=== PATIENT | female | born 1940 | race Caucasian/White ===

== ENCOUNTER → 2019-10-10 | Outpatient (CLI) | payer MEDICARE, OTHER, MEDICAID ==
--- NOTE | 2019-10-10 16:17 | Diagnostic Imaging Report ---
INDICATION: Fever and dizziness. EXAMINATION: PA and lateral chest. FINDINGS: There are postop changes from CABG surgery. The heart size and pulmonary vascularity are normal. The lungs are clear. There are no effusions or pneumothoraces. IMPRESSION: Post surgical changes. No acute abnormality is seen. Dictated by: Dictated on workstation # [id number]
== END ==
LOC: RAD FS 14:15
PROVIDERS: ATTEND Nurse Practitioner Family
DX: R50.9 Fever, unspecified (principal); R42 Dizziness and giddiness; Z95.1 Presence of aortocoronary bypass graft
CPT/HCPCS: 71046

== ENCOUNTER 2019-12-28 10:12 | Emergency (ER) | payer MEDICARE, OTHER, MEDICAID ==
[~2019-12-28] VITALS: Ht 154.9 cm; Wt 58.5 kg
[2019-12-28] MEDS ORDERED: methylPREDNISolone 125 MG (Solu-MEDROL) VIAL IVP ONE (10:45)
[2019-12-28] MEDS ORDERED: RT-ALBUTEROL/IPRATROPIUM 3 ML (DUONEB) VIAL INH ONE (10:45)
[2019-12-28] MEDS ORDERED: methylPREDNISolone 125 MG (Solu-MEDROL) VIAL ONE (10:49)
[2019-12-28] MEDS ORDERED: RT-ALBUTEROL/IPRATROPIUM 3 ML (DUONEB) VIAL ONE (10:49)
[2019-12-28 11:04] LABS: HEMATOCRIT 38 % (35-52); HEMOGLOBIN 12.5 G/DL (11.5-16.0); MEAN CORPUSCULAR HEMOGLOBIN 28 PG (25-34); MEAN CORPUSCULAR HGB CONC 33 G/DL (32-36); MEAN CORPUSCULAR VOLUME 83 FL (80-99); MEAN PLATELET VOLUME 10.9 FL (7.4-10.4); PLATELET COUNT 185 10^3/uL (130-400); RED CELL DISTRIBUTION WIDTH 14.5 % (10.0-14.5); WHITE BLOOD COUNT 27.6 10^3/uL (4.3-11.0)
[2019-12-28 11:05] LABS: BASOPHILS % (AUTO) 1 % (0-10); EOSINOPHILS % (AUTO) 0 % (0-10); LYMPHOCYTES # (AUTO) 0.9 X 10^3 (1.0-4.0); LYMPHOCYTES % (AUTO) 3 % (12-44); MONOCYTES % (AUTO) 4 % (0-12); NEUTROPHILS # (AUTO) 24.8 X 10^3 (1.8-7.8); NEUTROPHILS % (AUTO) 90 % (42-75)
[2019-12-28 11:12] LABS: INR 1.1 (0.8-1.4); PROTHROMBIN TIME PATIENT 15.1 SEC (12.2-14.7)
--- NOTE | 2019-12-28 11:13 | ED General ---
General Chief Complaint: Respiratory Problems Stated Complaint: FEVER; WHEEZING; O2 80 History of Present Illness Date Seen by Provider: Dec 28, 2019 Time Seen by Provider: 11:10 Initial Comments Patient presenting to the emergency department for evaluation of fever cough and shortness of breath. Patient lives at home with her son and had no recent hospitalizations antibiotics or steroids at their aware of. Patient has felt ill for approximately week and went to primary care provider today and had a fe cata of 102.6 there and was sent here for further evaluation. Patient is on baseline 2 L oxygen and superiorly she has obstructive sleep apnea. She was satting 78% on her baseline 2 L and was then increased to 4 L and her oxygen saturation improved to 90%. She has history of coronary artery disease and may have COPD as well as she is prescribed a nebulizer. She appears to be in moderate respiratory distress but is nontoxic. Allergies and Home Medications Allergies Coded Allergies: Penicillins (Unverified Adverse Reaction, Mild, nausea and vomiting, 12/28/19) from [facility] cefixime (Unverified Adverse Reaction, Mild, nausea and vomiting, 12/28/19) from [facility] Suprax (Cefixime) cephalexin (Unverified Adverse Reaction, Mild, nausea and vomiting, 12/28/19) from [facility] esomeprazole (Unverified Adverse Reaction, Mild, Rash, 12/28/19) from [facility] guaifenesin (Unverified Adverse Reaction, Mild, nausea and vomiting, 0) from [facility] (Guaifed) hydrocodone (Unverified Adverse Reaction, Mild, rash, 12/28/19) from [facility] (Hydrocodone-acetaminophen) omeprazole (Unverified Adverse Reaction, Mild, rash, 12/28/19) from [facility] oxycodone (Unverified Adverse Reaction, Mild, rash, 12/28/19) from [facility] pantoprazole (Unverified Adverse Reaction, Mild, rash, 12/28/19) from [facility] phenylephrine (Unverified Adverse Reaction, Mild, Nausea andd vomiting, 12/28/19) from [facility] (Guaifed) sucralfate (Unverified Adverse Reaction, Mild, Itching, 12/28/19) from [facility] hydrochlorothiazide (Unverified Adverse Reaction, Unknown, 12/28/19) from [facility] (Spironolacton-hydrochlorothiaz) ibuprofen (Unverified Adverse Reaction, Unknown, 12/28/19) from [facility] metoclopramide (Unverified Adverse Reaction, Unknown, 12/28/19) from [facility] prochlorperazine (Unverified Adverse Reaction, Unknown, 12/28/19) from [facility] spironolactone (Unverified Adverse Reaction, Unknown, 12/28/19) from [facility] (Spironolacton-hydrochlorothiaz) Patient Home Medication List Home Medication List Reviewed: Yes Review of Systems Review of Systems Constitutional: fever EENTM: no symptoms reported Respiratory: cough, short of breath Cardiovascular: no symptoms reported Gastrointestinal: no symptoms reported Genitourinary: no symptoms reported Musculoskeletal: no symptoms reported Skin: no symptoms reported Psychiatric/Neurological: No Symptoms Reported All Other Systems Reviewed Negative Unless Noted: Yes Past Bvzqsei-Zxsynf-Ultemb Hx Patient Social History Recent Foreign Travel: No Physical Exam Vital Signs Vital Signs - First Documented 12/28/19 10:17 Temp 37.6 Pulse 76 Resp 22 B/P (MAP) 135/40 (71) Pulse Ox 91 O2 Delivery Nasal Cannula O2 Flow Rate 4.00 Capillary Refill : Height, Weight, BMI Height: '" Weight: lbs. oz. kg; BMI Method: General Appearance: Chronically ill, Moderate Distress HEENT: PERRL/EOMI Neck: Supple Respiratory: Decreased Breath Sounds, Rhonci, Wheezing Cardiovascular: Regular Rate, Rhythm Extremity: Normal Capillary Refill Neurologic/Psychiatric: Alert, Oriented x3 Skin: Warm/Dry Focused Exam Lactate Level 12/28/19 10:35: Lactic Acid Level 1.15 Lactic Acid Level Laboratory Tests Test 12/28/19 10:35 Lactic Acid Level 1.15 MMOL/L (0.50-2.00) Progress/Results/Core Measures Suspected Sepsis SIRS Temperature: Pulse: Respiratory Rate: Laboratory Tests 12/28/19 10:35: White Blood Count 27.6H Blood Pressure / Mean: 12/28/19 10:35: Lactic Acid Level 1.15 Laboratory Tests 12/28/19 10:35: Creatinine 1.37H, INR Comment 1.1, Platelet Count 185, Total Bilirubin 1.2H Results/Orders Lab Results Laboratory Tests Test 12/28/19 10:35 Range/Units White Blood Count 27.6 H 4.3-11.0 10^3/uL Red Blood Count 4.53 4.35-5.85 10^6/uL Hemoglobin 12.5 11.5-16.0 G/DL Hematocrit 38 35-52 % Mean Corpuscular Volume 83 80-99 FL Mean Corpuscular Hemoglobin 28 25-34 PG Mean Corpuscular Hemoglobin Concent 33 32-36 G/DL Red Cell Distribution Width 14.5 10.0-14.5 % Platelet Count 185 130-400 10^3/uL Mean Platelet Volume 10.9 H 7.4-10.4 FL Neutrophils (%) (Auto) 90 H 42-75 % Lymphocytes (%) (Auto) 3 L 12-44 % Monocytes (%) (Auto) 4 0-12 % Eosinophils (%) (Auto) 0 0-10 % Basophils (%) (Auto) 1 0-10 % Neutrophils # (Auto) 24.8 H 1.8-7.8 X 10^3 Lymphocytes # (Auto) 0.9 L 1.0-4.0 X 10^3 Monocytes # (Auto) 1.0 0.0-1.0 X 10^3 Eosinophils # (Auto) 0.0 0.0-0.3 10^3/uL Basophils # (Auto) 0.0 0.0-0.1 10^3/uL Neutrophils % (Manual) 94 % Lymphocytes % (Manual) 2 % Monocytes % (Manual) 1 % Eosinophils % (Manual) 0 % Basophils % (Manual) 0 % Metamyelocytes % 0 % Myelocytes % 1 % Band Neutrophils 2 % Prothrombin Time 15.1 H 12.2-14.7 SEC INR Comment 1.1 0.8-1.4 Activated Partial Thromboplast Time 32 24-35 SEC Sodium Level 130 L 135-145 MMOL/L Potassium Level 3.5 L 3.6-5.0 MMOL/L Chloride Level 92 L 98-107 MMOL/L Carbon Dioxide Level 26 21-32 MMOL/L Anion Gap 12 5-14 MMOL/L Blood Urea Nitrogen 38 H 7-18 MG/DL Creatinine 1.37 H 0.60-1.30 MG/DL Estimat Glomerular Filtration Rate 37 BUN/Creatinine Ratio 28 Glucose Level 217 H 70-105 MG/DL Lactic Acid Level 1.15 0.50-2.00 MMOL/L Calcium Level 9.1 8.5-10.1 MG/DL Corrected Calcium 9.7 8.5-10.1 MG/DL Magnesium Level 2.4 1.6-2.4 MG/DL Total Bilirubin 1.2 H 0.1-1.0 MG/DL Aspartate Amino Transf (AST/SGOT) 34 5-34 U/L Alanine Aminotransferase (ALT/SGPT) 24 0-55 U/L Alkaline Phosphatase 107 40-136 U/L Troponin I < 0.30 <0.30 NG/ML Pro-B-Type Natriuretic Peptide 1579.0 H <75.0 PG/ML Total Protein 6.8 6.4-8.2 GM/DL Albumin 3.2 3.2-4.5 GM/DL My Orders Orders - MARYJANE MILLER DO Chest 1 View Ap/Pa Only (12/28/19 10:42) Ua Culture If Indicated (12/28/19 10:42) Troponin I Fs (12/28/19 10:42) Cbc With Automated Diff (12/28/19 10:42) Comprehensive Metabolic Panel (12/28/19 10:42) Lactic Acid Analyzer (12/28/19 10:42) Blood Culture (12/28/19 10:42) Magnesium (12/28/19 10:42) Partial Thromboplastin Time (12/28/19 10:42) Probnp Fs (12/28/19 10:42) Protime With Inr (12/28/19 10:42) Albuterol/Ipra Inhalation Soln (Duoneb I (12/28/19 10:45) Methylprednisolone Sod Succ (Solu-Medrol (12/28/19 10:45) Svn Small Volume Nebulizer (12/28/19 10:42) Blood Culture (12/28/19 10:52) Manual Differential (12/28/19 10:35) Levofloxacin 750 Mg/150 Ml Iv (Levaquin (12/28/19 11:15) Potassium Chloride (Tablet) (K Dur Table (12/28/19 12:00) Ns Iv 1000 Ml (Sodium Chloride 0.9%) (12/28/19 12:00) Medications Given in ED Current Medications Medications Dose Ordered Sig/Wilfrid Route Start Time Stop Time Status Last Admin Dose Admin Albuterol/ Ipratropium 3 ml ONCE ONCE INH 12/28/19 10:45 12/28/19 10:46 DC 12/28/19 10:56 3 ML Levofloxacin/ Dextrose 150 ml @ 100 mls/hr ONCE ONCE IV 12/28/19 11:15 12/28/19 12:44 12/28/19 11:55 100 MLS/HR Methylprednisolone Sodium Succinate 125 mg ONCE ONCE IVP 12/28/19 10:45 12/28/19 10:46 DC 12/28/19 10:56 125 MG Potassium Chloride 40 meq ONCE ONCE PO 12/28/19 12:00 12/28/19 12:01 DC 12/28/19 12:00 40 MEQ Vital Signs/I&O 12/28/19 10:17 Temp 37.6 Pulse 76 Resp 22 B/P (MAP) 135/40 (71) Pulse Ox 91 O2 Delivery Nasal Cannula O2 Flow Rate 4.00 Capillary Refill : Progress Note : Progress Note Patient likely does have infection given her leukocytosis. She will be started on Levaquin for likely community-acquired pneumonia. She was also given Solu- Medrol and a breathing treatment and said she was feeling somewhat better but her oxygen remained in the 90-92% range on 4 L. I reviewed her chest x-ray appears that she has a right-sided pneumonia and possibly an effusion as well. Given she is requiring more oxygen and appears to have infection with multiple comorbidities inpatient treatment is most appropriate for her in my opinion. [facility] stated that they are on MedSurg diversion. I spoke to Dr. Acosta who is the hospitalist at [facility] and she agreed to take the patient for admission. Patient is hemodynamically stable at this time with a normal lactic acid and does not meet sepsis criteria. She'll be transferred in guarded condition. Departure Impression Primary Impression: CAP (community acquired pneumonia) Qualified Codes: J18.1 - Lobar pneumonia, unspecified organism Additional Impressions: Hypoxia Hyponatremia Hypokalemia Elevated brain natriuretic peptide (BNP) level Disposition: [facility]-TRM HOSP Condition: Improved Transfer Transfer Reason: Exceeds level of care Time Spoke to Accepting Phy: 11:45 Transfer Facility: [place] Method of Transfer: EMS Departure-Patient Inst. Referrals: [facility] (PCP) Primary Care Physician ANA THOMAS APRN (Family) Primary Care Physician MARYJANE MILLER DO Dec 28, 2019 11:13
[2019-12-28] MEDS ORDERED: LEVOFLOXACIN 750 MG/150 ML IV 150 ML IV ONE ×2 (11:15→11:49)
[2019-12-28] MEDS ORDERED: MECL-106 (11:24)
[2019-12-28] MEDS ORDERED: POTA20TA15 (11:24)
[2019-12-28] MEDS ORDERED: FAMO40TA6 (11:24)
[2019-12-28] MEDS ORDERED: ALPR0.5T7 (11:24)
[2019-12-28 11:26] LABS: BAND NEUTROPHILS 2 %; BASOPHILS % (MANUAL) 0 %; EOSINOPHILS % (MANUAL) 0 %; LYMPHOCYTES % (MANUAL) 2 %; METAMYELOCYTES % 0 %; MONOCYTES % (MANUAL) 1 %; MYELOCYTES % 1 %; NEUTROPHILS % (MANUAL) 94 %
[2019-12-28 11:43] LABS: BUN/CREATININE RATIO 28; CALCIUM 9.1 MG/DL (8.5-10.1); CARBON DIOXIDE 26 MMOL/L (21-32); CHLORIDE 92 MMOL/L (98-107); CREATININE SERUM 1.37 MG/DL (0.60-1.30); GFR ESTIMATED 37; GLUCOSE 217 MG/DL (70-105); POTASSIUM 3.5 MMOL/L (3.6-5.0); SODIUM 130 MMOL/L (135-145)
[2019-12-28 11:44] LABS: ALANINE AMINOTRANSFERASE 24 U/L (0-55); ALBUMIN 3.2 GM/DL (3.2-4.5); ALKALINE PHOSPHATASE 107 U/L (40-136); BILIRUBIN,TOTAL 1.2 MG/DL (0.1-1.0); MAGNESIUM 2.4 MG/DL (1.6-2.4); TOTAL PROTEIN 6.8 GM/DL (6.4-8.2)
[2019-12-28] MEDS ORDERED: KCL 20 MEQ TAB (K-DUR) PO ONE ×2 (11:53→12:00)
[2019-12-28] MEDS ORDERED: NS IV 1000 ML 1,000 ML ONE (11:53)
[2019-12-28] MEDS ORDERED: NS IV 1000 ML 1,000 ML IV SCH (12:00)
[2019-12-28 13:10] VITALS: BP 132/49
[2019-12-28 13:21] LABS: CLARITY,URINE SLT CLOUDY; COLOR,URINE YELLOW; PH,URINE 5.5 (5-9)
[2019-12-28 13:22] LABS: AMORPHOUS SEDIMENT,UR FEW AMOR URATES /LPF; BACTERIA,URINE FEW /HPF; BILIRUBIN,URINE NEGATIVE (NEGATIVE); GLUCOSE, URINE (UA) NEGATIVE (NEGATIVE); KETONES,URINE NEGATIVE (NEGATIVE); LEUKOCYTE ESTERASE ,URINE 2+ (NEGATIVE); NITRITE,URINE NEGATIVE (NEGATIVE); PROTEIN,URINE 1+ (NEGATIVE); SQUAMOUS EPITHELIAL CELL,UR 0-2 /HPF
[2019-12-28 13:23] LABS: GRANULAR CASTS,URINE 0-2 /LPF
--- NOTE | 2019-12-28 14:24 | Diagnostic Imaging Report ---
INDICATION: Infiltrate. TECHNIQUE: Single view chest 11:11 AM. CORRELATION STUDY: 10/10/2019 FINDINGS: Post sternotomy changes with coronary artery bypass. Heart size and mediastinum are generally stable. Vasculature is slightly increased from prior study. There has been development of patchy infiltrate at both lung bases right greater than left along with small effusions. Additional somewhat nodular density left mid lung field is also present, partially obscured by overlying monitor leads. Sclerotic curvature with the thoracolumbar spine. Marked chronic degenerative changes and deformity left shoulder. IMPRESSION: 1. Development of bilateral pulmonary infiltrates right greater than left along with small effusions. Findings favor probable multilobe pneumonia. Follow-up imaging is recommended as there is additional areas of nodularity suggested as well. 2. Heart size stable, vascular slightly increased from prior study. Dictated by: Dictated on workstation # [id number]
== END 2019-12-28 13:10 | disposition short-term general hospital (02) ==
LOC: EDUNIT# 10:12 → ER FS 10:14
DX: J18.9 Pneumonia, unspecified organism (principal); R09.02 Hypoxemia; E87.1 Hypo-osmolality and hyponatremia; E87.6 Hypokalemia; R79.89 Other specified abnormal findings of blood chemistry; Z88.0 Allergy status to penicillin; Z88.1 Allergy status to other antibiotic agents; Z88.5 Allergy status to narcotic agent; Z88.8 Allergy status to other drugs, medicaments and biological substances; Z88.6 Allergy status to analgesic agent
CPT/HCPCS: 36415; 71045; 80053; 81000; 83605; 83735; 83880; 84484; 85007; 85027; 85610; 85730; 87040; 87088; 94640; 96365; 96375

== ENCOUNTER → 2020-04-08 | Outpatient (CLI) | payer MEDICARE, OTHER, MEDICAID ==
[~2020-04-08] MED LIST: ALPR0.5T7; FAMO40TA6; L. A1TAB10; MAGN296S71 PO; MECL-149; POTA20TA15; TRAM50TA3
--- NOTE | 2020-04-08 18:41 | Diagnostic Imaging Report ---
EXAM: 2 views of the abdomen INDICATION: History of colon cancer. Intermittent diarrhea. FINDINGS: There are no findings of significant bowel dilation to suggest a bowel obstruction. There are a few gas-filled loops of small and large bowel. There are surgical clips in the upper quadrant as well as apparent prior surgical enteric chain sutures. Nondilated small bowel demonstrates a few air-fluid levels in the upright view. There is no free air below the diaphragms. There is mild blunting of both costophrenic angles which may be chronic. The patient is status post prior bypass grafting. There is thoracolumbar scoliosis. IMPRESSION: 1. A few air-fluid levels on the upright view within nondilated loops of bowel. There are no features to suggest current obstruction. There are no findings of free air. Dictated by: Dictated on workstation # [id number]
== END ==
LOC: RAD FS 17:34
PROVIDERS: ATTEND Nurse Practitioner Family
DX: R19.7 Diarrhea, unspecified (principal)
CPT/HCPCS: 74019

== ENCOUNTER 2020-04-10 12:28 | Emergency (ER) | payer MEDICARE, OTHER, MEDICAID ==
[~2020-04-10] VITALS: Ht 160 cm; Wt 59.7 kg
[~2020-04-10 12:28] MED LIST changes: -L. A1TAB10; -MAGN296S71 PO; -TRAM50TA3
[2020-04-10 13:30] LABS: BASOPHILS % (AUTO) 0 % (0-10); EOSINOPHILS % (AUTO) 3 % (0-10); HEMATOCRIT 39 % (35-52); HEMOGLOBIN 12.6 G/DL (11.5-16.0); LYMPHOCYTES # (AUTO) 1.5 X 10^3 (1.0-4.0); LYMPHOCYTES % (AUTO) 22 % (12-44); MEAN CORPUSCULAR HEMOGLOBIN 28 PG (25-34); MEAN CORPUSCULAR HGB CONC 32 G/DL (32-36); MEAN CORPUSCULAR VOLUME 86 FL (80-99); MEAN PLATELET VOLUME 10.7 FL (7.4-10.4); MONOCYTES % (AUTO) 8 % (0-12); NEUTROPHILS # (AUTO) 4.7 X 10^3 (1.8-7.8); NEUTROPHILS % (AUTO) 67 % (42-75); PLATELET COUNT 267 10^3/uL (130-400); RED CELL DISTRIBUTION WIDTH 13.6 % (10.0-14.5); WHITE BLOOD COUNT 7.1 10^3/uL (4.3-11.0)
[2020-04-10 13:31] LABS: EOSINOPHILS # (AUTO) 0.2 10^3/uL (0.0-0.3); MONOCYTES # (AUTO) 0.6 X 10^3 (0.0-1.0)
--- NOTE | 2020-04-10 13:39 | ED Abdominal Pain ---
General Chief Complaint: Abdominal/GI Problems Stated Complaint: BOWEL CONSTIPATION History of Present Illness Date Seen by Provider: April 10, 2020 Time Seen by Provider: 13:34 Initial Comments Patient presenting to emergency department for evaluation of abdominal pain that she says has been an issue for the past 5-7 days. She had diarrhea on Wednesday and her doctor told her to take an Imodium which helped the diarrhea however the diarrhea returned again on Wednesday and she took another Imodium and now she has not had a bowel movement for the past 2 days and she feels constipated. The abdominal pain has been an off and on issue and she says it is worse primarily in the right lower quadrant. She denies any other symptoms including no fevers chills nausea vomiting dysuria. She says her only abdominal surgery is having 14 inches of her colon removed for prior cancer. She is in no obvious distress with normal vital signs and says she is pain-free at this time but when she gets the pain it can be up to an 8 out of 10. Allergies and Home Medications Allergies Coded Allergies: clindamycin (Unverified Allergy, Severe, Anaphylaxis, 04/10/20) ondansetron (Unverified Allergy, Severe, Anaphylaxis, 04/10/20) prednisone (Unverified Adverse Reaction, Intermediate, Confusion, 04/10/20) Penicillins (Unverified Adverse Reaction, Mild, nausea and vomiting, 12/28/19) from [facility] cefixime (Unverified Adverse Reaction, Mild, nausea and vomiting, 12/28/19) from [facility] Suprax (Cefixime) cephalexin (Unverified Adverse Reaction, Mild, nausea and vomiting, 12/28/19) from [facility] esomeprazole (Unverified Adverse Reaction, Mild, Rash, 12/28/19) from [facility] guaifenesin (Unverified Adverse Reaction, Mild, nausea and vomiting, 12/28/19) from [facility] (Guaifed) hydrocodone (Unverified Adverse Reaction, Mild, rash, 12/28/19) from [facility] (Hydrocodone-acetaminophen) omeprazole (Unverified Adverse Reaction, Mild, rash, 12/28/19) from [facility] oxycodone (Unverified Adverse Reaction, Mild, rash, 12/28/19) from [facility] pantoprazole (Unverified Adverse Reaction, Mild, rash, 12/28/19) from [facility] phenylephrine (Unverified Adverse Reaction, Mild, Nausea andd vomiting, 12/28/19) from [facility] (Guaifed) sucralfate (Unverified Adverse Reaction, Mild, Itching, 12/28/19) from [facility] Sulfa (Sulfonamide Antibiotics) (Unverified Adverse Reaction, Unknown, 04/10/20) celecoxib (Unverified Adverse Reaction, Unknown, 04/10/20) hydrochlorothiazide (Unverified Adverse Reaction, Unknown, 12/28/19) from [facility] (Spironolacton-hydrochlorothiaz) ibuprofen (Unverified Adverse Reaction, Unknown, 12/28/19) from [facility] metoclopramide (Unverified Adverse Reaction, Unknown, 12/28/19) from [facility] prochlorperazine (Unverified Adverse Reaction, Unknown, 12/28/19) from [facility] spironolactone (Unverified Adverse Reaction, Unknown, 12/28/19) from [facility] (Spironolacton-hydrochlorothiaz) Patient Home Medication List Home Medication List Reviewed: Yes Review of Systems Review of Systems Constitutional: no symptoms reported EENTM: No Symptoms Reported Respiratory: No Symptoms Reported Cardiovascular: No Symptoms Reported Gastrointestinal: Abdominal Pain, Constipated, Diarrhea Genitourinary: No Symptoms Reported Musculoskeletal: no symptoms reported Psychiatric/Neurological: No Symptoms Reported All Other Systems Reviewed Negative Unless Noted: Yes Past Xmbzcoz-Fpptqw-Mhaaqf Hx Patient Social History 2nd Hand Smoke Exposure: No Recent Foreign Travel: No Contact w/Someone Who Travel: No Recent Hopitalizations: No Seasonal Allergies Seasonal Allergies: No Past Medical History Surgeries: Yes (Colonoscopy w/polypectomy, Quad CABG, heart cath) Bowel Surgery, CABG, Gallbladder Respiratory: Yes (Hx pneumonia, chronic obstructive airway, Nocturnal O2 2L) Pneumonia, COPD Cardiac: Yes (Quadruple bypass) Coronary Artery Disease, High Cholesterol, Hypertension Neurological: No Genitourinary: No Gastrointestinal: Yes (Hx reflux esophagitis/duodenitis, Hx tubulovillous adenoma) Gastroesophageal Reflux, Esophagitis Musculoskeletal: Yes (Hx fx shoulder) Fractures Endocrine: Yes (Hx DM on [facility]) Diabetes, Non-Insulin dep HEENT: No Cancer: No Psychosocial: Yes (Rx for Xanax on pharmacy file) Anxiety Blood Disorders: No Physical Exam Vital Signs Vital Signs - First Documented 04/10/20 12:35 Temp 36.8 Pulse 67 Resp 16 B/P (MAP) 146/56 (86) Pulse Ox 95 O2 Delivery Room Air Capillary Refill : Height/Weight/BMI Height: '" Weight: lbs. oz. kg; 24.00 BMI Method: General Appearance: WD/WN, no apparent distress Neck: supple Respiratory: no respiratory distress Cardiovascular: regular rate, rhythm Gastrointestinal: normal bowel sounds, non tender, soft Extremities: normal capillary refill Neurologic/Psychiatric: alert, oriented x 3 Skin: warm/dry Progress/Results/Core Measures Results/Orders Lab Results Laboratory Tests Test 04/10/20 13:05 04/10/20 13:38 Range/Units White Blood Count 7.1 4.3-11.0 10^3/uL Red Blood Count 4.56 4.35-5.85 10^6/uL Hemoglobin 12.6 11.5-16.0 G/DL Hematocrit 39 35-52 % Mean Corpuscular Volume 86 80-99 FL Mean Corpuscular Hemoglobin 28 25-34 PG Mean Corpuscular Hemoglobin Concent 32 32-36 G/DL Red Cell Distribution Width 13.6 10.0-14.5 % Platelet Count 267 130-400 10^3/uL Mean Platelet Volume 10.7 H 7.4-10.4 FL Neutrophils (%) (Auto) 67 42-75 % Lymphocytes (%) (Auto) 22 12-44 % Monocytes (%) (Auto) 8 0-12 % Eosinophils (%) (Auto) 3 0-10 % Basophils (%) (Auto) 0 0-10 % Neutrophils # (Auto) 4.7 1.8-7.8 X 10^3 Lymphocytes # (Auto) 1.5 1.0-4.0 X 10^3 Monocytes # (Auto) 0.6 0.0-1.0 X 10^3 Eosinophils # (Auto) 0.2 0.0-0.3 10^3/uL Basophils # (Auto) 0.0 0.0-0.1 10^3/uL Sodium Level 140 135-145 MMOL/L Potassium Level 4.3 3.6-5.0 MMOL/L Chloride Level 98 98-107 MMOL/L Carbon Dioxide Level 30 21-32 MMOL/L Anion Gap 12 5-14 MMOL/L Blood Urea Nitrogen 28 H 7-18 MG/DL Creatinine 1.19 0.60-1.30 MG/DL Estimat Glomerular Filtration Rate 44 BUN/Creatinine Ratio 24 Glucose Level 146 H 70-105 MG/DL Calcium Level 9.9 8.5-10.1 MG/DL Corrected Calcium 9.9 8.5-10.1 MG/DL Total Bilirubin 0.4 0.1-1.0 MG/DL Aspartate Amino Transf (AST/SGOT) 18 5-34 U/L Alanine Aminotransferase (ALT/SGPT) 14 0-55 U/L Alkaline Phosphatase 110 40-136 U/L Total Protein 7.2 6.4-8.2 GM/DL Albumin 4.0 3.2-4.5 GM/DL Lipase 20 8-78 U/L Urine Color PALE YELLOW Urine Clarity CLEAR Urine pH 6.0 5-9 Urine Specific Buchanan <=1.005 1.016-1.022 Urine Protein NEGATIVE NEGATIVE Urine Glucose (UA) NEGATIVE NEGATIVE Urine Ketones NEGATIVE NEGATIVE Urine Nitrite NEGATIVE NEGATIVE Urine Bilirubin NEGATIVE NEGATIVE Urine Urobilinogen 0.2 < = 1.0 MG/DL Urine Leukocyte Esterase TRACE H NEGATIVE Urine RBC (Auto) NEGATIVE NEGATIVE Urine RBC RARE /HPF Urine WBC 5-10 H /HPF Urine Squamous Epithelial Cells 0-2 /HPF Urine Crystals NONE /LPF Urine Bacteria TRACE /HPF Urine Casts NONE /LPF Urine Mucus NEGATIVE /LPF Urine Culture Indicated YES My Orders Orders - MARYJANE MILLER DO Cbc With Automated Diff (04/10/20 12:45) Comprehensive Metabolic Panel (04/10/20 12:45) Lipase (04/10/20 12:45) Ua Culture If Indicated (04/10/20 12:45) Iv/Invasive Line Insertion .IV start (04/10/20 12:45) Ct Abdomen/Pelvis W (04/10/20 12:45) Iohexol Injection (Omnipaque 350 Mg/Ml 1 (04/10/20 14:00) Received Contrast (Hold Metformin- Contr (04/10/20 14:00) Sodium Chloride Flush (Catheter Flush Sy (04/10/20 14:00) Ns (Ivpb) (Sodium Chloride 0.9% Ivpb Bag (04/10/20 14:00) Urine Culture (04/10/20 13:38) Medications Given in ED Current Medications Medications Dose Ordered Sig/Wilfrid Route Start Time Stop Time Status Last Admin Dose Admin Iohexol 75 ml ONCE ONCE IV 04/10/20 14:00 04/10/20 14:01 DC 04/10/20 14:14 75 ML Sodium Chloride 10 ml NEEDED PRN IV 04/10/20 14:00 04/10/20 14:14 10 ML Sodium Chloride 100 ml ONCE ONCE IV 04/10/20 14:00 04/10/20 14:01 DC 04/10/20 14:14 80 ML Vital Signs/I&O 04/10/20 12:35 Temp 36.8 Pulse 67 Resp 16 B/P (MAP) 146/56 (86) Pulse Ox 95 O2 Delivery Room Air Progress Progress Note : Progress Note Patient with nonspecific abdominal pain that certainly could be due to constipation or enteritis I will check labs imaging and reassess. Patient's workup was unremarkable for acute surgical pathology but there is some concerning findings with possible mild urinary tract infection but more significantly she may have a kidney stone that she has hydroureter and hydronephrosis it appears that this is her only functioning kidney. Her renal function is normal fortunately and she is having no pain here. I discussed this with Dr. Hook and he said that he would be willing to see the patient in his office. He thinks that there may be a kidney stone hydrating due to the CT having contrast. I told patient to drink plenty of fluids and she could take tramadol for her pain and she could take magnesium citrate for her constipation. I discussed starting her on antibiotics however she said she is allergic to most antibiotics I will defer antibiotic at this time. I told her to follow with primary care provider or urologist within 2-3 days to ensure improvement and come back to the ED sooner with worsening pain fevers vomiting or other general concerns. Patient aware and agreeable with plan for discharge and verbalized understanding of the above instructions. Departure Impression Primary Impression: Hydronephrosis Additional Impressions: Hydroureter Constipation Abdominal pain Disposition: HOME, SELF-CARE Condition: Stable Departure-Patient Inst. Referrals: [facility]/ (PCP) Primary Care Physician ANA THOMAS APRN (Family) Primary Care Physician Patient Instructions: Acute Abdomen (Belly Pain), Adult (DC) Scripts Magnesium Citrate (Magnesium Citrate) 296 Ml Solution 296 ML PO ONCE, #1 EA Prov: MARYJANE MILLER DO 04/10/20 MARYJANE MILLER DO April 10, 2020 13:39
[2020-04-10 13:44] LABS: CREATININE SERUM 1.19 MG/DL (0.60-1.30); POTASSIUM 4.3 MMOL/L (3.6-5.0)
[2020-04-10 13:45] LABS: BILIRUBIN,TOTAL 0.4 MG/DL (0.1-1.0); CALCIUM 9.9 MG/DL (8.5-10.1); TOTAL PROTEIN 7.2 GM/DL (6.4-8.2)
[2020-04-10] MEDS ORDERED: L. A1TAB10 (13:58)
[2020-04-10] MEDS ORDERED: TRAM50TA3 (13:58)
[2020-04-10 14:00] LABS: BILIRUBIN,URINE NEGATIVE (NEGATIVE); CLARITY,URINE CLEAR; COLOR,URINE PALE YELLOW; GLUCOSE, URINE (UA) NEGATIVE (NEGATIVE); KETONES,URINE NEGATIVE (NEGATIVE); LEUKOCYTE ESTERASE ,URINE TRACE (NEGATIVE); NITRITE,URINE NEGATIVE (NEGATIVE); PROTEIN,URINE NEGATIVE (NEGATIVE); RBC,URINE RARE /HPF
[2020-04-10] MEDS ORDERED: CATHETER FLUSH 10 ML SYR IV PRN (14:00)
[2020-04-10] MEDS ORDERED: HOLD METFORMIN - RECEIVED CONTRAST 20 ML VIAL IV SCH (14:00)
[2020-04-10] MEDS ORDERED: NS 100 ML (IVPB) BAG IV ONE (14:00)
[2020-04-10] MEDS ORDERED: IOHEXOL 350 MG/ML 100 ML (OMNIPAQUE 350) VIAL IV ONE (14:00)
[2020-04-10 14:01] LABS: BACTERIA,URINE TRACE /HPF; SQUAMOUS EPITHELIAL CELL,UR 0-2 /HPF
--- NOTE | 2020-04-10 14:34 | Diagnostic Imaging Report ---
PROCEDURE: CT abdomen and pelvis with contrast. TECHNIQUE: Multiple contiguous axial images were obtained through the abdomen and pelvis after administration of intravenous contrast. Auto Exposure Controls were utilized during the CT exam to meet ALARA standards for radiation dose reduction. INDICATION: Abdominal distention. Patient has history of colon carcinoma. COMPARISON: No prior studies are available for comparison. FINDINGS: Lung bases demonstrate areas of linear scarring or atelectasis. No discrete liver mass is detected. Gallbladder is surgically absent. Extrahepatic bile duct is prominent, likely owing to postcholecystectomy. Pancreas and spleen are unremarkable. No adrenal mass is detected. The left kidney is severely atrophic. There does appear to be some dilatation of the right renal collecting system. Right ureter is mildly prominent as well but no definite obstructing calculi are seen. No bladder calculi are detected. Aorta is heavily calcified but non-aneurysmal. The bowel loops are normal caliber. No obstruction is seen. There is diverticulosis of the sigmoid colon but no evidence of acute diverticulitis. No free fluid or fluid collection is identified. There is no central retroperitoneal or mesenteric lymphadenopathy. No definite pelvic lymphadenopathy is detected. IMPRESSION: 1. Solitary functioning right kidney with severe atrophy to the left kidney. There are low densities in the right renal hilum likely owing to combination of hydronephrosis as well as renal sinus cyst. Right ureter is also mildly prominent traced into the pelvis but no definite obstructing calculi are seen. 2. No evidence of abdominal or pelvic lymphadenopathy or metastatic disease. 3. Uncomplicated diverticulosis. Dictated by: Dictated on workstation # [id number]
[2020-04-10] MEDS ORDERED: MAGN296S71 PO (14:59)
--- OUTSIDE RECORDS SUMMARY | 2020-04-10 14:59 | XMS REPORT | Continuity of Care Document ---
Author Organization Unknown Address Unknown Phone Unavailable Allergies Active Description Code Type Severity Reaction Onset Reported/Identified Relationship to Patient Clinical Status Yes AMOXICILLIN MODERATE MODERATE Yes AMOXICILLIN MODERATE OTHER Yes BACTRIM UNKNOWN UNKNOWN Yes CARAFATE MODERATE MODERATE Yes CARAFATE MODERATE OTHER Yes CLINDAMYCIN HCL U NKNOWN UNKNOWN Yes COMPAZINE MODERATE MODERATE Yes KEFLEX MODERATE MODERATE Yes KEFLEX MODERATE OTHER Yes MOTRIN IB UNKNOWN UNKNOWN Yes MUCINEX MODERATE MODERATE Yes NEXIUM UNKNOWN UNKNOWN Yes PENICILLINS UNKNOWN UNKNOWN Yes PERCOCET MODERATE MODERATE Yes PERCOCET MODERATE OTHER Yes PRILOSEC MODERATE MODERATE Yes PRILOSEC MODERATE OTHER Yes PROTONIX MODERATE GI PROBLEMS - NAUSEA Yes PROTONIX MODERATE MODERATE Yes REGLAN SEVERE OTHER Yes REGLAN SEVERE SEVERE Yes SPIRONOLACTON-HYDROCHLOROTHIAZ UNKNOWN UNKNOWN Yes SUPRAX MODERATE MODERATE Yes ZOFRAN ODT UNKNOWN UNKNOWN Yes cefixime [id number] Drug Allergy Mild nausea and vomi 12/28/2019 Yes cephalexin [id number] Drug Allerg y Mild nausea and vomi 12/28/2019 Yes esomeprazole [id number] Drug Allergy Mild Rash 12/28/2019 Yes guaifenesin [id number] Drug Aller gy Mild nausea and vomi 12/28/2019 Yes hydrocodone [id number] Drug Aller gy Mild rash 12/28/2019 Yes omeprazole [id number] Drug Allerg y Mild rash 12/28/2019 Yes oxycodone [id number] Drug Allergy Mild rash 12/28/2019 Yes pantoprazole [id number] Drug Allergy Mild rash 12/28/2019 Yes Penicillins [id number] Drug Aller gy Mild nausea and vomi 12/28/2019 Yes phenylephrine [id number] Matthew g Allergy Mild Nausea andd vom 12/28/2019 Yes sucralfate [id number] Drug Allerg y Mild Itching 12/28/2019 Yes hydrochlorothiazide [id number] Drug Allergy Unknown N/A 12/28/2019 Yes ibuprofen [id number] Drug Allergy Unknown N/A 12/28/[id number] rodrigez Allergy Unknown N/A 12/28/2019 Yes prochlorperazine [id number] Drug Allergy Unknown N/A 12/28/2019 Yes spironolactone [id number] ug Allergy Unknown N/A 12/28/2019 Medications Medication Packaging Start Date St op Date Route Dosage Sig LEVALBUTEROL LIQ 0.63 MG/3CC (XOPENEX) MG 07/15/2018 07/15/2018 PRN ONCE CEFTRIAXONE INJ 1 GM (ROCEPHIN) GM 04/06/2019 04/06/2019 ONCE&1420 ALPRAZOLAM TAB 0.25 MG (XANAX) MG 04/06/2019 04/06/2019 PRN ONCE CEFTRIAXONE INJ 1 GM (ROCEPHIN) GM 04/07/2019 2019 Daily&0900 NORMAL SALINE 1000CC IV BAG INJ 0.9 % (NS 1000CC IV BAG) ml 12/28/2019 01/12/2020 CONTINUOUSEVERY 0 Hour METHYLPREDNISOLONE VIAL INJ 125 MG/2CC (SOLU-MEDROL VIAL) MG 12/28/2019 01/02/2020 BID&0100,1300 ENOXAPARIN SYRINGE INJ 40 MG (LOVENOX SYRI NGE) MG 12/28/2019 01/06/2020 Daily&1400 MECLIZINE TAB 25 MG (ANTIVERT) MG 12/28/2019 01/04/2020 PRN Q8H ALBUTEROL SVN 2.5MG/3CC LIQ 2.5 MG (PROVENTIL MIKE 2.5MG/3CC) MG 12/28/2019 01/07/2020 Q4H&0200,0600,1000,1400,1800 ,2200 INSULIN ASPART PEN INJ 100 U NITS/CC (NOVOLOG FLEXPEN) 12/28/2019 01/27/2020 ACHS&0630,1130,1630,2100 CALMOSEPTINE OINT TUBE (RISAMINE OINT) arthur 12/28/2019 01/04/2020 PRN QID NORMAL SALINE 1000CC IV BAG INJ 0.9 % (NS 1000CC IV BAG) ml 12/28/2019 01/12/2020 CONTINUOUSEVERY 0 Hour CARVEDILOL TAB 6.25 MG (COREG) MG 12/28/2019 01/04/2020 BID&0800,1999 CALMOSEPTINE OINT TUBE (RISAMINE OINT) arthur 12/28/2019 01/04/2020 BID&0800,2000 LACTOBACILLUS BULGARIS TAB (LACTINEX BULGA RIS) 12/28/2019 01/07/2020 BID&0800,1999 FAMOTIDINE TAB 20 MG (PEPCID) MG 12/28/2019 01/04/2020 BID&0800,2000 Lubricating Plus (carboxymet hylcellulose) Eye drop TEARS DROP 12/28/2019 01/07/2020 BID&0800,1999 BUDESONIDE INHALATION SUSP A MP 0.5 MG/2CC (PULMICORT) MG 12/28/2019 01/04/2020 BID&0800,2000 INSULIN DETEMIR PEN INJ 100 UNITS/CC (LEVEMIR FLEXPEN) UNITS 12/28/2019 01/26/2020 QPM&2000 ALPRAZOLAM TAB 0.5 MG (XANAX) MG 12/28/2019 01/06/2020 QHS&2100 MONTELUKAST TAB 10 MG (SINGULAIR) MG 12/28/2019 01/26/2020 QHS&2100 CEFEPIME PREMIX BAG IV 1 GM/ 50CC (MAXIPIME PREMIX BAG) GM 12/28/2019 01/04/2020 BID&0800,2000 IPRATROPIUM/ALBUTEROL INH SO LN (DUO-NEB INH SOLN) MLS 12/28/2019 01/04/2020 Q6H&0600,1200,1800,2359 METHYLPREDNISOLONE VIAL INJ 125 MG/2CC (SOLU-MEDROL VIAL) MG 12/28/2019 01/02/2020 Q6H&0600,1200,1800,2359 ALUM/MAG/SIMETH 30CC LIQ (MYLANTA PLUS) cc 12/29/2019 01/08/2020 PRN Q4H POTASSIUM CHLORIDE TAB 20 MEQ (K-DUR) MEQ 12/29/2019 01/27/2020 Daily&0900 ASPIRIN ENTERIC COATED TAB 8 1 MG (BABY ASPIRIN EC) MG 12/29/2019 01/04/2020 Daily&0900 TRAMADOL TAB 50 MG (ULTRAM) MG 12/29/2019 01/08/2020 PRN Daily Levofloxacin IV PHARMACY TO DOSE MG 12/29/2019 01/07/2020 Daily&0900 LEVOFLOXACIN PREMIX IV BAG I NJ 250 MG/50CC (LEVAQUIN PREMIX IV 50CC BAG) MG 12/29/2019 01/04/2020 Daily&1200 INSULIN ASPART PEN INJ 100 U NITS/CC (NOVOLOG FLEXPEN) 12/29/2019 12/29/2019 ONCE&1225 INSULIN ASPART PEN INJ 100 U NITS/CC (NOVOLOG FLEXPEN) 12/29/2019 01/28/2020 ACHS&0630,1130,1630,2100 ALPRAZOLAM TAB 0.5 MG (XANAX) MG 12/29/2019 01/08/2020 PRN QHS METHYLPREDNISOLONE VIAL INJ 125 MG/2CC (SOLU-MEDROL VIAL) MG 12/30/2019 01/03/2020 BID&0800,2000 POTASSIUM CHLORIDE TAB 20 MEQ (K-DUR) MEQ 12/30/2019 01/29/2020 BID&0800,2000 METHYLPREDNISOLONE VIAL INJ 125 MG/2CC (SOLU-MEDROL VIAL) MG 12/30/2019 01/04/2020 BID&0800,2000 INSULIN ASPART PEN INJ 100 U NITS/CC (NOVOLOG FLEXPEN) UNITS 12/31/2019 12/31/2019 ONCE&1655 GUAIFENESIN TAB 600 MG (MUCINEX) MG 12/31/2019 01/07/2020 BID&0800,2000 ACETYLCYSTEINE 20% RT LIQ 20 % (MUCOMYST 20% RT) cc 12/31/2019 01/10/2020 BID&0800,2000 Problems Date Dx Coded Attending Type Code Diagnosis Diagnosed By 08/03/2017 Laura Acosta M54.2 CERVICALGIA 08/03/2017 Dorene Ballard 719.41 PAIN IN JOINT INVOLVING SHOULDER REGION 08/03/2017 Brokob, Dorene A 723.1 CERVICALGIA 08/03/2017 Dorene Ballard W M25.511 PAIN IN RIGHT SHOULDER 08/03/2017 Dorene Ballard A M54.2 CERVICALGIA 08/10/2017 W 250.00 ALIYA BETES MELLITUS WITHOUT MENTION OF COMPLICATION, TYPE II OR UNSPECIFIED TYPE, NOT STATED UNCONTROLLED 08/10/2017 W 401.9 UNSP ECIFIED ESSENTIAL HYPERTENSION 08/10/2017 W 429.2 CARD IOVASCULAR DISEASE, UNSPECIFIED 08/10/2017 W E11.9 TYPE 2 DIABETES MELLITUS WITHOUT COMPLICATIONS 08/10/2017 W I10 ESSENT IAL (PRIMARY) HYPERTENSION 08/10/2017 W 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 10/23/2017 W 558.9 OTHE R AND UNSPECIFIED NONINFECTIOUS GASTROENTERITIS AND COLITIS 10/23/2017 W 599.0 URIN RUSLAN TRACT INFECTION, SITE NOT SPECIFIED 10/23/2017 W K52.9 OSWALDO NFECTIVE GASTROENTERITIS AND COLITIS, UNSPECIFIED 10/23/2017 W N39.0 URIN RUSLAN TRACT INFECTION, SITE NOT SPECIFIED 10/28/2017 A 787.02 ALKA SEA ALONE 10/28/2017 A R11.0 NAUSEA 11/19/2017 W 466.0 ACUT E BRONCHITIS 11/19/2017 W J20.9 ACUT E BRONCHITIS, UNSPECIFIED 01/28/2018 Irving Boyce 788.29 OTHER SPECIFIED RETENTION OF URINE 01/28/2018 Irving Boyce R33.0 DRUG INDUCED RETENTION OF URINE 01/29/2018 Johnathan Zavala V53.6 FITTING AND ADJUSTMENT OF URINARY DEVICES 01/29/2018 Johnathan Zavala Z46.6 ENCOUNTER FOR FITTING AND ADJUSTMENT OF URINARY DEVICE 01/29/2018 Dorene Ballard W 462 ACUTE PHARYNGITIS 01/29/2018 Dorene Ballard 787.20 DYSPHAGIA, UNSPECIFIED 01/29/2018 Dorene Ballard 788.20 RETENTION OF URINE, UNSPECIFIED 01/29/2018 Dorene Ballard J02.9 ACUTE PHARYNGITIS, UNSPECIFIED 01/29/2018 Dorene Ballard R13.10 DYSPHAGIA, UNSPECIFIED 01/29/2018 Dorene Ballard R33.9 RETENTION OF URINE, UNSPECIFIED 01/29/2018 JamesyonyDorene W V53.6 FITTING AND ADJUSTMENT OF URINARY DEVICES 01/29/2018 JamesDaljit bhaktaya W Z46.6 ENCOUNTER FOR FITTING AND ADJUSTMENT OF URINARY DEVICE 02/03/2018 W 153.9 DEANNA GNANT NEOPLASM OF COLON, UNSPECIFIED 02/03/2018 A 250.00 ALIYA BETES MELLITUS WITHOUT MENTION OF COMPLICATION, TYPE II OR UNSPECIFIED TYPE, NOT STATED UNCONTROLLED 02/03/2018 W 272.4 OTHE R AND UNSPECIFIED HYPERLIPIDEMIA 02/03/2018 W 401.1 SHEILA GN ESSENTIAL HYPERTENSION 02/03/2018 W 429.2 CARD IOVASCULAR DISEASE, UNSPECIFIED 02/03/2018 W C18.9 DEANNA GNANT NEOPLASM OF COLON, UNSPECIFIED 02/03/2018 A E11.9 TYPE 2 DIABETES MELLITUS WITHOUT COMPLICATIONS 02/03/2018 W E78.5 HYPE RLIPIDEMIA, UNSPECIFIED 02/03/2018 W I10 ESSENT IAL (PRIMARY) HYPERTENSION 02/03/2018 W 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 04/29/2018 Brandon Fatou W 250.00 DIABETES MELLITUS WITHOUT MENTION OF COMPLICATION, TYPE II OR UNSPECIFIED TYPE, NOT STATED UNCONTROLLED 04/29/2018 Fatou Taylor W 401.9 UNSPECIFIED ESSENTIAL HYPERTENSION 04/29/2018 Brandon Fatou W 429.2 CARDIOVASCULAR DISEASE, UNSPECIFIED 04/29/2018 Brandon, Fatou W E11.9 TYPE 2 DIABETES MELLITUS WITHOUT COMPLICATIONS 04/29/2018 Brandon, Fatou W I10 ESSENTIAL (PRIMARY) HYPERTENSION 04/29/2018 Brandon, Fatou W I25.10 ATHEROSCLEROTIC HEART DISEASE OF [place] CORONARY ARTERY WITHOUT ANGINA PECTORIS 04/29/2018 Brandon, Fatou W 250.00 DIABETES MELLITUS WITHOUT MENTION OF COMPLICATION, TYPE II OR UNSPECIFIED TYPE, NOT STATED UNCONTROLLED 04/29/2018 Brandon Fatou W 401.9 UNSPECIFIED ESSENTIAL HYPERTENSION 04/29/2018 Brandon Fatou W 429.2 CARDIOVASCULAR DISEASE, UNSPECIFIED 04/29/2018 Brandon, Fatou W E11.9 TYPE 2 DIABETES MELLITUS WITHOUT COMPLICATIONS 04/29/2018 Brandon, Fatou W I10 ESSENTIAL (PRIMARY) HYPERTENSION 04/29/2018 Brandon, Fatou W I25.10 ATHEROSCLEROTIC HEART DISEASE OF [place] CORONARY ARTERY WITHOUT ANGINA PECTORIS 06/03/2018 Fatou Taylor W 782.1 RASH AND OTHER NONSPECIFIC SKIN ERUPTION 06/03/2018 Fatou Taylor W R21 RASH AND OTHER NONSPECIFIC SKIN ERUPTION 06/03/2018 W 250.00 ALIYA BETES MELLITUS WITHOUT MENTION OF COMPLICATION, TYPE II OR UNSPECIFIED TYPE, NOT STATED UNCONTROLLED 06/03/2018 W 401.0 DEANNA GNANT ESSENTIAL HYPERTENSION 06/03/2018 W 429.2 CARD IOVASCULAR DISEASE, UNSPECIFIED 06/03/2018 W 782.1 RASH AND OTHER NONSPECIFIC SKIN ERUPTION 06/03/2018 W E11.9 TYPE 2 DIABETES MELLITUS WITHOUT COMPLICATIONS 06/03/2018 W I10 ESSENT IAL (PRIMARY) HYPERTENSION 06/03/2018 W 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 06/03/2018 W R21 RASH A ND OTHER NONSPECIFIC SKIN ERUPTION 06/03/2018 Fatou Taylor W 782.1 RASH AND OTHER NONSPECIFIC SKIN ERUPTION 06/03/2018 Fatou Taylor W R21 RASH AND OTHER NONSPECIFIC SKIN ERUPTION 07/15/2018 Fatou Taylor A 786.07 WHEEZING 07/15/2018 Fatou Taylor A R06.2 WHEEZING 09/20/2018 W 558.9 OTHE R AND UNSPECIFIED NONINFECTIOUS GASTROENTERITIS AND COLITIS 09/20/2018 W A09 INFECT IOUS GASTROENTERITIS AND COLITIS, UNSPECIFIED 01/28/2019 W 380.4 IMPA CTED CERUMEN 01/28/2019 W H61.20 IMP ACTED CERUMEN, UNSPECIFIED EAR 04/04/2019 W 461 ACUTE SINUSITIS 04/04/2019 W 466.0 ACUT E BRONCHITIS 04/04/2019 W J01.90 ACU TE SINUSITIS, UNSPECIFIED 04/04/2019 W J20.9 ACUT E BRONCHITIS, UNSPECIFIED 04/06/2019 LEISURE, LYNIETA W 466.0 ACUTE BRONCHITIS 04/06/2019 LEISURE, LYNIETA W J20.9 ACUTE BRONCHITIS, UNSPECIFIED 11/10/2019 MARTHA, VALERIE FAMILY SPECIALIST Ot R42 DIZZINESS AND GIDDINESS 11/10/2019 MARTHA, VALERIE FAMILY SPECIALIST Ot R50.9 FEVER, UNSPECIFIED 11/10/2019 MARTHA, VALERIE FAMILY SPECIALIST Ot Z95.1 PRESENCE OF AORTOCORONARY BYPASS GRAFT 11/20/2019 MARTHA, VALERIE FAMILY SPECIALIST Ot R42 DIZZINESS AND GIDDINESS 11/20/2019 MARTHA, VALERIE FAMILY SPECIALIST Ot R50.9 FEVER, UNSPECIFIED 11/20/2019 MARTHA, VALERIE FAMILY SPECIALIST Ot Z95.1 PRESENCE OF AORTOCORONARY BYPASS GRAFT 12/28/2019 MARYJANE MILLER DO Ot E87 .1 HYPO-OSMOLALITY AND HYPONATREMIA 12/28/2019 MARYJANE MILLER DO Ot E87 .6 HYPOKALEMIA 12/28/2019 MARYJANE MILLER DO Ot J18 .9 PNEUMONIA, UNSPECIFIED ORGANISM 12/28/2019 MARYJANE MILLER DO Ot R09.02 HYPOXEMIA 12/28/2019 MARYJANE MILLER DO Ot R50 .9 FEVER, UNSPECIFIED 12/28/2019 MARYJANE MILLER DO Ot R79.89 OTHER SPECIFIED ABNORMAL FINDINGS OF BLO 12/28/2019 MARYJANE MILLER DO Ot Z88 .0 ALLERGY STATUS TO PENICILLIN 12/28/2019 MARYJANE MILLER DO Ot Z88 .1 ALLERGY STATUS TO OTHER ANTIBIOTIC AGENT 12/28/2019 MARYJANE MILLER DO Ot Z88 .5 ALLERGY STATUS TO NARCOTIC AGENT STATUS 12/28/2019 MARYJANE MILLER DO Ot Z88 .6 ALLERGY STATUS TO ANALGESIC AGENT STATUS 12/28/2019 MARYJANE MILLER DO Ot Z88 .8 ALLERGY STATUS TO OTH DRUG/MEDS/BIOL SUB 01/01/2020 VALERIE THOMAS FAMILY SPECIALIST Ot R42 DIZZINESS AND GIDDINESS 01/01/2020 VALERIE THOMAS FAMILY SPECIALIST Ot R50.9 FEVER, UNSPECIFIED 01/01/2020 MARTHA VALERIE FAMILY SPECIALIST Ot Z95.1 PRESENCE OF AORTOCORONARY BYPASS GRAFT 01/01/2020 Laura Acosta C18.9 MALIGNANT NEOPLASM OF COLON, UNSPECIFIED 01/01/2020 Laura Acosta E11.9 TYPE 2 DIABETES MELLITUS WITHOUT COMPLICATIONS 01/01/2020 Laura Acosta E78.5 HYPERLIPIDEMIA, UNSPECIFIED 01/01/2020 Laura Acosta H61.20 IMPACTED CERUMEN, UNSPECIFIED EAR 01/01/2020 Laura Acosta I10 ESSENTIAL (PRIMARY) HYPERTENSION 01/01/2020 Laura Acosta I25.10 ATHSCL HEART DISEASE OF [place] CORONARY ARTERY W/O ANG PCTRS 01/01/2020 Laura Acosta J01.90 ACUTE SINUSITIS, UNSPECIFIED 01/01/2020 Laura Acosta W J02.9 ACUTE PHARYNGITIS, UNSPECIFIED 01/01/2020 Laura Acosta W J20.9 ACUTE BRONCHITIS, UNSPECIFIED 01/01/2020 Laura Acosta W K52.9 NONINFECTIVE GASTROENTERITIS AND COLITIS, UNSPECIFIED 01/01/2020 Laura Acosta W N39.0 URINARY TRACT INFECTION, SITE NOT SPECIFIED 01/01/2020 Laura Acosta W R11.0 NAUSEA 01/01/2020 Laura Acosta W R13.10 DYSPHAGIA, UNSPECIFIED 01/01/2020 Laura Acosta W R21 RASH AND OTHER NONSPECIFIC SKIN ERUPTION 01/01/2020 Laura Acosta W R33.0 DRUG INDUCED RETENTION OF URINE 01/01/2020 AcostaBrigidai W R33.9 RETENTION OF URINE, UNSPECIFIED 01/01/2020 Laura Acosta W Z46.6 ENCOUNTER FOR FITTING AND ADJUSTMENT OF URINARY DEVICE 01/02/2020 MARYJANE MILLER DO Ot E87 .1 HYPO-OSMOLALITY AND HYPONATREMIA 01/02/2020 MARYJANE MILLER DO Ot E87 .6 HYPOKALEMIA 01/02/2020 MARYJANE MILLER DO Ot J18 .9 PNEUMONIA, UNSPECIFIED ORGANISM 01/02/2020 MARYJANE MILLER DO Ot R09.02 HYPOXEMIA 01/02/2020 MARYJANE MILLER DO Ot R50 .9 FEVER, UNSPECIFIED 01/02/2020 MARYJANE MILLER DO Ot R79.89 OTHER SPECIFIED ABNORMAL FINDINGS OF BLO 01/02/2020 MARYJANE MILLER DO Ot Z88 .0 ALLERGY STATUS TO PENICILLIN 01/02/2020 MARYJANE MILLER DO Ot Z88 .1 ALLERGY STATUS TO OTHER ANTIBIOTIC AGENT 01/02/2020 MARYJANE MILLER DO Ot Z88 .5 ALLERGY STATUS TO NARCOTIC AGENT STATUS 01/02/2020 MARYJANE MILLER DO, Ot Z88 .6 ALLERGY STATUS TO ANALGESIC AGENT STATUS 01/02/2020 MARYJANE MILLER DO Ot Z88 .8 ALLERGY STATUS TO OTH DRUG/MEDS/BIOL SUB 04/09/2020 VALERIE THOMAS Ot R19.7 DIARRHEA, UNSPECIFIED Procedures There is no data. Results Test Result Range Urine Culture - 12/26/16 10:12 PRELIM CULTURE RESULTS No Growth 24 hours FINAL CULTURE RESULTS No Growth 48 hours CULTURE SOURCE URINE CULTURE Microalbumin - 04/23/17 09:08 Microalb 7.0 mg/L 0.0-20.0 Other Culture - 05/21/17 15:11 PRELIM CULTURE RESULTS No Growth 24 hours FINAL CULTURE RESULTS No Growth 48 hours Comprehensive Metabolic Panel - 10/23/17 09:55 Albumin 4.0 g/dL 3.6-5.1 ALP 111 U/L 35-130 ALT 30 U/L 6-45 Anion Gap 12 6-14 AST 31 U/L 2-40 BUN 20 mg/dL 5-25 Calcium 9.5 mg/dL 8.3-10.4 Chloride 101 mmol/L 95-114 CO2 30 mEq/L 22-33 Creat 1.02 mg/dL 0.50-1.50 eGFR 52 mL/min/1.73m2 >59 Globulin 3.1 g/dL 2.3-3.5 Glucose 161 mg/dL 70-110 Osmo 293 280-295 Potassium 4.4 mmol/L 3.5-5.3 Sodium 139 mmol/L 134-148 TBil 0.6 mg/dL 0.2-1.2 TP 7.1 g/dL 6.0-8.3 Urine Culture - 10/23/17 09:55 PRELIM CULTURE RESULTS No Growth 24 hours FINAL CULTURE RESULTS 10,000-20,000 Gram Pos itive Mixed Daisy [id number] Skin Contaminant [id number] Further Workup done CULTURE SOURCE urine culture Lipid Panel - 11/05/17 08:27 C/HDL 2.3 3.7-6.7 Cholesterol 130 mg/dL 100-240 HDL 57 mg/dL 30-85 LDL-Calculated 55 mg/dL 0-100 Trig 91 mg/dL 35-160 VLDL 18 mg/dL 0-42 Urinalysis - 01/28/18 20:11 Icotest N/A Negative Urine Volume Urine Volume Sufficient (10mL) Urine Yeast No Yeast present Urine-Appearance Clear Clear Urine-Bacteria Negative Urine-Bilirubin Negative Negative Urine-Blood Negative Negative Urine-Color Yellow Colorless-Lt. [place] ow Urine-Epithelial Cells 0-5/HPF Urine-Glucose Negative Negative Urine-Ketones Negative Negative Urine-Leukocytes Negative Negative Urine-Nitrite Negative Negative Urine-Other Culture to follow (cath sample) Urine-pH 5.5 5-8.5 Urine-Protein Negative Negative Urine-RBC Rare/HPF Urine-Specific [place] <1.005 1.000-1 .030 Urine-WBC Nothing Seen on Microscopic Urobilinogen 0.2 0.2-1.0 Thyroid Stimulating Hormone - 04/29/18 0 9:09 TSH 2.51 mIU/mL 0.32-5.00 MANDA Other Source - 06/03/18 10:39 MANDA Other Source Fungal elements seen 0 .00-0.00 Mycoplasma - 04/04/19 10:21 Mycoplasma Negative Negative Comprehensive Metabolic Panel - 04/06/19 13:18 Albumin 3.9 g/dL 3.6-5.1 ALP 104 U/L 35-130 ALT 25 U/L 6-45 Anion Gap 12 6-14 AST 29 U/L 2-40 BUN 28 mg/dL 5-25 Calcium 9.9 mg/dL 8.3-10.4 Chloride 98 mmol/L 95-114 CO2 29 mEq/L 22-33 Creat 1.08 mg/dL 0.50-1.50 eGFR 49 mL/min/1.73m2 >59 Globulin 3.3 g/dL 2.3-3.5 Glucose 108 mg/dL 70-110 Osmo 285 280-295 Potassium 3.7 mmol/L 3.5-5.3 Sodium 135 mmol/L 134-148 TBil 0.4 mg/dL 0.2-1.2 TP 7.2 g/dL 6.0-8.3 Mycoplasma - 04/06/19 13:18 Mycoplasma Negative Negative CBC - 06/20/19 10:48 WHITE BLOOD CELL COUNT 5.7 Thousand/uL 3 .8-10.8 RED BLOOD CELL COUNT 4.91 Million/uL 3.8 0-5.10 HEMOGLOBIN 13.7 g/dL 11.7-15.5 HEMATOCRIT 42.9 % 35.0-45.0 MCV 87.4 fL 80.0-100.0 MCH 27.9 pg 27.0-33.0 MCHC 31.9 g/dL 32.0-36.0 RDW 13.2 % 11.0-15.0 PLATELET COUNT 225 Thousand/uL 140-400 MPV 11.5 fL 7.5-12.5 ABSOLUTE NEUTROPHILS 3454 cells/uL 1500- 7800 ABSOLUTE LYMPHOCYTES 1522 cells/uL 850-3 900 ABSOLUTE MONOCYTES 496 cells/uL 200-950 ABSOLUTE EOSINOPHILS 188 cells/uL 15-500 ABSOLUTE BASOPHILS 40 cells/uL 0-200 NEUTROPHILS 60.6 % NRG LYMPHOCYTES 26.7 % NRG MONOCYTES 8.7 % NRG EOSINOPHILS 3.3 % NRG BASOPHILS 0.7 % NRG STOOL (WBC) - 06/21/19 09:18 FECAL LEUKOCYTE STAIN SEE NOTE NRG CULTURE, STOOL - 06/21/19 09:18 SALMONELLA AND SHIGELLA, CULTURE SEE NOTE NRG GIARDIA, STOOL - 06/21/19 09:18 GIARDIA AG, EIA, STOOL SEE NOTE NRG STOOL (C-DIFF) - 06/21/19 09:18 CLOSTRIDIUM DIFFICILE TOXIN/GDH W/REFL TO PCR SEE NOTE NRG CULTURE, URINE - 07/19/19 15:49 CULTURE, URINE, ROUTINE SEE NOTE NRG CULTURE, URINE - 08/22/19 15:26 CULTURE, URINE, ROUTINE SEE NOTE NRG CULTURE, URINE - 10/10/19 00:00 CULTURE, URINE, ROUTINE SEE NOTE NRG CMP - 10/11/19 08:57 GLUCOSE 95 mg/dL 65-99 UREA NITROGEN (BUN) 21 mg/dL 7-25 CREATININE 1.11 mg/dL 0.60-0.88 eGFR NON-AFR. [place] 47 mL/min/1.73m2 > OR = 60 eGFR 54 mL/min/1.73m2 > OR = 60 BUN/CREATININE RATIO 19 (calc) 6-22 SODIUM 142 mmol/L 135-146 POTASSIUM 3.7 mmol/L 3.5-5.3 CHLORIDE 99 mmol/L 98-110 CARBON DIOXIDE 33 mmol/L 20-32 CALCIUM 9.6 mg/dL 8.6-10.4 PROTEIN, TOTAL 7.0 g/dL 6.1-8.1 ALBUMIN 4.0 g/dL 3.6-5.1 GLOBULIN 3.0 g/dL (calc) 1.9-3.7 ALBUMIN/GLOBULIN RATIO 1.3 (calc) 1.0-2. 5 BILIRUBIN, TOTAL 0.7 mg/dL 0.2-1.2 ALKALINE PHOSPHATASE 109 U/L 33-130 AST 17 U/L 10-35 ALT 14 U/L 6-29 CBC - 10/11/19 08:57 WHITE BLOOD CELL COUNT 6.7 Thousand/uL 3 .8-10.8 RED BLOOD CELL COUNT 4.97 Million/uL 3.8 0-5.10 HEMOGLOBIN 13.8 g/dL 11.7-15.5 HEMATOCRIT 42.6 % 35.0-45.0 MCV 85.7 fL 80.0-100.0 MCH 27.8 pg 27.0-33.0 MCHC 32.4 g/dL 32.0-36.0 RDW 13.0 % 11.0-15.0 PLATELET COUNT 236 Thousand/uL 140-400 MPV 11.3 fL 7.5-12.5 ABSOLUTE NEUTROPHILS 4241 cells/uL 1500- 7800 ABSOLUTE LYMPHOCYTES 1635 cells/uL 850-3 900 ABSOLUTE MONOCYTES 563 cells/uL 200-950 ABSOLUTE EOSINOPHILS 201 cells/uL 15-500 ABSOLUTE BASOPHILS 60 cells/uL 0-200 NEUTROPHILS 63.3 % NRG LYMPHOCYTES 24.4 % NRG MONOCYTES 8.4 % NRG EOSINOPHILS 3.0 % NRG BASOPHILS 0.9 % NRG Complete blood count (CBC) with automate d white blood cell (WBC) differential - 12/28/19 10:35 Blood leukocytes automated count (number/volume) 27.6 10*3/uL 4.3-11.0 Blood erythrocytes automated count (number/volume) 4.53 10*6/uL 4.35-5.85 Venous blood hemoglobin measurement (mass/volume) 12.5 g/dL 11.5-16.0 Blood hematocrit (volume fraction) 38 % 35-52 Automated erythrocyte mean corpuscular volume 83 [ foz_us] 80-99 Automated erythrocyte mean corpuscular h emoglobin (mass per erythrocyte) 28 pg 25-34 Automated erythrocyte mean corpuscular h emoglobin concentration measurement (mass/volume) 33 g/dL 32-36 Automated erythrocyte distribution width ratio 14. 5 % 10.0- 14.5 Automated blood platelet count (count/volume) 185 10*3/uL 130-400 Automated blood platelet mean volume measurement 10.9 [foz_us] 7.4-10.4 Automated blood neutrophils/100 leukocytes 90 % 42-75 Automated blood lymphocytes/100 leukocytes 3 % 12-44 Blood monocytes/100 leukocytes 4 % 0-12 Automated blood eosinophils/100 leukocytes 0 % 0-10 Automated blood basophils/100 leukocytes 1 % 0-10 Blood neutrophils automated count (number/volume) 24.8 10*3 1.8-7.8 Blood lymphocytes automated count (number/volume) 0.9 10*3 1.0-4.0 Blood monocytes automated count (number/volume) 1. 0 10*3 0.0-1.0 Automated eosinophil count 0.0 10*3/uL 0 .0-0.3 Automated blood basophil count (count/volume) 0.0 10*3/uL 0.0-0.1 PT panel in platelet poor plasma by coag ulation assay - 12/28/19 10:35 Prothrombin time (PT) in platelet poor plasma by coagu lation assay 15.1 s 12.2-14.7 INR in platelet poor plasma or blood by coagulation as say 1.1 0.8-1.4 Activated partial thromboplastin time (a PTT) in platelet poor plasma bycoagulation assay - 12/28/19 10:35 Activated partial thromboplastin time (a PTT) in platelet poor plasma bycoagulation assay 32 s 24-35 Blood lactic acid measurement (moles/vol ume) - 12/28/19 10:35 Blood lactic acid measurement (moles/volume) 1.15 mmol/L 0.50-2.00 Manual absolute plasma cell count - 05/11 10:35 Blood monocytes/100 leukocytes 1 % NRG Manual blood segmented neutrophils/100 leukocytes 94 % NRG Blood band neutrophils/100 leukocytes 2 % NRG Manual blood lymphocytes/100 leukocytes 2 % NRG Manual eosinophils/100 leukocytes in nose 0 % NRG Manual blood basophils/100 leukocytes 0 % NRG Manual blood metamyelocytes/100 leukocytes 0 % NRG Manual blood myelocytes/100 leukocytes 1 % NRG Comprehensive metabolic panel - 12/28/19 10:35 Serum or plasma sodium measurement (moles/volume) 130 mmol/L 135-145 Serum or plasma potassium measurement (moles/volume) 3.5 mmol/L 3.6-5.0 Serum or plasma chloride measurement (moles/volume) 92 mmol/L 98-107 Carbon dioxide 26 mmol/L 21-32 Serum or plasma anion gap determination (moles/volume) 12 mmol/L 5-14 Serum or plasma urea nitrogen measurement (mass/volume ) 38 mg/dL 7-18 Serum or plasma creatinine measurement (mass/volume) 1.37 mg/dL 0.60-1.30 Serum or plasma urea nitrogen/creatinine mass ratio 28 NRG Serum or plasma creatinine measurement w ith calculation of estimated glomerular filtration rate 37 NRG Serum or plasma glucose measurement (mass/volume) 217 mg/dL 70-105 Serum or plasma calcium measurement (mass/volume) 9.1 mg/dL 8.5-10.1 Serum or plasma total bilirubin measurement (mass/volu me) 1.2 mg/dL 0.1-1.0 Serum or plasma alkaline phosphatase heraclio surement (enzymatic activity/volume) 107 U/L 40-136 Serum or plasma aspartate aminotransfera se measurement (enzymatic activity/volume) 34 U/L 5-34 Serum or plasma alanine aminotransferase measurement (enzymatic activity/volume) 24 U/L 0-55 Serum or plasma protein measurement (mass/volume) 6.8 g/dL 6.4-8.2 Serum or plasma albumin measurement (mass/volume) 3.2 g/dL 3.2-4.5 CALCIUM CORRECTED 9.7 mg/dL 8.5-10.1 Magnesium - 12/28/19 10:35 Magnesium 2.4 mg/dL 1.6-2.4 TROPONIN I FS - 12/28/19 10:35 TROPONIN I FS < 0.30 <0.30 PROBNP FS - 12/28/19 10:35 PROBNP FS 1579.0 pg/mL <75.0 Bacterial blood culture - 12/28/19 10:35 Bacterial blood culture NG NRG Bacterial blood culture - 12/28/19 11:35 Bacterial blood culture NG NRG Complete urinalysis with reflex to cultu re - 12/28/19 13:05 Urine color determination YELLOW NRG Urine clarity determination SLT CLOUDY NRG Urine pH measurement by test strip 5.5 5-9 Specific gravity of urine by test strip 1.010 1.016-1.022 Urine protein assay by test strip, semi-quantitative 1+ NEGATIVE Urine glucose detection by automated test strip NE GATIVE NEGATIVE Erythrocytes detection in urine sediment by light micr oscopy 1+ NEGATIVE Urine ketones detection by automated test strip NE GATIVE NEGATIVE Urine nitrite detection by test strip NEGATIVE NEGATIVE Urine total bilirubin detection by test strip NEGA TIVE NEGATIVE Urine urobilinogen measurement by automated test strip (mass/volume) 0.2 mg/dL < = 1.0 Urine leukocyte esterase detection by dipstick 2+ NEGATIVE Automated urine sediment erythrocyte cou nt by microscopy (number/high power field) NONE NRG Automated urine sediment leukocyte count by microscopy (number/high power field) [HPF] NRG Bacteria detection in urine sediment by light microsco py FEW NRG Squamous epithelial cells detection in u rine sediment by light microscopy 0-2 NRG Crystals detection in urine sediment by light microsco py PRESENT NRG Casts detection in urine sediment by light microscopy PRESENT NRG Mucus detection in urine sediment by light microscopy NONE NRG Complete urinalysis with reflex to culture YES NRG Amorphous sediment detection in urine sediment by ligh t microscopy FEW KEVON URATES NRG Granular casts detection in urine sediment by light mi croscopy 0-2 NRG Bacterial urine culture - 12/28/19 13:05 Bacterial urine culture NG NRG Influenza - 12/28/19 14:18 Influenza NEGATIVE FOR A and B 0.00-0.0 0 MRSA Screen - 12/28/19 14:18 FINAL CULTURE RESULTS MRSA Negative Nasal Culture Lactic Acid - 12/28/19 16:00 Lactic Acid 8.1 mg/dL 4.5-19.8 BNP - 12/28/19 20:20 BNP 97.00 pg/ml 0.00-100.00 Comprehensive Metabolic Panel - 12/29/19 05:35 Albumin 3.1 g/dL 3.6-5.1 ALP 94 U/L 35-130 ALT 116 U/L 6-45 Anion Gap 12 6-14 AST 152 U/L 2-40 BUN 31 mg/dL 5-25 Calcium 8.4 mg/dL 8.3-10.4 Chloride 104 mmol/L 95-114 CO2 26 mEq/L 22-33 Creat 1.25 mg/dL 0.50-1.50 eGFR 41 mL/min/1.73m2 >59 Globulin 2.6 g/dL 2.3-3.5 Glucose 275 mg/dL 70-110 Osmo 300 280-295 Potassium 3.7 mmol/L 3.5-5.3 Sodium 138 mmol/L 134-148 TBil 0.7 mg/dL 0.2-1.2 TP 5.7 g/dL 6.0-8.3 Comprehensive Metabolic Panel - 12/30/19 05:15 Albumin 2.9 g/dL 3.6-5.1 ALP 105 U/L 35-130 ALT 222 U/L 6-45 Anion Gap 12 6-14 AST 180 U/L 2-40 BUN 36 mg/dL 5-25 Calcium 8.7 mg/dL 8.3-10.4 Chloride 102 mmol/L 95-114 CO2 23 mEq/L 22-33 Creat 1.15 mg/dL 0.50-1.50 eGFR 45 mL/min/1.73m2 >59 Globulin 2.5 g/dL 2.3-3.5 Glucose 287 mg/dL 70-110 Osmo 294 280-295 Potassium 3.3 mmol/L 3.5-5.3 Sodium 134 mmol/L 134-148 TBil 0.5 mg/dL 0.2-1.2 TP 5.4 g/dL 6.0-8.3 Cardiac Panel - 12/31/19 02:56 CK 23 U/L 26-174 CK-MB 1.5 ng/ml 0.0-9.2 Myoglobin 117.2 ng/ml 1.6-106.0 Troponin <0.020 ng/mL 0.0-0.4 Comprehensive Metabolic Panel - 12/31/19 05:11 Albumin 2.9 g/dL 3.6-5.1 ALP 87 U/L 35-130 ALT 155 U/L 6-45 Anion Gap 14 6-14 AST 49 U/L 2-40 BUN 37 mg/dL 5-25 Calcium 8.8 mg/dL 8.3-10.4 Chloride 104 mmol/L 95-114 CO2 23 mEq/L 22-33 Creat 1.00 mg/dL 0.50-1.50 eGFR 53 mL/min/1.73m2 >59 Globulin 2.4 g/dL 2.3-3.5 Glucose 203 mg/dL 70-110 Osmo 296 280-295 Potassium 4.0 mmol/L 3.5-5.3 Sodium 137 mmol/L 134-148 TBil 0.5 mg/dL 0.2-1.2 TP 5.3 g/dL 6.0-8.3 Comprehensive Metabolic Panel - 01/01/20 05:06 Albumin 2.8 g/dL 3.6-5.1 ALP 84 U/L 35-130 ALT 105 U/L 6-45 Anion Gap 14 6-14 AST 23 U/L 2-40 BUN 36 mg/dL 5-25 Calcium 8.8 mg/dL 8.3-10.4 Chloride 107 mmol/L 95-114 CO2 22 mEq/L 22-33 Creat 1.12 mg/dL 0.50-1.50 eGFR 47 mL/min/1.73m2 >59 Globulin 2.3 g/dL 2.3-3.5 Glucose 184 mg/dL 70-110 Osmo 299 280-295 Potassium 4.3 mmol/L 3.5-5.3 Sodium 139 mmol/L 134-148 TBil 0.6 mg/dL 0.2-1.2 TP 5.1 g/dL 6.0-8.3 Encounters ACCT No. Visit Date/Time Discharge Status Pt. Type Provider Facility Loc./Unit Complaint [id number] 04/07/2020 08:20:00 ACT Outpatient Fatou Taylor [facility] [id number] 10/11/2019 09:00:00 Document Registration [id number] 10/10/2019 14:00:00 Document Registration [id number] 08/22/2019 14:20:00 Document Registration [id number] 07/19/2019 14:40:00 Document Registration [id number] 06/21/2019 09:00:00 Document Registration [id number] 06/20/2019 10:20:00 Document Registration [id number] 12/28/2019 11:57:00 01/01/2020 16:15 :00 DIS Inpatient Laura [facility] [id number] 04/06/2019 11:47:00 04/06/2019 14:50: 00 DIS Outpatient GIO WRIGHT [facility] ER [id number] 04/04/2019 10:13:00 04/04/2019 23:59: 00 DIS Outpatient Kiana Lea [id number] 11/18/2018 15:44:00 11/18/2018 23:59: 00 DIS Outpatient Fatou Taylor [id number] 07/15/2018 15:24:00 07/15/2018 15:55: 00 DIS Outpatient Fatou Taylor [id number] 06/03/2018 10:32:00 06/03/2018 23:59: 00 DIS Outpatient Fatou Taylor [id number] 04/29/2018 09:02:00 04/29/2018 23:59: 00 DIS Outpatient Fatou Taylor [id number] 01/29/2018 19:02:00 01/29/2018 21:05: 00 DIS Outpatient Brokob, [facility] ER [id number] 01/29/2018 13:19:00 01/29/2018 13:38: 00 DIS Outpatient Johnathan Zavala [id number] 01/28/2018 19:21:00 01/28/2018 22:10: 00 DIS Outpatient [facility] ER [id number] 11/05/2017 08:25:00 11/05/2017 23:59: 00 DIS Outpatient Fatou Taylor [id number] 10/23/2017 09:54:00 10/23/2017 23:59: 00 DIS Outpatient Kvng Rain [id number] 08/13/2017 13:06:00 09/24/2017 14:55: 00 DIS Outpatient Dorene Ballard [id number] 08/10/2017 11:55:00 08/10/2017 23:59: 00 DIS Outpatient Fatou Taylor [id number] 05/21/2017 15:03:00 05/21/2017 23:59: 00 DIS Outpatient Fatou Taylor [id number] 04/23/2017 09:03:00 04/23/2017 23:59: 00 DIS Outpatient Fatou Taylor [id number] 03/03/2017 16:37:00 03/03/2017 23:59: 00 DIS Outpatient Fatou Taylor [id number] 12/26/2016 15:55:00 12/26/2016 23:59: 00 DIS Outpatient Kvng Rain [id number] 04/04/2019 08:36:00 Document Registration [id number] 01/28/2019 10:12:00 Document Registration [id number] 09/20/2018 09:52:00 Document Registration [id number] 07/15/2018 15:32:20 Document Registration [id number] 06/03/2018 09:45:00 Document Registration [id number] 02/03/2018 12:58:00 Document Registration [id number] 11/19/2017 09:47:00 Document Registration [id number] 10/28/2017 13:34:00 Document Registration [id number] 10/23/2017 09:12:00 Document Registration [id number] 08/10/2017 10:28:00 Document Registration [id number] 12/28/2019 10:14:00 020 13:10:00 DIS Emergency MARYJANE MILLER DO [facility] ER FS FEVER; WHEEZING; O2 [id number] 10/10/2019 14:15:00 019 23:59:59 CLS Outpatient VALERIE THOMAS [facility] RAD FS R50.9 [id number] 04/08/2020 17:34:[address] Outpatient VALERIE THOMAS [facility] RAD FS R19.7
[2020-04-10 15:00] VITALS: BP 150/60
== END 2020-04-10 15:00 | disposition home or self-care (01) ==
LOC: EDUNIT# 12:28 → ER FS 12:30
DX: N13.30 Unspecified hydronephrosis (principal); N13.4 Hydroureter; K59.00 Constipation, unspecified; E11.9 Type 2 diabetes mellitus without complications; Z88.1 Allergy status to other antibiotic agents; Z88.0 Allergy status to penicillin; Z88.8 Allergy status to other drugs, medicaments and biological substances; Z88.5 Allergy status to narcotic agent; Z88.6 Allergy status to analgesic agent; Z95.1 Presence of aortocoronary bypass graft; Z85.038 Personal history of other malignant neoplasm of large intestine
CPT/HCPCS: 36415; 74177; 80053; 81000; 83690; 85025; 87077; 87088

== ENCOUNTER 2020-04-18 12:54 | Outpatient (RCR) | payer MEDICARE, OTHER, MEDICAID ==
[~2020-04-18] VITALS: Ht 157 cm; Wt 58.4 kg
[~2020-04-18 12:54] MED LIST changes: -ALPR0.5T7; +ALPR0.5T7 PO; -FAMO40TA6; +FAMO40TA6 PO; +L. A1TAB10 PO; +MAGN296S71 PO; -MECL-149; +MECL-149 PO; -POTA20TA15; +POTA20TA15 PO; +TRAM50TA3 PO
[2020-04-18] MEDS ORDERED: MAG30ORA2 PO (13:29)
[2020-04-18] MEDS ORDERED: INSU100V5 SQ (13:29)
[2020-04-18] MEDS ORDERED: HYDR25TA4 PO (13:29)
[2020-04-18] MEDS ORDERED: CARV6.252 PO (13:29)
[2020-04-18] MEDS ORDERED: SIMV40TA25 PO (13:29)
[2020-04-18] MEDS ORDERED: SIME125C78 PO (13:29)
== END 2020-04-18 15:40 | disposition home or self-care (01) ==
LOC: PREOP 12:54
PROVIDERS: ATTEND Urology
DX: Z01.818 Encounter for other preprocedural examination (principal); Z11.59 Encounter for screening for other viral diseases; Z11.2 Encounter for screening for other bacterial diseases
CPT/HCPCS: 87081; 87635

== ENCOUNTER 2020-04-22 08:25 | Day surgery (SDC) | payer MEDICARE, MEDICAID ==
[2020-04-22] VITALS (9 sets, daily range): BP systolic 99–156; BP diastolic 42–67
[~2020-04-22] VITALS: Ht 157 cm; Wt 58.4 kg
--- NOTE | 2020-04-22 08:17 | Progress Note-Pre Operative ---
Pre-Operative Progress Note H&P Reviewed The H&P was reviewed, patient examined and no changes noted. Date Seen by Provider: Apr 22, 2020 Time Seen by Provider: 08:17 Date H&P Reviewed: Apr 22, 2020 Time H&P Reviewed: 08:17 Pre-Operative Diagnosis: RT URETERAL OBSTRUCTION REECE GALLARDO MD Apr 22, 2020 08:17
[~2020-04-22 08:25] MED LIST changes: +CARV6.252 PO; +HYDR25TA4 PO; +INSU100V5 SQ; +MAG30ORA2 PO; +SIME125C78 PO; +SIMV40TA25 PO
[2020-04-22] MEDS ORDERED: LACTATED RINGERS 1,000 ML IV PRN (08:31)
[2020-04-22] MEDS ORDERED: LEVOFLOXACIN 250 MG/50 ML IVPB 50 ML IV ONE (08:45)
--- OUTSIDE RECORDS SUMMARY | 2020-04-22 08:45 | XMS REPORT | Continuity of Care Document ---
[...] MODERATE Yes ZOFRAN ODT UNKNOWN UNKNOWN Yes clindamycin [id number] Drug Aller gy Severe Anaphylaxis 04/18/2020 Yes ondansetron [id number] Drug Aller gy Severe Anaphylaxis 04/18/2020 Yes prednisone [id number] Drug Allerg y Moderate Confusion 04/18/2020 Yes cefixime [id number] Drug Allergy Mild nausea and vomi 04/18/2020 Yes cephalexin [id number] Drug Allerg y Mild nausea and vomi 04/18/2020 Yes esomeprazole [id number] Drug Allergy Mild Rash 04/18/2020 Yes guaifenesin [id number] Drug Aller gy Mild nausea and vomi 04/18/2020 Yes hydrocodone [id number] Drug Aller gy Mild rash 04/18/2020 Yes omeprazole [id number] Drug Allerg y Mild rash 04/18/2020 Yes oxycodone [id number] Drug Allergy Mild rash 04/18/2020 Yes pantoprazole [id number] Drug Allergy Mild rash 04/18/2020 Yes Penicillins [id number] Drug Aller gy Mild nausea and vomi 04/18/2020 Yes phenylephrine [id number] Matthew g Allergy Mild Nausea andd vom 04/18/2020 Yes sucralfate [id number] Drug Allerg y Mild Itching 04/18/2020 Yes celecoxib [id number] Drug Allergy Unknown N/A 04/18/2020 Yes hydrochlorothiazide [id number] Drug Allergy Unknown N/A 04/18/2020 Yes ibuprofen [id number] Drug Allergy Unknown N/A 04/18/[id number] ug Allergy Unknown N/A 04/18/2020 Yes prochlorperazine [id number] Drug Allergy Unknown N/A 04/18/[id number] ug Allergy Unknown N/A 04/18/2020 Yes Sulfa (Sulfonamide Antibiotics) [id number] Drug Allergy Unknown N/A 020 Medications Medication Packaging Start Date St op [...] hylcellulose) Eye drop TEARS DROP 12/28/2019 01/07/2020 BID&0800,2000 BUDESONIDE INHALATION SUSP A MP 0.5 MG/2CC (PULMICORT) MG 12/28/2019 01/04/2020 BID&0800,2000 INSULIN DETEMIR PEN INJ 100 UNITS/CC (LEVEMIR FLEXPEN) UNITS 12/28/2019 01/26/2020 QPM&1999 ALPRAZOLAM TAB 0.5 MG (XANAX) MG 12/28/2019 01/06/2020 QHS&2099 MONTELUKAST TAB 10 MG (SINGULAIR) MG 12/28/2019 [...] % (MUCOMYST 20% RT) cc 12/31/2019 01/10/2020 BID&0800,1999 Problems Date Dx Coded Attending Type Code Diagnosis Diagnosed By 10/21/1539 REECE GALLARDO MD Ot Z01.8 18 ENCOUNTER FOR OTHER PREPROCEDURAL EXAMIN 10/21/1539 REECE GALLARDO MD Ot Z11.2 ENCOUNTER FOR SCREENING FOR OTHER BACTER 10/21/1539 REECE GALLARDO MD Ot Z11.5 9 ENCOUNTER FOR SCREENING FOR OTHER VIRAL 08/03/2017 Laura Acosta W M54.2 CERVICALGIA 08/03/2017 Dorene Ballard W 719.41 PAIN IN JOINT INVOLVING SHOULDER REGION 08/03/2017 Dorene Ballard A 723.1 CERVICALGIA 08/03/2017 Dorene Ballard W M25.511 PAIN IN RIGHT SHOULDER 08/03/2017 Dorene Ballard M54.2 CERVICALGIA 08/10/2017 W 250.00 ALIYA BETES MELLITUS WITHOUT MENTION OF COMPLICATION, TYPE II OR UNSPECIFIED TYPE, NOT STATED UNCONTROLLED 08/10/2017 W 401.9 UNSP ECIFIED ESSENTIAL HYPERTENSION 08/10/2017 W 429.2 CARD IOVASCULAR DISEASE, UNSPECIFIED 08/10/2017 W E11.9 TYPE 2 DIABETES MELLITUS WITHOUT COMPLICATIONS 08/10/2017 W I10 ESSENT IAL (PRIMARY) HYPERTENSION 08/10/2017 W 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 10/23/2017 W [...] FITTING AND ADJUSTMENT OF URINARY DEVICE 01/29/2018 AlexbDorene W 462 ACUTE PHARYNGITIS 01/29/2018 Brokob, Dorene W 787.20 DYSPHAGIA, UNSPECIFIED 01/29/2018 Brokob, Dorene A 788.20 RETENTION OF URINE, UNSPECIFIED 01/29/2018 Brokob, Dorene W J02.9 ACUTE PHARYNGITIS, UNSPECIFIED 01/29/2018 Brokob, Doerne W R13.10 DYSPHAGIA, UNSPECIFIED 01/29/2018 Brokob, Dorene A R33.9 RETENTION OF URINE, UNSPECIFIED 01/29/2018 Jameskob, Dorene W V53.6 FITTING AND ADJUSTMENT OF URINARY DEVICES 01/29/2018 Dorene Ballard W Z46.6 ENCOUNTER FOR FITTING AND ADJUSTMENT [...] W 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 04/29/2018 Fatou Taylor W 250.00 DIABETES MELLITUS WITHOUT MENTION OF COMPLICATION, TYPE II OR UNSPECIFIED TYPE, NOT STATED UNCONTROLLED 04/29/2018 Fatou Taylor W 401.9 UNSPECIFIED ESSENTIAL HYPERTENSION 04/29/2018 Fatou Taylor W 429.2 CARDIOVASCULAR DISEASE, UNSPECIFIED 04/29/2018 Fatou Taylor W E11.9 TYPE 2 DIABETES MELLITUS WITHOUT COMPLICATIONS 04/29/2018 Brandon, Fatou W I10 ESSENTIAL (PRIMARY) HYPERTENSION 04/29/2018 Brandon, Fatou W I25.10 ATHEROSCLEROTIC HEART DISEASE OF [place] CORONARY ARTERY WITHOUT ANGINA PECTORIS 04/29/2018 Brandon, Fatou W 250.00 DIABETES MELLITUS WITHOUT MENTION OF COMPLICATION, TYPE II OR UNSPECIFIED TYPE, NOT STATED UNCONTROLLED 04/29/2018 Brandon, Fatou W 401.9 UNSPECIFIED ESSENTIAL HYPERTENSION 04/29/2018 Brandon, Fatou W 429.2 CARDIOVASCULAR DISEASE, UNSPECIFIED 04/29/2018 Brandon, Fatou W E11.9 TYPE 2 DIABETES MELLITUS WITHOUT COMPLICATIONS 04/29/2018 Brandon, Fatou W I10 ESSENTIAL (PRIMARY) HYPERTENSION 04/29/2018 Brandon, Fatou W I25.10 ATHEROSCLEROTIC HEART DISEASE OF [place] CORONARY ARTERY WITHOUT ANGINA PECTORIS 06/03/2018 Brandon, Fatou W 782.1 RASH AND OTHER NONSPECIFIC SKIN ERUPTION 06/03/2018 Brandon Fatou W R21 RASH AND OTHER NONSPECIFIC SKIN [...] W 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 06/03/2018 W R21 RASH A ND OTHER NONSPECIFIC SKIN ERUPTION 06/03/2018 Brandon Fatou W 782.1 RASH AND OTHER NONSPECIFIC SKIN ERUPTION 06/03/2018 Brandon Fatou W R21 RASH AND OTHER NONSPECIFIC SKIN [...] J20.9 ACUT E BRONCHITIS, UNSPECIFIED 04/06/2019 LEISURE, GIO W 466.0 ACUTE BRONCHITIS 04/06/2019 LEISURE, GIO W J20.9 ACUTE BRONCHITIS, UNSPECIFIED 11/10/2019 MARTHA, VALERIE [employer] Ot R42 DIZZINESS AND GIDDINESS 11/10/2019 MARTHA, VALERIE [employer] Ot R50.9 FEVER, UNSPECIFIED 11/10/2019 MARTHA, VALERIE [employer] Ot Z95.1 PRESENCE OF AORTOCORONARY BYPASS GRAFT 11/20/2019 MARTHA, VALERIE [employer] Ot R42 DIZZINESS AND GIDDINESS 11/20/2019 MARTHA, VALERIE [employer] Ot R50.9 FEVER, UNSPECIFIED 11/20/2019 MARTHA, VALERIE [employer] Ot Z95.1 PRESENCE OF AORTOCORONARY BYPASS GRAFT [...] ALLERGY STATUS TO OTH DRUG/MEDS/BIOL SUB 01/01/2020 MARTHA, VALERIE [employer] Ot R42 DIZZINESS AND GIDDINESS 01/01/2020 VALERIE THOMAS Ot R50.9 FEVER, UNSPECIFIED 01/01/2020 VALERIE THOMAS Ot Z95.1 PRESENCE OF AORTOCORONARY BYPASS GRAFT 01/01/2020 Dave Laura W C18.9 MALIGNANT NEOPLASM OF COLON, UNSPECIFIED 01/01/2020 DaveBrigidai W E11.9 TYPE 2 DIABETES MELLITUS WITHOUT COMPLICATIONS 01/01/2020 Dave Laura W E78.5 HYPERLIPIDEMIA, UNSPECIFIED 01/01/2020 Laura Acosta W H61.20 IMPACTED CERUMEN, UNSPECIFIED EAR 01/01/2020 Dave Laura W I10 ESSENTIAL (PRIMARY) HYPERTENSION 01/01/2020 Dave Laura W I25.10 ATHSCL HEART DISEASE OF [place] CORONARY ARTERY W/O ANG PCTRS 01/01/2020 Dave Laura W J01.90 ACUTE SINUSITIS, UNSPECIFIED 01/01/2020 Dave Laura W J02.9 ACUTE PHARYNGITIS, UNSPECIFIED 01/01/2020 Dave Laura W J20.9 ACUTE BRONCHITIS, UNSPECIFIED 01/01/2020 Dave Laura W K52.9 NONINFECTIVE GASTROENTERITIS AND COLITIS, UNSPECIFIED 01/01/2020 Dave Laura W N39.0 URINARY TRACT INFECTION, SITE NOT SPECIFIED 01/01/2020 Dave Laura W R11.0 NAUSEA 01/01/2020 Dave Laura W R13.10 DYSPHAGIA, UNSPECIFIED 01/01/2020 Dave Laura W R21 RASH AND OTHER NONSPECIFIC SKIN ERUPTION 01/01/2020 Dave Laura W R33.0 DRUG INDUCED RETENTION OF URINE 01/01/2020 Dave Laura W R33.9 RETENTION OF URINE, UNSPECIFIED 01/01/2020 Dave Laura W Z46.6 ENCOUNTER FOR FITTING AND ADJUSTMENT OF URINARY DEVICE 01/02/2020 MARYJANE MILLER DO Ot E87 .1 HYPO-OSMOLALITY AND HYPONATREMIA 01/02/2020 MARYJANE MILLER DO Ot E87 .6 HYPOKALEMIA 01/02/2020 MARYJANE MILLER DO Ot J18 .9 PNEUMONIA, UNSPECIFIED ORGANISM 01/02/2020 MARYJANE MILLER DO Ot R09.02 HYPOXEMIA 01/02/2020 MARYJANE MILLER DO Ot R50 .9 FEVER, UNSPECIFIED 01/02/2020 PAULMARYJANE CARPENTER DO Ot R79.89 OTHER SPECIFIED ABNORMAL FINDINGS OF BLO 01/02/2020 MARYJANE MILLER DO Ot Z88 .0 ALLERGY STATUS TO PENICILLIN 01/02/2020 MARYJANE MILLER DO Ot Z88 .1 ALLERGY STATUS TO OTHER ANTIBIOTIC AGENT 01/02/2020 MARYJANE MILLER DO Ot Z88 .5 ALLERGY STATUS TO NARCOTIC AGENT STATUS 01/02/2020 MARYJANE MILLER DO Ot Z88 .6 ALLERGY STATUS TO ANALGESIC AGENT STATUS 01/02/2020 MARYJANE MILLER DO Ot Z88 .8 ALLERGY STATUS TO OTH DRUG/MEDS/BIOL SUB 04/09/2020 VALERIE THOMASP Ot R19.7 DIARRHEA, UNSPECIFIED 04/10/2020 MARYJANE MILLER DO Ot E11 .9 TYPE 2 DIABETES MELLITUS WITHOUT COMPLIC 04/10/2020 PAULMARYJANE CARPENTER DO Ot K59.00 CONSTIPATION, UNSPECIFIED 04/10/2020 PAULMARYJANE CARPENTER DO Ot N13.30 UNSPECIFIED HYDRONEPHROSIS 04/10/2020 PAULMARYJANE CARPENTER DO Ot N13 .4 HYDROURETER 04/10/2020 OTIS MARYJANE BOSCH Ot R10 .9 UNSPECIFIED ABDOMINAL PAIN 04/10/2020 PAULMARYJANE CARPENTER DO Ot Z85.038 PERSONAL HISTORY OF MALIGNANT NEOPLASM O 04/10/2020 MARYJANE MILLER DO Ot Z88 .0 ALLERGY STATUS TO PENICILLIN 04/10/2020 PAULMARYJANE CARPENTER DO Ot Z88 .1 ALLERGY STATUS TO OTHER ANTIBIOTIC AGENT 04/10/2020 MARYJANE MILLER DO Ot Z88 .5 ALLERGY STATUS TO NARCOTIC AGENT STATUS 04/10/2020 MARYJANE MILLER DO Ot Z88 .6 ALLERGY STATUS TO ANALGESIC AGENT STATUS 04/10/2020 MARYJANE MILLER DO Ot Z88 .8 ALLERGY STATUS TO OTH DRUG/MEDS/BIOL SUB 04/10/2020 MARYJANE MILLER DO Ot Z95 .1 PRESENCE OF AORTOCORONARY BYPASS GRAFT 04/12/2020 MARYJANE MILLER DO Ot E11 .9 TYPE 2 DIABETES MELLITUS WITHOUT COMPLIC 04/12/2020 MARYJANE MILLER DO Ot K59.00 CONSTIPATION, UNSPECIFIED 04/12/2020 MARYJANE MILLER DO Ot N13.30 UNSPECIFIED HYDRONEPHROSIS 04/12/2020 MARYJANE MILLER DO Ot N13 .4 HYDROURETER 04/12/2020 OTIS MARYJANE BOSCH Ot R10 .9 UNSPECIFIED ABDOMINAL PAIN 04/12/2020 PAULMARYJANE CARPENTER DO Ot Z85.038 PERSONAL HISTORY OF MALIGNANT NEOPLASM O 04/12/2020 OTIS MARYJANE BOSCH Ot Z88 .0 ALLERGY STATUS TO PENICILLIN 04/12/2020 OTIS MARYJANE BOSCH Ot Z88 .1 ALLERGY STATUS TO OTHER ANTIBIOTIC AGENT 04/12/2020 PAULMARYJANE CARPENTER DO Ot Z88 .5 ALLERGY STATUS TO NARCOTIC AGENT STATUS 04/12/2020 [facility] Z88 .6 ALLERGY STATUS TO ANALGESIC AGENT STATUS 04/12/2020 [facility] Ot Z88 .8 ALLERGY STATUS TO OTH DRUG/MEDS/BIOL SUB 04/12/2020 PAULMARYJANE CARPENTER DO Ot Z95 .1 PRESENCE OF AORTOCORONARY BYPASS GRAFT 04/16/2020 MARYJANE MILLER DO Ot E11 .9 TYPE 2 DIABETES MELLITUS WITHOUT COMPLIC 04/16/2020 MARYJANE MILLER DO Ot K59.00 CONSTIPATION, UNSPECIFIED 04/16/2020 PAULMARYJANE CARPENTER DO Ot N13.30 UNSPECIFIED HYDRONEPHROSIS 04/16/2020 PAULMARYJANE CARPENTER DO Ot N13 .4 HYDROURETER 04/16/2020 PAULMARYJANE CARPENTER DO Ot R10 .9 UNSPECIFIED ABDOMINAL PAIN 04/16/2020 PAULMARYJANE CARPENTER DO Ot Z85.038 PERSONAL HISTORY OF MALIGNANT NEOPLASM O 04/16/2020 OTIS MARYJANE BOSCH Ot Z88 .0 ALLERGY STATUS TO PENICILLIN 04/16/2020 PAULMARYJANE CARPENTER DO Ot Z88 .1 ALLERGY STATUS TO OTHER ANTIBIOTIC AGENT 04/16/2020 PAULMARYJANE CARPENTER DO Ot Z88 .5 ALLERGY STATUS TO NARCOTIC AGENT STATUS 04/16/2020 OTIS MARYJANE BOSCH Ot Z88 .6 ALLERGY STATUS TO ANALGESIC AGENT STATUS 04/16/2020 PAULMARYJANE CARPENTER DO Ot Z88 .8 ALLERGY STATUS TO OTH DRUG/MEDS/BIOL SUB 04/16/2020 OTIS MARYJANE BOSCH Ot Z95 .1 PRESENCE OF AORTOCORONARY BYPASS GRAFT 04/18/2020 MARTHA, VALERIE [employer] Ot R42 DIZZINESS AND GIDDINESS 04/18/2020 MARTHA, VALERIE [employer] Ot R50.9 FEVER, UNSPECIFIED 04/18/2020 MARTHA, VALERIE [employer] Ot Z95.1 PRESENCE OF AORTOCORONARY BYPASS GRAFT 04/18/2020 VALERIE THOMAS Ot R19.7 DIARRHEA, UNSPECIFIED Procedures [...] RESULTS 10,000-20,000 Gram Pos itive Mixed Daisy [id number] Skin Contaminant [id number] Further Workup done CULTURE SOURCE urine culture Lipid Panel - 11/05/17 08:27 C/HDL 2.3 3.7-6.7 Cholesterol 130 mg/dL 100-240 HDL 57 mg/dL 30-85 LDL-Calculated 55 mg/dL 0-100 Trig 91 mg/dL 35-160 VLDL 18 mg/dL 0-42 Urine Culture - 01/28/18 20:11 PRELIM CULTURE RESULTS No Growth 24 hours FINAL CULTURE RESULTS No Growth 48 hours MEDIA PLATED Setup at 20:29 on 01/28/2018 CULTURE SOURCE catheter Urinalysis - 01/28/18 20:11 Icotest N/A Negative Urine Volume Urine Volume Sufficient (10mL) Urine Yeast No Yeast present Urine-Appearance Clear Clear Urine-Bacteria Negative Urine-Bilirubin Negative Negative Urine-Blood Negative Negative Urine-Color Yellow Colorless-[place] ow Urine-Epithelial Cells 0-5/HPF Urine-Glucose Negative Negative Urine-Ketones Negative Negative Urine-Leukocytes Negative Negative Urine-Nitrite Negative Negative Urine-Other Culture to follow (cath sample) Urine-pH 5.5 5-8.5 Urine-Protein Negative Negative Urine-RBC Rare/HPF Urine-Specific [place] <1.005 1.000-1 .030 Urine-WBC Nothing Seen on [...] 7-25 CREATININE 1.11 mg/dL 0.60-0.88 eGFR NON-AFR. CYMRO 47 mL/min/1.73m2 > OR = 60 eGFR [...] 0.6 mg/dL 0.2-1.2 TP 5.1 g/dL 6.0-8.3 CMP - 04/09/20 13:31 GLUCOSE 138 mg/dL 65-139 UREA NITROGEN (BUN) 29 mg/dL 7-25 CREATININE 1.20 mg/dL 0.60-0.88 eGFR NON-AFR. CYMRO 42 mL/min/1.73m2 > OR = 60 eGFR 49 mL/min/1.73m2 > OR = 60 BUN/CREATININE RATIO 24 (calc) 6-22 SODIUM 139 mmol/L 135-146 POTASSIUM 4.3 mmol/L 3.5-5.3 CHLORIDE 104 mmol/L 98-110 CARBON DIOXIDE 27 mmol/L 20-32 CALCIUM 9.2 mg/dL 8.6-10.4 PROTEIN, TOTAL 6.4 g/dL 6.1-8.1 ALBUMIN 3.8 g/dL 3.6-5.1 GLOBULIN 2.6 g/dL (calc) 1.9-3.7 ALBUMIN/GLOBULIN RATIO 1.5 (calc) 1.0-2. 5 BILIRUBIN, TOTAL 0.5 mg/dL 0.2-1.2 ALKALINE PHOSPHATASE 107 U/L 37-153 AST 16 U/L 10-35 ALT 15 U/L 6-29 CBC - 04/09/20 13:31 WHITE BLOOD CELL COUNT 6.2 Thousand/uL 3 .8-10.8 RED BLOOD CELL COUNT 4.36 Million/uL 3.8 0-5.10 HEMOGLOBIN 12.3 g/dL 11.7-15.5 HEMATOCRIT 37.4 % 35.0-45.0 MCV 85.8 fL 80.0-100.0 MCH 28.2 pg 27.0-33.0 MCHC 32.9 g/dL 32.0-36.0 RDW 13.0 % 11.0-15.0 PLATELET COUNT 228 Thousand/uL 140-400 MPV 11.5 fL 7.5-12.5 ABSOLUTE NEUTROPHILS 4284 cells/uL 1500- 7800 ABSOLUTE LYMPHOCYTES 1259 cells/uL 850-3 900 ABSOLUTE MONOCYTES 490 cells/uL 200-950 ABSOLUTE EOSINOPHILS 118 cells/uL 15-500 ABSOLUTE BASOPHILS 50 cells/uL 0-200 NEUTROPHILS 69.1 % NRG LYMPHOCYTES 20.3 % NRG MONOCYTES 7.9 % NRG EOSINOPHILS 1.9 % NRG BASOPHILS 0.8 % NRG Complete blood count (CBC) with automate d white blood cell (WBC) differential - 04/10/20 13:05 Blood leukocytes automated count (number/volume) 7.1 10*3/uL 4.3-11.0 Blood erythrocytes automated count (number/volume) 4.56 10*6/uL 4.35-5.85 Venous blood hemoglobin measurement (mass/volume) 12.6 g/dL 11.5-16.0 Blood hematocrit (volume fraction) 39 % 35-52 Automated erythrocyte mean corpuscular volume 86 [ foz_us] 80-99 Automated erythrocyte mean corpuscular h emoglobin (mass per erythrocyte) 28 pg 25-34 Automated erythrocyte mean corpuscular h emoglobin concentration measurement (mass/volume) 32 g/dL 32-36 Automated erythrocyte distribution width ratio 13. 6 % 10.0- 14.5 Automated blood platelet count (count/volume) 267 10*3/uL 130-400 Automated blood platelet mean volume measurement 10.7 [foz_us] 7.4-10.4 Automated blood neutrophils/100 leukocytes 67 % 42-75 Automated blood lymphocytes/100 leukocytes 22 % 12-44 Blood monocytes/100 leukocytes 8 % 0-12 Automated blood eosinophils/100 leukocytes 3 % 0-10 Automated blood basophils/100 leukocytes 0 % 0-10 Blood neutrophils automated count (number/volume) 4.7 10*3 1.8-7.8 Blood lymphocytes automated count (number/volume) 1.5 10*3 1.0-4.0 Blood monocytes automated count (number/volume) 0. 6 10*3 0.0-1.0 Automated eosinophil count 0.2 10*3/uL 0 .0-0.3 Automated blood basophil count (count/volume) 0.0 10*3/uL 0.0-0.1 Comprehensive metabolic panel - 04/10/20 13:05 Serum or plasma sodium measurement (moles/volume) 140 mmol/L 135-145 Serum or plasma potassium measurement (moles/volume) 4.3 mmol/L 3.6-5.0 Serum or plasma chloride measurement (moles/volume) 98 mmol/L 98-107 Carbon dioxide 30 mmol/L 21-32 Serum or plasma anion gap determination (moles/volume) 12 mmol/L 5-14 Serum or plasma urea nitrogen measurement (mass/volume ) 28 mg/dL 7-18 Serum or plasma creatinine measurement (mass/volume) 1.19 mg/dL 0.60-1.30 Serum or plasma urea nitrogen/creatinine mass ratio 24 NRG Serum or plasma creatinine measurement w ith calculation of estimated glomerular filtration rate 44 NRG Serum or plasma glucose measurement (mass/volume) 146 mg/dL 70-105 Serum or plasma calcium measurement (mass/volume) 9.9 mg/dL 8.5-10.1 Serum or plasma total bilirubin measurement (mass/volu me) 0.4 mg/dL 0.1-1.0 Serum or plasma alkaline phosphatase heraclio surement (enzymatic activity/volume) 110 U/L 40-136 Serum or plasma aspartate aminotransfera se measurement (enzymatic activity/volume) 18 U/L 5-34 Serum or plasma alanine aminotransferase measurement (enzymatic activity/volume) 14 U/L 0-55 Serum or plasma protein measurement (mass/volume) 7.2 g/dL 6.4-8.2 Serum or plasma albumin measurement (mass/volume) 4.0 g/dL 3.2-4.5 CALCIUM CORRECTED 9.9 mg/dL 8.5-10.1 Lipase - 04/10/20 13:05 Lipase 20 U/L 8-78 Complete urinalysis with reflex to cultu re - 04/10/20 13:38 Urine color determination PALE YELLOW N RG Urine clarity determination CLEAR NR G Urine pH measurement by test strip 6.0 5-9 Specific gravity of urine by test strip <= 1.016-1.022 Urine protein assay by test strip, semi-quantitative NEGATIVE NEGATIVE Urine glucose detection by automated test strip NE GATIVE NEGATIVE Erythrocytes detection in urine sediment by light micr oscopy NEGATIVE NEGATIVE Urine ketones detection by automated test strip NE GATIVE NEGATIVE Urine nitrite detection by test strip NEGATIVE NEGATIVE Urine total bilirubin detection by test strip NEGA TIVE NEGATIVE Urine urobilinogen measurement by automated test strip (mass/volume) 0.2 mg/dL < = 1.0 Urine leukocyte esterase detection by dipstick TRA CE NEGATIVE Automated urine sediment erythrocyte cou nt by microscopy (number/high power field) RARE NRG Automated urine sediment leukocyte count by microscopy (number/high power field) [HPF] NRG Bacteria detection in urine sediment by light microsco py TRACE NRG Squamous epithelial cells detection in u rine sediment by light microscopy 0-2 NRG Crystals detection in urine sediment by light microsco py NONE NRG Casts detection in urine sediment by light microscopy NONE NRG Mucus detection in urine sediment by light microscopy NEGATIVE NRG Complete urinalysis with reflex to culture YES NRG Bacterial urine culture - 04/10/20 13:38 Bacterial urine culture [id number] NRG COLONY COUNT 60,000 cfu/ml NRG SUSCEPTIBILITY NO SUSCEPTIBILITY PERFORMED NRG Coronavirus SARS-CoV-2 SO 2018 - 0 13:31 Coronavirus Ab [Units/volume] in Serum Negative Negative Methicillin resistant Staphylococcus aur eus (MRSA) screening culture - 04/18/20 13:35 Methicillin resistant Staphylococcus aureus (MRSA) scr eening culture NEG NRG Encounters ACCT No. Visit Date/Time Discharge Status Pt. Type Provider Facility Loc./Unit Complaint [id number] 04/09/2020 12:30:00 04/09/2020 23:59: 59 [facility] Outpatient Fatou Taylor [facility] [id number] 04/09/2020 12:30:00 Document Registration [id number] 10/11/2019 09:00:00 Document Registration [id number] 10/10/2019 14:00:00 Document Registration [id number] 08/22/2019 14:20:00 Document Registration [id number] 07/19/2019 14:40:00 Document Registration [id number] 06/21/2019 09:00:00 Document Registration [id number] 06/20/2019 10:20:00 Document Registration [id number] 01/28/2018 19:21:00 Document Registration [id number] 12/28/2019 11:57:00 01/01/2020 16:15 :00 [id number] 04/06/2019 11:47:00 04/06/2019 14:50: 00 DIS Outpatient GIO WRIGHT [facility] ER [id number] 04/04/2019 10:13:00 04/04/2019 23:59: 00 DIS Outpatient Kiana Lea [id number] 11/18/2018 15:44:00 11/18/2018 23:59: 00 DIS Outpatient Brandon Fatou [id number] 07/15/2018 15:24:00 07/15/2018 15:55: 00 DIS Outpatient Fatou Taylor [id number] 06/03/2018 10:32:00 06/03/2018 23:59: 00 DIS Outpatient BrandonFatou [id number] 04/29/2018 09:02:00 04/29/2018 23:59: 00 DIS Outpatient Fatou Taylor [id number] 01/29/2018 19:02:00 01/29/2018 21:05: 00 DIS Outpatient Elio [facility] ER [id number] 01/29/2018 13:19:00 01/29/2018 13:38: 00 DIS Outpatient Johnathan Zavala [id number] 01/28/2018 19:21:00 01/28/2018 22:10: 00 DIS Outpatient Austen [facility] ER [id number] 11/05/2017 08:25:00 11/05/2017 23:59: 00 DIS Outpatient Fatou Taylor [id number] 10/23/2017 09:54:00 10/23/2017 23:59: 00 DIS Outpatient Kvng Rain [id number] 08/13/2017 13:06:00 09/24/2017 14:55: 00 DIS Outpatient Dorene Ballard [id number] 08/10/2017 11:55:00 08/10/2017 23:59: 00 DIS Outpatient Fatou Taylor [id number] 05/21/2017 15:03:00 05/21/2017 23:59: 00 DIS Outpatient Fatou Taylor [id number] 04/23/2017 09:03:00 04/23/2017 23:59: 00 DIS Outpatient Fatou Taylor [id number] 03/03/2017 16:37:00 03/03/2017 23:59: 00 DIS Outpatient Fatou Taylor [id number] 12/26/2016 15:55:00 12/26/2016 23:59: 00 DIS Outpatient Kvng Rain [id number] 04/04/2019 08:36:00 Document Registration [id number] 01/28/2019 10:12:00 Document Registration [id number] 09/20/2018 09:52:00 Document Registration [id number] 07/15/2018 15:32:20 Document Registration [id number] 06/03/2018 09:45:00 Document Registration [id number] 02/03/2018 12:58:00 Document Registration [id number] 11/19/2017 09:47:00 Document Registration [id number] 10/28/2017 13:34:00 Document Registration [id number] 10/23/2017 09:12:00 Document Registration [id number] 08/10/2017 10:28:00 Document Registration [id number] 04/18/2020 12:54:00 15:40:00 DIS Outpatient REECE GALLARDO MD [facility] PREOP RIGHT URETERAL OBSTRUCT ION [id number] 04/10/2020 12:30:00 15:00:00 DIS Emergency MARYJANE MILLER DO [facility] ER FS BOWEL CONSTIPATION [id number] 04/08/2020 17:34:00 23:59:59 CLS Outpatient VALERIE THOMAS [employer] [facility] RAD FS R19.7 [id number] 12/28/2019 10:14:00 13:10:00 DIS Emergency MARYJANE MILLER DO [facility] ER FS FEVER; WHEEZING; O2 80 [id number] 10/10/2019 14:15:00 23:59:59 CLS Outpatient MARTHA VALERIE [employer] [facility] RAD FS R50.9 [id number] 04/22/2020 10:15:00 P EN Preadmit REECE GALLARDO MD [facility] SDC RIGHT URETERAL OBSTRUCTION
[2020-04-22] MEDS ORDERED: SEVOFLURANE (ULTANE) 15 ML INHAL SOLN ONE (08:58)
[2020-04-22] MEDS ORDERED: LIDOCAINE PF 2% 5 ML (XYLOCAINE) VIAL ONE (08:58)
[2020-04-22] MEDS ORDERED: proPOfol 200 MG/20 ML (DIPRIVAN) VIAL IV ONE (08:58)
[2020-04-22] MEDS ORDERED: fentaNYL INJECTION 100 MCG/2 ML AMP ONE (08:58)
[2020-04-22] MEDS ORDERED: ONDANSETRON 4 MG/2 ML (SDV) Z0FRAN ONE (08:58)
--- NOTE | 2020-04-22 10:04 | Progress Note-Post Operative ---
Post-Operative Progess Note Surgeon (s)/Manager Target (s) Surgeon REECE GALLARDO MD Manager Target: NONE Pre-Operative Diagnosis RT URETERAL OBSTRUCTION, 3+ CYSTOCELE Post-Operative Diagnosis SAME Procedure & Operative Findings Date of Procedure 04/22/20 Procedure Performed/Findings CYSTOSCOPY, RT RETROGRADE UROGRAM, INSERTION OF RT URETERAL CATHETER, AND RT URETEROSCOPY Anesthesia Type GENERAL Estimated Blood Loss Estimated blood loss (mL): NONE Specimens/Packing Specimens Removed NONE Packing: NONE REECE GALLARDO MD Apr 22, 2020 10:04
--- NOTE | 2020-04-22 10:05 | Discharge Inst-Urology ---
Discharge Inst-Urology Reconcile Patient Problems Problems Reviewed?: Yes Final Diagnosis RT URETERAL OBSTRUCTION AND CYSTOCELE Patient Instructions/Follow Up Plan/Assessment/Instructions Please make appointment to been seen in office in 6 weeks. Increase oral fluids for 48 hours and then as needed. Diet and Activity as tolerated. If questions or concerns contact your physician Or seek help at emergency department. REECE GALLARDO MD Apr 22, 2020 10:05
--- NOTE | 2020-04-22 10:09 | Anesthesia-General Post-Op ---
General Patient Condition Mental Status/LOC: Same as Preop Cardiovascular: Satisfactory Nausea/Vomiting: Absent Respiratory: Satisfactory Pain: Controlled Complications: Absent Post Op Complications Complications None Follow Up Care/Instructions Patient Instructions None needed. Anesthesia/Patient Condition Patient Condition Patient is doing well, no complaints, stable vital signs, no apparent adverse anesthesia problems. No complications reported per nursing. MODESTA DAY CRNA Apr 22, 2020 10:09
[2020-04-22] MEDS ORDERED: morphine INJ 10 MG/ML 1ML (SYR OR VIAL) IVP ONE (10:15)
--- NOTE | 2020-04-22 20:29 | OPERATIVE REPORT ---
DATE OF SERVICE: 04/22/2020 PREOPERATIVE DIAGNOSIS: Right ureteral obstruction and solitary kidney. POSTOPERATIVE DIAGNOSES: Right ureteral obstruction and solitary kidney. No obstruction and a 3+ cystocele. OPERATION PERFORMED: Cystoscopy, right retrograde urogram, insertion of right ureteral catheter and a right ureteroscopy. SURGEON: Tucker Gallardo MD ANESTHESIA: General. COMPLICATIONS: None. DESCRIPTION OF PROCEDURE: Under satisfactory general anesthesia, the patient in lithotomy position, genitalia were prepped and draped in the usual sterile fashion. Noted a 3+ cystocele. Cystoscope was introduced under vision. The bladder was essentially normal except that because of the 3+ cystocele, the ureteral orifice was pulled down more. So I inserted to a 4 x 4 in the vagina to straighten up the floor of the bladder and be able to see the ureteral orifice well. It was spurting clear efflux. I went ahead and passed a right ureteral catheter and the opening and injected contrast. There was no dilatation of the ureter and quite a bit emptying of the system. I went ahead and passed the catheter all the way up to the right renal pelvis guided fluoroscopically with no obstruction and no problem at all. I removed the cystoscope. I reinserted the ureteroscope all the way up to the kidney, no problems, no obstruction, no stones, no tumors. I removed the ureteroscope, and emptied the bladder was found. The patient tolerated the procedure and anesthesia well and was sent to recovery room in stable condition. PLAN: We will see her back in week, recheck her kidney functions. We may recheck her noncontrast CT scan of the abdomen and pelvis in 3 months after that along with a basic metabolic panel. Job ID: [id number] DocumentID: [id number] Dictated Date: 04/22/2020 10:08:25 Fitness/Wellness Director Date: 04/22/2020 20:28:48 Dictated By: TUCKER GALLARDO MD
== END 2020-04-22 12:15 | disposition home or self-care (01) ==
LOC: SDC 08:25
PROVIDERS: ATTEND Urology
DX: N13.5 Crossing vessel and stricture of ureter without hydronephrosis (principal); Q60.0 Renal agenesis, unilateral; N81.10 Cystocele, unspecified; I10 Essential (primary) hypertension; I25.10 Atherosclerotic heart disease of native coronary artery without angina pectoris; E78.5 Hyperlipidemia, unspecified; J44.9 Chronic obstructive pulmonary disease, unspecified; E11.9 Type 2 diabetes mellitus without complications; K21.0 Gastro-esophageal reflux disease with esophagitis; Z88.0 Allergy status to penicillin; Z88.2 Allergy status to sulfonamides; Z88.1 Allergy status to other antibiotic agents; Z88.5 Allergy status to narcotic agent; Z95.1 Presence of aortocoronary bypass graft; Z79.4 Long term (current) use of insulin; Z88.6 Allergy status to analgesic agent; Z88.8 Allergy status to other drugs, medicaments and biological substances; Z79.899 Other long term (current) drug therapy; Z80.0 Family history of malignant neoplasm of digestive organs
CPT/HCPCS: 82962

== ENCOUNTER → 2020-08-26 | Outpatient (CLI) | payer MEDICARE, OTHER, MEDICAID ==
--- NOTE | 2020-08-26 11:34 | Diagnostic Imaging Report ---
PROCEDURE: CT abdomen and pelvis without contrast. TECHNIQUE: Multiple contiguous axial images were obtained through the abdomen and pelvis without the use of intravenous contrast. Auto Exposure Controls were utilized during the CT exam to meet ALARA standards for radiation dose reduction. INDICATION: Left ureteral obstruction. Correlation is made with prior CT from 04/10/2020. There is linear scarring in both lung bases. The liver is unremarkable. Gallbladder surgically absent. No biliary ductal dilatation is seen. The pancreas and spleen are unremarkable. Adrenal glands appear stable. Marked left renal atrophy is similar to prior study. Compensatory enlargement right kidney is seen. The appearance of the right renal collecting system and right ureter similar to prior study. No ureteral calculi are detected. No intrarenal calculi are seen. Aorta remains heavily calcified but non-aneurysmal. Bowel loops are normal caliber. Diverticulosis of the sigmoid but no evidence of acute diverticulitis. Bladder is unremarkable. Uterus is unremarkable. No free fluid or fluid collection is seen. IMPRESSION: Overall stable CT abdomen and pelvis without contrast when compared to exam from 04/10/2020. No definite urinary tract calculi or obstruction is seen. There is uncomplicated sigmoid diverticulosis. Dictated by: Dictated on workstation # [id number]
== END ==
LOC: RAD FS 10:36
PROVIDERS: ATTEND Urology
DX: N13.5 Crossing vessel and stricture of ureter without hydronephrosis (principal); N26.1 Atrophy of kidney (terminal); K57.30 Diverticulosis of large intestine without perforation or abscess without bleeding; Z90.49 Acquired absence of other specified parts of digestive tract
CPT/HCPCS: 74176

== ENCOUNTER 2021-03-26 04:24 | Observation (INO) | payer MEDICARE, OTHER, MEDICAID ==
[~2021-03-26] VITALS: Ht 157.4 cm; Wt 57.9 kg
[2021-03-26 04:58] LABS: BASOPHILS % (AUTO) 1 % (0-10); EOSINOPHILS % (AUTO) 3 % (0-10); HEMATOCRIT 42 % (35-52); HEMOGLOBIN 12.9 G/DL (11.5-16.0); LYMPHOCYTES % (AUTO) 27 % (12-44); MEAN CORPUSCULAR HEMOGLOBIN 27 PG (25-34); MEAN CORPUSCULAR HGB CONC 31 G/DL (32-36); MEAN CORPUSCULAR VOLUME 89 FL (80-99); MEAN PLATELET VOLUME 10.6 FL (7.4-10.4); MONOCYTES % (AUTO) 10 % (0-12); NEUTROPHILS % (AUTO) 59 % (42-75); PLATELET COUNT 206 10^3/uL (130-400); WHITE BLOOD COUNT 6.8 10^3/uL (4.3-11.0)
[2021-03-26 04:59] LABS: BASOPHILS # (AUTO) 0.1 10^3/uL (0.0-0.1); EOSINOPHILS # (AUTO) 0.2 10^3/uL (0.0-0.3); LYMPHOCYTES # (AUTO) 1.9 X 10^3 (1.0-4.0); MONOCYTES # (AUTO) 0.7 X 10^3 (0.0-1.0)
--- NOTE | 2021-03-26 05:10 | ED General ---
General Chief Complaint: Cardiac/General Problems Stated Complaint: CARDIAC ISSUES Nursing Triage Note: Pt in per family with c/o arm feeling weird palpitations, vague on complaint or concerns. Seen by nurse practioner yesterday for heart arrhythmia. States if she had these complaints again to go to ED. Nursing Sepsis Screen: No Definite Risk Source of Information: Patient Exam Limitations: No Limitations History of Present Illness Date Seen by Provider: March 26, 2021 Time Seen by Provider: 04:30 Initial Comments Patient is an 80-year-old female with history of CAD, four-vessel CABG who presents with intermittent chest achiness radiating to both shoulders over the past 24 hours. Episodes occur at night and when she is getting up to use her bathroom. Pain lasts approximately 1 hour and resolves with rest. No nitroglycerin taken. Patient most repeat episode of chest discomfort was at 10 PM lasted an hour then resolved. However, patient currently reports feeling weak, tremulous and diaphoretic. She denies nausea or shortness of breath or pa lpitations.. No fever, cough, sore throat. Denies increased leg pain or swelling. No abdominal pain. No vomiting, no urinary frequency urgency or dysuria. No diarrhea. No dizziness lightheadedness or focal extremity weakness. No other acute symptoms or complaints. Timing/Duration: 1-2 Days, Other Severity: Moderate Modifying Factors: improves with Other Associated Systoms: Other Allergies and Home Medications Allergies Coded Allergies: clindamycin (Unverified Allergy, Severe, Anaphylaxis, 04/18/20) ondansetron (Unverified Allergy, Severe, Anaphylaxis, 04/18/20) prednisone (Unverified Adverse Reaction, Intermediate, Confusion, 04/18/20) Penicillins (Unverified Adverse Reaction, Mild, nausea and vomiting, 04/18/20) from [facility] cefixime (Unverified Adverse Reaction, Mild, nausea and vomiting, 04/18/20) from [facility] Suprax (Cefixime) cephalexin (Unverified Adverse Reaction, Mild, nausea and vomiting, 04/18/20) from [facility] esomeprazole (Unverified Adverse Reaction, Mild, Rash, 04/18/20) from [facility] guaifenesin (Unverified Adverse Reaction, Mild, nausea and vomiting, 04/18/20) from [facility] (Guaifed) hydrocodone (Unverified Adverse Reaction, Mild, rash, 04/18/20) from [facility] (Hydrocodone-acetaminophen) omeprazole (Unverified Adverse Reaction, Mild, rash, 04/18/20) from [facility] oxycodone (Unverified Adverse Reaction, Mild, rash, 04/18/20) from [facility] pantoprazole (Unverified Adverse Reaction, Mild, rash, 04/18/20) from [facility] phenylephrine (Unverified Adverse Reaction, Mild, Nausea andd vomiting, 04/18/20) from [facility] (Guaifed) sucralfate (Unverified Adverse Reaction, Mild, Itching, 04/18/20) from [facility] Sulfa (Sulfonamide Antibiotics) (Unverified Adverse Reaction, Unknown, 04/18/20) celecoxib (Unverified Adverse Reaction, Unknown, 04/18/20) hydrochlorothiazide (Unverified Adverse Reaction, Unknown, 04/18/20) from [facility] (Spironolacton-hydrochlorothiaz) ibuprofen (Unverified Adverse Reaction, Unknown, 04/18/20) from [facility] metoclopramide (Unverified Adverse Reaction, Unknown, 04/18/20) from [facility] prochlorperazine (Unverified Adverse Reaction, Unknown, 04/18/20) from [facility] spironolactone (Unverified Adverse Reaction, Unknown, 04/18/20) from [facility] (Spironolacton-hydrochlorothiaz) Home Medications Alprazolam 0.5 Mg Tablet, 0.5 MG PO HS, (Reported) Carvedilol 6.25 Mg Tablet, 6.25 MG PO BID, (Reported) Famotidine 40 Mg Tablet, 40 MG PO BID, (Reported) Hydrochlorothiazide 25 Mg Tablet, 25 MG PO DAILY, (Reported) Insulin Determir 1,000 Units/10 Ml Soln, 10 UNITS SQ HS, (Reported) L. Acidophilus/L.bulgaricus 1 Each Tablet, 2 TAB PO DAILY, (Reported) Mag Hydrox/Al Hydrox/Simeth 30 Ml Oral.susp, 30 ML PO DAILY PRN for INDIGESTION, (Reported) Meclizine HCl 25 Mg Tablet, 12.5 MG PO BID, (Reported) Potassium Chloride 20 Meq Tab.er.prt, 20 MEQ PO DAILY, (Reported) Simethicone 125 Mg Capsule, 125 MG PO TID, (Reported) Simvastatin 40 Mg Tablet, 40 MG PO HS, (Reported) Tramadol HCl 50 Mg Tablet, 50 MG PO Q6H PRN for PAIN-MODERATE (5-7), (Reported) Patient Home Medication List Home Medication List Reviewed: Yes Review of Systems Review of Systems Constitutional: see HPI EENTM: see HPI Respiratory: see HPI Cardiovascular: see HPI Gastrointestinal: see HPI Genitourinary: see HPI Musculoskeletal: see HPI Skin: see HPI Psychiatric/Neurological: See HPI Hematologic/Lymphatic: See HPI Immunological/Allergic: see HPI All Other Systems Reviewed Negative Unless Noted: Yes Past Udpnbhk-Rsulaa-Cmxhjl Hx Past Med/Social Hx: Reviewed Nursing Past Med/Soc Hx Patient Social History Alcohol Use: Denies Use 2nd Hand Smoke Exposure: No Recent Infectious Disease Expo: No Recent Hopitalizations: Yes (DEC 2019-PNEUMONIA) Immunizations Up To Date Date of Pneumonia Vaccine: April 18, 2013 Seasonal Allergies Seasonal Allergies: No Past Medical History Surgeries: Yes (Colonoscopy w/polypectomy, Quad CABG, heart cath, COLON RESECTION) Bowel Surgery, CABG, Gallbladder Respiratory: Yes (Hx pneumonia, chronic obstructive airway, Nocturnal O2 2L) Pneumonia, COPD Currently Using CPAP: No Currently Using BIPAP: No Cardiac: Yes (Quadruple bypass) Coronary Artery Disease, High Cholesterol, Hypertension Neurological: No Sexually Transmitted Disease: No HIV/AIDS: No Genitourinary: Yes Kidney Stones Gastrointestinal: Yes (Hx reflux esophagitis/duodenitis, Hx tubulovillous adenoma) Gastroesophageal Reflux, Esophagitis Musculoskeletal: Yes (Hx fx shoulder) Fractures Endocrine: Yes (Hx DM on [employer]) Diabetes, Non-Insulin dep HEENT: No Loss of Vision: Denies Hearing Impairment: Denies Cancer: Yes Colon What Type of Treatment Did You: Surgical Intervention Psychosocial: Yes Anxiety Integumentary: No Blood Disorders: No Adverse Reaction/Blood Tranf: No (N/A) Physical Exam Vital Signs Vital Signs - First Documented 03/26/21 04:47 Temp 36.9 Pulse 62 Resp 16 B/P (MAP) 200/56 (104) O2 Delivery Room Air Capillary Refill : Less Than 3 Seconds Height, Weight, BMI Height: '" Weight: lbs. oz. kg; 24.00 BMI Method: General Appearance: No Apparent Distress, WD/WN, Other (Clammy) Eyes: Bilateral Eye Normal Inspection, Bilateral Eye PERRL, Bilateral Eye EOMI HEENT: PERRL/EOMI, Normal ENT Inspection, Pharynx Normal Neck: Full Range of Motion, Non Tender, Supple Respiratory: Chest Non Tender, Lungs Clear, Normal Breath Sounds Cardiovascular: Regular Rate, Rhythm, No Edema Gastrointestinal: Non Tender, Soft Back: Normal Inspection Extremity: Normal Capillary Refill, Non Tender, No Calf Tenderness Neurologic/Psychiatric: Alert, Oriented x3, No Motor/Sensory Deficits, picker and sorter load and unload II- XII Norm as Tested Skin: Cool Focused Exam Sepsis Stage: Ruled Out Possible Source: Genitouriary Respiratory: Normal Breath Sounds Cardiovascular: Bradycardia Capillary Refill: Less Than 3 Seconds Skin: damp Within 3hrs of presentation: Admin ABX, Blood cultures prior to ABX's, Focus exam, Lactate level, Other Progress/Results/Core Measures Suspected Sepsis Recent Fever Within 48 Hours: No Infection Criteria Present: None New/Unexplained Altered Menta: No Sepsis Screen: No Definite Risk SIRS Temperature: Pulse: 62 Respiratory Rate: 16 Laboratory Tests 03/26/21 04:55: White Blood Count 6.8 Blood Pressure 200 /56 Mean: 104 Laboratory Tests 03/26/21 04:55: Creatinine 1.27, Platelet Count 206, Total Bilirubin 0.6 Results/Orders Lab Results Laboratory Tests Test 03/26/21 04:55 03/26/21 05:11 Range/Units White Blood Count 6.8 4.3-11.0 10^3/uL Red Blood Count 4.75 4.35-5.85 10^6/uL Hemoglobin 12.9 11.5-16.0 G/DL Hematocrit 42 35-52 % Mean Corpuscular Volume 89 80-99 FL Mean Corpuscular Hemoglobin 27 25-34 PG Mean Corpuscular Hemoglobin Concent 31 L 32-36 G/DL Red Cell Distribution Width 14.6 H 10.0-14.5 % Platelet Count 206 130-400 10^3/uL Mean Platelet Volume 10.6 H 7.4-10.4 FL Immature Granulocyte % (Auto) 0 % Neutrophils (%) (Auto) 59 42-75 % Lymphocytes (%) (Auto) 27 12-44 % Monocytes (%) (Auto) 10 0-12 % Eosinophils (%) (Auto) 3 0-10 % Basophils (%) (Auto) 1 0-10 % Neutrophils # (Auto) 4.0 1.8-7.8 X 10^3 Lymphocytes # (Auto) 1.9 1.0-4.0 X 10^3 Monocytes # (Auto) 0.7 0.0-1.0 X 10^3 Eosinophils # (Auto) 0.2 0.0-0.3 10^3/uL Basophils # (Auto) 0.1 0.0-0.1 10^3/uL Immature Granulocyte # (Auto) 0.0 0.0-0.1 10^3/uL Sodium Level 138 135-145 MMOL/L Potassium Level 3.9 3.6-5.0 MMOL/L Chloride Level 101 98-107 MMOL/L Carbon Dioxide Level 27 21-32 MMOL/L Anion Gap 10 5-14 MMOL/L Blood Urea Nitrogen 20 H 7-18 MG/DL Creatinine 1.27 0.60-1.30 MG/DL Estimat Glomerular Filtration Rate 40 BUN/Creatinine Ratio 16 Glucose Level 156 H 70-105 MG/DL Calcium Level 9.4 8.5-10.1 MG/DL Corrected Calcium 9.4 8.5-10.1 MG/DL Total Bilirubin 0.6 0.1-1.0 MG/DL Aspartate Amino Transf (AST/SGOT) 17 5-34 U/L Alanine Aminotransferase (ALT/SGPT) 13 0-55 U/L Alkaline Phosphatase 125 40-136 U/L Troponin I < 0.30 <0.30 NG/ML Pro-B-Type Natriuretic Peptide 337.3 H <75.0 PG/ML Total Protein 7.0 6.4-8.2 GM/DL Albumin 4.0 3.2-4.5 GM/DL Lipase 23 8-78 U/L Urine Color YELLOW Urine Clarity CLOUDY Urine pH 6.0 5-9 Urine Specific [place] 1.010 L 1.016-1.022 Urine Protein NEGATIVE NEGATIVE Urine Glucose (UA) NEGATIVE NEGATIVE Urine Ketones NEGATIVE NEGATIVE Urine Nitrite POSITIVE H NEGATIVE Urine Bilirubin NEGATIVE NEGATIVE Urine Urobilinogen 0.2 < = 1.0 MG/DL Urine Leukocyte Esterase 3+ H NEGATIVE Urine RBC (Auto) TRACE-I NEGATIVE Urine RBC NONE /HPF Urine WBC TNTC H /HPF Urine Crystals NONE /LPF Urine Bacteria /HPF Urine Casts NONE /LPF Urine Mucus NEGATIVE /LPF Urine Culture Indicated YES My Orders Orders - KATHERINEKENDALL DO Chest 1 View Ap/Pa Only (03/26/21 04:37) Cbc With Automated Diff (03/26/21 04:41) Comprehensive Metabolic Panel (03/26/21 04:41) Troponin I Fs (03/26/21 04:41) Probnp Fs (03/26/21 04:41) Lipase (03/26/21 04:41) Ekg-Prn For Chest Pain Or Rhyt (03/26/21 04:41) Urinalysis (03/26/21 05:10) Urine Culture (03/26/21 05:11) Ct Chest Wo (03/26/21 05:10) Furosemide Injection (Lasix Injection) (03/26/21 06:45) Ceftriaxone For Iv Use (Rocephin For I (03/26/21 06:45) Lactic Acid Analyzer (03/26/21 06:38) Blood Culture (03/26/21 06:39) Vital Signs/I&O 03/26/21 04:47 Temp 36.9 Pulse 62 Resp 16 B/P (MAP) 200/56 (104) O2 Delivery Room Air Capillary Refill : Less Than 3 Seconds Blood Pressure Mean: 104 Departure Communication (Admissions) Chest x-ray: Scattered pulmonary infiltrates with bilateral pleural effusions. EKG 03/26/2021, 431, sinus bradycardia, ME, 174, QT QRS 90, QTc 413. Sinus bradycardia with Q waves in anterior septal leads. No acute ST segment changes. Patient with significant urinary tract infection likely contributing to the symptoms. IV Rocephin given. EKG, troponin nonacute. IV fluids cautiously is given due to patient's high risk of heart failure. Will admit to [facility] for further treatment and monitoring. Dr. Acosta accepts care of patient at 1845. Official CT report and lactic level pending at time of dictation. Impression Primary Impression: Urinary tract infection Additional Impression: Chest pain Disposition: ADMITTED INPATIENT Condition: Stable Admissions Decision to Admit Reason: Admit from ER (General) Decision to Admit/Date: March 26, 2021 Time/Decision to Admit Time: 06:45 Transfer Transfer Reason: Exceeds level of care Departure-Patient Inst. Decision time for Depature: 06:47 Referrals: [facility] (PCP) Primary Care Physician ANA THOMAS APRN (Family) Primary Care Physician KENDALL MURPHY DO March 26, 2021 05:09
--- NOTE | 2021-03-26 05:10 | Diagnostic Imaging Report ---
INDICATION: Arrhythmia, chest pain Portable chest 4:31 AM There are postoperative changes from CABG surgery. There is a faint nodular opacities in both lungs which appear to have been present previously on exam from 12/28/2019. IMPRESSION: Chronic nodular opacities in the lungs. No acute abnormality seen. Dictated by: Dictated on workstation # [id number]
[2021-03-26 05:18] LABS: ALANINE AMINOTRANSFERASE 13 U/L (0-55); ALKALINE PHOSPHATASE 125 U/L (40-136); BILIRUBIN,TOTAL 0.6 MG/DL (0.1-1.0); BUN/CREATININE RATIO 16; CALCIUM 9.4 MG/DL (8.5-10.1); CARBON DIOXIDE 27 MMOL/L (21-32); CHLORIDE 101 MMOL/L (98-107); CREATININE SERUM 1.27 MG/DL (0.60-1.30); GFR ESTIMATED 40; GLUCOSE 156 MG/DL (70-105); POTASSIUM 3.9 MMOL/L (3.6-5.0); SODIUM 138 MMOL/L (135-145)
[2021-03-26 05:19] LABS: LIPASE 23 U/L (8-78)
[2021-03-26 05:21] LABS: BILIRUBIN,URINE NEGATIVE (NEGATIVE); CLARITY,URINE CLOUDY; COLOR,URINE YELLOW; GLUCOSE, URINE (UA) NEGATIVE (NEGATIVE); KETONES,URINE NEGATIVE (NEGATIVE); LEUKOCYTE ESTERASE ,URINE 3+ (NEGATIVE); NITRITE,URINE POSITIVE (NEGATIVE); PROTEIN,URINE NEGATIVE (NEGATIVE); WBC,URINE TNTC /HPF
[2021-03-26] MEDS ORDERED: cefTRIAXone FOR IV USE 1,000 MG in WATER (STERILE) FOR INJECTION 10 ML IV ONE (06:45)
[2021-03-26] MEDS ORDERED: FUROSEMIDE 40 MG/4 ML INJ (LASIX) IVP ONE (06:45)
--- NOTE | 2021-03-26 07:12 | Diagnostic Imaging Report ---
PROCEDURE: CT chest without contrast. TECHNIQUE: Multiple contiguous axial images were obtained through the chest without the use of intravenous contrast. Auto Exposure Controls were utilized during the CT exam to meet ALARA standards for radiation dose reduction. INDICATION: Chest pain, arrhythmias CT chest without contrast There is some scarring and atelectasis in both lungs. There is a small peripheral ill-defined nodular opacities in both lungs. These are primarily posterolateral basilar distribution. These were not present, however, on a prior exam from 08/26/2020. There is no effusion or pneumothorax. There is calcific atherosclerosis of the aorta. Postoperative changes from CABG surgery. There is no hilar or mediastinal lymphadenopathy. IMPRESSION: Small patchy peripheral areas of alveolar consolidation. This is most likely inflammatory/infectious in etiology but short interval follow-up and clinical correlation recommended. Dictated by: Dictated on workstation # [id number]
[2021-03-26 08:41] VITALS: BP 133/92
[2021-03-26] MEDS ORDERED: LOPERAMIDE 2 MG (IMODIUM) TABLET PO PRN (09:15)
[2021-03-26] MEDS ORDERED: DOCUSATE SODIUM 100 MG (COLACE) CAP PO PRN (09:15)
[2021-03-26] MEDS ORDERED: ENOXAPARIN 40 MG/0.4 ML (LOVENOX) SYR SC SCH (09:15)
[2021-03-26] MEDS ORDERED: CALCIUM CARBONATE 500 MG (TUMS) TAB.CHEW PO PRN (09:15)
[2021-03-26] MEDS ORDERED: diphenhydrAMINE 25 MG TAB (BENADRYL) PO PRN (09:15)
[2021-03-26] MEDS ORDERED: ASPIRIN E.C. 81 MG (ECOTRIN) TAB PO ONE (09:15)
[2021-03-26] MEDS ORDERED: ALPRAZolam 0.25 MG (XANAX) TAB PO PRN (09:15)
[2021-03-26] MEDS ORDERED: MELATONIN 3 MG TABLET PO PRN (09:15)
[2021-03-26] MEDS ORDERED: ACETAMINOPHEN 500 MG TAB (TYLENOL) PO PRN (09:15)
--- NOTE | 2021-03-26 09:17 | History & Physical-Hospitalist ---
History of Present Illness HPI/Chief Complaint CC: Chest pain with UTI HPI: This is an 80yoWF clinic Pt of [facility] along with Dr. Higginbotham, Dr. Roberson, Dr. Garsia and Dr. Dr. Khan all at [facility] for history of stomach cancer, who presents from the [place] ER with complaints of chest pain and weakness. Pt was found to have a UTI, was given Rocephin IV antibiotics and I have consulted cardiology to evaluate risk-stratify for the chest pain complaint. She is asking for allergy medicine and I have requested pharmacy to review her home medication in order to restart. Her son is at the bedside. Source: patient Exam Limitations: no limitations Date Seen 03/26/21 Time Seen by a Provider: 09:00 Attending Physician Laura Lopes DO [facility] Referring Physician Date of Admission March 26, 2021 at 08:27 Home Medications & Allergies Home Medications Reviewed patient Home Medication Reconciliation performed by pharmacy medication reconciliations senior wind turbine technician and/or nursing. Patients Allergies have been reviewed. Allergies Allergies Coded Allergies clindamycin (Unverified Allergy, Severe, Anaphylaxis, 04/18/20) ondansetron (Unverified Allergy, Severe, Anaphylaxis, 04/18/20) prednisone (Unverified Adverse Reaction, Intermediate, Confusion, 04/18/20) Penicillins (Unverified Adverse Reaction, Mild, nausea and vomiting, 04/18/20) from [facility] cefixime (Unverified Adverse Reaction, Mild, nausea and vomiting, 04/18/20) [facility] Sup[facility] (Cefixime) cephalexin (Unverified Adverse Reaction, Mild, nausea and vomiting, 04/18/20) from [facility] esomeprazole (Unverified Adverse Reaction, Mild, Rash, 04/18/20) from [facility] guaifenesin (Unverified Adverse Reaction, Mild, nausea and vomiting, 04/18/20) from [facility] (Guaifed) hydrocodone (Unverified Adverse Reaction, Mild, rash, 04/18/20) from [facility] (Hydrocodone-acetaminophen) omeprazole (Unverified Adverse Reaction, Mild, rash, 04/18/20) [facility] oxycodone (Unverified Adverse Reaction, Mild, rash, 04/18/20) from [facility] pantoprazole (Unverified Adverse Reaction, Mild, rash, 04/18/20) from [facility] phenylephrine (Unverified Adverse Reaction, Mild, Nausea andd vomiting, 04/18/20) from [facility] (Guaifed) sucralfate (Unverified Adverse Reaction, Mild, Itching, 04/18/20) from [facility] Sulf[facility] (Sulfonamide Antibiotics) (Unverified Adverse Reaction, Unknown, 04/18/20) celecoxib (Unverified Adverse Reaction, Unknown, 04/18/20) hydrochlorothiazide (Unverified Adverse Reaction, Unknown, 04/18/20) from [facility] (Spironolacton-hydrochlorothiaz) ibuprofen (Unverified Adverse Reaction, Unknown, 04/18/20) from [facility] metoclopramide (Unverified Adverse Reaction, Unknown, 04/18/20) from [facility] prochlorperazine (Unverified Adverse Reaction, Unknown, 04/18/20) from [facility] spironolactone (Unverified Adverse Reaction, Unknown, 04/18/20) from [facility] (Spironolacton-hydrochlorothiaz) Patient Social History Marrital Status: single Employed/Student: retired Smoking Status: Never a Smoker Alcohol Use?: No Immunizations Up To Date Date of Pneumonia Vaccine: April 18, 2013 Past Medical History Stomach cancer DM HTN HLP CAD Review of Systems Constitutional: see HPI, malaise, weakness Cardiovascular: chest pain Physical Exam Physical Exam Vital Signs Vital Signs - First Documented 03/26/21 03/26/21 04:47 07:51 Temp 36.9 Pulse 62 Resp 16 B/P (MAP) 200/56 (104) Pulse Ox 95 O2 Delivery Room Air Capillary Refill : Less Than 3 Seconds Height, Weight, BMI Height: '" Weight: lbs. oz. kg; 24.00 BMI Method: General Appearance: No Apparent Distress Eyes: Right Eye Normal Inspection, Right Eye PERRL HEENT: PERRL/EOMI, Normal ENT Inspection, Pharynx Normal, Moist Mucous Membranes Neck: Full Range of Motion, Normal Inspection, Non Tender Respiratory: Chest Non Tender, Lungs Clear, Normal Breath Sounds, No Accessory Muscle Use, No Respiratory Distress Cardiovascular: Regular Rate, Rhythm, No Edema, No Gallop, No JVD, No Murmur, Normal Peripheral Pulses Gastrointestinal: Normal Bowel Sounds, No Organomegaly, No Pulsatile Mass, Non Tender, Soft Back: Normal Inspection, No CVA Tenderness, No Vertebral Tenderness Extremity: Normal Capillary Refill, Normal Inspection, Normal Range of Motion, Non Tender, No Calf Tenderness, No Pedal Edema Neurologic/Psychiatric: Alert, Oriented x3, No Motor/Sensory Deficits, Normal Mood/Affect Skin: Normal Color, Warm/Dry Lymphatic: No Adenopathy Results Results/Procedures Labs Laboratory Tests 03/26/21 04:55 Patient resulted labs reviewed. Assessment/Plan Admission Diagnosis Assessment: UTI Chest pain Stomach cancer CAD HTN HLP DM Plan: IV abx Home meds Admission Status: Observation Diagnosis/Problems Diagnosis/Problems (1) Urinary tract infection Status: Acute LAURA LOPES DO March 26, 2021 09:17
--- NOTE | 2021-03-26 09:59 | Consultation-Cardiology ---
HPI-Cardiology Cardiology Consultation: Date of Consultation 03/26/21 Time Seen by a Provider: 09:50 Date of Admission 03-25-21 Attending Physician Laura Lopes DO Admitting Physician [place] Consulting Physician Maurisio Montana MD HPI: Chief Complaint: Chest pain Ms Guzman is an 80 yr old female admitted to [facility] from [facility] ED. She reports she has been feeling unwell for a couple days at home. She reports yesterday she felt as though her heart was racing and irregular. She went to see Jinny Medrano at [facility] in [facility]. Son, at the bedside, reports she told her pt had atrial fibrillation, but did not start OAC or change any of her medications. He states they were told if she had any more spells of fast heartbeat to go the the ED. Pt states she got up to use the BR and felt nauseated. She states she was having upper chest pain that radiated across her chest and into her shoulders bilat. She reports she took Mylanta and a breathing treatment which resolved the pain. She denies any c/o CP or SOB at this time. Her primary rib cutter is Dr. Moreno at [facility] and she does not want any cardiac testing or procedures, should they be indicated to be done here, she wants to be transferred to [facility] for Dr. Moreno to take care of her. She states she was dx with a lung infection 2 weeks ago and has been following with Dr. Lofton of pulmonary services with abx and breathing tx. No c/o LE swelling. No c/of syncope or near syncope. Review of Systems-Cardiology Review of Systems Constitutional: No chills, No fever; lightheadedness, malaise Eyes: No vision change Ears/Nose/Throat: No epistaxis, No recent hearing loss Respiratory: As described under HPI Cardiovascular: As described under HPI Gastrointestinal: As described under HPI Genitourinary: No dysuria, No hematuria Skin: No rash on exposed areas, No ulcerations on exposed areas Psychiatric/Neurological: No anxiety, No depression, No seizure, No focal weakness, No syncope Hematologic: No bleeding abnormalities All Other Systems Reviewed Negative Unless Noted: Yes EVO-Ujcpda-Mtscoo Hx Patient Social History 2nd Hand Smoke Exposure: No Immunizations Up To Date Date of Pneumonia Vaccine: April 18, 2013 Past Medical History PMH As described under Assessment. Family Medical History Family Medical History: She reports her mother had CAD. Allergies and Home Medications Allergies Coded Allergies: clindamycin (Unverified Allergy, Severe, Anaphylaxis, 04/18/20) ondansetron (Unverified Allergy, Severe, Anaphylaxis, 04/18/20) prednisone (Unverified Adverse Reaction, Intermediate, Confusion, 04/18/20) Penicillins (Unverified Adverse Reaction, Mild, nausea and vomiting, 04/18/20) [facility] cefixime (Unverified Adverse Reaction, Mild, nausea and vomiting, 04/18/20) [facility] Suprax (Cefixime) cephalexin (Unverified Adverse Reaction, Mild, nausea and vomiting, 04/18/20) [facility] esomeprazole (Unverified Adverse Reaction, Mild, Rash, 04/18/20) [facility] guaifenesin (Unverified Adverse Reaction, Mild, nausea and vomiting, 04/18/20) from [facility] (Guaifed) hydrocodone (Unverified Adverse Reaction, Mild, rash, 04/18/20) from [facility] (Hydrocodone-acetaminophen) omeprazole (Unverified Adverse Reaction, Mild, rash, 04/18/20) from [facility] oxycodone (Unverified Adverse Reaction, Mild, rash, 04/18/20) [facility] pantoprazole (Unverified Adverse Reaction, Mild, rash, 04/18/20) from [facility] phenylephrine (Unverified Adverse Reaction, Mild, Nausea andd vomiting, 04/18/20) from [facility] (Guaifed) sucralfate (Unverified Adverse Reaction, Mild, Itching, 04/18/20) from [facility] Sulfa (Sulfonamide Antibiotics) (Unverified Adverse Reaction, Unknown, 04/18/20) celecoxib (Unverified Adverse Reaction, Unknown, 04/18/20) hydrochlorothiazide (Unverified Adverse Reaction, Unknown, 04/18/20) [facility] (Spironolacton-hydrochlorothiaz) ibuprofen (Unverified Adverse Reaction, Unknown, 04/18/20) from [facility] metoclopramide (Unverified Adverse Reaction, Unknown, 04/18/20) from [facility] prochlorperazine (Unverified Adverse Reaction, Unknown, 04/18/20) from [facility] spironolactone (Unverified Adverse Reaction, Unknown, 04/18/20) from [facility] (Spironolacton-hydrochlorothiaz) Home Medications Alprazolam 0.5 Mg Tablet, 0.5 MG PO HS, (Reported) Last Action: Continued Aspirin 81 Mg Tablet.dr, 81 MG PO DAILY Prescribed by: LAURA LOPES on 03/27/21 112 Carvedilol 6.25 Mg Tablet, 6.25 MG PO BID, (Reported) Last Action: Continued Cefdinir 300 Mg Capsule, 300 MG PO BID Prescribed by: LAURA LOPES on 03/27/211127 Cyclosporine 1 Each Droperette, 1 DROP OU BID, (Reported) Last Action: Converted Famotidine 20 Mg Tablet, 40 MG PO BID, (Reported) TAKES 2 (20MG) TABS Last Action: Continued Hydrochlorothiazide 25 Mg Tablet, 25 MG PO DAILY, (Reported) Last Action: Held Insulin Detemir 100 Unit/1 Ml Insuln.pen, 10 UNITS SC HS, (Reported) Last Action: Converted L. Acidophilus/L.bulgaricus 1 Each Tablet, 1 TAB PO BID, (Reported) Last Action: Converted Mag Hydrox/Al Hydrox/Simeth 30 Ml Oral.susp, 30 ML PO DAILY PRN for INDIGESTION, (Reported) Last Action: Continued Meclizine HCl 25 Mg Tablet, 25 MG PO BID, (Reported) Last Action: Continued Potassium Chloride 20 Meq Tab.er.prt, 20 MEQ PO DAILY, (Reported) Last Action: Continued Simethicone 125 Mg Capsule, 125 MG PO TID, (Reported) Last Action: Converted Simvastatin 40 Mg Tablet, 40 MG PO HS, (Reported) Last Action: Continued Tramadol HCl 50 Mg Tablet, 50 MG PO Q6H PRN for PAIN-MODERATE (5-7), (Reported) Last Action: Continued Physical Exam-Cardiology Physical Exam Vital Signs/I&O 03/27/21 03/27/21 03/27/21 03/27/21 06:44 07:20 08:00 11:35 Temp 36.5 36.6 Pulse 56 55 58 Resp 18 18 B/P (MAP) 155/67 (96) 123/67 (85) Pulse Ox 92 94 O2 Delivery Nasal Cannula Room Air Room Air O2 Flow Rate 2.00 03/27/21 03/27/21 12:38 16:00 Temp 36.1 Pulse 62 58 Resp 16 B/P (MAP) 143/69 (93) Pulse Ox 98 O2 Delivery Room Air 03/27/21 00:00 Intake Total 1350 ml Balance 1350 ml Capillary Refill : Less Than 3 Seconds Skin: damp Data Review Labs Laboratory Tests 03/26/21 17:50: Troponin I < 0.028 03/26/21 20:12: Glucometer 186H 03/27/21 04:54: White Blood Count 6.6, Red Blood Count 4.77, Hemoglobin 12.7, Hematocrit 41, Mean Corpuscular Volume 85, Mean Corpuscular Hemoglobin 27, Mean Corpuscular Hemoglobin Concent 31L, Red Cell Distribution Width 14.2, Platelet Count 217, Mean Platelet Volume 11.1, Immature Granulocyte % (Auto) 0, Neutrophils (%) (Auto) 52, Lymphocytes (%) (Auto) 34, Monocytes (%) (Auto) 10, Eosinophils (%) (Auto) 2, Basophils (%) (Auto) 1, Neutrophils # (Auto) 3.4, Lymphocytes # (Auto) 2.3, Monocytes # (Auto) 0.7, Eosinophils # (Auto) 0.2, Basophils # (Auto) 0.1, Immature Granulocyte # (Auto) 0.0, Sodium Level 139, Potassium Level 3.6, Chloride Level 100, Carbon Dioxide Level 29, Anion Gap 10, Blood Urea Nitrogen 20H, Creatinine 1.37H, Estimat Glomerular Filtration Rate 37, BUN/Creatinine Ratio 15, Glucose Level 120H, Calcium Level 8.9, Corrected Calcium 9.0, Total Bilirubin 0.6, Aspartate Amino Transf (AST/SGOT) 18, Alanine Aminotransferase (ALT/SGPT) 15, Alkaline Phosphatase 96, Total Protein 6.8, Albumin 3.9 03/27/21 11:37: Glucometer 129H 03/27/21 16:31: Glucometer 129H Microbiology 03/26/21 Blood Culture - Preliminary, Resulted No growth 03/26/21 Urine Culture - Preliminary, Resulted Gram Negative [facility] NAME: LEIF GUZMAN Daisy [facility] REC#: [id number] PT STATUS: REG ER : 1940 PHYSICIAN: KENDALL MURPHY DO ADMIT DATE: 03/26/21/ER FS Draft Date of Exam:03/26/21 CHEST 1 VIEW AP/PA ONLY INDICATION: Arrhythmia, chest pain Portable chest 4:31 AM There are postoperative changes from CABG surgery. There is a faint nodular opacities in both lungs which appear to have been present previously on exam from 12/28/2019. IMPRESSION: Chronic nodular opacities in the lungs. No acute abnormality seen. Dictated on workstation # [id number] Dict: 03/26/21 0459 Trans: 03/26/21 0509 CONSTANTIN [id number] Interpreted by: EASTON DELEON MD Electronically signed by: NAME: LEIF GUZMAN [facility] REC#: [id number] PT STATUS: REG ER : 1940 PHYSICIAN: KENDALL MURPHY DO ADMIT DATE: 03/26/21/ER FS Draft Date of Exam:03/26/21 CT CHEST WO PROCEDURE: CT chest without contrast. TECHNIQUE: Multiple contiguous axial images were obtained through the chest without the use of intravenous contrast. Auto Exposure Controls were utilized during the CT exam to meet ALARA standards for radiation dose reduction. INDICATION: Chest pain, arrhythmias CT chest without contrast There is some scarring and atelectasis in both lungs. There is a small peripheral ill-defined nodular opacities in both lungs. These are primarily posterolateral basilar distribution. These were not present, however, on a prior exam from 08/26/2020. There is no effusion or pneumothorax. There is calcific atherosclerosis of the aorta. Postoperative changes from CABG surgery. There is no hilar or mediastinal lymphadenopathy. IMPRESSION: Small patchy peripheral areas of alveolar consolidation. This is most likely inflammatory/infectious in etiology but short interval follow-up and clinical correlation recommended. Dictated on workstation # [id number] Dict: 03/26/21 0651 Trans: 03/26/21 0712 CONSTANTIN [id number] Interpreted by: EASTON DELEON MD Electronically signed by: ECG Impression ECG Initial ECG Rhythm: Normal Sinus A/P-Cardiology Assessment/Admission Diagnosis Chest pain of undetermined etiology CAD: - H/O CABG x 4 vessel at [facility] in [place], [place] in [address] Nuñez Reports "irregular heart rhythm" dx yesterday by PCP - details unknown and unavailable to us HTN HLD UTI - management per medical services H/O colon cancer with colon resection GERD H/O cholecystectomy H/O skin cancer removal Recent respiratory infection for which she follows with Dr. Lofton at [facility] in [place], [place] Discussion and Recomendations Chest pain of undetermined etiology with no evidence of ACS thus far Request records from [facility] Request EKG from [facility] Continue tele Continue home medications She wishes all her cardiac care, testing or procedures if indicated to be done at [facility] by Dr. Moreno Monitor lab Replace electrolytes as indicated Further recs will be based on her hospital course We would like to thank Dr. Lopes for this consult JERED JUAREZ March 26, 2021 09:59
[2021-03-26] MEDS ORDERED: LORATADINE (CLARITIN) 10 MG TAB PO NR (11:23)
[2021-03-26 12:07] VITALS: BP 134/62
[2021-03-26] MEDS ORDERED: CYCL1DRO OU (12:49)
[2021-03-26] MEDS ORDERED: FAMO20TA5 PO (14:18)
[2021-03-26] MEDS ORDERED: INSU100I29 SC (14:18)
[2021-03-26 15:30] VITALS: BP 148/67
[2021-03-26] MEDS: inSUlin ASPART (NovoLOG) 1 UNIT/0.01 ML (CHARGE PER UNIT) SC SCH ×2 (15:33→21:09)
--- NOTE | 2021-03-26 17:42 | Consultation-Cardiology ---
HPI-Cardiology Cardiology Consultation: Date of Consultation 03/26/21 Time Seen by a Provider: 12:40 Date of Admission Attending Physician Laura Acosta DO Admitting Physician [place] Consulting Physician EVANGELISTA COY MD, MA, FACP, FAC, [facility] HPI: Chief Complaint: Chest pain Ms Guzman is an 80 yr old female admitted to [facility] from [facility] ED. She reports she has been feeling unwell for a couple days at home. She reports yesterday she felt as though her heart was racing and irregular. She went to see Jinny Medrano at [facility] in [facility]. Son, at the bedside, reports she told her pt had atrial fibrillation, but did not start OAC or change any of her medications. He states they were told if she had any more spells of fast heartbeat to go the the ED. Pt states she got up to use the BR and felt nauseated. She states she was having upper chest pain that radiated across her chest and into her shoulders bilat. She reports she took Mylanta and a breathing treatment which resolved the pain. She denies any c/o CP or SOB at this time. Her primary nutritional services cook is Dr. Moreno at [facility] and she does not want any cardiac testing or procedures, should they be indicated to be done here, she wants to be transferred to [facility] for Dr. Moreno to take care of her. She states she was dx with a lung infection 2 weeks ago and has been following with Dr. Lofton of pulmonary services with abx and breathing tx. No c/o LE swelling. No c/of syncope or near syncope. Review of Systems-Cardiology Review of Systems Constitutional: No chills, No fever; lightheadedness, malaise Eyes: No vision change Ears/Nose/Throat: No epistaxis, No recent hearing loss Respiratory: As described under HPI Cardiovascular: As described under HPI Gastrointestinal: As described under HPI Genitourinary: No dysuria, No hematuria Skin: No rash on exposed areas, No ulcerations on exposed areas Psychiatric/Neurological: No anxiety, No depression, No seizure, No focal weakness, No syncope Hematologic: No bleeding abnormalities All Other Systems Reviewed Negative Unless Noted: Yes CID-Ajoobo-Ixppkr Hx Patient Social History 2nd Hand Smoke Exposure: No Have you traveled recently?: No Alcohol Use?: No Pt feels they are or have been: No Immunizations Up To Date Date of Pneumonia Vaccine: April 18, 2013 Past Medical History PMH As described under Assessment. Family Medical History Family Medical History: She reports her mother had CAD. Allergies and Home Medications Allergies Coded Allergies: clindamycin (Unverified Allergy, Severe, Anaphylaxis, 04/18/20) ondansetron (Unverified Allergy, Severe, Anaphylaxis, 04/18/20) prednisone (Unverified Adverse Reaction, Intermediate, Confusion, 04/18/20) Penicillins (Unverified Adverse Reaction, Mild, nausea and vomiting, 04/18/20) from [facility] cefixime (Unverified Adverse Reaction, Mild, nausea and vomiting, 04/18/20) from [facility] Suprax (Cefixime) cephalexin (Unverified Adverse Reaction, Mild, nausea and vomiting, 04/18/20) from [facility] esomeprazole (Unverified Adverse Reaction, Mild, Rash, 04/18/20) from [facility] guaifenesin (Unverified Adverse Reaction, Mild, nausea and vomiting, 04/18/20) from [facility] (Guaifed) hydrocodone (Unverified Adverse Reaction, Mild, rash, 04/18/20) from [facility] (Hydrocodone-acetaminophen) omeprazole (Unverified Adverse Reaction, Mild, rash, 04/18/20) from [facility] oxycodone (Unverified Adverse Reaction, Mild, rash, 04/18/20) from [facility] pantoprazole (Unverified Adverse Reaction, Mild, rash, 04/18/20) from [facility] phenylephrine (Unverified Adverse Reaction, Mild, Nausea andd vomiting, ) from [facility] (Guaifed) sucralfate (Unverified Adverse Reaction, Mild, Itching, 04/18/20) from [facility] Sulfa (Sulfonamide Antibiotics) (Unverified Adverse Reaction, Unknown, 04/18/20) celecoxib (Unverified Adverse Reaction, Unknown, 04/18/20) hydrochlorothiazide (Unverified Adverse Reaction, Unknown, 04/18/20) from [facility] (Spironolacton-hydrochlorothiaz) ibuprofen (Unverified Adverse Reaction, Unknown, 04/18/20) [facility] metoclopramide (Unverified Adverse Reaction, Unknown, 04/18/20) from [facility] prochlorperazine (Unverified Adverse Reaction, Unknown, 04/18/20) from [facility] spironolactone (Unverified Adverse Reaction, Unknown, 04/18/20) from [facility] (Spironolacton-hydrochlorothiaz) Home Medications Alprazolam 0.5 Mg Tablet, 0.5 MG PO HS, (Reported) Last Action: Reviewed Carvedilol 6.25 Mg Tablet, 6.25 MG PO BID, (Reported) Last Action: Reviewed Cyclosporine 1 Each Droperette, 1 DROP OU BID, (Reported) Last Action: Reviewed Famotidine 20 Mg Tablet, 40 MG PO BID, (Reported) TAKES 2 (20MG) TABS Last Action: Reviewed Hydrochlorothiazide 25 Mg Tablet, 25 MG PO DAILY, (Reported) Last Action: Reviewed Insulin Detemir 100 Unit/1 Ml Insuln.pen, 10 UNITS SC HS, (Reported) Last Action: Reviewed L. Acidophilus/L.bulgaricus 1 Each Tablet, 1 TAB PO BID, (Reported) Last Action: Reviewed Mag Hydrox/Al Hydrox/Simeth 30 Ml Oral.susp, 30 ML PO DAILY PRN for INDIGESTION, (Reported) Last Action: Reviewed Meclizine HCl 25 Mg Tablet, 25 MG PO BID, (Reported) Last Action: Reviewed Potassium Chloride 20 Meq Tab.er.prt, 20 MEQ PO DAILY, (Reported) Last Action: Reviewed Simethicone 125 Mg Capsule, 125 MG PO TID, (Reported) Last Action: Reviewed Simvastatin 40 Mg Tablet, 40 MG PO HS, (Reported) Last Action: Reviewed Tramadol HCl 50 Mg Tablet, 50 MG PO Q6H PRN for PAIN-MODERATE (5-7), (Reported) Last Action: Reviewed Patient Home Medication List Home Medication List Reviewed: Yes Physical Exam-Cardiology Physical Exam Vital Signs/I&O 03/26/21 03/26/21 03/26/21 03/26/21 07:51 08:30 08:41 09:40 Temp 36.3 Pulse 56 62 58 Resp 21 18 B/P (MAP) 142/47 133/92 (106) Pulse Ox 95 95 96 O2 Delivery Room Air Room Air Room Air 03/26/21 03/26/21 03/26/21 12:07 12:45 15:30 Temp 36.4 36.3 Pulse 59 53 59 Resp 18 20 B/P (MAP) 134/62 (86) 148/67 (94) Pulse Ox 95 95 O2 Delivery Room Air Room Air Capillary Refill : Less Than 3 Seconds Constitutional: AAO x 3, well-developed, other HEENT: hard of hearing Neck: carotid pulses are 2 + bilaterally, with good upstrokes Respiratory: No accessory muscle use; other (fair to good bilateral air entry, diminished at the bases) Cardiovascular: regular rate-rhythm, S1 and S2, systolic murmur (soft DERECK at the cardiac base) Gastrointestinal: No tender; soft; No guarding, No rebound; audible bowel sounds Extremities: No swelling, No cyanosis, No significant edema Neurologic/Psychiatric: oriented x 3, other (moves all limbs equally) Skin: damp; No rash on exposed areas, No ulcerations on exposed areas Data Review Labs Laboratory Tests 03/26/21 04:55: White Blood Count 6.8, Red Blood Count 4.75, Hemoglobin 12.9, Hematocrit 42, Mean Corpuscular Volume 89, Mean Corpuscular Hemoglobin 27, Mean Corpuscular Hemoglobin Concent 31L, Red Cell Distribution Width 14.6H, Platelet Count 206, Mean Platelet Volume 10.6H, Immature Granulocyte % (Auto) 0, Neutrophils (%) (Auto) 59, Lymphocytes (%) (Auto) 27, Monocytes (%) (Auto) 10, Eosinophils (%) (Auto) 3, Basophils (%) (Auto) 1, Neutrophils # (Auto) 4.0, Lymphocytes # (Auto) 1.9, Monocytes # (Auto) 0.7, Eosinophils # (Auto) 0.2, Basophils # (Auto) 0.1, Immature Granulocyte # (Auto) 0.0, Sodium Level 138, Potassium Level 3.9, Chloride Level 101, Carbon Dioxide Level 27, Anion Gap 10, Blood Urea Nitrogen 2 0H, Creatinine 1.27, Estimat Glomerular Filtration Rate 40, BUN/Creatinine Ratio 16, Glucose Level 156H, Calcium Level 9.4, Corrected Calcium 9.4, Total Bilirubin 0.6, Aspartate Amino Transf (AST/SGOT) 17, Alanine Aminotransferase (ALT/SGPT) 13, Alkaline Phosphatase 125, Troponin I < 0.30, Pro-B-Type Natriuretic Peptide 337.3H, Total Protein 7.0, Albumin 4.0, Lipase 23 03/26/21 05:11: Urine Color YELLOW, Urine Clarity CLOUDY, Urine pH 6.0, Urine Specific [place] 1.010L, Urine Protein NEGATIVE, Urine Glucose (UA) NEGATIVE, Urine Ketones NEGATIVE, Urine Nitrite POSITIVEH, Urine Bilirubin NEGATIVE, Urine Urobilinogen 0.2, Urine Leukocyte Esterase 3+H, Urine RBC (Auto) TRACE-I, Urine RBC NONE, Urine WBC TNTCH, Urine Crystals NONE, Urine Bacteria , Urine Casts NONE, Urine Mucus NEGATIVE, Urine Culture Indicated YES 03/26/21 07:10: Lactic Acid Level 1.39 03/26/21 12:30: Troponin I < 0.028 03/26/21 13:14: Glucometer 103 03/26/21 15:18: Glucometer 151H Microbiology 03/26/21 Urine Culture - Preliminary, Resulted Laboratory Tests 03/26/21 04:55 A/P-Cardiology Assessment/Admission Diagnosis Chest pain of undetermined etiology CAD: - H/O CABG x 4 vessel at [facility] in [place], [place] in [address] Nuñez Reports "irregular heart rhythm" dx yesterday by PCP - details unknown and unavailable to us HTN HLD UTI - management per medical services H/O colon cancer with colon resection GERD H/O cholecystectomy H/O skin cancer removal Recent respiratory infection for which she follows with Dr. Lofton at [facility] in [place], [place] Discussion and Recomendations Request records from [facility] Request EKG from [facility] Continue tele Continue home medications She wishes all her cardiac care, testing or procedures if indicated to be done at [facility] by Dr. Moreno Monitor lab Replace electrolytes as indicated Further recs will be based on her hospital course We would like to thank Dr. Acosta for this consult EVANGELISTA COY MD [facility] CCDS March 26, 2021 17:42
[2021-03-26 19:35] VITALS: BP 147/62
[2021-03-26] MEDS ORDERED: ANTACID SUSP 30 ML UDC (MYLANTA) PO PRN (20:45)
[2021-03-26] MEDS: polyethylene glycoL POWDER 17 GM (MIRALAX) PACK PO SCH (20:51)
[2021-03-26] MEDS: SENNA W/DOCUSATE (SENOKOT S) TABLET PO SCH (20:52)
[2021-03-26] MEDS ORDERED: SIMvastatin 40 MG (ZOCOR) TAB PO SCH (21:00)
[2021-03-26] MEDS ORDERED: ALPRAZolam 0.5 MG (XANAX) TAB PO SCH (21:00)
[2021-03-26] MEDS ORDERED: ARTIFICAL TEARS 0.4 ML UNIT DOSE (REFRESH PLUS) ONE (22:01)
[2021-03-26] MEDS: MECLIZINE 25 MG (ANTIVERT) TAB PO SCH (22:03)
[2021-03-26] MEDS: ARTIFICAL TEARS 0.4 ML UNIT DOSE (REFRESH PLUS) OU SCH (22:09)
[2021-03-26 23:12] VITALS: BP 135/61
[2021-03-27 04:00] VITALS: BP 150/58
[2021-03-27 05:22] LABS: BASOPHILS # (AUTO) 0.1 10^3/uL (0.0-0.1); BASOPHILS % (AUTO) 1 % (0-10); EOSINOPHILS # (AUTO) 0.2 10^3/uL (0.0-0.3); EOSINOPHILS % (AUTO) 2 % (0-10); HEMATOCRIT 41 % (35-52); HEMOGLOBIN 12.7 g/dL (11.5-16.0); LYMPHOCYTES # (AUTO) 2.3 10^3/uL (1.0-4.0); LYMPHOCYTES % (AUTO) 34 % (12-44); MEAN CORPUSCULAR HEMOGLOBIN 27 pg (25-34); MEAN CORPUSCULAR HGB CONC 31 g/dL (32-36); MEAN CORPUSCULAR VOLUME 85 fL (80-99); MEAN PLATELET VOLUME 11.1 fL (9.0-12.2); MONOCYTES # (AUTO) 0.7 10^3/uL (0.0-1.0); MONOCYTES % (AUTO) 10 % (0-12); NEUTROPHILS # (AUTO) 3.4 10^3/uL (1.8-7.8); NEUTROPHILS % (AUTO) 52 % (42-75); PLATELET COUNT 217 10^3/uL (130-400); WHITE BLOOD COUNT 6.6 10^3/uL (4.3-11.0)
[2021-03-27 06:02] LABS: ALBUMIN 3.9 GM/DL (3.2-4.5); POTASSIUM 3.6 MMOL/L (3.6-5.0)
[2021-03-27 06:03] LABS: CALCIUM 8.9 MG/DL (8.5-10.1)
[2021-03-27 06:04] LABS: TOTAL PROTEIN 6.8 GM/DL (6.4-8.2)
[2021-03-27 06:06] LABS: BILIRUBIN,TOTAL 0.6 MG/DL (0.1-1.0)
[2021-03-27] MEDS: inSUlin ASPART (NovoLOG) 1 UNIT/0.01 ML (CHARGE PER UNIT) SC SCH ×3 (06:07→16:24)
[2021-03-27 06:08] LABS: CREATININE SERUM 1.37 MG/DL (0.60-1.30)
[2021-03-27 07:20] VITALS: BP 155/67
[2021-03-27] MEDS ORDERED: LACTOBACILLUS ACIDOPHILUS (PROBIOTIC) CAPSULE PO SCH (09:00)
[2021-03-27] MEDS ORDERED: FAMOTIDINE 20 MG (PEPCID) TABLET PO SCH (09:00)
[2021-03-27] MEDS ORDERED: KCL 20 MEQ TAB (K-DUR) PO SCH (09:00)
[2021-03-27] MEDS ORDERED: ENOXAPARIN 30 MG/0.3 ML (LOVENOX) SYR SC SCH (09:00)
[2021-03-27] MEDS ORDERED: LORATADINE (CLARITIN) 10 MG TAB PO SCH (09:00)
[2021-03-27] MEDS ORDERED: ASPIRIN E.C. 81 MG (ECOTRIN) TAB PO SCH (09:00)
[2021-03-27] MEDS ORDERED: cefTRIAXone 1,000 MG/SWFI 10 ML IV PUSH IV SCH ×2 (09:15)
[2021-03-27] MEDS: MECLIZINE 25 MG (ANTIVERT) TAB PO SCH (09:17)
[2021-03-27] MEDS: SIMETHICONE 80 MG (MYLICON) CHEW PO SCH ×2 (09:17→14:50)
[2021-03-27] MEDS: SENNA W/DOCUSATE (SENOKOT S) TABLET PO SCH (09:17)
[2021-03-27] MEDS: ARTIFICAL TEARS 0.4 ML UNIT DOSE (REFRESH PLUS) OU SCH (09:18)
[2021-03-27] MEDS: polyethylene glycoL POWDER 17 GM (MIRALAX) PACK PO SCH (09:22)
--- NOTE | 2021-03-27 09:37 | Progress Note - Cardiology ---
Cardiology SOAP Progress Note Subjective: No cp or palp or syncope No n/v/d No shortness of breath Gen malaise and weakness persistent Objective: I&O/Vital Signs 03/26/21 03/27/21 03/27/21 03/27/21 23:12 01:00 04:00 06:44 Temp 36.6 36.3 Pulse 56 57 55 56 Resp 16 16 B/P (MAP) 135/61 (85) 150/58 (88) Pulse Ox 95 97 O2 Delivery Room Air Nasal Cannula O2 Flow Rate 2.00 03/27/21 07:20 Temp 36.5 Pulse 55 Resp 18 B/P (MAP) 155/67 (96) Pulse Ox 92 O2 Delivery Nasal Cannula O2 Flow Rate 2.00 03/27/21 00:00 Intake Total 1350 ml Balance 1350 ml Constitutional: AAO x 3, well-developed, other Respiratory: No accessory muscle use; other (fair to good bilateral air entry, diminished at the bases) Cardiovascular: regular rate-rhythm, S1 and S2, systolic murmur (soft DERECK at the cardiac base) Gastrointestional: No tender; soft; No guarding, No rebound; audible bowel sounds Extremities: No swelling, No cyanosis, No significant edema Neurologic/Psychiatric: oriented x 3, other (moves all limbs equally) Skin: damp; No rash on exposed areas, No ulcerations on exposed areas Results/Procedures: Labs Laboratory Tests 03/26/21 12:30: Troponin I < 0.028 03/26/21 13:14: Glucometer 103 03/26/21 15:18: Glucometer 151H 03/26/21 17:50: Troponin I < 0.028 03/26/21 20:12: Glucometer 186H 03/27/21 04:54: White Blood Count 6.6, Red Blood Count 4.77, Hemoglobin 12.7, Hematocrit 41, Mean Corpuscular Volume 85, Mean Corpuscular Hemoglobin 27, Mean Corpuscular Hemoglobin Concent 31L, Red Cell Distribution Width 14.2, Platelet Count 217, Mean Platelet Volume 11.1, Immature Granulocyte % (Auto) 0, Neutrophils (%) (Auto) 52, Lymphocytes (%) (Auto) 34, Monocytes (%) (Auto) 10, Eosinophils (%) (Auto) 2, Basophils (%) (Auto) 1, Neutrophils # (Auto) 3.4, Lymphocytes # (Auto) 2.3, Monocytes # (Auto) 0.7, Eosinophils # (Auto) 0.2, Basophils # (Auto) 0.1, Immature Granulocyte # (Auto) 0.0, Sodium Level 139, Potassium Level 3.6, Chloride Level 100, Carbon Dioxide Level 29, Anion Gap 10, Blood Urea Nitrogen 20H, Creatinine 1.37H, Estimat Glomerular Filtration Rate 37, BUN/Creatinine Ratio 15, Glucose Level 120H, Calcium Level 8.9, Corrected Calcium 9.0, Total Bilirubin 0.6, Aspartate Amino Transf (AST/SGOT) 18, Alanine Aminotransferase ( ALT/SGPT) 15, Alkaline Phosphatase 96, Total Protein 6.8, Albumin 3.9 Microbiology 03/26/21 Urine Culture - Preliminary, Resulted Gram Negative Darryl Laboratory Tests 03/26/21 04:55 03/27/21 04:54 A/P: Assessment: Chest pain of undetermined etiology, resolved, no evidence of ACS CAD: - H/O CABG x 4 vessel at [facility] in [place], [place] in [address] Nuñez Reports "irregular heart rhythm" dx on 03/25/21 by PCP - details unknown and unavailable to us. No significant arrhythmia seen during hosp, so far HTN HLD UTI - management per medical services H/O colon cancer with colon resection GERD H/O cholecystectomy H/O skin cancer removal Recent respiratory infection for which she follows with Dr. Lofton at [facility] in [place], [place] Plan: Continue tele She wishes all her cardiac care, testing or procedures if indicated to be done at [facility] by Dr. Moreno Monitor lab Replace electrolytes as indicated EVANGELISTA COY MD FACP FAC CCDS March 27, 2021 09:37
--- NOTE | 2021-03-27 10:23 | Physical Therapy Evaluation ---
PT Evaluation-General Medical Diagnosis Admission Date March 26, 2021 at 08:27 Medical Diagnosis: UTI/CP Onset Date: March 26, 2021 Therapy Diagnosis Therapy Diagnosis: generalized weakness Precautions Precautions/Isolations: Standard Precautions Referral Physician: Dave Reason for Referral: Evaluation/Treatment Medical History Pertinent Medical History: CABG, CAD, COPD, DM, HTN Current History ER secondary to CP Reviewed History: Yes Social History Home: Single Level Current Living Status: Other Family Entry Into Home: Ramp Prior Prior Level of Function SCALE: Activities may be completed with or without assistive devices. 6-Rcohkxqoul-gyykekr completes the activity by him/herself with no assistance from a helper. 5-Set-up or Clean-up Assistance-helper sets up or cleans up; patient completes activity. [place] assists only prior to or following the activity. 4-Supervision or Touching Assistance-helper provides verbal cues and/or touching/steadying and/or contact guard assistance as patient completes activity. Assistance may be provided throughout the activity or intermittently. 3-Partial/Moderate Assistance-helper does LESS THAN HALF the effort. [place] lifts, holds or supports trunk or limbs, but provides less than half the effort. 2-Substantial/Maximal Assistance-helper does MORE THAN HALF the effort. [place] lifts or holds trunk or limbs and provides more than half the effort. 5-Ttlcqyckr-lrilpm does ALL the effort. Patient does none of the effort to complete the activity. Or, the assistance of 2 or more helpers is required for the patient to complete the activity. If activity was not attempted, code reason: 7-Patient Refused. 9-Not Applicable-not attempted and the patient did not perform the activity before the current illness, exacerbation or injury. 10-Not Attempted due to Environmental Limitations-(lack of equipment, weather restraints, etc.). 88-Not Attempted due to Medical Conditions or Safety Concerns. Bed Mobility: 6 Transfers (B,C,W/C): 6 Gait: 6 Stairs: 9 Indoor Mobility (Ambulation): Independent Stairs: Not Applicalbe Prior Devices Use: None PT Evaluation-Current Subjective Patient agrees to PT but declined FWW use. Objective Patient Orientation: Normal For Age ROM/Strength ROM Lower Extremities bilateral LE WFL Strength Lower Extremities 4-/5 grossly bilateral LE Integumentary/Posture Integumentary refer to nursing notes Bowel Incontinence: No Bladder Incontinence: No Posture kyphotic Neuromuscular (Tone, Coordination, Reflexes) grossly intact Sensory Vision: Functional Hearing: Hearing Aid/Aides Transfers Roll Left to Right (QC): 6 Sit to Lying (QC): 6 Lying to Sitting/Side of Bed(Q: 6 Sit to Stand (QC): 6 Chair/Cin-cn-Xlghh Xfer(QC): 6 Gait Does the Patient Walk?: Yes Mode of Locomotion: Walk Anticipated Mode of Locomotion: Walk Walk 10 feet (QC): 4 Walk 50 ft with 2 Turns(QC): 4 Walk 150 ft (QC): 4 Distance: 275' Gait Assistive Device: None Comments/Gait Description SBA/WBOS/did utilize hand rail on wall but continued to decline FWW use for stability Balance Sitting Static: Normal Sitting Dynamic: Normal Standing Static: Fair Standing Dynamic: Fair Picking up an Object (QC): 6 (seated position) Assessment/Needs 80 y.o. female, will be seen short term by skilled PT to address functional mobility to ensure safe return to home with family at maximum LOF. Rehab Potential: Fair PT Jail Goals Jail Goals PT Mushroom Cutter Goals Time Frame: April 04, 2021 Roll Left & Right (QC): 6 Sit to Lying (QC): 6 Lying-Sitting on Side/Bed(QC): 6 Sit to Stand (QC): 6 Chair/Hnb-si-Nkxpj Xfer(QC): 6 Toilet Transfer (QC): 6 Does the Patient Walk: Yes Walk 10 feet (QC): 6 Walk 50ft with 2 Turns (QC): 6 Walk 150 ft (QC): 6 PT Plan Problem List Problem List: Activity Tolerance, Safety, Balance, Gait Treatment/Plan Treatment Plan: Continue Plan of Care Treatment Plan: Education, Functional Activity Zana, Functional Strength, Gait, Safety, Therapeutic Exercise, Transfers Treatment Duration: April 04, 2021 Frequency: 6 times per week Estimated Hrs Per Day: .25 hour per day Patient and/or Family Agrees t: Yes Safety Risks/Education Patient Education: Safety Issues Teaching Recipient: Patient Teaching Methods: Discussion Response to Teaching: Verbalize Understanding, Reinforcement Needed Time/GCodes Time In: 921 Time Out: 930 Total Billed Treatment Time: 9 Total Billed Treatment 1 visit EVModC 9 min NIKKIE FRIED PT March 27, 2021 10:23
[2021-03-27] MEDS ORDERED: ASPI-1238 PO (11:28)
[2021-03-27] MEDS ORDERED: CEFD300C3 PO (11:28)
--- NOTE | 2021-03-27 11:29 | Discharge Summary ---
Discharge Summary Hospital Course Was the Problem List Reviewed?: Yes Problems/Dx: (1) Urinary tract infection Status: Acute Hospital Course Date of Admission: March 26, 2021 at 08:27 Admission Diagnosis : Family Physician/Provider: Heena Medrano Aprn Date of Discharge: 03/27/21 Discharge Diagnosis: UTI, CP w/o ACS Hospital Course: Hospital Course: Pt had a brief hospital course. She was admitted for chest pain found to have UTI, placed on Rocephin and received two doses of that. Gram negative was on preliminary urine culture, and she was found to be ready for DC. Cardiology had no evidence of any acute coronary syndrome so she was discharged on Omnicef twice daily for an additional five days a close follow up with her PCP. Labs and Pending Lab Test: Laboratory Tests 03/26/21 12:30: Troponin I < 0.028 03/26/21 13:14: Glucometer 103 03/26/21 15:18: Glucometer 151H 03/26/21 17:50: Troponin I < 0.028 03/26/21 20:12: Glucometer 186H 03/27/21 04:54: White Blood Count 6.6, Red Blood Count 4.77, Hemoglobin 12.7, Hematocrit 41, Mean Corpuscular Volume 85, Mean Corpuscular Hemoglobin 27, Mean Corpuscular Hemoglobin Concent 31L, Red Cell Distribution Width 14.2, Platelet Count 217, Mean Platelet Volume 11.1, Immature Granulocyte % (Auto) 0, Neutrophils (%) (Auto) 52, Lymphocytes (%) (Auto) 34, Monocytes (%) (Auto) 10, Eosinophils (%) (Auto) 2, Basophils (%) (Auto) 1, Neutrophils # (Auto) 3.4, Lymphocytes # (Auto) 2.3, Monocytes # (Auto) 0.7, Eosinophils # (Auto) 0.2, Basophils # (Auto) 0.1, Immature Granulocyte # (Auto) 0.0, Sodium Level 139, Potassium Level 3.6, Chloride Level 100, Carbon Dioxide Level 29, Anion Gap 10, Blood Urea Nitrogen 20H, Creatinine 1.37H, Estimat Glomerular Filtration Rate 37, BUN/Creatinine Ratio 15, Glucose Level 120H, Calcium Level 8.9, Corrected Calcium 9.0, Total Bilirubin 0.6, Aspartate Amino Transf (AST/SGOT) 18, Alanine Aminotransferase (ALT/SGPT) 15, Alkaline Phosphatase 96, Total Protein 6.8, Albumin 3.9 Microbiology 03/26/21 Urine Culture - Preliminary, Resulted Gram Negative Darryl Home Meds Active Reported Levemir Flextouch (Insulin Detemir) 100 Unit/1 Ml Insuln.pen 10 Units SC HS Famotidine 20 Mg Tablet 40 Mg PO BID TAKES 2 (20MG) TABS Restasis (Cyclosporine) 1 Each Droperette 1 Drop OU BID Simvastatin 40 Mg Tablet 40 Mg PO HS Simethicone 125 Mg Capsule 125 Mg PO TID Mylanta Suspension (Al Hydrox/Mg Hydrox/Simethicone) 30 Ml Oral.susp 30 Ml PO DAILY PRN Hydrochlorothiazide 25 Mg Tablet 25 Mg PO DAILY Carvedilol 6.25 Mg Tablet 6.25 Mg PO BID Tramadol HCl 50 Mg Tablet 50 Mg PO Q6H PRN Lactobacillus Tablet (L. Acidophilus/L.bulgaricus) 1 Each Tablet 1 Tab PO BID Potassium Chloride 20 Meq Tab.er.prt 20 Meq PO DAILY Meclizine HCl 25 Mg Tablet 25 Mg PO BID Alprazolam 0.5 Mg Tablet 0.5 Mg PO HS Assessment/Pt Instructions [facility] next week Discharge Planning: <30 minutes discharge planning Discharge Instructions Discharge Diet: No Restrictions Activity as Tolerated: Yes Discharge Physical Examination Vital Signs Vital Signs Date Time Temp Pulse Resp B/P (MAP) Pulse Ox O2 Delivery O2 Flow Rate FiO2 03/27/21 08:00 Room Air 03/27/21 07:20 36.5 55 18 155/67 (96) 92 2.00 General Appearance: No Apparent Distress, WD/WN, Chronically ill Respiratory: Lungs Clear Cardiovascular: Regular Rate, Rhythm Neurologic/Psychiatric: Alert, Oriented x3 Allergies: Coded Allergies: clindamycin (Unverified Allergy, Severe, Anaphylaxis, 04/18/20) ondansetron (Unverified Allergy, Severe, Anaphylaxis, 04/18/20) prednisone (Unverified Adverse Reaction, Intermediate, Confusion, 04/18/20) Penicillins (Unverified Adverse Reaction, Mild, nausea and vomiting, 04/18/20) from [facility] cefixime (Unverified Adverse Reaction, Mild, nausea and vomiting, 04/18/20) from [facility] Suprax (Cefixime) cephalexin (Unverified Adverse Reaction, Mild, nausea and vomiting, 04/18/20) from [facility] esomeprazole (Unverified Adverse Reaction, Mild, Rash, 04/18/20) [facility] guaifenesin (Unverified Adverse Reaction, Mild, nausea and vomiting, 04/18/20) from [facility] (Guaifed) hydrocodone (Unverified Adverse Reaction, Mild, rash, 04/18/20) from [facility] (Hydrocodone-acetaminophen) omeprazole (Unverified Adverse Reaction, Mild, rash, 04/18/20) from [facility] oxycodone (Unverified Adverse Reaction, Mild, rash, 04/18/20) from [facility] pantoprazole (Unverified Adverse Reaction, Mild, rash, 04/18/20) from [facility] phenylephrine (Unverified Adverse Reaction, Mild, Nausea andd vomiting, 04/18/20) from [facility] (Guaifed) sucralfate (Unverified Adverse Reaction, Mild, Itching, 04/18/20) from [facility] Sulfa (Sulfonamide Antibiotics) (Unverified Adverse Reaction, Unknown, 04/18/20) celecoxib (Unverified Adverse Reaction, Unknown, 04/18/20) hydrochlorothiazide (Unverified Adverse Reaction, Unknown, 04/18/20) from [facility] (Spironolacton-hydrochlorothiaz) ibuprofen (Unverified Adverse Reaction, Unknown, 04/18/20) from [facility] metoclopramide (Unverified Adverse Reaction, Unknown, 04/18/20) from [facility] prochlorperazine (Unverified Adverse Reaction, Unknown, 04/18/20) from [facility] spironolactone (Unverified Adverse Reaction, Unknown, 04/18/20) from [facility] (Spironolacton-hydrochlorothiaz) Discharge Summary Date of Admission March 26, 2021 at 08:27 Date of Discharge Discharge Date: March 27, 2021 Admission Diagnosis Assessment: UTI Chest pain Stomach cancer CAD HTN HLP DM Plan: IV abx Home meds Discharge Diagnosis (1) Urinary tract infection Status: Acute LETHA LOPES DO March 27, 2021 11:29
[2021-03-27 11:35] VITALS: BP 123/67
--- NOTE | 2021-03-27 11:42 | Occupational Therapy Eval ---
OT Evaluation-General/PLF Medical Diagnosis Admission Date March 26, 2021 at 08:27 Medical Diagnosis: UTI/CP Onset Date: March 26, 2021 Therapy Diagnosis Therapy Diagnosis: weakness Precautions Precautions/Isolations: Standard Precautions Referral Physician: Dave Bell Reason: Evaluation/Treatment Medical History Pertinent Medical History: CABG, CAD, COPD, DM, HTN Current History Presents from [facility] ED wtih c/o chest pain and weakness, found to have UTI Social History Home: Single Level Current Living Status: Other Family Entry Into Home: Ramp ADL-Prior Level of Function SCALE: Activities may be completed with or without assistive devices. 0-Afkzcusimf-vftzesn completes the activity by him/herself with no assistance from a helper. 5-Set-up or Clean-up Assistance-helper sets up or cleans up; patient completes activity. [place] assists only prior to or following the activity. 4-Supervision or Touching Assistance-helper provides verbal cues and/or touching/steadying and/or contact guard assistance as patient completes activity. Assistance may be provided throughout the activity or intermittently. 3-Partial/Moderate Assistance-helper does LESS THAN HALF the effort. [place] lifts, holds or supports trunk or limbs, but provides less than half the effort. 2-Substantial/Maximal Assistance-helper does MORE THAN HALF the effort. [place] lifts or holds trunk or limbs and provides more than half the effort. 1-Qfpjrnkeq-hqykzf does ALL the effort. Patient does none of the effort to complete the activity. Or, the assistance of 2 or more helpers is required for the patient to complete the activity. If activity was not attempted, code reason: 7-Patient Refused. 9-Not Applicable-not attempted and the patient did not perform the activity before the current illness, exacerbation or injury. 10-Not Attempted due to Environmental Limitations-(lack of equipment, weather restraints, etc.). 88-Not Attempted due to Medical Conditions or Safety Concerns. ADL PLOF Comments Pt reports being IND with all ADLS and functional mobility, no AD/AE. She lives with her son, but he is gone during the day. She does not get in/out of bathtub to shower, as she is scared of falling. Completes sponge baths only. Self Care: Independent Functional Cognition: Independent OT Current Status Subjective Pt seated in recliner, agreeable to OT evaluation and tx. Pt indicates she is at her PLOF and does not feel like she needs further OT services. Mental Status/Objective Patient Orientation: Person, Place, Time, Situation Attachments: Telemetry Current Glasses/Contacts: Yes Hearing Aids: Yes Dentures/Partials: No Hand Dominance: Right Upper Extremity ROM WFL bilaterally, LUE shoulder flexion to approx 80 degrees due to prior fx in L arm. Upper Extremity Coordination WFL Upper Extremity Sensation WFL Upper Extremity Strength WFL ADL-Treatment Eating (QC): 6 (Per pt report, IND with opening containers and using utensils) Oral Hygiene (QC): 6 (based on clincial judgement) On/Off Footwear (QC): 6 (IND, pt able to don/doff gripper socks.) Toileting Hygiene (QC): 6 (Per pt report, able to manage clothing and perform hygiene) Other Treatments Pt seated in recliner, OT Educated pt on purpose and benefit of OT. Pt provided information about PLOF and home set up, and participates in UE screen. Pt indicates she feels like she is at her PLOF and does not have any concerns on completing ADLs upon returning home. Pt able to doff/don bilateral gripper socks independently and states IND with toileting. OT educated pt on performing UE exercises in order to increase BUE strength and activity tolerance, she verbalizes understanding and completes x10 reps BUE of the following: shoulder flexion, elbow flexion/extension, and finger flexion/extension. Pt states she does not feel like she needs further OT services at this time. Post tx, pt seated in recliner, call light in reach and all needs met. Education OT Patient Education: Correct positioning, Exercise program, Home exercise program, Modified ADL techniques, Progress toward Goal/Update tx plan, Purpose of tx/functional activities Teaching Recipient: Patient Teaching Methods: Discussion Response to Teaching: Verbalize Understanding OT Long-Term Goals Long-Term Goals 1=Demonstrate adherence to instructed precautions during ADL tasks. 2=Patient will verbalize/demonstrate understanding of assistive devices/modifications for ADL. 3=Patient will improve strength/tolerance for activity to enable patient to perform ADL's. OT Education/Plan Problem List/Assessment Assessment: No Skilled OT Needs ID'd No skilled OT services indicated at this time due to pt being IND with ADLs and at PLOF. Discharge Recommendations Plan/Recommendations: Discharge/Goals Met Treatment Plan/Plan of Care Patient would benefit from OT for education, treatment and training to promote independence in ADL's, mobility, safety and/or upper extremity function for ADL's. Plan of Care: ADL Retraining, Functional Mobility, UE Funct Exercise/Act Treatment Duration: March 27, 2021 Frequency: 1 time per week (eval only) Rehab Potential: Fair Time/GCodes Start Time: 11:08 Stop Time: 11:17 Total Time Billed (hr/min): 9 Billed Treatment Time 1, GREGORIO EVANS OT March 27, 2021 11:42
[2021-03-27 16:00] VITALS: BP 143/69
[2021-03-27 17:05] VITALS: BP 143/69
== END 2021-03-27 17:05 | disposition home or self-care (01) ==
LOC: EDUNIT# 04:24 → ER FS 04:27 → 4TH 08:27
PROVIDERS: ADMIT Internal Medicine; ATTEND Internal Medicine
DX: N39.0 Urinary tract infection, site not specified (principal); R07.9 Chest pain, unspecified; I25.10 Atherosclerotic heart disease of native coronary artery without angina pectoris; J44.9 Chronic obstructive pulmonary disease, unspecified; E78.00 Pure hypercholesterolemia, unspecified; I10 Essential (primary) hypertension; K21.00 Gastro-esophageal reflux disease with esophagitis, without bleeding; C16.9 Malignant neoplasm of stomach, unspecified; E11.9 Type 2 diabetes mellitus without complications; F41.9 Anxiety disorder, unspecified; Z79.4 Long term (current) use of insulin; Z79.899 Other long term (current) drug therapy; Z85.038 Personal history of other malignant neoplasm of large intestine; Z95.1 Presence of aortocoronary bypass graft; Z88.8 Allergy status to other drugs, medicaments and biological substances; Z88.5 Allergy status to narcotic agent; Z88.2 Allergy status to sulfonamides; Z88.6 Allergy status to analgesic agent; Z88.0 Allergy status to penicillin; Z88.1 Allergy status to other antibiotic agents; Z90.49 Acquired absence of other specified parts of digestive tract; Z85.828 Personal history of other malignant neoplasm of skin
CPT/HCPCS: 36415; 71045; 71250; 80053 ×2; 81000; 82947 ×2; 83605; 83690; 83880; 84484 ×2; 85025 ×2; 87040; 87077; 87088; 87186; 93005; 96374; 96375; 97162; 97165; 99284; G0378

== ENCOUNTER 2021-04-06 10:42 | Emergency (ER) | payer MEDICARE, OTHER, MEDICAID ==
[~2021-04-06] VITALS: Ht 157.5 cm; Wt 60.3 kg
[~2021-04-06 10:42] MED LIST changes: +ASPI-1238 PO; +CEFD300C3 PO; +CYCL1DRO OU; +FAMO20TA5 PO; +INSU100I29 SC
--- NOTE | 2021-04-06 10:48 | ED General ---
General Stated Complaint: NAUSEA | SHAKING | CONSTIPATED | GENERAL WEAKNESS History of Present Illness Date Seen by Provider: April 06, 2021 Time Seen by Provider: 10:48 Initial Comments Patient presenting to the emergency department for evaluation of chest pressure that has been going on for approximately 2 to 3 weeks that she says comes and goes and is not associated with any activity that she can think of. She says the pressure is in the middle of her chest and can radiate towards the left associated with nausea and shortness of breath but no vomiting or diaphoresis. She says that she was started nifedipine and it helped her chest pressure for 2 days but since then she has had pressure again. She says she has had lower extremity swelling and constipation since being started on the nifedipine. She has a history of quadruple bypass surgery in 2009 and she follows with a rock duster at [facility] Dr. Morrell. Patient was admitted at [facility] on March 26 for chest pain and per the cardiology consultation notes she refused all further testing and procedures at [facility] saying that she wanted her rock duster from [facility] to do any further testing or treatment. Patient was found to have a UTI and was discharged the next day. Allergies and Home Medications Allergies Coded Allergies: clindamycin (Unverified Allergy, Severe, Anaphylaxis, 04/18/20) ondansetron (Unverified Allergy, Severe, Anaphylaxis, 04/18/20) prednisone (Unverified Adverse Reaction, Intermediate, Confusion, 04/18/20) Penicillins (Unverified Adverse Reaction, Mild, nausea and vomiting, 04/18/20) from [facility] cefixime (Unverified Adverse Reaction, Mild, nausea and vomiting, 04/18/20) from [facility] Suprax (Cefixime) cephalexin (Unverified Adverse Reaction, Mild, nausea and vomiting, 04/18/20) from [facility] esomeprazole (Unverified Adverse Reaction, Mild, Rash, 04/18/20) from [facility] guaifenesin (Unverified Adverse Reaction, Mild, nausea and vomiting, 04/18/20) from [facility] (Guaifed) hydrocodone (Unverified Adverse Reaction, Mild, rash, 04/18/20) from [facility] (Hydrocodone-acetaminophen) omeprazole (Unverified Adverse Reaction, Mild, rash, 04/18/20) from [facility] oxycodone (Unverified Adverse Reaction, Mild, rash, 04/18/20) from [facility] pantoprazole (Unverified Adverse Reaction, Mild, rash, 04/18/20) from [facility] phenylephrine (Unverified Adverse Reaction, Mild, Nausea andd vomiting, 04/18/20) from [facility] (Guaifed) sucralfate (Unverified Adverse Reaction, Mild, Itching, 04/18/20) from [facility] Sulfa (Sulfonamide Antibiotics) (Unverified Adverse Reaction, Unknown, 04/18/20) celecoxib (Unverified Adverse Reaction, Unknown, 04/18/20) hydrochlorothiazide (Unverified Adverse Reaction, Unknown, 04/18/20) from [facility] (Spironolacton-hydrochlorothiaz) ibuprofen (Unverified Adverse Reaction, Unknown, 04/18/20) from [facility] metoclopramide (Unverified Adverse Reaction, Unknown, 04/18/20) from [facility] prochlorperazine (Unverified Adverse Reaction, Unknown, 04/18/20) from [facility] spironolactone (Unverified Adverse Reaction, Unknown, 04/18/20) from [facility] (Spironolacton-hydrochlorothiaz) Home Medications Alprazolam 0.5 Mg Tablet, 0.5 MG PO HS, (Reported) Aspirin 81 Mg Tablet.dr, 81 MG PO DAILY Prescribed by: LETHA LOPES on 03/27/211127 Carvedilol 6.25 Mg Tablet, 6.25 MG PO BID, (Reported) Cefdinir 300 Mg Capsule, 300 MG PO BID Prescribed by: LETHA LOPES on 03/27/211127 Cyclosporine 1 Each Droperette, 1 DROP OU BID, (Reported) Famotidine 20 Mg Tablet, 40 MG PO BID, (Reported) TAKES 2 (20MG) TABS Hydrochlorothiazide 25 Mg Tablet, 25 MG PO DAILY, (Reported) Insulin Detemir 100 Unit/1 Ml Insuln.pen, 10 UNITS SC HS, (Reported) L. Acidophilus/L.bulgaricus 1 Each Tablet, 1 TAB PO BID, (Reported) Mag Hydrox/Al Hydrox/Simeth 30 Ml Oral.susp, 30 ML PO DAILY PRN for INDIGESTION, (Reported) Meclizine HCl 25 Mg Tablet, 25 MG PO BID, (Reported) Potassium Chloride 20 Meq Tab.er.prt, 20 MEQ PO DAILY, (Reported) Simethicone 125 Mg Capsule, 125 MG PO TID, (Reported) Simvastatin 40 Mg Tablet, 40 MG PO HS, (Reported) Tramadol HCl 50 Mg Tablet, 50 MG PO Q6H PRN for PAIN-MODERATE (5-7), (Reported) Patient Home Medication List Home Medication List Reviewed: Yes Review of Systems Review of Systems Constitutional: no symptoms reported EENTM: no symptoms reported Respiratory: short of breath Cardiovascular: chest pain Gastrointestinal: nausea Genitourinary: no symptoms reported Musculoskeletal: no symptoms reported Skin: no symptoms reported Psychiatric/Neurological: No Symptoms Reported All Other Systems Reviewed Negative Unless Noted: Yes Past Rfyiddk-Irkyac-Fjyjcm Hx Patient Social History 2nd Hand Smoke Exposure: No Recent Hopitalizations: Yes (DEC 2019-PNEUMONIA) Immunizations Up To Date Date of Pneumonia Vaccine: April 18, 2013 Seasonal Allergies Seasonal Allergies: No Past Medical History Surgeries: Yes (Colonoscopy w/polypectomy, Quad CABG, heart cath, COLON RESECTION) Bowel Surgery, CABG, Gallbladder Respiratory: Yes (Hx pneumonia, chronic obstructive airway, Nocturnal O2 2L) Pneumonia, COPD Currently Using CPAP: No Currently Using BIPAP: No Cardiac: Yes (Quadruple bypass) Coronary Artery Disease, High Cholesterol, Hypertension Neurological: No Sexually Transmitted Disease: No HIV/AIDS: No Genitourinary: Yes Kidney Stones Gastrointestinal: Yes (Hx reflux esophagitis/duodenitis, Hx tubulovillous adenoma) Gastroesophageal Reflux, Esophagitis Musculoskeletal: Yes (Hx fx shoulder) Fractures Endocrine: Yes (Hx DM on [email or web address]) Diabetes, Non-Insulin dep HEENT: No Loss of Vision: Denies Hearing Impairment: Denies Cancer: Yes Colon What Type of Treatment Did You: Surgical Intervention Psychosocial: Yes Anxiety Integumentary: No Blood Disorders: No Adverse Reaction/Blood Tranf: No (N/A) Physical Exam Vital Signs Vital Signs - First Documented 04/06/21 10:53 Temp 36.0 Pulse 68 Resp 19 B/P (MAP) 125/36 (65) Pulse Ox 94 O2 Delivery Room Air Capillary Refill : Height, Weight, BMI Height: '" Weight: lbs. oz. kg; 23.37 BMI Method: General Appearance: No Apparent Distress, WD/WN HEENT: PERRL/EOMI Neck: Supple Respiratory: Lungs Clear, No Respiratory Distress Cardiovascular: Regular Rate, Rhythm Gastrointestinal: Non Tender, Soft Back: Normal Inspection Extremity: Normal Capillary Refill Neurologic/Psychiatric: Alert, Oriented x3 Skin: Warm/Dry Progress/Results/Core Measures Suspected Sepsis SIRS Temperature: Pulse: Respiratory Rate: Laboratory Tests 04/06/21 11:06: White Blood Count 10.4 Blood Pressure / Mean: Laboratory Tests 04/06/21 11:06: Creatinine 1.35H, INR Comment 1.0, Platelet Count 217, Total Bilirubin 0.6 Results/Orders Lab Results Laboratory Tests Test 04/06/21 11:06 04/06/21 11:08 Range/Units White Blood Count 10.4 4.3-11.0 10^3/uL Red Blood Count 4.74 4.35-5.85 10^6/uL Hemoglobin 13.1 11.5-16.0 G/DL Hematocrit 39 35-52 % Mean Corpuscular Volume 83 80-99 FL Mean Corpuscular Hemoglobin 28 25-34 PG Mean Corpuscular Hemoglobin Concent 33 32-36 G/DL Red Cell Distribution Width 14.2 10.0-14.5 % Platelet Count 217 130-400 10^3/uL Mean Platelet Volume 10.4 7.4-10.4 FL Immature Granulocyte % (Auto) 0 % Neutrophils (%) (Auto) 73 42-75 % Lymphocytes (%) (Auto) 17 12-44 % Monocytes (%) (Auto) 8 0-12 % Eosinophils (%) (Auto) 1 0-10 % Basophils (%) (Auto) 1 0-10 % Neutrophils # (Auto) 7.6 1.8-7.8 X 10^3 Lymphocytes # (Auto) 1.8 1.0-4.0 X 10^3 Monocytes # (Auto) 0.8 0.0-1.0 X 10^3 Eosinophils # (Auto) 0.1 0.0-0.3 10^3/uL Basophils # (Auto) 0.1 0.0-0.1 10^3/uL Immature Granulocyte # (Auto) 0.0 0.0-0.1 10^3/uL Percent Immature Platelet Fraction 3.8 0.0-7.6 % Prothrombin Time 13.3 12.2-14.7 SEC INR Comment 1.0 0.8-1.4 Activated Partial Thromboplast Time 26 24-35 SEC D-Dimer 0.41 0.00-0.49 UG/ML Sodium Level 131 L 135-145 MMOL/L Potassium Level 4.0 3.6-5.0 MMOL/L Chloride Level 96 L 98-107 MMOL/L Carbon Dioxide Level 24 21-32 MMOL/L Anion Gap 11 5-14 MMOL/L Blood Urea Nitrogen 35 H 7-18 MG/DL Creatinine 1.35 H 0.60-1.30 MG/DL Estimat Glomerular Filtration Rate 38 BUN/Creatinine Ratio 26 Glucose Level 166 H 70-105 MG/DL Calcium Level 9.6 8.5-10.1 MG/DL Corrected Calcium 9.6 8.5-10.1 MG/DL Total Bilirubin 0.6 0.1-1.0 MG/DL Aspartate Amino Transf (AST/SGOT) 17 5-34 U/L Alanine Aminotransferase (ALT/SGPT) 16 0-55 U/L Alkaline Phosphatase 127 40-136 U/L Troponin I < 0.30 <0.30 NG/ML Total Protein 7.2 6.4-8.2 GM/DL Albumin 4.0 3.2-4.5 GM/DL Urine Color YELLOW Urine Clarity CLOUDY Urine pH 5.5 5-9 Urine Specific [place] 1.010 L 1.016-1.022 Urine Protein NEGATIVE NEGATIVE Urine Glucose (UA) NEGATIVE NEGATIVE Urine Ketones NEGATIVE NEGATIVE Urine Nitrite NEGATIVE NEGATIVE Urine Bilirubin NEGATIVE NEGATIVE Urine Urobilinogen 0.2 < = 1.0 MG/DL Urine Leukocyte Esterase 2+ H NEGATIVE Urine RBC (Auto) NEGATIVE NEGATIVE Urine RBC NONE /HPF Urine WBC 10-25 H /HPF Urine Squamous Epithelial Cells 5-10 /HPF Urine Crystals NONE /LPF Urine Bacteria FEW H /HPF Urine Casts NONE /LPF Urine Mucus SMALL H /LPF Urine Culture Indicated YES My Orders Orders - MARYJANE MILLER DO Iv/Invasive Line Insertion .IV start (04/06/21 10:50) Cbc With Automated Diff (04/06/21 10:50) Comprehensive Metabolic Panel (04/06/21 10:50) Fibrin Degradation Products (04/06/21 10:50) Troponin I Fs (04/06/21 10:50) Ua Culture If Indicated (04/06/21 10:50) Chest 1 View Ap/Pa Only (04/06/21 10:50) Ekg Tracing (04/06/21 10:50) Partial Thromboplastin Time (04/06/21 10:50) Probnp Fs (04/06/21 10:50) Protime With Inr (04/06/21 10:50) Aspirin Chewable Tablet (Baby Aspirin Ch (04/06/21 11:00) Urine Culture (04/06/21 11:08) Fentanyl Inj (Sublimaze Injection) (04/06/21 11:45) Ns Iv 1000 Ml (Sodium Chloride 0.9%) (04/06/21 11:45) Medications Given in ED Current Medications Medications Dose Ordered Sig/Wilfrid Route Start Time Stop Time Status Last Admin Dose Admin Aspirin 324 mg ONCE ONCE PO 04/06/21 11:00 04/06/21 11:01 DC 04/06/21 11:32 324 MG Vital Signs/I&O 04/06/21 04/06/21 10:53 11:03 Temp 36.0 Pulse 68 Resp 19 B/P (MAP) 125/36 (65) Pulse Ox 94 O2 Delivery Room Air Room Air Capillary Refill : Progress Note : Progress Note Certainly I will get EKG and troponin here to rule out acute coronary syndrome but as I explained to patient and the son I cannot rule out coronary artery disease or blockages based off testing I have available to me here at this freestanding emergency room. I told him to think about whether they want to go back to [facility] and pursue further testing there or whether they would want me to transfer her to [facility] which in my experience has been difficult as they are typically full. Patient's pain improved from an 8 to a 3 after fentanyl and her blood pressure is improving with IV fluids as she did have initially low diastolic blood pressure. Family is requesting transfer to [facility]. Dr. Boothe is willing to accept patient. Departure Impression Primary Impression: Chest pain Qualified Codes: R07.9 - Chest pain, unspecified Disposition: XFER SHT-TRM HOSP Condition: Improved Transfer Transfer Reason: Exceeds level of care Transfer Facility: [facility] Method of Transfer: EMS Departure-Patient Inst. Referrals: [facility] [place] (PCP) Primary Care Physician ANA THOMAS APRN (Family) Primary Care Physician MARYJANE MILLER DO April 06, 2021 10:48
[2021-04-06] MEDS ORDERED: ASPIRIN 81 MG CHEW (CHILDREN'S ASA) PO ONE (11:00)
[2021-04-06 11:13] LABS: BASOPHILS # (AUTO) 0.1 10^3/uL (0.0-0.1); BASOPHILS % (AUTO) 1 % (0-10); EOSINOPHILS # (AUTO) 0.1 10^3/uL (0.0-0.3); EOSINOPHILS % (AUTO) 1 % (0-10); HEMATOCRIT 39 % (35-52); HEMOGLOBIN 13.1 G/DL (11.5-16.0); LYMPHOCYTES # (AUTO) 1.8 X 10^3 (1.0-4.0); LYMPHOCYTES % (AUTO) 17 % (12-44); MEAN CORPUSCULAR HEMOGLOBIN 28 PG (25-34); MEAN CORPUSCULAR HGB CONC 33 G/DL (32-36); MEAN CORPUSCULAR VOLUME 83 FL (80-99); MEAN PLATELET VOLUME 10.4 FL (7.4-10.4); MONOCYTES # (AUTO) 0.8 X 10^3 (0.0-1.0); MONOCYTES % (AUTO) 8 % (0-12); NEUTROPHILS # (AUTO) 7.6 X 10^3 (1.8-7.8); NEUTROPHILS % (AUTO) 73 % (42-75); PLATELET COUNT 217 10^3/uL (130-400); WHITE BLOOD COUNT 10.4 10^3/uL (4.3-11.0)
[2021-04-06 11:20] LABS: BACTERIA,URINE FEW /HPF; BILIRUBIN,URINE NEGATIVE (NEGATIVE); CLARITY,URINE CLOUDY; COLOR,URINE YELLOW; GLUCOSE, URINE (UA) NEGATIVE (NEGATIVE); KETONES,URINE NEGATIVE (NEGATIVE); LEUKOCYTE ESTERASE ,URINE 2+ (NEGATIVE); NITRITE,URINE NEGATIVE (NEGATIVE); PH,URINE 5.5 (5-9); PROTEIN,URINE NEGATIVE (NEGATIVE)
[2021-04-06 11:27] LABS: PROTHROMBIN TIME PATIENT 13.3 SEC (12.2-14.7)
[2021-04-06 11:31] LABS: FIBRIN DEGRADATION PRODUCTS 0.41 UG/ML (0.00-0.49)
[2021-04-06 11:32] LABS: ALANINE AMINOTRANSFERASE 16 U/L (0-55); ALKALINE PHOSPHATASE 127 U/L (40-136); BILIRUBIN,TOTAL 0.6 MG/DL (0.1-1.0); BUN/CREATININE RATIO 26; CALCIUM 9.6 MG/DL (8.5-10.1); CARBON DIOXIDE 24 MMOL/L (21-32); CHLORIDE 96 MMOL/L (98-107); CREATININE SERUM 1.35 MG/DL (0.60-1.30); GFR ESTIMATED 38; GLUCOSE 166 MG/DL (70-105); SODIUM 131 MMOL/L (135-145); TOTAL PROTEIN 7.2 GM/DL (6.4-8.2)
[2021-04-06] MEDS ORDERED: fentaNYL INJ 100 MCG/2 ML AMP IVP ONE (11:45)
[2021-04-06] MEDS ORDERED: NS IV 1000 ML 1,000 ML IV SCH (11:45)
--- NOTE | 2021-04-06 11:48 | Diagnostic Imaging Report ---
Indication: Chest pain. Time of Exam: 11:24 AM Correlation is made with prior chest from 03/26/2021. Changes of median sternotomy and CABG are noted. There is mild bibasilar atelectasis. Remainder of the lung menard are clear. There is no pneumothorax. There is no significant effusion. IMPRESSION: Status post CABG with mild bibasilar subsegmental atelectasis. Dictated by: Dictated on workstation # [id number]
[2021-04-06 13:49] VITALS: BP 120/34
== END 2021-04-06 13:47 | disposition short-term general hospital (02) ==
LOC: EDUNIT# 10:42 → ER FS 10:46
DX: R07.9 Chest pain, unspecified (principal); J44.9 Chronic obstructive pulmonary disease, unspecified; I10 Essential (primary) hypertension; F41.9 Anxiety disorder, unspecified; K21.9 Gastro-esophageal reflux disease without esophagitis; E78.00 Pure hypercholesterolemia, unspecified; E11.9 Type 2 diabetes mellitus without complications; Z88.1 Allergy status to other antibiotic agents; Z88.0 Allergy status to penicillin; Z88.2 Allergy status to sulfonamides; Z88.5 Allergy status to narcotic agent; Z88.8 Allergy status to other drugs, medicaments and biological substances; Z88.6 Allergy status to analgesic agent; Z79.82 Long term (current) use of aspirin; Z79.899 Other long term (current) drug therapy
CPT/HCPCS: 36415; 71045; 80053; 81000; 83880; 84484; 85025; 85379; 85610; 85730; 87088; 93005

== ENCOUNTER 2021-07-08 09:32 | Outpatient (CLI) | payer MEDICARE, OTHER, MEDICAID ==
[~2021-07-08] VITALS: Ht 160 cm; Wt 56.2 kg
[2021-07-08 09:35] VITALS: BP 130/42
[2021-07-08] MEDS ORDERED: ONDANSETRON 4 MG/2 ML (SDV) Z0FRAN IV PRN (10:00)
[2021-07-08] MEDS ORDERED: ACETAMINOPHEN 500 MG TAB (TYLENOL) PO PRN (10:00)
[2021-07-08] MEDS ORDERED: CASIRIVIMAB/IMDEVIMAB 1,200 MG in NS (IVPB) 250 ML IV ONE (10:00)
[2021-07-08] MEDS ORDERED: diphenhydrAMINE 50 MG/ML INJ (BENADRYL) IV PRN (10:00)
[2021-07-08] MEDS ORDERED: EPINEPHrine INJECTION 1 MG/ML AMP IM PRN (10:00)
[2021-07-08 11:27] VITALS: BP 123/47
== END 2021-07-08 12:18 | disposition home or self-care (01) ==
LOC: INFUSION 09:32
PROVIDERS: ATTEND Family Medicine
DX: Z23 Encounter for immunization (principal); U07.1 COVID-19

== ENCOUNTER 2021-11-08 16:36 | Emergency (ER) | payer MEDICARE, OTHER, MEDICAID ==
[~2021-11-08] VITALS: Ht 157.5 cm; Wt 56.7 kg
[~2021-11-08 16:36] MED LIST changes: +POTA-179 PO; -POTA20TA15 PO
--- NOTE | 2021-11-08 16:53 | ED Fall/Injury ---
General Chief Complaint: Trauma-Non Activation Stated Complaint: BACK PAIN FROM FALL Source: patient, family Exam Limitations: no limitations History of Present Illness Date Seen by Provider: Nov 08, 2021 Time Seen by Provider: 16:41 Initial Comments 81yoF with PMH of CAD s/p CABG, COPD, DM, HTN, HLD coming in after falling this morning now with back pain. Slipped back on her porch at 08:30am and did hit her head. No LOC. Took a tramadol after which did not help much. Main complaint at this time is mid back pain with some nausea without vomiting. Does not take any blood thinners. Her daughter tested positive for COVID on Wednesday and patient was around her. Patient had it in June. Allergies and Home Medications Allergies Coded Allergies: clindamycin (Unverified Allergy, Severe, Anaphylaxis, 04/18/20) ondansetron (Unverified Allergy, Severe, Anaphylaxis, 04/18/20) prednisone (Unverified Adverse Reaction, Intermediate, Confusion, 04/18/20) Penicillins (Unverified Adverse Reaction, Mild, nausea and vomiting, 04/18/20) from [facility] cefixime (Unverified Adverse Reaction, Mild, nausea and vomiting, 04/18/20) from [facility] Suprax (Cefixime) cephalexin (Unverified Adverse Reaction, Mild, nausea and vomiting, 04/18/20) from [facility] esomeprazole (Unverified Adverse Reaction, Mild, Rash, 04/18/20) from [facility] guaifenesin (Unverified Adverse Reaction, Mild, nausea and vomiting, 04/18/20) from [facility] (Guaifed) hydrocodone (Unverified Adverse Reaction, Mild, rash, 04/18/20) from [facility] (Hydrocodone-acetaminophen) omeprazole (Unverified Adverse Reaction, Mild, rash, 04/18/20) from [facility] oxycodone (Unverified Adverse Reaction, Mild, rash, 04/18/20) from [facility] pantoprazole (Unverified Adverse Reaction, Mild, rash, 04/18/20) from [facility] phenylephrine (Unverified Adverse Reaction, Mild, Nausea andd vomiting, 04/18/20) from [facility] (Guaifed) sucralfate (Unverified Adverse Reaction, Mild, Itching, 04/18/20) from [facility] Sulfa (Sulfonamide Antibiotics) (Unverified Adverse Reaction, Unknown, 04/18/20) celecoxib (Unverified Adverse Reaction, Unknown, 04/18/20) hydrochlorothiazide (Unverified Adverse Reaction, Unknown, 04/18/20) from [facility] (Spironolacton-hydrochlorothiaz) ibuprofen (Unverified Adverse Reaction, Unknown, 04/18/20) from [facility] metoclopramide (Unverified Adverse Reaction, Unknown, 04/18/20) from [facility] prochlorperazine (Unverified Adverse Reaction, Unknown, 04/18/20) from [facility] spironolactone (Unverified Adverse Reaction, Unknown, 04/18/20) from [facility] (Spironolacton-hydrochlorothiaz) Patient Home Medication List Home Medication List Reviewed: Yes Alprazolam (Alprazolam) 0.5 Mg Tablet, 0.5 MG PO HS, (Reported) Entered as Reported by: SHAHANA GUTIERREZ on 12/28/19 1124 Aspirin (Aspirin EC) 81 Mg Tablet.dr, 81 MG PO DAILY Prescribed by: LETHA LOPES on 03/27/21 1128 Carvedilol (Carvedilol) 6.25 Mg Tablet, 6.25 MG PO BID, (Reported) Entered as Reported by: ELIU LORENZANA on 04/18/20 1329 Cefdinir (Cefdinir) 300 Mg Capsule, 300 MG PO BID Prescribed by: LETHA LOPES on 03/27/21 1128 Cyclosporine (Restasis) 1 Each Droperette, 1 DROP OU BID, (Reported) Entered as Reported by: ADAM SINGH on 03/26/21 1249 Famotidine (Famotidine) 20 Mg Tablet, 40 MG PO BID, (Reported) Entered as Reported by: KARON RAY on 03/26/21 1418 Hydrochlorothiazide (Hydrochlorothiazide) 25 Mg Tablet, 25 MG PO DAILY, (Reported) Entered as Reported by: ELIU LORENZANA on 04/18/20 1329 Insulin Detemir (Levemir Flextouch) 100 Unit/1 Ml Insuln.pen, 10 UNITS SC HS, (Reported) Entered as Reported by: KARON RAY on 03/26/21 1418 L. Acidophilus/L.bulgaricus (Lactobacillus Tablet) 1 Each Tablet, 1 TAB PO BID, (Reported) Entered as Reported by: SHAHANA GUTIERREZ on 04/10/20 1358 Mag Hydrox/Al Hydrox/Simeth (Mylanta Suspension) 30 Ml Oral.susp, 30 ML PO DAILY PRN for INDIGESTION, (Reported) Entered as Reported by: ELIU LORENZANA on 04/18/20 1329 Meclizine HCl (Meclizine HCl) 25 Mg Tablet, 25 MG PO BID, (Reported) Entered as Reported by: SHAHANA GUTIERREZ on 12/28/19 1124 Potassium Chloride (Potassium Chloride) 20 Meq Tab.er.prt, 20 MEQ PO DAILY, (Reported) Entered as Reported by: SHAHANA GUTIERREZ on 12/28/19 1124 Simethicone (Simethicone) 125 Mg Capsule, 125 MG PO TID, (Reported) Entered as Reported by: ELIU LORENZANA on 04/18/20 1329 Simvastatin (Simvastatin) 40 Mg Tablet, 40 MG PO HS, (Reported) Entered as Reported by: ELIU LORENZANA on 04/18/20 1329 Tramadol HCl (Tramadol HCl) 50 Mg Tablet, 50 MG PO Q6H PRN for PAIN-MODERATE (5- 7), (Reported) Entered as Reported by: SHAHANA GUTIERREZ on 04/10/20 1358 Review of Systems Review of Systems Constitutional: No chills, No fever Eyes: Denies Blurred Vision Ears, Nose, Mouth, Throat: no symptoms reported Respiratory: no symptoms reported Cardiovascular: no symptoms reported Gastrointestinal: no symptoms reported Genitourinary: no symptoms reported Musculoskeletal: back pain Skin: no symptoms reported Psychiatric/Neurological: No Symptoms Reported All Other Systems Reviewed Negative Unless Noted: Yes Past Inerghe-Ltbvgv-Fwtmbc Hx Patient Social History Substance use?: No Immunizations Up To Date Tetanus Booster (TDap): Unknown Seasonal Allergies Seasonal Allergies: No Past Medical History Surgeries: Yes (Colonoscopy w/polypectomy, Quad CABG, heart cath, COLON RESECTION) Bowel Surgery, CABG, Gallbladder Respiratory: Yes (Hx pneumonia, chronic obstructive airway, Nocturnal O2 2L) Pneumonia, COPD Currently Using CPAP: No Currently Using BIPAP: No Cardiac: Yes (Quadruple bypass) Coronary Artery Disease, High Cholesterol, Hypertension Neurological: No Sexually Transmitted Disease: No HIV/AIDS: No Genitourinary: Yes Kidney Stones Gastrointestinal: Yes (Hx reflux esophagitis/duodenitis, Hx tubulovillous adenoma) Gastroesophageal Reflux, Esophagitis Musculoskeletal: Yes (Hx fx shoulder) Fractures Endocrine: Yes (Hx DM on [facility]) Diabetes, Non-Insulin dep HEENT: No Loss of Vision: Denies Hearing Impairment: Denies Cancer: Yes Colon What Type of Treatment Did You: Surgical Intervention Psychosocial: Yes Anxiety Integumentary: No Blood Disorders: No Adverse Reaction/Blood Tranf: No (N/A) Physical Exam Vital Signs Vital Signs - First Documented 11/08/21 16:40 Temp 37.1 Pulse 86 Resp 17 B/P (MAP) 194/67 (109) Pulse Ox 95 O2 Delivery Nasal Cannula O2 Flow Rate 2.00 Capillary Refill : Height, Weight, BMI Height: '" Weight: lbs. oz. kg; 21.87 BMI Method: General Appearance: WD/WN, no apparent distress HEENT: PERRL/EOMI, normal ENT inspection, pharynx normal Neck: non-tender, full range of motion, supple, normal inspection Cardiovascular: regular rate, rhythm, no edema, no murmur Respiratory: chest non-tender, lungs clear, normal breath sounds, no respiratory distress, no accessory muscle use Gastrointestinal: normal bowel sounds, non tender, soft; No distended, No guarding, No rebound Back: normal inspection, no CVA tenderness, other (some mid thoracic tenderness and L posterior rib pain) Extremities: normal range of motion, non-tender, normal inspection, no pedal edema, no calf tenderness, normal capillary refill Neurologic/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: 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 as tested, no motor/sensory deficits, alert, normal mood/affect, oriented x 3 Skin: normal color, warm/dry Lymphatic: no adenopathy Jimmy Coma Score Best Eye Response: (4) Open Spontaneously Best Verbal Response: (5) Oriented Best Motor Response: (6) Obeys Commands Progress/Results/Core Measures Results/Orders My Orders Orders - KIRSTY VILLAR MD Ct Head Wo (11/08/21 17:08) Ct Cerv/Thoracic/Lumbar Wo (11/08/21 17:08) Ct Chest Wo (11/08/21 17:08) Vital Signs/I&O 11/08/21 16:40 Temp 37.1 Pulse 86 Resp 17 B/P (MAP) 194/67 (109) Pulse Ox 95 O2 Delivery Nasal Cannula O2 Flow Rate 2.00 Progress Progress Note : Progress Note 81-year-old female with above history coming in after slipping and falling backwards. ABCs were intact and vitals were stable on presentation with a GCS 15. Physical exam with some midthoracic tenderness and some left paraspinal tenderness more so. Given she hit her head and the age, CT head, cervical, thoracic, lumbar, and chest without contrast ordered. Highest concern on the d ifferential would be thoracic fracture as well as rib fractures. Her oxygen was around 90 to 92% on arrival. She is supposed to be wearing 2 L of oxygen at home which she currently was not. Diagnostic Imaging Diagonstic Imaging: CT (head, C/T/L spine, chest) Comments NAME: LUIS ANTONIOLEIF MCDANIELS [facility] REC#: [id number] PT STATUS: REG ER : 1940 PHYSICIAN: KIRSTY VILLAR MD ADMIT DATE: 11/08/21/ER FS Draft Date of Exam:11/08/21 CT HEAD WO PROCEDURE: CT head without contrast. TECHNIQUE: Multiple contiguous axial images were obtained through the brain without the use of intravenous contrast. Auto Exposure Controls were utilized during the CT exam to meet ALARA standards for radiation dose reduction. INDICATION: Fall. Head trauma. Head pain. COMPARISON: None. FINDINGS: No CT evidence of a territorial infarction. No intracranial hemorrhage, mass effect, hydrocephalus or extra-axial fluid collections. Osseous structures are intact. Visualized paranasal sinuses and mastoids are clear. IMPRESSION: No acute intracranial CT findings. Dictated on workstation # [id number] Dict: 11/08/211739 Trans: 11/08/211742 [facility] [id number] Interpreted by: TUAN MENDOZA MD Electronically signed by: NAME: LEIF RIVAS [facility] REC#: [id number] PT STATUS: REG ER : 1940 PHYSICIAN: KIRSTY VILLAR MD ADMIT DATE: 11/08/21/ER FS Draft Date of Exam:11/08/21 CT CERV/THORACIC/LUMBAR WO EXAM: CT CERV/THORACIC/LUMBAR WO INDICATION: Fall. Pain in back and posterior ribs. COMPARISON: CT abdomen and pelvis without contrast 08/26/2020. FINDINGS: Cervical spine: Evaluation is markedly limited by motion. Vertebral body heights appear preserved. Normal alignment. No fractures are identified. Ngaq-rg-sqatexbs spondylotic changes greatest at C5-C7. Biapical scarring. No high-grade spinal canal stenosis is evident on soft tissue windows. Moderate atherosclerotic calcifications. Thoracic spine: Age-indeterminate height loss of T-2 of approximately 30% without retropulsion. Mild scattered degenerative endplate changes. No high-grade spinal canal stenosis is evident on soft tissue windows. Cholecystectomy clips. Multiple pulmonary nodules in the partially visualized lungs. The largest of these is in the posterior right upper lobe measures 1.9 cm. Lumbar spine: Moderate left apex lumbar curvature. Moderate to advanced spondylotic changes are greatest at L4-S1. Superior endplate height loss of L4 approximately 20% is age indeterminate. High-grade osseous bilateral neural foraminal narrowing L4-L5 bilaterally and on the left at L5-S1. There is also likely high-grade spinal canal stenosis due to spondylotic change at L4-L5. No acute findings in visualized paravertebral soft tissues. IMPRESSION: 1. Age-indeterminate height loss of T-2 at approximately 30% and L4 at approximately 20% is age indeterminate. Acute fractures cannot be excluded. Recommend correlation with point tenderness. This could be further evaluated with MRI. 2. Evaluation of the cervical spine is markedly limited by motion. No acute findings in the cervical spine. 3. Scattered spondylotic changes as above. This is greatest at L4-L5 where there is high-grade bilateral neural foraminal narrowing and probable high-grade spinal canal stenosis. 4. Multiple indeterminate pulmonary nodules in both lungs. The largest of these is in the posterior right upper lobe and measures 1.9 cm. Dictated on workstation # [id number] Dict: 11/08/211745 Trans: 11/08/211756 CV [id number] Interpreted by: TUAN MENDOZA MD Electronically signed by: NAME: ROBLEIF Villa [facility] REC#: [id number] PT STATUS: REG ER : 1940 PHYSICIAN: KIRSTY VILLAR MD ADMIT DATE: 11/08/21/ER FS Draft Date of Exam:11/08/21 CT CHEST WO PROCEDURE: CT chest without contrast. TECHNIQUE: Multiple contiguous axial images were obtained through the chest without the use of intravenous contrast. Auto Exposure Controls were utilized during the CT exam to meet ALARA standards for radiation dose reduction. INDICATION: Fall. Back pain. Posterior torso pain. COMPARISON: CT thoracic spine without contrast also performed today. CT chest 03/26/2021. FINDINGS: Again seen is the vertebral body height loss of T2 of approximately 30% which is age indeterminate. No rib fractures are identified. Multiple pulmonary nodules in both lungs. The largest of these is a pleural-based nodule in the posterior right upper lobe measuring up to 1.9 cm. There is also ill-defined irregular airspace opacity in scattered tree-in-bud opacities in the lower right upper lobe and right lower lobe. No pleural effusion or pneumothorax. Sternotomy. Cardiomegaly. No pericardial effusion. Esophageal hiatal hernia. No lymphadenopathy. Cholecystectomy. Parapelvic cysts in the partially visualized right kidney are incompletely characterized. IMPRESSION: 1. Height loss of the T2 vertebral body with approximately 30% age indeterminate. Recommend correlation with point tenderness. This could be further investigated with MRI. 2. Multiple pulmonary nodules in both lungs, the largest in the posterior right upper lobe measuring up 1.9 cm. This is new compared to 03/26/2021. Recommend short-term followup. Ultimately, nuclear medicine FDG PET/CT or tissue sampling is likely warranted. 3. Airspace opacities in both lungs, greatest in the right upper lobe, suspicious for pneumonitis. Dictated on workstation # [id number] Dict: 11/08/21 1803 Trans: 11/08/214 CV [id number] Interpreted by: TUAN MENDOZA MD Electronically signed by: Departure Impression Primary Impression: Compression fracture of T2 vertebra Qualified Codes: S22.020A - Wedge compression fracture of second thoracic vertebra, initial encounter for closed fracture Additional Impressions: Compression fracture of L4 vertebra Qualified Codes: S32.040A - Wedge compression fracture of fourth lumbar vert ebra, initial encounter for closed fracture Lung nodule Disposition: 01 HOME, SELF-CARE Condition: Stable Departure-Patient Inst. Decision time for Depature: 18:18 Referrals: [facility] (PCP) Primary Care Physician BILLIE GUAJARDO MD (Family) Primary Care Physician Patient Instructions: Vertebral Compression Fracture (DC), Pulmonary Nodule Add. Discharge Instructions: You are seen in the emergency department for back pain after you fell. You have what appears to be old fractures that are healing. There is nothing to really do for these, but if you continue to have back pain I do recommend he follow-up with an orthopedics physician, specifically a spine doctor. Go to your regular doctor initially and they can make a referral for you. You also have what appears to be some nodules in your lungs which need to be followed up because these could be cancerous. Please tell your regular doctor that they may need to do a PET scan. It is okay to take your regular tramadol for pain as well as Tylenol. KIRSTY VILLAR MD Nov 08, 2021 16:53
--- NOTE | 2021-11-08 17:44 | Diagnostic Imaging Report ---
PROCEDURE: CT head without contrast. TECHNIQUE: Multiple contiguous axial images were obtained through the brain without the use of intravenous contrast. Auto Exposure Controls were utilized during the CT exam to meet ALARA standards for radiation dose reduction. INDICATION: Fall. Head trauma. Head pain. COMPARISON: None. FINDINGS: No CT evidence of a territorial infarction. No intracranial hemorrhage, mass effect, hydrocephalus or extra-axial fluid collections. Osseous structures are intact. Visualized paranasal sinuses and mastoids are clear. IMPRESSION: No acute intracranial CT findings. Dictated by: Dictated on workstation # [id number]
--- NOTE | 2021-11-08 17:58 | Diagnostic Imaging Report ---
EXAM: CT CERV/THORACIC/LUMBAR WO INDICATION: Fall. Pain in back and posterior ribs. COMPARISON: CT abdomen and pelvis without contrast 08/26/2020. FINDINGS: Cervical spine: Evaluation is markedly limited by motion. Vertebral body heights appear preserved. Normal alignment. No fractures are identified. Xzzu-ft-eenlpjte spondylotic changes greatest at C5-C7. Biapical scarring. No high-grade spinal canal stenosis is evident on soft tissue windows. Moderate atherosclerotic calcifications. Thoracic spine: Age-indeterminate height loss of T-2 of approximately 30% without retropulsion. Mild scattered degenerative endplate changes. No high-grade spinal canal stenosis is evident on soft tissue windows. Cholecystectomy clips. Multiple pulmonary nodules in the partially visualized lungs. The largest of these is in the posterior right upper lobe measures 1.9 cm. Lumbar spine: Moderate left apex lumbar curvature. Moderate to advanced spondylotic changes are greatest at L4-S1. Superior endplate height loss of L4 approximately 20% is age indeterminate. High-grade osseous bilateral neural foraminal narrowing L4-L5 bilaterally and on the left at L5-S1. There is also likely high-grade spinal canal stenosis due to spondylotic change at L4-L5. No acute findings in visualized paravertebral soft tissues. IMPRESSION: 1. Age-indeterminate height loss of T-2 at approximately 30% and L4 at approximately 20% is age indeterminate. Acute fractures cannot be excluded. Recommend correlation with point tenderness. This could be further evaluated with MRI. 2. Evaluation of the cervical spine is markedly limited by motion. No acute findings in the cervical spine. 3. Scattered spondylotic changes as above. This is greatest at L4-L5 where there is high-grade bilateral neural foraminal narrowing and probable high-grade spinal canal stenosis. 4. Multiple indeterminate pulmonary nodules in both lungs. The largest of these is in the posterior right upper lobe and measures 1.9 cm. Dictated by: Dictated on workstation # [id number]
--- NOTE | 2021-11-08 18:16 | Diagnostic Imaging Report ---
PROCEDURE: CT chest without contrast. TECHNIQUE: Multiple contiguous axial images were obtained through the chest without the use of intravenous contrast. Auto Exposure Controls were utilized during the CT exam to meet ALARA standards for radiation dose reduction. INDICATION: Fall. Back pain. Posterior torso pain. COMPARISON: CT thoracic spine without contrast also performed today. CT chest 03/26/2021. FINDINGS: Again seen is the vertebral body height loss of T2 of approximately 30% which is age indeterminate. No rib fractures are identified. Multiple pulmonary nodules in both lungs. The largest of these is a pleural-based nodule in the posterior right upper lobe measuring up to 1.9 cm. There is also ill-defined irregular airspace opacity in scattered tree-in-bud opacities in the lower right upper lobe and right lower lobe. No pleural effusion or pneumothorax. Sternotomy. Cardiomegaly. No pericardial effusion. Esophageal hiatal hernia. No lymphadenopathy. Cholecystectomy. Parapelvic cysts in the partially visualized right kidney are incompletely characterized. IMPRESSION: 1. Height loss of the T2 vertebral body with approximately 30% age indeterminate. Recommend correlation with point tenderness. This could be further investigated with MRI. 2. Multiple pulmonary nodules in both lungs, the largest in the posterior right upper lobe measuring up 1.9 cm. This is new compared to 03/26/2021. Recommend short-term followup. Ultimately, nuclear medicine FDG PET/CT or tissue sampling is likely warranted. 3. Airspace opacities in both lungs, greatest in the right upper lobe, suspicious for pneumonitis. Dictated by: Dictated on workstation # [id number]
[2021-11-08 18:32] VITALS: BP 139/88
== END 2021-11-08 18:32 | disposition home or self-care (01) ==
LOC: EDUNIT# 16:36 → ER FS 16:38
DX: S22.020A Wedge compression fracture of second thoracic vertebra, initial encounter for closed fracture (principal); S32.040A Wedge compression fracture of fourth lumbar vertebra, initial encounter for closed fracture; R91.8 Other nonspecific abnormal finding of lung field; J44.9 Chronic obstructive pulmonary disease, unspecified; I10 Essential (primary) hypertension; I25.10 Atherosclerotic heart disease of native coronary artery without angina pectoris; E78.00 Pure hypercholesterolemia, unspecified; F41.9 Anxiety disorder, unspecified; K21.9 Gastro-esophageal reflux disease without esophagitis; E11.9 Type 2 diabetes mellitus without complications; Z79.899 Other long term (current) drug therapy; Z79.82 Long term (current) use of aspirin; W01.0XXA Fall on same level from slipping, tripping and stumbling without subsequent striking against object, initial encounter
CPT/HCPCS: 70450; 71250; 72125; 72128; 72131

== ENCOUNTER 2021-11-19 03:45 | Inpatient (IN) | payer MEDICARE, OTHER, MEDICAID ==
[2021-11-19] VITALS (8 sets, daily range): BP systolic 113–181; BP diastolic 39–73
[~2021-11-19] VITALS: Ht 160 cm; Wt 58.5 kg
[2021-11-19] MEDS ORDERED: PROMETHAZINE INJ 25 MG/ML (PHENERGAN) AMP IVP STA (04:04)
[2021-11-19] MEDS ORDERED: PANTOPRAZOLE 40 MG (PROTONIX) VIAL IV STA (04:09)
[2021-11-19] MEDS ORDERED: diphenhydrAMINE 50 MG/ML INJ (BENADRYL) IVP STA (04:09)
[2021-11-19] MEDS ORDERED: NS IV 1000 ML 1,000 ML IV SCH (04:15)
[2021-11-19] MEDS ORDERED: ACETAMINOPHEN 325 MG TABLET PO ONE (04:15)
--- NOTE | 2021-11-19 04:20 | ED General ---
General Stated Complaint: NAUSEA/VOMITING Source of Information: Patient, Family History of Present Illness Date Seen by Provider: Nov 19, 2021 Time Seen by Provider: 03:48 Initial Comments 81-year-old female presenting with complaints of several days of cough, shortness of breath, nausea vomiting and diarrhea. She had gone to urgent care on Wednesday and was diagnosed with pneumonia. They started her on doxycycline for pneumonia but she has not been able to keep the medicine down. She has not been able to keep any medicine or fluids down. She vomits whenever she tries to even drink water. She has been having diarrhea as well. She feels weak and unsteady when she tries to walk. Rather than come back or be seen during the day they came in this morning at 3:30 in the morning to be seen. Nothing was different at this time then earlier in the day. She has had fevers up to 100.6 at home. Her initial oxygen saturation was around 70% on arrival. She states she does use oxygen at night when she is sleeping. She reports having tested positive for Covid through the [facility] clinic in June. She was exposed to Covid again a few weeks ago when her daughter had Covid. She has not had the Covid vaccine. She does report that she is a Full code status and would want everything done as does her son who is the power of disability attorney. Timing/Duration: 3-4 Days Modifying Factors: worse with Movement Associated Systoms: No Chest Pain; Cough; No Diaphoresis; Fever/Chills, Loss of Appetite, Malaise, Nausea/Vomiting; No Seizure; Shortness of Air; No Syncope; Weakness Allergies and Home Medications Allergies Coded Allergies: clindamycin (Unverified Allergy, Severe, Anaphylaxis, 04/18/20) ondansetron (Unverified Allergy, Severe, Anaphylaxis, 04/18/20) prednisone (Unverified Adverse Reaction, Intermediate, Confusion, 04/18/20) Penicillins (Unverified Adverse Reaction, Mild, nausea and vomiting, ) from [facility] cefixime (Unverified Adverse Reaction, Mild, nausea and vomiting, 04/18/20) from [facility] Suprax (Cefixime) cephalexin (Unverified Adverse Reaction, Mild, nausea and vomiting, 04/18/20) from [facility] esomeprazole (Unverified Adverse Reaction, Mild, Rash, 04/18/20) from [facility] guaifenesin (Unverified Adverse Reaction, Mild, nausea and vomiting, 04/18/20) from [facility] (Guaifed) hydrocodone (Unverified Adverse Reaction, Mild, rash, 04/18/20) from [facility] (Hydrocodone-acetaminophen) omeprazole (Unverified Adverse Reaction, Mild, rash, 04/18/20) from [facility] oxycodone (Unverified Adverse Reaction, Mild, rash, 04/18/20) from [facility] pantoprazole (Unverified Adverse Reaction, Mild, rash, 04/18/20) from [facility] phenylephrine (Unverified Adverse Reaction, Mild, Nausea andd vomiting, 04/18/20) from [facility] (Guaifed) sucralfate (Unverified Adverse Reaction, Mild, Itching, 04/18/20) from [facility] Sulfa (Sulfonamide Antibiotics) (Unverified Adverse Reaction, Unknown, 04/18/20) celecoxib (Unverified Adverse Reaction, Unknown, 04/18/20) hydrochlorothiazide (Unverified Adverse Reaction, Unknown, 04/18/20) from [facility] (Spironolacton-hydrochlorothiaz) ibuprofen (Unverified Adverse Reaction, Unknown, 04/18/20) from [facility] metoclopramide (Unverified Adverse Reaction, Unknown, 04/18/20) from [facility] prochlorperazine (Unverified Adverse Reaction, Unknown, 04/18/20) from [facility] spironolactone (Unverified Adverse Reaction, Unknown, 04/18/20) from [facility] (Spironolacton-hydrochlorothiaz) Patient Home Medication List Home Medication List Reviewed: Yes Alprazolam (Alprazolam) 0.5 Mg Tablet, 0.5 MG PO HS, (Reported) Entered as Reported by: SHAHANA GUTIERREZ on 12/28/19 1124 Aspirin (Aspirin EC) 81 Mg Tablet.dr, 81 MG PO DAILY Prescribed by: LETHA LOPES on 03/27/21 1128 Carvedilol (Carvedilol) 6.25 Mg Tablet, 6.25 MG PO BID, (Reported) Entered as Reported by: ELIU LORENZANA on 04/18/20 1329 Cefdinir (Cefdinir) 300 Mg Capsule, 300 MG PO BID Prescribed by: LETHA LOPES on 03/27/21 1128 Cyclosporine (Restasis) 1 Each Droperette, 1 DROP OU BID, (Reported) Entered as Reported by: ADAM SIGNH on 03/26/21 1249 Famotidine (Famotidine) 20 Mg Tablet, 40 MG PO BID, (Reported) Entered as Reported by: KARON RAY on 03/26/21 1418 Hydrochlorothiazide (Hydrochlorothiazide) 25 Mg Tablet, 25 MG PO DAILY, (Reported) Entered as Reported by: ELIU LORENZANA on 04/18/20 1329 Insulin Detemir (Levemir Flextouch) 100 Unit/1 Ml Insuln.pen, 10 UNITS SC HS, (Reported) Entered as Reported by: KARON RAY on 03/26/21 1418 L. Acidophilus/L.bulgaricus (Lactobacillus Tablet) 1 Each Tablet, 1 TAB PO BID, (Reported) Entered as Reported by: SHAHANA GUTIERREZ on 04/10/20 1358 Mag Hydrox/Al Hydrox/Simeth (Mylanta Suspension) 30 Ml Oral.susp, 30 ML PO DAILY PRN for INDIGESTION, (Reported) Entered as Reported by: ELIU LORENZANA on 04/18/20 1329 Meclizine HCl (Meclizine HCl) 25 Mg Tablet, 25 MG PO BID, (Reported) Entered as Reported by: SHAHANA GUTIERREZ on 12/28/19 1124 Potassium Chloride (Potassium Chloride) 20 Meq Tab.er.prt, 20 MEQ PO DAILY, (Reported) Entered as Reported by: SHAHANA GUTIERREZ on 12/28/19 1124 Simethicone (Simethicone) 125 Mg Capsule, 125 MG PO TID, (Reported) Entered as Reported by: ELIU LORENZANA on 04/18/20 1329 Simvastatin (Simvastatin) 40 Mg Tablet, 40 MG PO HS, (Reported) Entered as Reported by: ELIU LORENZANA on 04/18/20 1329 Tramadol HCl (Tramadol HCl) 50 Mg Tablet, 50 MG PO Q6H PRN for PAIN-MODERATE (5- 7), (Reported) Entered as Reported by: SHAHANA GUTIERREZ on 04/10/20 5982 Review of Systems Review of Systems Constitutional: fever, malaise, weakness EENTM: No nose congestion Respiratory: cough, short of breath; No stridor, No wheezing Cardiovascular: No chest pain Gastrointestinal: diarrhea, nausea, vomiting Genitourinary: No dysuria Musculoskeletal: back pain (Recent compression fracture of her spine) Skin: no symptoms reported Psychiatric/Neurological: Anxiety Past Slpyxcv-Znykxz-Pusxyg Hx Patient Social History Tobacco Use?: No Immunizations Up To Date Tetanus Booster (TDap): Unknown Seasonal Allergies Seasonal Allergies: No Past Medical History Surgeries: Yes (Colonoscopy w/polypectomy, Quad CABG, heart cath, COLON RESECTION) Bowel Surgery, CABG, Gallbladder Respiratory: Yes (Hx pneumonia, chronic obstructive airway, Nocturnal O2 2L) Pneumonia, COPD Currently Using CPAP: No Currently Using BIPAP: No Cardiac: Yes (Quadruple bypass) Coronary Artery Disease, High Cholesterol, Hypertension Neurological: No Sexually Transmitted Disease: No HIV/AIDS: No Genitourinary: Yes Kidney Stones Gastrointestinal: Yes (Hx reflux esophagitis/duodenitis, Hx tubulovillous adenoma) Gastroesophageal Reflux, Esophagitis Musculoskeletal: Yes (Hx fx shoulder) Fractures Endocrine: Yes (Hx DM on [facility]) Diabetes, Non-Insulin dep HEENT: No Loss of Vision: Denies Hearing Impairment: Denies Cancer: Yes Colon What Type of Treatment Did You: Surgical Intervention Psychosocial: Yes Anxiety Integumentary: No Blood Disorders: No Adverse Reaction/Blood Tranf: No (N/A) Physical Exam Vital Signs Vital Signs - First Documented 11/19/21 11/19/21 03:50 03:51 Temp 37.3 Pulse 82 Resp 30 B/P (MAP) 181/50 (93) Pulse Ox 80 O2 Delivery Room Air O2 Flow Rate 4.00 Capillary Refill : Height, Weight, BMI Height: '" Weight: lbs. oz. kg; 22.00 BMI Method: General Appearance: Chronically ill (Appears older than stated age and chronically ill) HEENT: No Moist Mucous Membranes (Slightly dry mucous membranes) Respiratory: Accessory Muscle Use, Decreased Breath Sounds, Respiratory Distress; No Stridor, No Wheezing Cardiovascular: Regular Rate, Rhythm, Normal Peripheral Pulses Gastrointestinal: Normal Bowel Sounds, No Pulsatile Mass, Soft; No Distended, No Guarding, No Rebound; Tenderness (Mild diffuse tenderness to palpation) Rectal: Deferred Extremity: Normal Capillary Refill, Normal Inspection, No Pedal Edema Neurologic/Psychiatric: Alert, Oriented x3 Skin: Normal Color, Warm/Dry Focused Exam Lactate Level 11/19/21 04:00: Lactic Acid Level 1.34 Lactic Acid Level Laboratory Tests Test 11/19/21 04:00 Lactic Acid Level 1.34 MMOL/L (0.50-2.00) Progress/Results/Core Measures Suspected Sepsis SIRS Temperature: Pulse: Respiratory Rate: Laboratory Tests 11/19/21 04:00: White Blood Count 28.5H Blood Pressure / Mean: 11/19/21 04:00: Lactic Acid Level 1.34 Laboratory Tests 11/19/21 04:00: Creatinine 1.18, INR Comment 1.1, Platelet Count 274, Total Bilirubin 1.1H Results/Orders Lab Results Laboratory Tests Test 11/19/21 04:00 11/19/21 05:40 Range/Units White Blood Count 28.5 H 4.3-11.0 10^3/uL Red Blood Count 4.72 3.80-5.11 10^6/uL Hemoglobin 12.8 11.5-16.0 g/dL Hematocrit 38 35-52 % Mean Corpuscular Volume 81 80-99 fL Mean Corpuscular Hemoglobin 27 25-34 pg Mean Corpuscular Hemoglobin Concent 33 32-36 g/dL Red Cell Distribution Width 14.1 10.0-14.5 % Platelet Count 274 130-400 10^3/uL Mean Platelet Volume 10.4 9.0-12.2 fL Immature Granulocyte % (Auto) 2 % Neutrophils (%) (Auto) 89 H 42-75 % Lymphocytes (%) (Auto) 4 L 12-44 % Monocytes (%) (Auto) 5 0-12 % Eosinophils (%) (Auto) 0 0-10 % Basophils (%) (Auto) 0 0-10 % Neutrophils # (Auto) 25.2 H 1.8-7.8 X 10^3 Lymphocytes # (Auto) 1.2 1.0-4.0 X 10^3 Monocytes # (Auto) 1.5 H 0.0-1.0 X 10^3 Eosinophils # (Auto) 0.0 0.0-0.3 10^3/uL Basophils # (Auto) 0.1 0.0-0.1 10^3/uL Immature Granulocyte # (Auto) 0.5 H 0.0-0.1 10^3/uL Neutrophils % (Manual) 86 % Lymphocytes % (Manual) 2 % Monocytes % (Manual) 4 % Band Neutrophils 4 % Atypical Lymphocytes 4 % Polychromasia SLIGHT Microcytosis SLIGHT Prothrombin Time 14.8 H 12.2-14.7 SEC INR Comment 1.1 0.8-1.4 Activated Partial Thromboplast Time 34 24-35 SEC Blood Gas Puncture Site RIGHT RADIAL Blood Gas Patient Temperature 36 Arterial Blood pH 7.46 H 7.37-7.43 Arterial Blood Partial Pressure CO2 40 35-45 MMHG Arterial Blood Partial Pressure O2 62 L 79-93 MMHG Arterial Blood HCO3 28 H 23-27 MMOL/L Arterial Blood Total CO2 29.6 21.0-31.0 MMOL/L Arterial Blood Oxygen Saturation 93 L 94-100 % Arterial Blood Base Excess 4.2 H -2.5-2.5 MMOL/L Cali Test POSITIVE Blood Gas Ventilator Setting NO Blood Gas Inspired Oxygen 4 NC Sodium Level 123 *L 135-145 MMOL/L Potassium Level 4.4 3.6-5.0 MMOL/L Chloride Level 86 L 98-107 MMOL/L Carbon Dioxide Level 25 21-32 MMOL/L Anion Gap 12 5-14 MMOL/L Blood Urea Nitrogen 25 H 7-18 MG/DL Creatinine 1.18 0.60-1.30 MG/DL Estimat Glomerular Filtration Rate 44 BUN/Creatinine Ratio 21 Glucose Level 204 H 70-105 MG/DL Lactic Acid Level 1.34 0.50-2.00 MMOL/L Calcium Level 9.3 8.5-10.1 MG/DL Corrected Calcium 9.5 8.5-10.1 MG/DL Total Bilirubin 1.1 H 0.1-1.0 MG/DL Aspartate Amino Transf (AST/SGOT) 13 5-34 U/L Alanine Aminotransferase (ALT/SGPT) 10 0-55 U/L Alkaline Phosphatase 139 H 40-136 U/L Troponin I 0.30 <0.30 NG/ML C-Reactive Protein 22.41 H <0.50 MG/DL Total Protein 7.9 6.4-8.2 GM/DL Albumin 3.7 3.2-4.5 GM/DL Lipase 16 8-78 U/L My Orders Orders - ELIN LING MD Monitor-Rhythm Ecg Trace Only (11/19/21 04:04) Ed Iv/Invasive Line Start (11/19/21 04:04) Cbc With Automated Diff (11/19/21 04:04) Comprehensive Metabolic Panel (11/19/21 04:04) Crp Fs (11/19/21 04:04) Troponin I Fs (11/19/21 04:04) Protime With Inr (11/19/21 04:04) Partial Thromboplastin Time (11/19/21 04:04) Ekg Tracing (11/19/21 04:04) Arterial Blood Gas (11/19/21 04:04) Ns Iv 1000 Ml (Sodium Chloride 0.9%) (11/19/21 04:15) Acetaminophen Tablet/Caplet (Tylenol T (11/19/21 04:15) Promethazine Injection (Phenergan Injec (11/19/21 04:04) Diphenhydramine Injection (Benadryl Inje (11/19/21 04:09) Pantoprazole Injection (Protonix Injecti (11/19/21 04:09) Blood Culture (11/19/21 04:10) Lactic Acid Analyzer (11/19/21 04:10) Ua Culture If Indicated (11/19/21 04:11) Ct Chest/Abdomen/Pelvis Wo (11/19/21 04:12) O2 (11/19/21 04:12) Lipase (11/19/21 04:04) Manual Differential (11/19/21 04:00) Ceftriaxone (Rocephin) (11/19/21 05:16) Azithromycin Injection (Zithromax Inject (11/19/21 05:16) Ceftriaxone (Rocephin) (11/19/21 05:21) Dexamethasone Injection (Decadron Inje (11/19/21 05:25) Covid 19 Inhouse Test (11/19/21 05:26) Influenza A And B By Pcr (11/19/21 05:26) Isolation Central Supply Req (11/19/21 05:26) Ed Admission (Communication) (11/19/21 05:26) Medications Given in ED Current Medications Medications Dose Ordered Sig/Wilfrid Route Start Time Stop Time Status Last Admin Dose Admin Acetaminophen 650 mg ONCE ONCE PO 11/19/21 04:15 11/19/21 04:16 DC 11/19/21 04:18 650 MG Vital Signs/I&O 11/19/21 11/19/21 11/19/21 11/19/21 03:50 03:51 03:55 03:55 Temp 37.3 Pulse 82 Resp 30 B/P (MAP) 181/50 (93) Pulse Ox 80 91 95 O2 Delivery Room Air Nasal Cannula Nasal Cannula Nasal Cannula O2 Flow Rate 4.00 4.00 2.00 Capillary Refill : Progress Note #1: Progress Note With patient's hypoxia will obtain ABG in addition to blood cultures, lactic acid, general lab, cardiac enzymes, EKG, CT scan of the chest and include the abdomen and pelvis since she was having vomiting and diarrhea. Since she has history of renal insufficiency will obtain CT without contrast. Patient reportedly had Covid earlier this fall. She would need to be admitted for her hypoxia and inability to hold down any thing by mouth. Especially since she reports allergies to all antiemetics and acid reducing medicines. Will give Benadryl for nausea, IV fluids for hydration, Tylenol for slightly elevated temperature. Once more tests are back we will check with the [facility] provider about admitting. Progress Note #2: Progress Note White blood cell count was 28.5 thousand with a left shift. Her lactic acid was normal at 1.34. Her creatinine was slightly elevated to 1.18. Her CRP was elevated. Her blood gas showed a pH of 7.46 with a PCO2 of 40 and a PO2 of 62 on 4 L to bring her O2 sat to 93%. Electrocardiogram is a sinus rhythm without ST elevation. Pt is resting comfortably in room after meds and has had no emesis here and is maintaining well on supplemental oxygen. Progress Note #3: Progress Note Her CT scan shows diffuse patchy infiltrates in her lungs consistent with possible Covid pneumonia. Since the family reports that she did have Covid in June and was again reexposed to Covid within the last 2 weeks by her daughter being positive will obtain a Covid swab to check for recurrent infection. Will treat patient with Rocephin and Zithromax for now as she has multiple allergies to medicines and adverse reactions to medicines but these were not in her list of medications for allergies and adverse reactions. Discussed with Dr. Lopes for the [facility] service and she accepted the patient for admission. She will place Queued orders for the patient. For now will have pt as PUI for Covid. She did request Dexamethasone for patient. I ordered 6 mg IV Dexamethasone for the patient but she refused because it was related to Prednisone. She remembers she can not take Prednisone but could not say what the allergy or reaction to the medicine/steroids was for a reason not to take the medicine. ECG Initial ECG Impression Date: Nov 19, 2021 Initial ECG Impression Time: 04:21 Initial ECG Rate: 80 Initial ECG Rhythm: Normal Sinus Initial ECG Comparisson: Unchanged Comment Sinus rhythm with a heart rate of 80 bpm. NM interval [address] elevation. QT interval 373 ms with a QTc interval 431 ms. Appears similar to prior tracings in the system. Diagnostic Imaging Diagonstic Imaging: CT Plain Films/CT/US/NM/MRI: chest, abdomen, pelvis Comments [facility] [employer] [facility] [place], [place] NAME: LEIF RIVAS [facility] REC#: [id number] PT STATUS: REG ER : 1940 PHYSICIAN: ELIN LING MD ADMIT DATE: 11/19/21/ER FS Signed Date of Exam:11/19/21 CT CHEST/ABDOMEN/PELVIS WO PROCEDURE: CT chest, abdomen, and pelvis without contrast. TECHNIQUE: Multiple contiguous axial images were obtained through the chest, abdomen, and pelvis without the use of intravenous contrast. Auto Exposure Controls were utilized during the CT exam to meet ALARA standards for radiation dose reduction. INDICATION: Nausea, vomiting and diarrhea There are patchy infiltrates in both lungs. There are postoperative changes from CABG surgery. There is a sliding hiatal hernia. There are no effusions or pneumothoraces. The liver appears normal. Gallbladder surgically absent. Pancreas is normal. Spleen is not enlarged. Adrenals are normal. 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 There is hypertrophy of the right kidney. Urinary bladder is normal. Small bowel is not dilated. There is no evidence of appendicitis. Some diverticulosis of the colon but no evidence of diverticulitis. Uterus and adnexa are unremarkable. There is no intraperitoneal free air or free fluid. Urinary bladder appears normal. IMPRESSION: Multifocal patchy infiltrates in the lungs suspicious for Covid pneumonia. No acute abnormality seen in the abdomen. Dictated by: Dictated on workstation # [id number] Dict: 11/19/21511 Trans: 11/19/21514 TC [id number] Interpreted by: EASTON DELEON MD Electronically signed by: EASTON DELEON MD 11/19/21514 Reviewed: Reviewed by Me Departure Communication (Admissions) Time/Spoke to Admitting Phy: 05:[address] Lopes for the [facility] service and she accepted the patient for cardiac stepdown. Will obtain a Covid swab to be done stat on arrival to [place]. Will add in Decadron dose to the Rocephin and Zithromax medicines. Impression Primary Impression: Hypoxia Additional Impressions: Nausea vomiting and diarrhea Hyponatremia Pneumonia of both lungs Qualified Codes: J18.9 - Pneumonia, unspecified organism Person under investigation for COVID-19 Sepsis Qualified Codes: A41.9 - Sepsis, unspecified organism Disposition: 30 STILL A PATIENT Condition: Stable Admissions Decision to Admit Reason: Admit from ER (General) Decision to Admit/Date: Nov 19, 2021 Time/Decision to Admit Time: 05:24 Departure-Patient Inst. Referrals: [facility] (PCP) Primary Care Physician BILLIE GUAJARDO MD (Family) Primary Care Physician ELIN LING MD Nov 19, 2021 04:20
[2021-11-19 04:24] LABS: ABG BASE EXCESS 4.2 MMOL/L (-2.5-2.5); ABG OXYGEN SATURATION 93 % (94-100); ABG PCO2 40 MMHG (35-45); ABG PH 7.46 (7.37-7.43); ABG PO2 62 MMHG (79-93); ABG TCO2 29.6 MMOL/L (21.0-31.0); ALLENS TEST POSITIVE; INSPIRED O2 4 NC; PATIENT TEMP 36; VENTILATOR NO
[2021-11-19 04:25] LABS: BASOPHILS # (AUTO) 0.1 10^3/uL (0.0-0.1); BASOPHILS % (AUTO) 0 % (0-10); EOSINOPHILS % (AUTO) 0 % (0-10); HEMATOCRIT 38 % (35-52); HEMOGLOBIN 12.8 g/dL (11.5-16.0); LYMPHOCYTES # (AUTO) 1.2 X 10^3 (1.0-4.0); LYMPHOCYTES % (AUTO) 4 % (12-44); MEAN CORPUSCULAR HEMOGLOBIN 27 pg (25-34); MEAN CORPUSCULAR HGB CONC 33 g/dL (32-36); MEAN CORPUSCULAR VOLUME 81 fL (80-99); MEAN PLATELET VOLUME 10.4 fL (9.0-12.2); MONOCYTES # (AUTO) 1.5 X 10^3 (0.0-1.0); MONOCYTES % (AUTO) 5 % (0-12); NEUTROPHILS # (AUTO) 25.2 X 10^3 (1.8-7.8); NEUTROPHILS % (AUTO) 89 % (42-75); PLATELET COUNT 274 10^3/uL (130-400); WHITE BLOOD COUNT 28.5 10^3/uL (4.3-11.0)
[2021-11-19 04:33] LABS: INR 1.1 (0.8-1.4); PROTHROMBIN TIME PATIENT 14.8 SEC (12.2-14.7)
[2021-11-19 04:44] LABS: ALBUMIN 3.7 GM/DL (3.2-4.5); BILIRUBIN,TOTAL 1.1 MG/DL (0.1-1.0); CALCIUM 9.3 MG/DL (8.5-10.1); CREATININE SERUM 1.18 MG/DL (0.60-1.30); POTASSIUM 4.4 MMOL/L (3.6-5.0); TOTAL PROTEIN 7.9 GM/DL (6.4-8.2)
[2021-11-19 04:46] LABS: ATYPICAL LYMPHOCYTES 4 %; BAND NEUTROPHILS 4 %; LYMPHOCYTES % (MANUAL) 2 %; MICROCYTOSIS SLIGHT; MONOCYTES % (MANUAL) 4 %; NEUTROPHILS % (MANUAL) 86 %; POLYCHROMASIA SLIGHT
[2021-11-19] MEDS ORDERED: cefTRIAXone 1,000 MG in WATER (STERILE) FOR INJECTION 5 ML IV STA (05:16)
[2021-11-19] MEDS ORDERED: AZITHROMYCIN INJECTION 500 MG in NS (IVPB) 250 ML IV STA (05:16)
--- NOTE | 2021-11-19 05:17 | Diagnostic Imaging Report ---
PROCEDURE: CT chest, abdomen, and pelvis without contrast. TECHNIQUE: Multiple contiguous axial images were obtained through the chest, abdomen, and pelvis without the use of intravenous contrast. Auto Exposure Controls were utilized during the CT exam to meet ALARA standards for radiation dose reduction. INDICATION: Nausea, vomiting and diarrhea There are patchy infiltrates in both lungs. There are postoperative changes from CABG surgery. There is a sliding hiatal hernia. There are no effusions or pneumothoraces. The liver appears normal. Gallbladder surgically absent. Pancreas is normal. Spleen is not enlarged. Adrenals are normal. 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 There is hypertrophy of the right kidney. Urinary bladder is normal. Small bowel is not dilated. There is no evidence of appendicitis. Some diverticulosis of the colon but no evidence of diverticulitis. Uterus and adnexa are unremarkable. There is no intraperitoneal free air or free fluid. Urinary bladder appears normal. IMPRESSION: Multifocal patchy infiltrates in the lungs suspicious for Covid pneumonia. No acute abnormality seen in the abdomen. Dictated by: Dictated on workstation # [id number]
[2021-11-19] MEDS ORDERED: cefTRIAXone 1,000 MG VIAL ONE (05:21)
[2021-11-19] MEDS: NS IV 1000 ML 1,000 ML IV SCH ×4 (06:50→20:21)
[2021-11-19] MEDS ORDERED: morphine INJ 10 MG/ML 1ML (SYR OR VIAL) IVP PRN (09:30)
[2021-11-19] MEDS ORDERED: ACETAMINOPHEN 325 MG TABLET PO PRN (09:30)
[2021-11-19] MEDS ORDERED: MELATONIN 3 MG TABLET PO PRN (09:30)
[2021-11-19] MEDS ORDERED: diphenhydrAMINE 25 MG TAB (BENADRYL) PO PRN (09:30)
[2021-11-19] MEDS ORDERED: BISACODYL 10 MG SUPP (DULCOLAX) PR PRN (09:30)
[2021-11-19] MEDS ORDERED: polyethylene glycoL POWDER 17 GM (MIRALAX) PACK PO PRN (09:30)
[2021-11-19] MEDS ORDERED: diphenhydrAMINE 50 MG/ML INJ (BENADRYL) IVP PRN (09:30)
[2021-11-19] MEDS: cefTRIAXone 2,000 MG in NS (IVPB) 50 ML IV SCH (09:40)
[2021-11-19] MEDS: ENOXAPARIN 40 MG/0.4 ML (LOVENOX) SYR SC SCH (09:41)
[2021-11-19] MEDS ORDERED: RT-ALBUTEROL HFA 8.5 GM INHALER IH SCH (10:00)
--- NOTE | 2021-11-19 11:20 | History & Physical-Hospitalist ---
History of Present Illness Date Seen 11/19/21 Attending Physician Laura Acosta DO [facility] Referring Physician Date of Admission Nov 19, 2021 at 09:19 Home Medications & Allergies Home Medications Reviewed patient Home Medication Reconciliation performed by pharmacy medication reconciliations chemical laboratory technician and/or nursing. Patients Allergies have been reviewed. Allergies Allergies Coded Allergies clindamycin (Unverified Allergy, Severe, Anaphylaxis, 04/18/20) ondansetron (Unverified Allergy, Severe, Anaphylaxis, 04/18/20) prednisone (Unverified Adverse Reaction, Intermediate, Confusion, 04/18/20) Penicillins (Unverified Adverse Reaction, Mild, nausea and vomiting, 04/18/20) from [facility] cefixime (Unverified Adverse Reaction, Mild, nausea and vomiting, 04/18/20) from [facility] Suprax (Cefixime) cephalexin (Unverified Adverse Reaction, Mild, nausea and vomiting, 04/18/20) from [facility] esomeprazole (Unverified Adverse Reaction, Mild, Rash, 04/18/20) from [facility] guaifenesin (Unverified Adverse Reaction, Mild, nausea and vomiting, 04/18/20) from [facility] (Guaifed) hydrocodone (Unverified Adverse Reaction, Mild, rash, 04/18/20) from [facility] (Hydrocodone-acetaminophen) omeprazole (Unverified Adverse Reaction, Mild, rash, 04/18/20) from [facility] oxycodone (Unverified Adverse Reaction, Mild, rash, 04/18/20) from [facility] pantoprazole (Unverified Adverse Reaction, Mild, rash, 04/18/20) from [facility] phenylephrine (Unverified Adverse Reaction, Mild, Nausea andd vomiting, 04/18/20) from [facility] (Guaifed) sucralfate (Unverified Adverse Reaction, Mild, Itching, 04/18/20) from [facility] Sulfa (Sulfonamide Antibiotics) (Unverified Adverse Reaction, Unknown, 04/18/20) celecoxib (Unverified Adverse Reaction, Unknown, 04/18/20) hydrochlorothiazide (Unverified Adverse Reaction, Unknown, 04/18/20) from [facility] (Spironolacton-hydrochlorothiaz) ibuprofen (Unverified Adverse Reaction, Unknown, 04/18/20) from [facility] metoclopramide (Unverified Adverse Reaction, Unknown, 04/18/20) from [facility] prochlorperazine (Unverified Adverse Reaction, Unknown, 04/18/20) from [facility] spironolactone (Unverified Adverse Reaction, Unknown, 04/18/20) from [facility] (Spironolacton-hydrochlorothiaz) Past [id number]-[id number]-[id number] Hx Patient Social History Tobacco Use?: No Smoking Status: Never a Smoker Smokeless Tobacco Frequency: Never a User Use of E-Cig and/or Vaping dev: No Use of E-Cig and/or Vaping Tawanda: Never a User Substance use?: No Alcohol Use?: No Pt feels they are or have been: No Immunizations Up To Date First/Initial COVID19 Vaccinat: denies Tetanus Booster (TDap): Unknown Hepatitis A: No Hepatitis B: No Date of Pneumonia Vaccine: April 18, 2013 Seasonal Allergies Seasonal Allergies: No Current Status status: No status: No Advance Directives: No Communicates: Verbally Primary Language: Dutch Preferred Spoken Language: Dutch Is interpretation needed?: No Sensory deficits: Hearing impairment Implanted or Applied Medical D: None Past Medical History Surgeries: Bowel Surgery, CABG, Gallbladder Pneumonia, COPD Currently Using CPAP: No Currently Using BIPAP: No Coronary Artery Disease, High Cholesterol, Hypertension Sexually Transmitted Disease: No HIV/AIDS: No Kidney Stones Gastroesophageal Reflux, Esophagitis Fractures Diabetes, Non-Insulin dep Loss of Vision: Denies Hearing Impairment: Denies Colon What Type of Treatment Did You: Surgical Intervention Anxiety Blood Disorders: No Adverse Reaction/Blood Tranf: No (N/A) Stomach cancer DM HTN HLP CAD Physical Exam Physical Exam Vital Signs Vital Signs - First Documented 11/19/21 11/19/21 11/19/21 03:50 03:51 13:45 Temp 37.3 Pulse 82 Resp 30 B/P (MAP) 181/50 (93) Pulse Ox 80 O2 Delivery Room Air O2 Flow Rate 4.00 FiO2 21 Capillary Refill : Less Than 3 Seconds Height, Weight, BMI Height: '" Weight: lbs. oz. kg; 22.85 BMI Method: Results Results/Procedures Labs Laboratory Tests 11/19/21 04:00 Patient resulted labs reviewed. LAURA ACOSTA DO Nov 19, 2021 11:20
[2021-11-19] MEDS: inSUlin ASPART (NovoLOG) 1 UNIT/0.01 ML (CHARGE PER UNIT) SC SCH ×3 (12:41→20:14)
[2021-11-19] MEDS: ANTACID SUSP 30 ML UDC (MYLANTA) PO PRN ×2 (13:55→23:26)
--- NOTE | 2021-11-19 14:12 | History & Physical-Hospitalist ---
PIPPA VARGAS 11/19/21 1412: History of Present Illness HPI/Chief Complaint Patient is an 81 year old female who was admitted to [facility] for acute hypoxic res piratory failure, pneumonia, and sepsis. Patient was initially thought to have COVID pneumonia, but did test negative for pneumonia today. Patient states that two weeks ago she fell and fractured some vertebrae in her upper back. She was supposed to have an appointment with an orthopedic surgeon tomorrow but she had to cancel due to her hospitalization. After the fall the patient states she attempted to rest and take things easy, but about a week ago began to start feeling ill. She developed a cough around three days ago. Her symptoms progressed and became the worst yesterday. Patient states she had emesis all day and was unable to keep any food or fluids down. Patient had a fever of 102F, h eadache, congestion, and diarrhea. Around 0100 early this morning patient said she had to wake her son up to take her to the hospital. Patient is a very anxious person, and is very worried about her missed orthopedic appointment. She is worried she will struggle to get another appointment. Patient has been taking tramadol for her pain from her fracture and she states it is mildly controlled, but is worsening with the constant cough and retching. Patient is also complaining of epigastric burning and reflux. Patient has a past medical history that includes colon cancer, with metastasis to the lungs. She sees Dr. Roberson and Dr. Broderick, [place], [place], for these issues. She also sees Dr. Lofton, Pulmonology - [place], [place], for her lungs. But she states they have told her that her tumors are not growing in her lung, and that they will continue to monitor them. Patient had a quadruple bypass [place] [address] Rodriguez in [place]. Patient has a history of bleeding upper GI ulcers, which is also managed by Dr. Roberson and Dr. Broderick. Patient has a history of T2DM, HTN, HLD, CHF, and GERD. Patient does follow up with Dr. Hook for a history of hypoplastic left kidney, ureteral obstruction and complicated UTIs. Patient's PCP is Dr. Lola Alcala in [place], [place]. Source: patient, old records Date Seen 11/19/21 Time Seen by a Provider: 14:15 Attending Physician Laura Lopes DO [facility] Referring Physician Date of Admission Nov 19, 2021 at 09:19 Home Medications & Allergies Home Medications Reviewed patient Home Medication Reconciliation performed by pharmacy medication reconciliations valve technician and/or nursing. Patients Allergies have been reviewed. Allergies Allergies Coded Allergies clindamycin (Unverified Allergy, Severe, Anaphylaxis, 04/18/20) ondansetron (Unverified Allergy, Severe, Anaphylaxis, 04/18/20) prednisone (Unverified Adverse Reaction, Intermediate, Confusion, 04/18/20) Penicillins (Unverified Adverse Reaction, Mild, nausea and vomiting, 04/18/20) from [facility] cefixime (Unverified Adverse Reaction, Mild, nausea and vomiting, 04/18/20) from [facility] Suprax (Cefixime) cephalexin (Unverified Adverse Reaction, Mild, nausea and vomiting, 04/18/20) from [facility] esomeprazole (Unverified Adverse Reaction, Mild, Rash, 04/18/20) from [facility] guaifenesin (Unverified Adverse Reaction, Mild, nausea and vomiting, 04/18/20) from [facility] (Guaifed) hydrocodone (Unverified Adverse Reaction, Mild, rash, 04/18/20) from [facility] (Hydrocodone-acetaminophen) omeprazole (Unverified Adverse Reaction, Mild, rash, 04/18/20) from [facility] oxycodone (Unverified Adverse Reaction, Mild, rash, 04/18/20) from [facility] pantoprazole (Unverified Adverse Reaction, Mild, rash, 04/18/20) from [facility] phenylephrine (Unverified Adverse Reaction, Mild, Nausea andd vomiting, 04/18/20) from [facility] (Guaifed) sucralfate (Unverified Adverse Reaction, Mild, Itching, 04/18/20) from [facility] Sulfa (Sulfonamide Antibiotics) (Unverified Adverse Reaction, Unknown, ) celecoxib (Unverified Adverse Reaction, Unknown, 04/18/20) hydrochlorothiazide (Unverified Adverse Reaction, Unknown, 04/18/20) from [facility] (Spironolacton-hydrochlorothiaz) ibuprofen (Unverified Adverse Reaction, Unknown, 04/18/20) from [facility] metoclopramide (Unverified Adverse Reaction, Unknown, 04/18/20) from [facility] prochlorperazine (Unverified Adverse Reaction, Unknown, 04/18/20) from [facility] spironolactone (Unverified Adverse Reaction, Unknown, 04/18/20) from [facility] (Spironolacton-hydrochlorothiaz) Past Dtixgwv-Opbumo-Drwkxs Hx Patient Social History Living Status: Lives with son Tobacco Use?: No Smoking Status: Never a Smoker Smokeless Tobacco Frequency: Never a User Use of E-Cig and/or Vaping dev: No Use of E-Cig and/or Vaping Tawanda: Never a User Substance use?: No Alcohol Use?: No Pt feels they are or have been: No Immunizations Up To Date First/Initial COVID19 Vaccinat: denies Tetanus Booster (TDap): Unknown Hepatitis A: No Hepatitis B: No Date of Pneumonia Vaccine: April 18, 2013 Seasonal Allergies Seasonal Allergies: No Current Status status: No status: No Advance Directives: No Communicates: Verbally Primary Language: Danish Preferred Spoken Language: Danish Is interpretation needed?: No Sensory deficits: Hearing impairment Implanted or Applied Medical D: None Past Medical History Surgeries: Bowel Surgery, CABG, Gallbladder, Orthopedic (Ankle) Pneumonia, COPD Currently Using CPAP: No Currently Using BIPAP: No Coronary Artery Disease, High Cholesterol, Hypertension Sexually Transmitted Disease: No HIV/AIDS: No Kidney Stones Gastroesophageal Reflux, Esophagitis Fractures Diabetes, Non-Insulin dep Loss of Vision: Denies Hearing Impairment: Bilateral Hearing Aide Colon What Type of Treatment Did You: Surgical Intervention Anxiety Blood Disorders: No Adverse Reaction/Blood Tranf: No (N/A) Stomach cancer Lung Nodules DM HTN HLP CAD Review of Systems Constitutional: No fever Respiratory: cough, short of breath Cardiovascular: No chest pain, No palpitations Gastrointestinal: No abdominal pain; diarrhea, nausea; No vomiting (last emesis around 0000) Genitourinary: No dysuria, No frequency Musculoskeletal: back pain Psychiatric/Neurological: Anxiety Physical Exam Physical Exam Vital Signs Vital Signs - First Documented 11/19/21 11/19/21 03:50 03:51 Temp 37.3 Pulse 82 Resp 30 B/P (MAP) 181/50 (93) Pulse Ox 80 O2 Delivery Room Air O2 Flow Rate 4.00 Capillary Refill : Less Than 3 Seconds Height, Weight, BMI Height: '" Weight: lbs. oz. kg; 22.85 BMI Method: General Appearance: Anxious, Mild Distress Respiratory: Chest Non Tender, No Accessory Muscle Use, No Respiratory Distress, Wheezing Cardiovascular: Regular Rate, Rhythm, Normal Peripheral Pulses Rectal: Deferred Extremity: Non Tender, No Calf Tenderness, No Pedal Edema Neurologic/Psychiatric: Alert, Oriented x3, Normal Mood/Affect Results Results/Procedures Labs Laboratory Tests 11/19/21 04:00 Patient resulted labs reviewed. Assessment/Plan Admission Diagnosis Acute Respiratory Failure Sepsis Pneumonia Admission Status: Inpatient Order (span 2 midnights) Reason for Inpatient Admission: Acute Respiratory Failure Sepsis Pneumonia Assessment and Plan Assessment Acute Hypoxic Respiratory Failure Sepsis Pneumonia Metabolic Alkalosis 2/2 Hyperemesis and dehydration Hyponatremia Compression fracture of T2 and L4 Vertebrae Anxiety History of: Covid CAD Colon CA with lung metastasis CHF T2DM HTN HLD GERD Plan Continue O2 - currently 93% on 3L NC Broad spectrum Abx Blood cultures Restrict fluids and monitor Na level Steroids Pain management Home Medications LAURA LOPES DO 11/20/21 0609: History of Present Illness HPI/Chief Complaint CC: SOB HPI: This is a female clinic Pt of [facility] who presented with SOB found to have exacerbation of COPD with pneumonia. Her sodium level is 123 also. Pt will require close monitoring on cardiac-stepdown monitor for the need of Vapotherm, BiPAP and intubation. Her covid test was negative. Very difficult to hear her. Source: patient Exam Limitations: clinical condition Past Velrzgn-Rdtpvi-Kecqch Hx Patient Social History Marrital Status: Employed/Student: retired Smoking Status: Former Smoker Past Medical History Pneumonia High Cholesterol, Hypertension Lung Review of Systems Constitutional: see HPI, dizziness, fever, malaise, weakness EENTM: no symptoms reported Respiratory: cough, short of breath Cardiovascular: no symptoms reported Gastrointestinal: diarrhea, nausea Musculoskeletal: back pain Skin: no symptoms reported Psychiatric/Neurological: No Symptoms Reported All Other Systems Reviewed Negative Unless Noted: Yes Physical Exam Physical Exam General Appearance: Anxious, Chronically ill, Mild Distress Eyes: Right Eye Normal Inspection, Right Eye PERRL HEENT: PERRL/EOMI, Normal ENT Inspection, Pharynx Normal, Moist Mucous Membran es Neck: Full Range of Motion, Normal Inspection, Non Tender Respiratory: Chest Non Tender, No Respiratory Distress, Accessory Muscle Use, Decreased Breath Sounds, Wheezing Cardiovascular: Regular Rate, Rhythm, No Edema, No Gallop, No JVD, No Murmur, Normal Peripheral Pulses Gastrointestinal: Normal Bowel Sounds, No Organomegaly, No Pulsatile Mass, Non Tender, Soft Back: Normal Inspection, No CVA Tenderness, No Vertebral Tenderness Extremity: Normal Capillary Refill, Normal Inspection, Normal Range of Motion, Non Tender, No Calf Tenderness, No Pedal Edema Neurologic/Psychiatric: Alert, Oriented x3, No Motor/Sensory Deficits, Normal Mood/Affect Skin: Normal Color, Warm/Dry Lymphatic: No Adenopathy Assessment/Plan Admission Diagnosis Assessment: Acute hypoxic respiratory failure Pneumonia Hyponatremia Colon cancer with metastasis Acute kidney injury Compression fracture of the spine Hoarseness Plan: Oxygen Antibiotics Home meds Cardiac stepdown Fluid restriction Admission Status: Inpatient Order (span 2 midnights) Reason for Inpatient Admission: Respiratory failure Diagnosis/Problems Diagnosis/Problems (1) Pneumonia of both lungs Status: Acute Qualifiers: Pneumonia type: due to unspecified organism Lung location: unspecified part of lung Qualified Codes: J18.9 - Pneumonia, unspecified organism (2) Hypoxia Status: Acute (3) Sepsis Qualifiers: Sepsis type: sepsis due to unspecified organism Sepsis acute organ dysfunction status: without acute organ dysfunction Qualified Codes: A41.9 - Sepsis, unspecified organism (4) Nausea vomiting and diarrhea Status: Acute (5) Hyponatremia Status: Acute (6) Compression fracture of T2 vertebra Status: Acute (7) Lung nodule Status: Acute Supervisory-Addendum Brief Verification & Attestation Participated in pt care: history, MDM, physical Personally performed: exam, history, MDM, supervision of care Care discussed with: Medical Student Procedures: n/a Results interpretation: Verified all documentation Verification and Attestation of Medical Student E/M Service A medical student performed and documented this service in my presence. I reviewed and verified all information documented by the medical student and made modifications to such information, when appropriate. I personally performed the physical exam and medical decision making. Laura Lopes, Nov 20, 2021,06:05 [place] Nov 19, 2021 14:12 LAURA LOPES DO Nov 20, 2021 06:09
[2021-11-19] MEDS: RT-ALBUTEROL SULF 2.5 MG/3 ML PRE-MIX VIAL INH SCH ×3 (14:18→21:12)
[2021-11-19] MEDS ORDERED: RT-ALBUTEROL SULF 2.5 MG/3 ML PRE-MIX VIAL INH PRN (16:00)
[2021-11-19] MEDS ORDERED: DOXY100C5 PO (16:03)
[2021-11-19] MEDS ORDERED: NON-FORMULARY MEDICATION 1 EA EA (Simethicone 125 MG) PO SCH (21:00)
[2021-11-19] MEDS ORDERED: NON-FORMULARY MEDICATION 1 EA EA (Cyclosporine (Restasis) 1 DROP) OU SCH (21:00)
[2021-11-19] MEDS: RT--FLUTICASONE/SALMETEROL 113-14 (AIRDUO RespiCLICK) IH SCH (21:12)
[2021-11-19] MEDS: ALPRAZolam 0.5 MG (XANAX) TAB PO SCH (22:03)
[2021-11-20] VITALS (9 sets, daily range): BP systolic 116–136; BP diastolic 41–58
[2021-11-20] MEDS: RT-ALBUTEROL SULF 2.5 MG/3 ML PRE-MIX VIAL INH SCH ×6 (02:13→21:30)
[2021-11-20 05:31] LABS: BASOPHILS % (AUTO) 0 % (0-10); EOSINOPHILS # (AUTO) 0.1 10^3/uL (0.0-0.3); EOSINOPHILS % (AUTO) 0 % (0-10); HEMATOCRIT 34 % (35-52); HEMOGLOBIN 10.8 g/dL (11.5-16.0); LYMPHOCYTES # (AUTO) 0.9 10^3/uL (1.0-4.0); LYMPHOCYTES % (AUTO) 4 % (12-44); MEAN CORPUSCULAR HEMOGLOBIN 27 pg (25-34); MEAN CORPUSCULAR HGB CONC 32 g/dL (32-36); MEAN CORPUSCULAR VOLUME 83 fL (80-99); MEAN PLATELET VOLUME 10.6 fL (9.0-12.2); MONOCYTES # (AUTO) 1.1 10^3/uL (0.0-1.0); MONOCYTES % (AUTO) 5 % (0-12); NEUTROPHILS # (AUTO) 18.9 10^3/uL (1.8-7.8); NEUTROPHILS % (AUTO) 88 % (42-75); PLATELET COUNT 213 10^3/uL (130-400); WHITE BLOOD COUNT 21.4 10^3/uL (4.3-11.0)
[2021-11-20 05:42] LABS: ALBUMIN 2.8 GM/DL (3.2-4.5)
[2021-11-20 05:43] LABS: POTASSIUM 3.7 MMOL/L (3.6-5.0)
[2021-11-20 05:44] LABS: CALCIUM 8.1 MG/DL (8.5-10.1)
[2021-11-20 05:45] LABS: TOTAL PROTEIN 5.9 GM/DL (6.4-8.2)
[2021-11-20 05:47] LABS: BILIRUBIN,TOTAL 0.4 MG/DL (0.1-1.0)
[2021-11-20 05:48] LABS: CREATININE SERUM 1.02 MG/DL (0.60-1.30)
[2021-11-20] MEDS: inSUlin ASPART (NovoLOG) 1 UNIT/0.01 ML (CHARGE PER UNIT) SC SCH ×4 (05:54→20:51)
[2021-11-20] MEDS: ANTACID SUSP 30 ML UDC (MYLANTA) PO PRN (05:56)
[2021-11-20] MEDS: RT--FLUTICASONE/SALMETEROL 113-14 (AIRDUO RespiCLICK) IH SCH ×2 (07:52→18:36)
[2021-11-20] MEDS: FAMOTIDINE 20 MG (PEPCID) TABLET PO SCH (08:33)
[2021-11-20] MEDS: SIMETHICONE 80 MG (MYLICON) CHEW PO SCH ×4 (08:33→21:00)
[2021-11-20] MEDS: ARTIFICAL TEARS 0.4 ML UNIT DOSE (REFRESH PLUS) OU SCH ×2 (08:34→21:00)
[2021-11-20] MEDS: ENOXAPARIN 40 MG/0.4 ML (LOVENOX) SYR SC SCH (08:34)
[2021-11-20] MEDS: cefTRIAXone 2,000 MG in NS (IVPB) 50 ML IV SCH (08:35)
[2021-11-20] MEDS: AZITHROMYCIN INJECTION 500 MG in NS (IVPB) 250 ML IV SCH (08:35)
[2021-11-20] MEDS ORDERED: FUROSEMIDE 40 MG/4 ML INJ (LASIX) IVP ONE (11:30)
[2021-11-20] MEDS: LACTOBACILLUS ACIDOPHILUS (PROBIOTIC) CAPSULE PO SCH ×2 (12:18→17:44)
--- NOTE | 2021-11-20 13:51 | Occupational Therapy Eval ---
OT Evaluation-General/PLF Medical Diagnosis Admission Date Nov 19, 2021 at 09:19 Medical Diagnosis: acute hypoxic respiratory failure Onset Date: Nov 19, 2021 Therapy Diagnosis Therapy Diagnosis: reduced endurance, strength, iadls Precautions Precautions/Isolations: Fall Prevention, Standard Precautions Referral Physician: Dave Bell Reason: Evaluation/Treatment Medical History Pertinent Medical History: CABG, CAD, COPD, DM, GERD, HTN Additional Medical History UTI's Current History Pt reports fall ~2 weeks ago secondary to slipping on ice when walking down ramp. Found to vertebral fractures in upper back. She had an appointment with an orthopedic surgeon but it was cancelled due to being hospitalized. Reviewed History: Yes Social History Home: trailer/mobile home Current Living Status: Children Entry Into Home: Ramp Pt reports living with her son in a trailer home. Ramp entrance with rails. She was indep with adls and iadls prior to admission. She was not using any AD. She has a tub/shower but reports taking sponge baths. ADL-Prior Level of Function SCALE: Activities may be completed with or without assistive devices. 8-Egdfbwnjnc-dcqyzqt completes the activity by him/herself with no assistance from a helper. 5-Set-up or Clean-up Assistance-helper sets up or cleans up; patient completes activity. [place]asper assists only prior to or following the activity. 4-Supervision or Touching Assistance-helper provides verbal cues and/or touching/steadying and/or contact guard assistance as patient completes activity. Assistance may be provided throughout the activity or intermittently. 3-Partial/Moderate Assistance-helper does LESS THAN HALF the effort. Jasper lifts, holds or supports trunk or limbs, but provides less than half the effort. 2-Substantial/Maximal Assistance-helper does MORE THAN HALF the effort. Jasper lifts or holds trunk or limbs and provides more than half the effort. 8-Umobeojmd-nrmais does ALL the effort. Patient does none of the effort to complete the activity. Or, the assistance of 2 or more helpers is required for the patient to complete the activity. If activity was not attempted, code reason: 7-Patient Refused. 9-Not Applicable-not attempted and the patient did not perform the activity before the current illness, exacerbation or injury. 10-Not Attempted due to Environmental Limitations-(lack of equipment, weather restraints, etc.). 88-Not Attempted due to Medical Conditions or Safety Concerns. Self Care: Independent Functional Cognition: Independent Drive Self: Yes OT Current Status Subjective Reports pain in back as 3/10. Agreeable to eval. Appearance Returned to sitting in recliner, lunch tray set up. All needs within reach. Mental Status/Objective Patient Orientation: Person, Place, Situation Attachments: IV Current Glasses/Contacts: Yes Hearing Aids: Yes Hand Dominance: Right Upper Extremity ROM Impaired L shoulder; ~90 degrees Active and PROM. Pt reports due to old injury Upper Extremity Strength Not tested due to vertebral fractures ADL-Treatment Eating (QC): 5 Oral Hygiene (QC): 4 Lower Body Dressing (QC): 4 On/Off Footwear (QC): 5 Toileting Hygiene (QC): 4 Pt able to don/doff moi socks sitting in recliner with use of cross over method, set up. Sit<>Stand: SBA. Pt ambulated to/from bathroom without AD and close Supervision/CGA for safety. No lob or unsteadiness exhibited. Able to lower/stand from toilet with use of grab bar and supervision. Marci care completed in sitting without assist. SBA-CGA for safety as she stood to pull clothing over hips. Pt fatigues easily, requires rest break before ambulating back to chair. Min cues for safety awareness of O2 tubing while ambulating. Education OT Patient Education: Disease process, Purpose of tx/functional activities, Transfer techniques Teaching Recipient: Patient Teaching Methods: Discussion Response to Teaching: Verbalize Understanding, Return Demonstration OT Mcc Goals Structured Cabling Technician Goals Time Frame: Nov 27, 2021 Oral Hygiene (QC): 5 Toileting Hygiene (QC): 6 Upper Body Dressing (QC): 5 Lower Body Dressing (QC): 5 1=Demonstrate adherence to instructed precautions during ADL tasks. 2=Patient will verbalize/demonstrate understanding of assistive devices/modifications for ADL. 3=Patient will improve strength/tolerance for activity to enable patient to perform ADL's. OT Education/Plan Problem List/Assessment Assessment: Decreased Activ Tolerance, Decreased UE Strength, Impaired I ADL's, Restricted Funct UE ROM Discharge Recommendations Plan/Recommendations: Continue POC Therapy Discharge Recommendati: Homemaker Support, Home & Family Treatment Plan/Plan of Care Treatment,Training & Education: Yes Patient would benefit from OT for education, treatment and training to promote independence in ADL's, mobility, safety and/or upper extremity function for ADL's. Plan of Care: ADL Retraining, Functional Mobility, UE Funct Exercise/Act Treatment Duration: Nov 27, 2021 Frequency: 3 times per week Estimated Hrs Per Day: .25 hour per day Agreement: Yes Time/GCodes Start Time: 13:23 Stop Time: 13:37 Total Time Billed (hr/min): 14 Billed Treatment Time 1 visit Sharon Bullard OT Nov 20, 2021 13:51
--- NOTE | 2021-11-20 14:53 | Physical Therapy Evaluation ---
PT Evaluation-General Medical Diagnosis Admission Date Nov 19, 2021 at 09:19 Medical Diagnosis: hyponatremia/hypoxia Onset Date: Nov 19, 2021 Therapy Diagnosis Therapy Diagnosis: debility/weakness Precautions Precautions/Isolations: Fall Prevention, Standard Precautions Referral Physician: Dave Reason for Referral: Evaluation/Treatment Medical History Pertinent Medical History: CABG, CAD, COPD, DM, GERD, HTN Additional Medical History Covid 06/2021 Current History Er secondary to N/V, fever and SOA Reviewed History: Yes Social History Home: trailer/mobile home Current Living Status: Children Entry Into Home: Ramp Prior Prior Level of Function SCALE: Activities may be completed with or without assistive devices. 3-Ibqmevvxmr-ajxcqco completes the activity by him/herself with no assistance from a helper. 5-Set-up or Clean-up Assistance-helper sets up or cleans up; patient completes activity. [place] assists only prior to or following the activity. 4-Supervision or Touching Assistance-helper provides verbal cues and/or touching/steadying and/or contact guard assistance as patient completes activity. Assistance may be provided throughout the activity or intermittently. 3-Partial/Moderate Assistance-helper does LESS THAN HALF the effort. [place] lifts, holds or supports trunk or limbs, but provides less than half the effort. 2-Substantial/Maximal Assistance-helper does MORE THAN HALF the effort. [place] lifts or holds trunk or limbs and provides more than half the effort. 0-Fvpsoqfrf-iqerti does ALL the effort. Patient does none of the effort to complete the activity. Or, the assistance of 2 or more helpers is required for the patient to complete the activity. If activity was not attempted, code reason: 7-Patient Refused. 9-Not Applicable-not attempted and the patient did not perform the activity before the current illness, exacerbation or injury. 10-Not Attempted due to Environmental Limitations-(lack of equipment, weather restraints, etc.). 88-Not Attempted due to Medical Conditions or Safety Concerns. Bed Mobility: 6 Transfers (B,C,W/C): 6 Gait: 6 Stairs: 6 Indoor Mobility (Ambulation): Independent Stairs: Independent Prior Devices Use: None PT Evaluation-Current Subjective Patient agrees to PT. Objective Patient Orientation: Normal For Age Attachments: Oxygen ROM/Strength ROM Lower Extremities bilateral LE WFL Strength Lower Extremities 4-/5 grossly bilateral LE Integumentary/Posture Bowel Incontinence: No Bladder Incontinence: No Posture WFL Neuromuscular (Tone, Coordination, Reflexes) grossly intact Sensory Vision: Functional Hearing: Functional Hand Dominance: Right Transfers Roll Left to Right (QC): 6 Sit to Lying (QC): 6 Lying to Sitting/Side of Bed(Q: 6 Sit to Stand (QC): 4 Chair/Wry-ck-Grluj Xfer(QC): 4 SBA for safety/initial assessment Gait Does the Patient Walk?: Yes Mode of Locomotion: Walk Anticipated Mode of Locomotion: Walk Walk 10 feet (QC): 4 Walk 50 ft with 2 Turns(QC): 4 Walk 150 ft (QC): 4 Distance: 150' Gait Assistive Device: FWW Comments/Gait Description FWW for distance Balance Sitting Static: Normal Sitting Dynamic: Normal Standing Static: Normal Standing Dynamic: Normal Assessment/Needs 81 y.o. female, will be seen short term by skilled PT to address functional strength and mobility to ensure safe return to home at maximum LOF. Rehab Potential: Fair PT Short Term Goals Short Term Goals Time Frame: Nov 26, 2021 Roll Left & Right: 6 Sit to lyin Lying to sitting on side of be: 6 Sit to stand: 6 Chair/otn-br-dvlsk transfer: 6 Toilet transfer: 6 Walk 10 feet: 6 Walk 50 feet with two turns: 6 Walk 150 feet: 6 PT Plan Problem List Problem List: Activity Tolerance, Functional Strength, Safety, Balance, Gait Treatment/Plan Treatment Plan: Continue Plan of Care Treatment Plan: Education, Functional Activity Zana, Functional Strength, Gait, Safety, Therapeutic Exercise, Transfers Treatment Duration: Nov 26, 2021 Frequency: 6 times per week Estimated Hrs Per Day: .25 hour per day Patient and/or Family Agrees t: Yes Time/GCodes Time In: 1355 Time Out: 1412 Total Billed Treatment Time: 17 Total Billed Treatment 1 visit EVMod 17 min NIKKIE FRIED PT Nov 20, 2021 14:53
--- NOTE | 2021-11-20 15:23 | Progress Note - Hospitalist ---
PIPPA VARGAS 11/20/21 1523: Subjective HPI/CC On Admission Date Seen by Provider: Nov 20, 2021 Time Seen by Provider: 09:05 CC: SOB HPI: This is a female clinic Pt of [facility] who presented with SOB found to have exacerbation of COPD with pneumonia. Her sodium level is 123 also. Pt will require close monitoring on cardiac-stepdown monitor for the need of Vapotherm, BiPAP and intubation. Her covid test was negative. Very difficult to hear her. Subjective/Events-last exam Patient is very anxious. Concerned that this bout of pneumonia may be from her cancer. She has no complaints about her current pneumonia. She is concerned about her history of cancer. Stating she feels as if she can breathe better but is concered that if she doesn't get back on her probiotic she will get cancer a gain. Will start a probiotic. Patient also states her reflux is still bothering her today, but that she cannot take anything other than her GasX and mylanta due to drug allergies. Patient's sodium is improved today up to 132 from 123. RN noted that patient sounds wet, asking if we can do a dose of lasix. WIll do 20mg Q once. Review of Systems Pulmonary: No Dyspnea Cardiovascular: No: Chest Pain, Palpitations Gastrointestinal: Abdominal Pain; No: Nausea, Vomiting Focused Exam Lactate Level 11/19/21 04:00: Lactic Acid Level 1.34 Objective Exam Vital Signs Vital Signs Date Time Temp Pulse Resp B/P (MAP) Pulse Ox O2 Delivery O2 Flow Rate FiO2 11/20/21 12:38 66 24 121/48 (72) 95 Nasal Cannula 3.00 11/20/21 07:37 37.4 11/19/21 13:45 21 Capillary Refill : Less Than 3 Seconds General Appearance: Anxious, Chronically ill Respiratory: No Accessory Muscle Use, No Respiratory Distress Cardiovascular: Normal Peripheral Pulses Rectal: Deferred Neurologic/Psychiatric: Alert, Oriented x3 Results/Procedures Lab Laboratory Tests 11/20/21 05:10 Patient resulted labs reviewed. Assessment/Plan Assessment and Plan Assess & Plan/Chief Complaint Assessment: Acute hypoxic respiratory failure Pneumonia Hyponatremia Colon cancer with metastasis Acute kidney injury Compression fracture of the spine Hoarseness Plan: Oxygen Antibiotics Home meds Cardiac stepdown Fluid restriction 11/20/2021: Continue Abx + oxygen Fluid restriction Lasix 20mg Q once Probiotic Stool Softener LAURA LOPES DO 11/21/21 0601: Subjective Subjective/Events-last exam Pt doing okay Colon cancer with metastasis makes recovery unpredictable Transferring to fourth floor Having some GERD issues Sodium level 132 Having some loose stools so imodium will be given if needed Will cancel the UA since she is on broad-spectrum antibiotics if necessary Review of Systems General: Fatigue, Malaise Pulmonary: Dyspnea, Cough Gastrointestinal: Abdominal Pain Objective Exam General Appearance: No Apparent Distress, WD/WN, Anxious, Chronically ill Respiratory: Lungs Clear, Normal Breath Sounds Cardiovascular: Regular Rate, Rhythm Neurologic/Psychiatric: Alert, Oriented x3, No Motor/Sensory Deficits, Normal Mood/Affect Assessment/Plan Assessment and Plan Assess & Plan/Chief Complaint Supportive care Antibiotics Home meds Probiotic Gas-X Supervisory-Addendum Brief Verification & Attestation Participated in pt care: history, MDM, physical Personally performed: exam, history, MDM, supervision of care Care discussed with: Medical Student Procedures: n/a Results interpretation: Verified all documentation Verification and Attestation of Medical Student E/M Service A medical student performed and documented this service in my presence. I reviewed and verified all information documented by the medical student and made modifications to such information, when appropriate. I personally performed the physical exam and medical decision making. Laura Lopes, Nov 21, 2021,06:00 PIPPA VARGAS Nov 20, 2021 15:23 LAURA LOPES DO Nov 21, 2021 06:01
[2021-11-20] MEDS: ALPRAZolam 0.5 MG (XANAX) TAB PO SCH (21:00)
[2021-11-21] MEDS: RT-ALBUTEROL SULF 2.5 MG/3 ML PRE-MIX VIAL INH SCH ×5 (02:17→21:39)
[2021-11-21 04:50] VITALS: BP 131/55
[2021-11-21] MEDS: inSUlin ASPART (NovoLOG) 1 UNIT/0.01 ML (CHARGE PER UNIT) SC SCH ×4 (05:45→20:09)
[2021-11-21 05:56] LABS: BASOPHILS % (AUTO) 0 % (0-10); EOSINOPHILS % (AUTO) 0 % (0-10); HEMATOCRIT 34 % (35-52); HEMOGLOBIN 10.7 g/dL (11.5-16.0); LYMPHOCYTES # (AUTO) 1.4 10^3/uL (1.0-4.0); LYMPHOCYTES % (AUTO) 8 % (12-44); MEAN CORPUSCULAR HEMOGLOBIN 27 pg (25-34); MEAN CORPUSCULAR HGB CONC 32 g/dL (32-36); MEAN CORPUSCULAR VOLUME 85 fL (80-99); MEAN PLATELET VOLUME 11.2 fL (9.0-12.2); MONOCYTES % (AUTO) 6 % (0-12); NEUTROPHILS # (AUTO) 14.3 10^3/uL (1.8-7.8); NEUTROPHILS % (AUTO) 85 % (42-75); PLATELET COUNT 239 10^3/uL (130-400); WHITE BLOOD COUNT 16.9 10^3/uL (4.3-11.0)
[2021-11-21 06:05] LABS: ALBUMIN 2.8 GM/DL (3.2-4.5); POTASSIUM 3.8 MMOL/L (3.6-5.0)
[2021-11-21 06:06] LABS: CALCIUM 8.6 MG/DL (8.5-10.1)
[2021-11-21 06:08] LABS: TOTAL PROTEIN 5.9 GM/DL (6.4-8.2)
[2021-11-21 06:09] LABS: BILIRUBIN,TOTAL 0.4 MG/DL (0.1-1.0)
[2021-11-21 06:11] LABS: CREATININE SERUM 1.13 MG/DL (0.60-1.30)
[2021-11-21] MEDS: RT--FLUTICASONE/SALMETEROL 113-14 (AIRDUO RespiCLICK) IH SCH ×2 (06:59→21:39)
[2021-11-21 07:40] VITALS: BP 162/70
[2021-11-21] MEDS: LACTOBACILLUS ACIDOPHILUS (PROBIOTIC) CAPSULE PO SCH ×3 (09:11→18:05)
[2021-11-21] MEDS: SIMETHICONE 80 MG (MYLICON) CHEW PO SCH ×4 (09:11→20:06)
[2021-11-21] MEDS: FAMOTIDINE 20 MG (PEPCID) TABLET PO SCH (09:11)
[2021-11-21] MEDS: cefTRIAXone 2,000 MG in NS (IVPB) 50 ML IV SCH (09:13)
[2021-11-21] MEDS: AZITHROMYCIN INJECTION 500 MG in NS (IVPB) 250 ML IV SCH (09:13)
[2021-11-21] MEDS: ARTIFICAL TEARS 0.4 ML UNIT DOSE (REFRESH PLUS) OU SCH ×2 (09:13→20:09)
[2021-11-21] MEDS: ENOXAPARIN 40 MG/0.4 ML (LOVENOX) SYR SC SCH (09:18)
--- NOTE | 2021-11-21 09:19 | Physical Therapy Daily Note ---
PT Daily Note-Current Subjective Patient agrees to PT. Mental Status Patient Orientation: Normal For Age Attachments: Oxygen Transfers SCALE: Activities may be completed with or without assistive devices. 0-Awybsziwas-lhyinjl completes the activity by him/herself with no assistance from a helper. 5-Set-up or Clean-up Assistance-helper sets up or cleans up; patient completes activity. [place] assists only prior to or following the activity. 4-Supervision or Touching Assistance-helper provides verbal cues and/or touching/steadying and/or contact guard assistance as patient completes activity. Assistance may be provided throughout the activity or intermittently. 3-Partial/Moderate Assistance-helper does LESS THAN HALF the effort. [place] lifts, holds or supports trunk or limbs, but provides less than half the effort. 2-Substantial/Maximal Assistance-helper does MORE THAN HALF the effort. [place] lifts or holds trunk or limbs and provides more than half the effort. 9-Ixfvsttrb-sshymt does ALL the effort. Patient does none of the effort to complete the activity. Or, the assistance of 2 or more helpers is required for the patient to complete the activity. If activity was not attempted, code reason: 7-Patient Refused. 9-Not Applicable-not attempted and the patient did not perform the activity before the current illness, exacerbation or injury. 10-Not Attempted due to Environmental Limitations-(lack of equipment, weather restraints, etc.). 88-Not Attempted due to Medical Conditions or Safety Concerns. Lying to Sitting/Side of Bed(Q: 6 Sit to Stand (QC): 6 Chair/Nuu-ta-Tcgol Xfer(QC): 4 Gait Training Distance: 180' Walk 10 feet (QC): 4 Walk 50 ft with 2 Turns(QC): 4 Walk 150 ft (QC): 4 Gait Assistive Device: FWW slow, steady gait sequence Assessment O2 in place with activity and at rest. PT to increase activity as tolerated by patient. PT Short Term Goals Short Term Goals Time Frame: Nov 26, 2021 Roll Left & Right: 6 Sit to lyin Lying to sitting on side of be: 6 Sit to stand: 6 Chair/eno-ux-rnhso transfer: 6 Toilet transfer: 6 Walk 10 feet: 6 Walk 50 feet with two turns: 6 Walk 150 feet: 6 PT Plan Treatment/Plan Treatment Plan: Continue Plan of Care Treatment Plan: Education, Functional Activity Zana, Functional Strength, Gait, Safety, Therapeutic Exercise, Transfers Treatment Duration: Nov 26, 2021 Frequency: 6 times per week Estimated Hrs Per Day: .25 hour per day Patient and/or Family Agrees t: Yes Time/GCodes Time In: 840 Time Out: 850 Total Billed Treatment Time: 10 Total Billed Treatment 1 visit FA 10 min NIKKIE FRIED PT Nov 21, 2021 09:19
[2021-11-21 11:00] VITALS: BP 132/60
--- NOTE | 2021-11-21 12:29 | Progress Note - Hospitalist ---
PIPPA VARGAS 11/21/21 1229: Subjective HPI/CC On Admission Date Seen by Provider: Nov 21, 2021 Time Seen by Provider: 08:20 CC: SOB HPI: This is a female clinic Pt of [facility] who presented with SOB found to have exacerbation of COPD with pneumonia. Her sodium level is 123 also. Pt will require close monitoring on cardiac-stepdown monitor for the need of Vapotherm, BiPAP and intubation. Her covid test was negative. Very difficult to hear her. Subjective/Events-last exam Patient states she feels better today. Is able to breath better today. Still having some trouble with her reflux. States she had some mild dysphagia last night. Patient has been up and ambulating. Sodium is now normal at 135. Review of Systems General: No Chills Pulmonary: Cough Cardiovascular: No: Chest Pain, Palpitations Gastrointestinal: Abdominal Pain; No: Nausea, Vomiting Focused Exam Lactate Level 11/19/21 04:00: Lactic Acid Level 1.34 Objective Exam Vital Signs Vital Signs Date Time Temp Pulse Resp B/P (MAP) Pulse Ox O2 Delivery O2 Flow Rate FiO2 11/21/21 11:00 37.6 66 24 132/60 (84) 96 Nasal Cannula 3.00 11/19/21 13:45 21 Capillary Refill : Less Than 3 Seconds General Appearance: Anxious, Chronically ill Respiratory: No Accessory Muscle Use, No Respiratory Distress, Decreased Breath Sounds Cardiovascular: Regular Rate, Rhythm, Normal Peripheral Pulses Rectal: Deferred Extremity: Non Tender, No Calf Tenderness, No Pedal Edema Neurologic/Psychiatric: Alert, Oriented x3, Other (anxious) Results/Procedures Lab Laboratory Tests 11/21/21 05:16 Patient resulted labs reviewed. Assessment/Plan Assessment and Plan Assess & Plan/Chief Complaint Assessment: Acute hypoxic respiratory failure Pneumonia Hyponatremia Colon cancer with metastasis Acute kidney injury Compression fracture of the spine Hoarseness Plan: Oxygen Antibiotics Home meds Cardiac stepdown Fluid restriction 11/20/2021: Continue Abx + oxygen Fluid restriction Lasix 20mg Q once Probiotic Stool Softener 11/21/2021: Continue medical management PT/OT Monitor labs LAURA LOPES DO 11/21/21 1608: Subjective Subjective/Events-last exam Patient doing a little better Very difficult to say since she is so chronically debilitated No significant pain is reported Sodium level is 135 Reports she is allergic to everything Review of Systems General: Fatigue, Malaise Gastrointestinal: Abdominal Pain Objective Exam General Appearance: No Apparent Distress, WD/WN, Anxious Respiratory: No Accessory Muscle Use, No Respiratory Distress, Decreased Breath Sounds Cardiovascular: Regular Rate, Rhythm Neurologic/Psychiatric: Alert, Oriented x3 Assessment/Plan Assessment and Plan Assess & Plan/Chief Complaint Continue supportive care Supervisory-Addendum Brief Verification & Attestation Participated in pt care: history, MDM, physical Personally performed: exam, history, MDM, supervision of care Care discussed with: Medical Student Procedures: n/a Results interpretation: Verified all documentation Verification and Attestation of Medical Student E/M Service A medical student performed and documented this service in my presence. I reviewed and verified all information documented by the medical student and made modifications to such information, when appropriate. I personally performed the physical exam and medical decision making. Laura Lopes, Nov 21, 2021,16:07 PIPPA VARGAS Nov 21, 2021 12:29 LAURA LOPES DO Nov 21, 2021 16:08
--- NOTE | 2021-11-21 13:04 | Occupational Ther Daily Note ---
OT Current Status-Daily Note Subjective Pt alert, lying in bed. Son present in room. Pt agrees to therapy. Mental Status/Objective Patient Orientation: Person, Place, Time, Situation Attachments: IV, Oxygen (3L) ADL-Treatment Supine <--> EOB independent with HOB elevated. Pt ambulated without AD, CGA for safety. Stood at sink to complete grooming, SBA for safety. After session, pt lying in bed with call light/phone in reach. All needs met in room. Therapy Code Descriptions/Definitions Functional [place] Measure: 0=Not Assessed/NA 4=Minimal Assistance 1=Total Assistance 5=Supervision or Setup 2=Maximal Assistance 6=Modified [place] 3=Moderate Assistance 7=Complete IndependenceSCALE: Activities may be completed with or without assistive devices. 3-Mgqktwpgwc-jjqdlan completes the activity by him/herself with no assistance from a helper. 5-Set-up or Clean-up Assistance-helper sets up or cleans up; patient completes activity. [place] assists only prior to or following the activity. 4-Supervision or Touching Assistance-helper provides verbal cues and/or touching/steadying and/or contact guard assistance as patient completes activity. Assistance may be provided throughout the activity or intermittently. 3-Partial/Moderate Assistance-helper does LESS THAN HALF the effort. [place] lift s, holds or supports trunk or limbs, but provides less than half the effort. 2-Substantial/Maximal Assistance-helper does MORE THAN HALF the effort. [place] lifts or holds trunk or limbs and provides more than half the effort. 4-Dvzlyqpqz-gaohln does ALL the effort. Patient does none of the effort to complete the activity. Or, the assistance of 2 or more helpers is required for the patient to complete the activity. If activity was not attempted, code reason: 7-Patient Refused. 9-Not Applicable-not attempted and the patient did not perform the activity before the current illness, exacerbation or injury. 10-Not Attempted due to Environmental Limitations-(lack of equipment, weather restraints, etc.). 88-Not Attempted due to Medical Conditions or Safety Concerns. Oral Hygiene (QC): 4 OT Wastewater Supervisor Goals Wastewater Supervisor Goals Time Frame: Nov 27, 2021 Oral Hygiene (QC): 5 Toileting Hygiene (QC): 6 Upper Body Dressing (QC): 5 Lower Body Dressing (QC): 5 1=Demonstrate adherence to instructed precautions during ADL tasks. 2=Patient will verbalize/demonstrate understanding of assistive devices/modifications for ADL. 3=Patient will improve strength/tolerance for activity to enable patient to perform ADL's. OT Education/Plan Problem List/Assessment Assessment: Decreased Activ Tolerance, Impaired Self-Care Skills Discharge Recommendations Plan/Recommendations: Continue POC Treatment Plan/Plan of Care Patient would benefit from OT for education, treatment and training to promote independence in ADL's, mobility, safety and/or upper extremity function for ADL's. Plan of Care: ADL Retraining, Functional Mobility, UE Funct Exercise/Act Treatment Duration: Nov 27, 2021 Frequency: 3 times per week Estimated Hrs Per Day: .25 hour per day Agreement: Yes Rehab Potential: Fair Time/GCodes Start Time: 12:45 Stop Time: 13:00 Total Time Billed (hr/min): 15 Billed Treatment Time 1 visit-ADL 1 (15 min) ISABEL CALVERT Nov 21, 2021 13:04
[2021-11-21 15:20] VITALS: BP 132/60
[2021-11-21 19:08] VITALS: BP 139/60
[2021-11-21] MEDS: ALPRAZolam 0.5 MG (XANAX) TAB PO SCH (20:06)
[2021-11-21 23:15] VITALS: BP 143/56
[2021-11-22] MEDS: RT-ALBUTEROL SULF 2.5 MG/3 ML PRE-MIX VIAL INH SCH ×5 (02:08→18:58)
[2021-11-22 03:01] VITALS: BP 125/65
[2021-11-22 05:54] LABS: BASOPHILS # (AUTO) 0.1 10^3/uL (0.0-0.1); BASOPHILS % (AUTO) 0 % (0-10); EOSINOPHILS # (AUTO) 0.1 10^3/uL (0.0-0.3); EOSINOPHILS % (AUTO) 1 % (0-10); HEMATOCRIT 34 % (35-52); HEMOGLOBIN 10.5 g/dL (11.5-16.0); LYMPHOCYTES # (AUTO) 1.3 10^3/uL (1.0-4.0); LYMPHOCYTES % (AUTO) 12 % (12-44); MEAN CORPUSCULAR HEMOGLOBIN 27 pg (25-34); MEAN CORPUSCULAR HGB CONC 31 g/dL (32-36); MEAN CORPUSCULAR VOLUME 85 fL (80-99); MEAN PLATELET VOLUME 10.3 fL (9.0-12.2); MONOCYTES # (AUTO) 0.9 10^3/uL (0.0-1.0); MONOCYTES % (AUTO) 8 % (0-12); NEUTROPHILS # (AUTO) 8.8 10^3/uL (1.8-7.8); NEUTROPHILS % (AUTO) 79 % (42-75); PLATELET COUNT 236 10^3/uL (130-400); WHITE BLOOD COUNT 11.2 10^3/uL (4.3-11.0)
--- NOTE | 2021-11-22 05:54 | Progress Note - Hospitalist ---
Subjective HPI/CC On Admission Date Seen by Provider: Nov 22, 2021 Time Seen by Provider: 10:30 CC: SOB HPI: This is a female clinic Pt of [facility] who presented with SOB found to have exacerbation of COPD with pneumonia. Her sodium level is 123 also. Pt will require close monitoring on cardiac-stepdown monitor for the need of Vapotherm, BiPAP and intubation. Her covid test was negative. Very difficult to hear her. Subjective/Events-last exam Patient doing well Working with therapy Walks pretty well Check meds labs Review of Systems General: Fatigue, Malaise Pulmonary: Dyspnea, Cough Objective Exam Vital Signs Vital Signs Date Time Temp Pulse Resp B/P (MAP) Pulse Ox O2 Delivery O2 Flow Rate FiO2 11/22/21 18:58 93 Nasal Cannula 2.00 11/22/21 15:57 36.7 65 22 145/56 (85) 11/19/21 13:45 21 Capillary Refill : Less Than 3 Seconds General Appearance: No Apparent Distress, WD/WN, Chronically ill Respiratory: Lungs Clear, Normal Breath Sounds Cardiovascular: Regular Rate, Rhythm Neurologic/Psychiatric: Alert, Oriented x3, No Motor/Sensory Deficits, Normal Mood/Affect Results/Procedures Lab Laboratory Tests 11/22/21 05:43 Patient resulted labs reviewed. Assessment/Plan Assessment and Plan Assess & Plan/Chief Complaint Assessment: Pneumonia Wheezing Exacerbation of COPD Colon cancer with mets Plan: IV antibiotics Supportive care Diagnosis/Problems Diagnosis/Problems (1) Pneumonia of both lungs Status: Acute Qualifiers: Pneumonia type: due to unspecified organism Lung location: unspecified part of lung Qualified Codes: J18.9 - Pneumonia, unspecified organism (2) Hypoxia Status: Acute (3) Sepsis Qualifiers: Sepsis type: sepsis due to unspecified organism Sepsis acute organ dysfunction status: without acute organ dysfunction Qualified Codes: A41.9 - Sepsis, unspecified organism (4) Nausea vomiting and diarrhea Status: Acute (5) Hyponatremia Status: Acute (6) Compression fracture of T2 vertebra Status: Acute (7) Lung nodule Status: Acute LETHA LOPES DO Nov 22, 2021 05:54
[2021-11-22] MEDS: inSUlin ASPART (NovoLOG) 1 UNIT/0.01 ML (CHARGE PER UNIT) SC SCH ×4 (06:00→21:30)
[2021-11-22 06:14] LABS: ALBUMIN 2.7 GM/DL (3.2-4.5); POTASSIUM 3.2 MMOL/L (3.6-5.0)
[2021-11-22 06:15] LABS: CALCIUM 8.7 MG/DL (8.5-10.1)
[2021-11-22 06:16] LABS: TOTAL PROTEIN 5.7 GM/DL (6.4-8.2)
[2021-11-22 06:18] LABS: BILIRUBIN,TOTAL 0.3 MG/DL (0.1-1.0)
[2021-11-22 06:20] LABS: CREATININE SERUM 1.02 MG/DL (0.60-1.30)
[2021-11-22 07:28] VITALS: BP 130/55
[2021-11-22 07:33] VITALS: BP 130/55
[2021-11-22] MEDS: RT--FLUTICASONE/SALMETEROL 113-14 (AIRDUO RespiCLICK) IH SCH ×2 (07:34→19:01)
[2021-11-22] MEDS: AZITHROMYCIN INJECTION 500 MG in NS (IVPB) 250 ML IV SCH (08:54)
[2021-11-22] MEDS: LACTOBACILLUS ACIDOPHILUS (PROBIOTIC) CAPSULE PO SCH ×3 (08:55→17:45)
[2021-11-22] MEDS: FAMOTIDINE 20 MG (PEPCID) TABLET PO SCH (08:55)
[2021-11-22] MEDS: KCL 10 MEQ TAB (MICRO K) PO SCH ×2 (08:55→19:57)
[2021-11-22] MEDS: ARTIFICAL TEARS 0.4 ML UNIT DOSE (REFRESH PLUS) OU SCH ×2 (08:55→19:57)
[2021-11-22] MEDS: ENOXAPARIN 40 MG/0.4 ML (LOVENOX) SYR SC SCH (08:55)
[2021-11-22] MEDS: SIMETHICONE 80 MG (MYLICON) CHEW PO SCH ×4 (08:58→19:57)
--- NOTE | 2021-11-22 10:47 | Physical Therapy Daily Note ---
PT Daily Note-Current Subjective Patient in bed pre tx, agrees to PT, has no complaints of pain. Appearance Patient in recliner post tx with nurse call, phone, tray, all needs met. Mental Status Patient Orientation: Person, Place, Situation Attachments: Oxygen, IV Transfers SCALE: Activities may be completed with or without assistive devices. 3-Pgfepzsssr-divyhqm completes the activity by him/herself with no assistance from a helper. 5-Set-up or Clean-up Assistance-helper sets up or cleans up; patient completes activity. [place] assists only prior to or following the activity. 4-Supervision or Touching Assistance-helper provides verbal cues and/or touching/steadying and/or contact guard assistance as patient completes activity. Assistance may be provided throughout the activity or intermittently. 3-Partial/Moderate Assistance-helper does LESS THAN HALF the effort. [place] lifts, holds or supports trunk or limbs, but provides less than half the effort. 2-Substantial/Maximal Assistance-helper does MORE THAN HALF the effort. [place] lifts or holds trunk or limbs and provides more than half the effort. 9-Jtstyfkpk-xcmslp does ALL the effort. Patient does none of the effort to complete the activity. Or, the assistance of 2 or more helpers is required for the patient to complete the activity. If activity was not attempted, code reason: 7-Patient Refused. 9-Not Applicable-not attempted and the patient did not perform the activity before the current illness, exacerbation or injury. 10-Not Attempted due to Environmental Limitations-(lack of equipment, weather restraints, etc.). 88-Not Attempted due to Medical Conditions or Safety Concerns. Roll Left & Right (QC): 6 Lying to Sitting/Side of Bed(Q: 4 Sit to Stand (QC): 4 Chair/Xyh-hi-Grczo Xfer(QC): 4 Gait Training Distance: 200' Walk 10 feet (QC): 4 Walk 50 ft with 2 Turns(QC): 4 Walk 150 ft (QC): 4 Gait Persons Needed: 1 Gait Assistive Device: FWW SBA, slow but steady ambulation Exercises Seated Therapy Exercises: Ankle pumps, Long arc quads Seated Reps: 20 Treatments bed mobility and transfers, ambulation, LE strengthening Assessment Current Status: Fair Progress patient needs cues for positioning so she doesn't get wrapped up in her IV and O2 lines PT Short Term Goals Short Term Goals Time Frame: Nov 26, 2021 Roll Left & Right: 6 Sit to lyin Lying to sitting on side of be: 6 Sit to stand: 6 Chair/puw-zx-dcpgk transfer: 6 Toilet transfer: 6 Walk 10 feet: 6 Walk 50 feet with two turns: 6 Walk 150 feet: 6 PT Plan Problem List Problem List: Activity Tolerance, Functional Strength, Safety, Balance, Gait, Transfer, ROM Treatment/Plan Treatment Plan: Continue Plan of Care Treatment Plan: Education, Functional Activity Zana, Functional Strength, Gait, Safety, Therapeutic Exercise, Transfers Treatment Duration: Nov 26, 2021 Frequency: 6 times per week Estimated Hrs Per Day: .25 hour per day Patient and/or Family Agrees t: Yes Safety Risks/Education Patient Education: Gait Training, Transfer Techniques, Correct Positioning, Safety Issues Teaching Recipient: Patient Teaching Methods: Demonstration, Discussion Response to Teaching: Reinforcement Needed Time/GCodes Time In: 1028 Time Out: 1040 Total Billed Treatment Time: 12 Total Billed Treatment 1 visit FA 12' RAFITA MANE PT Nov 22, 2021 10:47
[2021-11-22 11:23] VITALS: BP 135/64
[2021-11-22] MEDS: cefTRIAXone 2,000 MG in NS (IVPB) 50 ML IV SCH (11:45)
[2021-11-22 15:57] VITALS: BP 145/56
[2021-11-22] MEDS: ALPRAZolam 0.5 MG (XANAX) TAB PO SCH (19:57)
[2021-11-22] MEDS: ANTACID SUSP 30 ML UDC (MYLANTA) PO PRN (20:06)
[2021-11-23] VITALS: BP 148/68
[2021-11-23 05:32] LABS: BASOPHILS % (AUTO) 0 % (0-10); EOSINOPHILS # (AUTO) 0.2 10^3/uL (0.0-0.3); EOSINOPHILS % (AUTO) 2 % (0-10); HEMATOCRIT 33 % (35-52); HEMOGLOBIN 10.3 g/dL (11.5-16.0); LYMPHOCYTES # (AUTO) 1.5 10^3/uL (1.0-4.0); LYMPHOCYTES % (AUTO) 16 % (12-44); MEAN CORPUSCULAR HEMOGLOBIN 26 pg (25-34); MEAN CORPUSCULAR HGB CONC 31 g/dL (32-36); MEAN CORPUSCULAR VOLUME 85 fL (80-99); MEAN PLATELET VOLUME 10.4 fL (9.0-12.2); MONOCYTES # (AUTO) 0.8 10^3/uL (0.0-1.0); MONOCYTES % (AUTO) 9 % (0-12); NEUTROPHILS # (AUTO) 6.8 10^3/uL (1.8-7.8); NEUTROPHILS % (AUTO) 72 % (42-75); PLATELET COUNT 258 10^3/uL (130-400); WHITE BLOOD COUNT 9.5 10^3/uL (4.3-11.0)
[2021-11-23 05:40] LABS: ALBUMIN 2.6 GM/DL (3.2-4.5)
[2021-11-23 05:41] LABS: POTASSIUM 3.4 MMOL/L (3.6-5.0)
[2021-11-23 05:42] LABS: CALCIUM 8.6 MG/DL (8.5-10.1)
[2021-11-23 05:43] LABS: TOTAL PROTEIN 5.7 GM/DL (6.4-8.2)
[2021-11-23 05:45] LABS: BILIRUBIN,TOTAL 0.3 MG/DL (0.1-1.0)
[2021-11-23] MEDS: inSUlin ASPART (NovoLOG) 1 UNIT/0.01 ML (CHARGE PER UNIT) SC SCH ×4 (05:46→20:57)
[2021-11-23 05:47] LABS: CREATININE SERUM 0.9 MG/DL (0.60-1.30)
[2021-11-23 07:14] VITALS: BP 157/69
--- NOTE | 2021-11-23 07:19 | Progress Note - Hospitalist ---
Subjective HPI/CC On Admission Date Seen by Provider: Nov 23, 2021 Time Seen by Provider: 11:45 CC: SOB HPI: This is a female clinic Pt of [facility] who presented with SOB found to have exacerbation of COPD with pneumonia. Her sodium level is 123 also. Pt will require close monitoring on cardiac-stepdown monitor for the need of Vapotherm, BiPAP and intubation. Her covid test was negative. Very difficult to hear her. Subjective/Events-last exam Patient doing better Feels like she is ready to go home soon Weaning off O2 Tolerating antibiotic Refused all Decadron I ordered Review of Systems General: Fatigue, Malaise Objective Exam Vital Signs Vital Signs Date Time Temp Pulse Resp B/P (MAP) Pulse Ox O2 Delivery O2 Flow Rate FiO2 11/24/21 00:17 36.1 61 18 164/71 (102) 92 Room Air 11/23/21 20:00 2.00 11/19/21 13:45 21 Capillary Refill : Less Than 3 Seconds General Appearance: No Apparent Distress, WD/WN, Chronically ill Respiratory: Lungs Clear, Normal Breath Sounds, Crackles Cardiovascular: Regular Rate, Rhythm Neurologic/Psychiatric: Alert, Oriented x3, No Motor/Sensory Deficits, Normal Mood/Affect Results/Procedures Lab Patient resulted labs reviewed. Assessment/Plan Assessment and Plan Assess & Plan/Chief Complaint Assessment: Pneumonia Wheezing Exacerbation of COPD Colon cancer with mets Plan: IV antibiotics Supportive care 11/23/2021: Supportive care IV antibiotics Diagnosis/Problems Diagnosis/Problems (1) Pneumonia of both lungs Status: Acute Qualifiers: Pneumonia type: due to unspecified organism Lung location: unspecified part of lung Qualified Codes: J18.9 - Pneumonia, unspecified organism (2) Hypoxia Status: Acute (3) Sepsis Qualifiers: Sepsis type: sepsis due to unspecified organism Sepsis acute organ dysfunction status: without acute organ dysfunction Qualified Codes: A41.9 - Sepsis, unspecified organism (4) Nausea vomiting and diarrhea Status: Acute (5) Hyponatremia Status: Acute (6) Compression fracture of T2 vertebra Status: Acute (7) Lung nodule Status: Acute LETHA LOPES DO Nov 23, 2021 07:19
[2021-11-23] MEDS: RT--FLUTICASONE/SALMETEROL 113-14 (AIRDUO RespiCLICK) IH SCH ×2 (07:25→19:26)
[2021-11-23] MEDS: RT-ALBUTEROL SULF 2.5 MG/3 ML PRE-MIX VIAL INH SCH ×4 (07:25→19:26)
[2021-11-23] MEDS: LACTOBACILLUS ACIDOPHILUS (PROBIOTIC) CAPSULE PO SCH ×3 (08:54→16:38)
[2021-11-23] MEDS: ENOXAPARIN 40 MG/0.4 ML (LOVENOX) SYR SC SCH (08:55)
[2021-11-23] MEDS: cefTRIAXone 2,000 MG in NS (IVPB) 50 ML IV SCH (08:55)
[2021-11-23] MEDS: AZITHROMYCIN INJECTION 500 MG in NS (IVPB) 250 ML IV SCH (08:55)
[2021-11-23] MEDS: ARTIFICAL TEARS 0.4 ML UNIT DOSE (REFRESH PLUS) OU SCH ×2 (08:55→20:57)
[2021-11-23] MEDS: SIMETHICONE 80 MG (MYLICON) CHEW PO SCH ×4 (09:01→20:58)
[2021-11-23] MEDS: KCL 10 MEQ TAB (MICRO K) PO SCH ×2 (09:03→20:57)
[2021-11-23] MEDS: FAMOTIDINE 20 MG (PEPCID) TABLET PO SCH (09:03)
[2021-11-23 16:00] VITALS: BP 123/65
[2021-11-23] MEDS: ALPRAZolam 0.5 MG (XANAX) TAB PO SCH (20:57)
[2021-11-23] MEDS: ANTACID SUSP 30 ML UDC (MYLANTA) PO PRN (21:20)
[2021-11-24 00:17] VITALS: BP_SYST 123; BP_SYST 164; BP_DIAS 65; BP_DIAS 71
[2021-11-24] MEDS: inSUlin ASPART (NovoLOG) 1 UNIT/0.01 ML (CHARGE PER UNIT) SC SCH ×3 (05:32→16:52)
[2021-11-24 06:20] LABS: BASOPHILS % (AUTO) 0 % (0-10); EOSINOPHILS % (AUTO) 0 % (0-10); HEMATOCRIT 32 % (35-52); LYMPHOCYTES # (AUTO) 0.9 10^3/uL (1.0-4.0); LYMPHOCYTES % (AUTO) 12 % (12-44); MEAN CORPUSCULAR HEMOGLOBIN 26 pg (25-34); MEAN CORPUSCULAR HGB CONC 31 g/dL (32-36); MEAN CORPUSCULAR VOLUME 84 fL (80-99); MEAN PLATELET VOLUME 10.1 fL (9.0-12.2); MONOCYTES # (AUTO) 0.3 10^3/uL (0.0-1.0); MONOCYTES % (AUTO) 4 % (0-12); NEUTROPHILS # (AUTO) 6.2 10^3/uL (1.8-7.8); NEUTROPHILS % (AUTO) 82 % (42-75); PLATELET COUNT 276 10^3/uL (130-400); WHITE BLOOD COUNT 7.5 10^3/uL (4.3-11.0)
[2021-11-24 06:49] LABS: ALBUMIN 2.7 GM/DL (3.2-4.5); BILIRUBIN,TOTAL 0.2 MG/DL (0.1-1.0); CALCIUM 9.1 MG/DL (8.5-10.1); CREATININE SERUM 1.04 MG/DL (0.60-1.30); POTASSIUM 4.3 MMOL/L (3.6-5.0); TOTAL PROTEIN 5.8 GM/DL (6.4-8.2)
[2021-11-24] MEDS: RT-ALBUTEROL SULF 2.5 MG/3 ML PRE-MIX VIAL INH SCH ×3 (07:12→15:21)
[2021-11-24] MEDS: RT--FLUTICASONE/SALMETEROL 113-14 (AIRDUO RespiCLICK) IH SCH (07:13)
[2021-11-24 08:00] VITALS: BP 144/66
[2021-11-24] MEDS: cefTRIAXone 2,000 MG in NS (IVPB) 50 ML IV SCH (09:23)
[2021-11-24] MEDS: KCL 10 MEQ TAB (MICRO K) PO SCH (09:34)
[2021-11-24] MEDS: FAMOTIDINE 20 MG (PEPCID) TABLET PO SCH (09:34)
[2021-11-24] MEDS: ENOXAPARIN 40 MG/0.4 ML (LOVENOX) SYR SC SCH (09:34)
[2021-11-24] MEDS: ARTIFICAL TEARS 0.4 ML UNIT DOSE (REFRESH PLUS) OU SCH (09:35)
[2021-11-24] MEDS: LACTOBACILLUS ACIDOPHILUS (PROBIOTIC) CAPSULE PO SCH ×2 (09:35→14:35)
[2021-11-24] MEDS: SIMETHICONE 80 MG (MYLICON) CHEW PO SCH ×2 (09:35→14:35)
--- NOTE | 2021-11-24 10:24 | Physical Therapy Daily Note ---
PT Daily Note-Current Subjective Patient agrees to PT. Requests toilet use. Mental Status Patient Orientation: Normal For Age Attachments: IV Transfers SCALE: Activities may be completed with or without assistive devices. 1-Kjtvubifgd-zgepvtr completes the activity by him/herself with no assistance from a helper. 5-Set-up or Clean-up Assistance-helper sets up or cleans up; patient completes activity. [place] assists only prior to or following the activity. 4-Supervision or Touching Assistance-helper provides verbal cues and/or touching/steadying and/or contact guard assistance as patient completes activity. Assistance may be provided throughout the activity or intermittently. 3-Partial/Moderate Assistance-helper does LESS THAN HALF the effort. [place] lifts, holds or supports trunk or limbs, but provides less than half the effort. 2-Substantial/Maximal Assistance-helper does MORE THAN HALF the effort. [place] lifts or holds trunk or limbs and provides more than half the effort. 0-Onozfytee-xdpaqt does ALL the effort. Patient does none of the effort to complete the activity. Or, the assistance of 2 or more helpers is required for the patient to complete the activity. If activity was not attempted, code reason: 7-Patient Refused. 9-Not Applicable-not attempted and the patient did not perform the activity before the current illness, exacerbation or injury. 10-Not Attempted due to Environmental Limitations-(lack of equipment, weather restraints, etc.). 88-Not Attempted due to Medical Conditions or Safety Concerns. Lying to Sitting/Side of Bed(Q: 6 Sit to Stand (QC): 6 Chair/Pjw-kz-Gjnfe Xfer(QC): 6 Toilet Transfer (QC): 6 (toilets independently) Patient stands at sink and washes hands then brushes hair Gait Training Distance: 250' Walk 10 feet (QC): 5 Walk 50 ft with 2 Turns(QC): 5 Walk 150 ft (QC): 5 Gait Assistive Device: FWW safe and functional with no deviation/slow and methodical. Assessment Patient requires time to complete all functional tasks. Per patient, will dismiss to home this week. PT Short Term Goals Short Term Goals Time Frame: Nov 26, 2021 Roll Left & Right: 6 Sit to lyin Lying to sitting on side of be: 6 Sit to stand: 6 Chair/rcz-co-dquqj transfer: 6 Toilet transfer: 6 Walk 10 feet: 6 Walk 50 feet with two turns: 6 Walk 150 feet: 6 PT Plan Treatment/Plan Treatment Plan: Continue Plan of Care Treatment Plan: Education, Functional Activity Zana, Functional Strength, Gait, Safety, Therapeutic Exercise, Transfers Treatment Duration: Nov 26, 2021 Frequency: 6 times per week Estimated Hrs Per Day: .25 hour per day Patient and/or Family Agrees t: Yes Time/GCodes Time In: 947 Time Out: 1010 Total Billed Treatment Time: 23 Total Billed Treatment 1 visit FA x 2 23 min NIKKIE FRIED PT Nov 24, 2021 10:24
--- NOTE | 2021-11-24 12:56 | Occupational Ther Daily Note ---
OT Current Status-Daily Note Subjective Pt alert, sitting in recliner. Pt having difficulty with new phone, son to help when he gets to hospital. Pt agrees to therapy. No c/o pain. Mental Status/Objective Patient Orientation: Person, Place, Time, Situation Attachments: IV ADL-Treatment Pt requests to use bathroom. Pt able to complete toileting and toilet transfer by self. Pt then stood at sink to wash hands and complete oral care independently. EOB to supine independently with HOB slightly raised. After session, pt lying in bed with call light/phone in reach. All needs met in room. Therapy Code Descriptions/Definitions Functional [place] Measure: 0=Not Assessed/NA 4=Minimal Assistance 1=Total Assistance 5=Supervision or Setup 2=Maximal Assistance 6=Modified [place] 3=Moderate Assistance 7=Complete IndependenceSCALE: Activities may be completed with or without assistive devices. 9-[id number]-ctmvqhf completes the activity by him/herself with no assistance from a helper. 5-Set-up or Clean-up Assistance-helper sets up or cleans up; patient completes activity. [place] assists only prior to or following the activity. 4-Supervision or Touching Assistance-helper provides verbal cues and/or touching/steadying and/or contact guard assistance as patient completes activity. Assistance may be provided throughout the activity or intermittently. 3-Partial/Moderate Assistance-helper does LESS THAN HALF the effort. [place] lifts, holds or supports trunk or limbs, but provides less than half the effort. 2-Substantial/Maximal Assistance-helper does MORE THAN HALF the effort. [place] lifts or holds trunk or limbs and provides more than half the effort. 9-Rwpfhcymb-ygbqfv does ALL the effort. Patient does none of the effort to complete the activity. Or, the assistance of 2 or more helpers is required for the patient to complete the activity. If activity was not attempted, code reason: 7-Patient Refused. 9-Not Applicable-not attempted and the patient did not perform the activity before the current illness, exacerbation or injury. 10-Not Attempted due to Environmental Limitations-(lack of equipment, weather restraints, etc.). 88-Not Attempted due to Medical Conditions or Safety Concerns. Oral Hygiene (QC): 6 Toileting Hygiene (QC): 6 OT Lead Recoverer Goals Lead Recoverer Goals Time Frame: Nov 27, 2021 Oral Hygiene (QC): 5 Toileting Hygiene (QC): 6 Upper Body Dressing (QC): 5 Lower Body Dressing (QC): 5 1=Demonstrate adherence to instructed precautions during ADL tasks. 2=Patient will verbalize/demonstrate understanding of assistive devices/modifications for ADL. 3=Patient will improve strength/tolerance for activity to enable patient to perform ADL's. OT Education/Plan Problem List/Assessment Assessment: Decreased Activ Tolerance, Impaired Self-Care Skills Discharge Recommendations Plan/Recommendations: Continue POC Treatment Plan/Plan of Care Patient would benefit from OT for education, treatment and training to promote independence in ADL's, mobility, safety and/or upper extremity function for ADL's. Plan of Care: ADL Retraining, Functional Mobility, UE Funct Exercise/Act Treatment Duration: Nov 27, 2021 Frequency: 3 times per week Estimated Hrs Per Day: .25 hour per day Agreement: Yes Rehab Potential: Fair Time/GCodes Start Time: 10:54 Stop Time: 11:16 Total Time Billed (hr/min): 22 Billed Treatment Time 1 visit-ADL 1 (22 min) ISABEL CALVERT Nov 24, 2021 12:56
[2021-11-24] MEDS: ANTACID SUSP 30 ML UDC (MYLANTA) PO PRN (14:23)
[2021-11-24] MEDS ORDERED: FLUT1AER4 IH (15:46)
--- NOTE | 2021-11-24 15:47 | D/C HH Face to Face Order ---
D/C Face to Face Orders Instructions for Patient Patient Instructions/FollowUp: Follow up with primary physician within one week of discharge. Physician to follow Patient: Jaida Discharge Diet for Home: ADA Diet, Cardiac Diet Patient Data-Allergies,Ht & Wt Patient Allergies: Coded Allergies: clindamycin (Unverified Allergy, Severe, Anaphylaxis, 04/18/20) ondansetron (Unverified Allergy, Severe, Anaphylaxis, 04/18/20) prednisone (Unverified Adverse Reaction, Intermediate, Confusion, 04/18/20) Penicillins (Unverified Adverse Reaction, Mild, nausea and vomiting, 04/18/20) from [facility] cefixime (Unverified Adverse Reaction, Mild, nausea and vomiting, 04/18/20) from [facility] Suprax (Cefixime) cephalexin (Unverified Adverse Reaction, Mild, nausea and vomiting, 04/18/20) from [facility] esomeprazole (Unverified Adverse Reaction, Mild, Rash, 04/18/20) from [facility] guaifenesin (Unverified Adverse Reaction, Mild, nausea and vomiting, 04/18/20) [facility] (Guaifed) hydrocodone (Unverified Adverse Reaction, Mild, rash, 04/18/20) from [facility] (Hydrocodone-acetaminophen) omeprazole (Unverified Adverse Reaction, Mild, rash, 04/18/20) from [facility] oxycodone (Unverified Adverse Reaction, Mild, rash, 04/18/20) from [facility] pantoprazole (Unverified Adverse Reaction, Mild, rash, 04/18/20) from [facility] phenylephrine (Unverified Adverse Reaction, Mild, Nausea andd vomiting, 04/18/20) from [facility] (Guaifed) sucralfate (Unverified Adverse Reaction, Mild, Itching, 04/18/20) from [facility] Sulfa (Sulfonamide Antibiotics) (Unverified Adverse Reaction, Unknown, 04/18/20) celecoxib (Unverified Adverse Reaction, Unknown, 04/18/20) hydrochlorothiazide (Unverified Adverse Reaction, Unknown, 04/18/20) from [facility] (Spironolacton-hydrochlorothiaz) ibuprofen (Unverified Adverse Reaction, Unknown, 04/18/20) from [facility] metoclopramide (Unverified Adverse Reaction, Unknown, 04/18/20) from [facility] prochlorperazine (Unverified Adverse Reaction, Unknown, 04/18/20) from [facility] spironolactone (Unverified Adverse Reaction, Unknown, 04/18/20) from [facility] (Spironolacton-hydrochlorothiaz) Home Health Need/Face to Face Date of Face to Face: Nov 24, 2021 Clinical Findings: Generalized weakness and fatigue I have seen Pt [id number]: Yes Discharged To: Home Diagnosis/Conditions: Pneumonia Patient is Homebound due to: Alyson fall risk due to instabilty Homebound Status Due to the above stated illness, injury or surgical procedure (medical condition or diagnosis) and associated clinical findings, the patient is homebound because of his/her inability to leave home except with aid of a supportive device and/or person AND leaving the home requires a considerable and taxing effort or is medically contraindicated. Pt req the following assistanc: [facility] Nursing Orders Home Health Services Order: Nursing Services, Physical Therapy-Evaluate & Treat Home Health Infusion Therapy Line Start Date: Nov 19, 2021 Certify Stmt I certify that this patient is under my care and that I, a nurse practitioner or a physician; a assistant professor of spanish working with me, had a face to face encounter that - meets the physician face to face encounter requirements with this patient as dated. RADHA MONROE MD Nov 24, 2021 15:47
--- NOTE | 2021-11-24 15:51 | Discharge Summary ---
Discharge Summary Hospital Course Hospital Course Date of Admission: Nov 19, 2021 at 09:19 Admission Diagnosis : Bilateral multifocal pneumonia Hyponatremia Vomiting Acute on chronic hypoxic respiratory failure Type II diabetes with Hyperglycemia COPD history of colon cancer Family Physician/Provider: Lola Alcala MD Date of Discharge: 11/24/21 Discharge Diagnosis: Bilateral multifocal pneumonia Hyponatremia Vomiting Acute on chronic hypoxic respiratory failure Type II diabetes with Hyperglycemia COPD history of colon cancer Hospital Course: Per H&P by Dr. Acosta "HPI: This is a female clinic Pt of [facility] who presented with SOB found to have exacerbation of COPD with pneumonia. Her sodium level is 123 also. Pt will require close monitoring on cardiac-stepdown monitor for the need of Vapotherm, BiPAP and intubation. Her covid test was negative. Very difficult to hear her." Pt was admitted and treated with azithromycin and ceftriaxone for pneumonia. COVID and flu were negative. She reported she uses supplemental oxygen at home at night and during the day if she feels like it, and was stable on 3 lpm supplemental oxygen at d/c, and requesting discharge due to a in the morning, at that time her only complaint was stomach pain which she related to hyperglycemia, and we resumed her insulin at that time. She was also discharged with prescription for inhaled steroid/beta agonist. Labs and Pending Lab Test: Laboratory Tests 11/23/21 20:24: Glucometer 366H 11/24/21 05:26: Glucometer 203H 11/24/21 06:03: White Blood Count 7.5, Red Blood Count 3.81, Hemoglobin 10.0L, Hematocrit 32L, Mean Corpuscular Volume 84, Mean Corpuscular Hemoglobin 26, Mean Corpuscular Hemoglobin Concent 31L, Red Cell Distribution Width 14.0, Platelet Count 276, Mean Platelet Volume 10.1, Immature Granulocyte % (Auto) 2, Neutrophils (%) (Auto) 82H, Lymphocytes (%) (Auto) 12, Monocytes (%) (Auto) 4, Eosinophils (%) (Auto) 0, Basophils (%) (Auto) 0, Neutrophils # (Auto) 6.2, Lymphocytes # (Auto) 0.9L, Monocytes # (Auto) 0.3, Eosinophils # (Auto) 0.0, Basophils # (Auto) 0.0, Immature Granulocyte # (Auto) 0.1, Sodium Level 139, Potassium Level 4.3, Chloride Level 107, Carbon Dioxide Level 24, Anion Gap 8, Blood Urea Nitrogen 21H, Creatinine 1.04, Estimat Glomerular Filtration Rate 51, BUN/Creatinine Ratio 20, Glucose Level 218H, Calcium Level 9.1, Corrected Calcium 10.1, Total Bilirubin 0.2, Aspartate Amino Transf (AST/SGOT) 27, Alanine Aminotransferase (ALT/SGPT) 40, Alkaline Phosphatase 119, Total Protein 5.8L, Albumin 2.7L 11/24/21 11:51: Glucometer 234H 11/24/21 14:37: Glucometer 261H Microbiology 11/19/21 Blood Culture - Preliminary, Resulted No growth Home Meds Active Fluticasone-Salmeterol 113-14 (Fluticasone/Salmeterol) 1 Each Aer.pow.ba 1 Each IH BID Reported Doxycycline Hyclate 100 Mg Capsule 100 Mg PO BID FILLED 11-18-2021 #14/7 DAY SUPPLY Levemir Flextouch (Insulin Detemir) 100 Unit/1 Ml Insuln.pen 7 Units SC HS Famotidine 20 Mg Tablet 20 Mg PO DAILY Restasis (Cyclosporine) 1 Each Droperette 1 Drop OU BID Simvastatin 40 Mg Tablet 40 Mg PO HS Simethicone 125 Mg Capsule 125 Mg PO PCHS Carvedilol 6.25 Mg Tablet 6.25 Mg PO BID Tramadol HCl 50 Mg Tablet 50 Mg PO Q6H PRN Potassium Chloride 20 Meq Tab.er.prt 20 Meq PO DAILY Alprazolam 0.5 Mg Tablet 0.5 Mg PO HS Assessment/Pt DC Instructions Follow up with primary physician within one week of discharge. Discharge Diet: ADA Diet Activity as Tolerated: Yes Discharge Physical Examination Allergies: Coded Allergies: clindamycin (Unverified Allergy, Severe, Anaphylaxis, 04/18/20) ondansetron (Unverified Allergy, Severe, Anaphylaxis, 04/18/20) prednisone (Unverified Adverse Reaction, Intermediate, Confusion, 04/18/20) Penicillins (Unverified Adverse Reaction, Mild, nausea and vomiting, 03/23 07/11) from [facility] cefixime (Unverified Adverse Reaction, Mild, nausea and vomiting, 04/18/20) from [facility] Suprax (Cefixime) cephalexin (Unverified Adverse Reaction, Mild, nausea and vomiting, 04/18/20) from [facility] esomeprazole (Unverified Adverse Reaction, Mild, Rash, 04/18/20) from [facility] guaifenesin (Unverified Adverse Reaction, Mild, nausea and vomiting, 04/18/20) from [facility] (Guaifed) hydrocodone (Unverified Adverse Reaction, Mild, rash, 04/18/20) from [facility] (Hydrocodone-acetaminophen) omeprazole (Unverified Adverse Reaction, Mild, rash, 04/18/20) from [facility] oxycodone (Unverified Adverse Reaction, Mild, rash, 04/18/20) from [facility] pantoprazole (Unverified Adverse Reaction, Mild, rash, 04/18/20) from [facility] phenylephrine (Unverified Adverse Reaction, Mild, Nausea andd vomiting, 04/18/20) from [facility] (Guaifed) sucralfate (Unverified Adverse Reaction, Mild, Itching, 04/18/20) from [facility] Sulfa (Sulfonamide Antibiotics) (Unverified Adverse Reaction, Unknown, 04/18/20) celecoxib (Unverified Adverse Reaction, Unknown, 04/18/20) hydrochlorothiazide (Unverified Adverse Reaction, Unknown, 04/18/20) from [facility] (Spironolacton-hydrochlorothiaz) ibuprofen (Unverified Adverse Reaction, Unknown, 04/18/20) from [facility] metoclopramide (Unverified Adverse Reaction, Unknown, 04/18/20) from [facility] prochlorperazine (Unverified Adverse Reaction, Unknown, 04/18/20) from [facility] spironolactone (Unverified Adverse Reaction, Unknown, 04/18/20) from [facility] (Spironolacton-hydrochlorothiaz) General Appearance: No Apparent Distress Respiratory: Lungs Clear, Normal Breath Sounds Cardiovascular: Regular Rate, Rhythm, No Murmur Gastrointestinal: Normal Bowel Sounds, Non Tender, Soft Skin: Normal Color, Warm/Dry Neurologic/Psychiatric: Alert, Normal Mood/Affect RADHA MONROE MD Nov 24, 2021 15:51
[2021-11-24 16:08] VITALS: BP 127/66
[2021-11-24] MEDS ORDERED: INSULIN DETEMIR 7 UNIT SC SCH (21:00)
--- NOTE | 2021-11-27 00:06 | Physician Query Clarification ---
PQ-Uncertain Diagnosis Admission/Discharge Admission Date: Nov 19, 2021 at 09:19 Discharge Date: Nov 24, 2021 at 17:00 LETHA Barker DO The medical record reflects the following clinical scenario: The medical record reflects the following clinical scenario: History/Risk Factors: 81 y/o female patient presented with shortness of breath found to have exacerbation of COPD and pneumonia, sepsis was documented in medical record. Hand P, 11/19: Acute hypoxic respiratory failure, sepsis, pneumonia, metabolic alkalosis, hyponatremia. Progress notes, 11/21: Acute hypoxic respiratory failure, pneumonia, hyponatremia. Discharge summary, 11/24: Acute hypoxic respiratory failure, pneumonia, hyponatremia Clinical Findings: WBC-28.5 H, lactic acid-1.34, pulse-82, temp-37.3 Treatment: IV antibiotics. Question: Is Sepsis a clinically valid diagnosis? Sepsis was documented in the H&P, 11/19 with no further documentation in the medical record. Please document a response in Progress Note or Discharge Summary. 1. Yes, clinically valid, condition resolved. 2. No, condition ruled out. 3. Other, with explanation of clinical findings. 4. Undetermined, no explanation for clinical findings. PHYSICIAN RESPONSE Diagnosis clinically valid: Yes, Conditon resolved Please remember a lack of response to the above will prompt a phone page by CDI/Coding staff. In responding to this query, please exercise your independent professional judgment. The purpose of this communication is to more accurately reflect the complexity of your patients condition. The fact that a question is asked does not imply that any particular answer is desired or expected. Thank you for your timely response to this clarification. Requestors name: [ ] Phone # [ ] THIS PHYSICIAN QUERY FORM IS A PERMANENT PART OF THE MEDICAL RECORD GALINDO CHAUHAN Nov 27, 2021 00:06 LETHA LOPES DO Nov 27, 2021 05:20
--- NOTE | 2021-11-27 00:07 | Physician Query Clarification ---
PQ-Conflicting Diagnosis Admission/Discharge Admission Date: Nov 19, 2021 at 09:19 Discharge Date: Nov 24, 2021 at 17:00 LETHA Barker DO The medical record reflects the following clinical scenario: History/Risk Factors: [list no more than 2] Clinical Findings: [list no more than 2] Treatment: [list no more than 2] Question: Do you agree with the impression of the [diagnosis/condition] per [consulting physician]. Please document a response in Progress Note or Discharge Summary. 1. Yes 2. No 3. Other, with explanation of clinical findings 4. Clinically undetermined, no explanation for clinical findings. Please remember a lack of response to the above will prompt a phone page by CDI/Coding staff. In responding to this query, please exercise your independent professional judgment. The purpose of this communication is to more accurately reflect the complexity of your patients condition. The fact that a question is asked does not imply that any particular answer is desired or expected. Thank you for your timely response to this clarification. Requestors name: [ ] Phone # [ ] THIS PHYSICIAN QUERY FORM IS A PERMANENT PART OF THE MEDICAL RECORD GALINDO CHAUHAN Nov 27, 2021 00:07
== END 2021-11-24 17:00 | disposition home health service (06) | DRG 871 ==
LOC: EDUNIT# 03:45 → ER FS 03:48 → CSD 09:19 → 4TH 11-20 13:24
PROVIDERS: ADMIT Internal Medicine; ATTEND Family Medicine
DX: A41.9 Sepsis, unspecified organism (principal); J18.9 Pneumonia, unspecified organism; J96.21 Acute and chronic respiratory failure with hypoxia; E87.1 Hypo-osmolality and hyponatremia; J44.0 Chronic obstructive pulmonary disease with (acute) lower respiratory infection; J44.1 Chronic obstructive pulmonary disease with (acute) exacerbation; E87.3 Alkalosis; C78.00 Secondary malignant neoplasm of unspecified lung; R11.2 Nausea with vomiting, unspecified; E11.65 Type 2 diabetes mellitus with hyperglycemia; Z20.822 Contact with and (suspected) exposure to COVID-19; I25.10 Atherosclerotic heart disease of native coronary artery without angina pectoris; E78.00 Pure hypercholesterolemia, unspecified; I10 Essential (primary) hypertension; K21.9 Gastro-esophageal reflux disease without esophagitis; F41.9 Anxiety disorder, unspecified; I50.9 Heart failure, unspecified; E86.0 Dehydration; Z85.038 Personal history of other malignant neoplasm of large intestine; Z79.82 Long term (current) use of aspirin; Z79.899 Other long term (current) drug therapy; Z95.1 Presence of aortocoronary bypass graft; Z90.49 Acquired absence of other specified parts of digestive tract; Z86.16 Personal history of COVID-19; Z87.891 Personal history of nicotine dependence
CPT/HCPCS: 36415; 71250; 74176; 80053; 82805; 82947; 83605; 83690; 84484; 85007; 85025; 85027; 85610; 85730; 86141; 87040; 87636; 93005; 93041; 94640; 94664; 94760

== ENCOUNTER → 2022-03-02 | Outpatient (CLI) | payer MEDICARE, OTHER, MEDICAID ==
[~2022-03-02] MED LIST changes: +DOXY100C5 PO; +FLUT1AER4 IH
--- NOTE | 2022-03-02 10:17 | Diagnostic Imaging Report ---
EXAMINATION: CT abdomen and pelvis without contrast. TECHNIQUE: Multiple contiguous axial images were obtained through the abdomen and pelvis without the use of intravenous contrast. All CT scans use one or more of the following dose optimizing techniques: automated exposure control, MA and/or KvP adjustment based on patient size and exam type or iterative reconstruction. HISTORY: OBSTRUCTION COMPARISON: 11/19/2021 FINDINGS: Lung bases: Atelectasis or scarring in the lung bases. Solid organs: The liver is normal. The gallbladder is surgically absent. There is no biliary ductal dilation. Pancreas is normal. Spleen is normal. Adrenal glands are normal. There is asymmetric left renal cortical atrophy. Persistent right renal sinus cysts versus hydronephrosis. No visualized renal calculus or ureteral calculus. Bowel: There is a small hiatal hernia. No bowel obstruction. Scattered colonic diverticulosis. Surgical changes of the colon. Peritoneum: There is no intraperitoneal free fluid or free air. No suspicious lymphadenopathy. Vasculature: Calcification of the aorta without aneurysm. Musculoskeletal: No suspicious osseous lesion or compression fracture. Pelvis: The uterus and adnexa are normal. The urinary bladder is normal. IMPRESSION: 1. No acute abnormality in the abdomen or pelvis. No bowel obstruction. 2. Persistent right renal sinus cysts or hydronephrosis without visualized calculus. Dictated by: Dictated on workstation # [id number]
== END ==
LOC: RAD FS 09:37
PROVIDERS: ATTEND Urology
DX: N13.5 Crossing vessel and stricture of ureter without hydronephrosis (principal); N26.1 Atrophy of kidney (terminal)
CPT/HCPCS: 74176

== ENCOUNTER 2022-06-27 03:19 | Emergency (ER) | payer MEDICARE, OTHER, MEDICAID ==
[~2022-06-27] VITALS: Ht 68.4 cm; Wt 56.0 kg
--- NOTE | 2022-06-27 03:34 | ED GU-Female ---
General Chief Complaint: - Reproductive Stated Complaint: INCONTINENCE AFTER PROCEDURE History of Present Illness Date Seen by Provider: Jun 27, 2022 Time Seen by Provider: 03:29 Initial Comments 82-year-old female presented with 2 episodes of urinary incontinence during the night. Patient reports that she had a colonoscopy yesterday has a little bit of mild discomfort but no abdominal pain. The she went to bed and woke up and had some urinary incontinence. Then change: Management had another episode. Patient reports that she feels like she just needs to go all the time. She denies any nausea vomiting or other systemic complaints. Allergies and Home Medications Allergies Coded Allergies: clindamycin (Unverified Allergy, Severe, Anaphylaxis, 04/18/20) ondansetron (Unverified Allergy, Severe, Anaphylaxis, 04/18/20) prednisone (Unverified Adverse Reaction, Intermediate, Confusion, 04/18/20) Penicillins (Unverified Adverse Reaction, Mild, nausea and vomiting, 04/18/20) from [facility] cefixime (Unverified Adverse Reaction, Mild, nausea and vomiting, 04/18/20) from [facility] Suprax (Cefixime) cephalexin (Unverified Adverse Reaction, Mild, nausea and vomiting, 04/18/20) from [facility] esomeprazole (Unverified Adverse Reaction, Mild, Rash, 04/18/20) from [facility] guaifenesin (Unverified Adverse Reaction, Mild, nausea and vomiting, 04/18/20) from [facility] (Guaifed) hydrocodone (Unverified Adverse Reaction, Mild, rash, 04/18/20) from [facility] (Hydrocodone-acetaminophen) omeprazole (Unverified Adverse Reaction, Mild, rash, 04/18/20) from [facility] oxycodone (Unverified Adverse Reaction, Mild, rash, 04/18/20) from [facility] pantoprazole (Unverified Adverse Reaction, Mild, rash, 04/18/20) from [facility] phenylephrine (Unverified Adverse Reaction, Mild, Nausea andd vomiting, 04/18/20) from [facility] (Guaifed) sucralfate (Unverified Adverse Reaction, Mild, Itching, 04/18/20) from [facility] Sulfa (Sulfonamide Antibiotics) (Unverified Adverse Reaction, Unknown, 04/18/20) celecoxib (Unverified Adverse Reaction, Unknown, 04/18/20) hydrochlorothiazide (Unverified Adverse Reaction, Unknown, 04/18/20) from [facility] (Spironolacton-hydrochlorothiaz) ibuprofen (Unverified Adverse Reaction, Unknown, 04/18/20) from [facility] metoclopramide (Unverified Adverse Reaction, Unknown, 04/18/20) from [facility] prochlorperazine (Unverified Adverse Reaction, Unknown, 04/18/20) from [facility] spironolactone (Unverified Adverse Reaction, Unknown, 04/18/20) from [facility] (Spironolacton-hydrochlorothiaz) Patient Home Medication List Home Medication List Reviewed: Yes Alprazolam (Alprazolam) 0.5 Mg Tablet, 0.5 MG PO HS, (Reported) Entered as Reported by: SHAHANA GUTIERREZ on 12/28/19 1124 Carvedilol (Carvedilol) 6.25 Mg Tablet, 6.25 MG PO BID, (Reported) Entered as Reported by: ELIU LORENZANA on 04/18/20 1329 Cyclosporine (Restasis) 1 Each Droperette, 1 DROP OU BID, (Reported) Entered as Reported by: ADAM SINGH on 03/26/21 1249 Doxycycline Hyclate (Doxycycline Hyclate) 100 Mg Capsule, 100 MG PO BID, (Reported) Entered as Reported by: KARON RAY on 11/19/21 1603 Famotidine (Famotidine) 20 Mg Tablet, 20 MG PO DAILY, (Reported) Entered as Reported by: KARON RAY on 03/26/21 1418 Fluticasone/Salmeterol (Fluticasone-Salmeterol 113-14) 1 Each Aer.pow.ba, 1 EACH IH BID Prescribed by: RADHA MONROE on 11/24/21 1546 Insulin Detemir (Levemir Flextouch) 100 Unit/1 Ml Insuln.pen, 7 UNITS SC HS, (Reported) Entered as Reported by: KARNO RAY on 03/26/21 1418 Potassium Chloride (Potassium Chloride) 20 Meq Tab.er.prt, 20 MEQ PO DAILY, (Reported) Entered as Reported by: SHAHANA GUTIERREZ on 12/28/19 1124 Simethicone (Simethicone) 125 Mg Capsule, 125 MG PO PCHS, (Reported) Entered as Reported by: ELIU LORENZANA on 04/18/20 1329 Simvastatin (Simvastatin) 40 Mg Tablet, 40 MG PO HS, (Reported) Entered as Reported by: ELIU LORENZANA on 04/18/20 1329 Tramadol HCl (Tramadol HCl) 50 Mg Tablet, 50 MG PO Q6H PRN for PAIN-MODERATE (5- 7), (Reported) Entered as Reported by: SHAHANA GUTIERREZ on 04/10/20 1358 Review of Systems Review of Systems Constitutional: No chills, No fever Respiratory: no symptoms reported Cardiovascular: no symptoms reported Gastrointestinal: no symptoms reported Genitourinary: see HPI Musculoskeletal: no symptoms reported Skin: no symptoms reported Psychiatric/Neurological: No Symptoms Reported Endocrine: No Symptoms Reported Hematologic/Lymphatic: No Symptoms Reported Past Zfzvicm-Amkgth-Rybhvp Hx Immunizations Up To Date Tetanus Booster (TDap): Unknown First/Initial COVID19 Vaccinat: denies Seasonal Allergies Seasonal Allergies: No Past Medical History Surgeries: Yes (Colonoscopy w/polypectomy, Quad CABG, heart cath, COLON RESECTION) Bowel Surgery, CABG, Gallbladder, Orthopedic Respiratory: Yes (Hx pneumonia, chronic obstructive airway, Nocturnal O2 2L) Pneumonia Currently Using CPAP: No Currently Using BIPAP: No Cardiac: Yes (Quadruple bypass) High Cholesterol, Hypertension Neurological: No Sexually Transmitted Disease: No HIV/AIDS: No Genitourinary: Yes Kidney Stones Gastrointestinal: Yes (Hx reflux esophagitis/duodenitis, Hx tubulovillous adenoma) Gastroesophageal Reflux, Esophagitis Musculoskeletal: Yes (Hx fx shoulder) Fractures Endocrine: Yes (Hx DM on [facility]) Diabetes, Non-Insulin dep HEENT: No Loss of Vision: Denies Hearing Impairment: Bilateral Hearing Aide Cancer: Yes Lung What Type of Treatment Did You: Surgical Intervention Psychosocial: Yes Anxiety Integumentary: No Blood Disorders: No Adverse Reaction/Blood Tranf: No (N/A) Physical Exam Vital Signs Capillary Refill : Height, Weight, BMI Height: '" Weight: lbs. oz. kg; 22.85 BMI Method: General Appearance: WD/WN, no apparent distress Cardiovascular: normal peripheral pulses Respiratory: lungs clear, normal breath sounds Gastrointestinal: non tender, soft Extremities: normal range of motion, non-tender Neurologic/Psychiatric: alert, normal mood/affect, oriented x 3 Progress/Results/Core Measures Suspected Sepsis SIRS Temperature: Pulse: Respiratory Rate: Blood Pressure / Mean: Results/Orders Lab Results Laboratory Tests Test 06/27/22 03:38 Range/Units Urine Color YELLOW Urine Clarity CLEAR Urine pH 6.0 5-9 Urine Specific Hunter <=1.005 1.016-1.022 Urine Protein NEGATIVE NEGATIVE Urine Glucose (UA) NEGATIVE NEGATIVE Urine Ketones NEGATIVE NEGATIVE Urine Nitrite NEGATIVE NEGATIVE Urine Bilirubin NEGATIVE NEGATIVE Urine Urobilinogen 0.2 < = 1.0 MG/DL Urine Leukocyte Esterase 1+ H NEGATIVE Urine RBC (Auto) NEGATIVE NEGATIVE Urine RBC NONE /HPF Urine WBC 25-50 H /HPF Urine Squamous Epithelial Cells 2-5 /HPF Urine Crystals NONE /LPF Urine Bacteria FEW H /HPF Urine Casts NONE /LPF Urine Mucus NEGATIVE /LPF Urine Culture Indicated YES My Orders Orders - MERRITT,CARLA L DO Ua Culture If Indicated (06/27/22 03:35) Urine Culture (06/27/22 03:38) Vital Signs/I&O Capillary Refill : Departure Impression Primary Impression: Urinary tract infection Qualified Codes: N30.00 - Acute cystitis without hematuria Disposition: HOME, SELF-CARE Condition: Stable Departure-Patient Inst. Referrals: BILLIE GUAJARDO MD (PCP) Primary Care Physician Patient Instructions: Urinary Tract Infection, Adult ED Add. Discharge Instructions: Follow-up with your primary care provider in 3 to 4 days for recheck of your u rine All discharge instructions reviewed with patient and/or family. Voiced understanding. Scripts Nitrofurantoin Monohyd/M-Cryst (Macrobid 100 mg Capsule) 100 Mg Capsule 100 MG PO Q12H for 5 Days, #10 EA 0 Refills Prov: MERRITT,CARLA L DO 06/27/22 MERRITT,CARLA L DO Jun 27, 2022 03:34
[2022-06-27 03:45] LABS: BILIRUBIN,URINE NEGATIVE (NEGATIVE); CLARITY,URINE CLEAR; COLOR,URINE YELLOW; GLUCOSE, URINE (UA) NEGATIVE (NEGATIVE); KETONES,URINE NEGATIVE (NEGATIVE); LEUKOCYTE ESTERASE ,URINE 1+ (NEGATIVE); NITRITE,URINE NEGATIVE (NEGATIVE); PROTEIN,URINE NEGATIVE (NEGATIVE)
[2022-06-27 03:49] LABS: WBC,URINE 25-50 /HPF
[2022-06-27 03:50] LABS: BACTERIA,URINE FEW /HPF
[2022-06-27] MEDS ORDERED: NITR-65 PO (03:55)
[2022-06-27 04:05] VITALS: BP 144/53
== END 2022-06-27 04:06 | disposition home or self-care (01) ==
LOC: EDUNIT# 03:19 → ER FS 03:21
DX: N39.0 Urinary tract infection, site not specified (principal); Z87.442 Personal history of urinary calculi; Z28.310 Unvaccinated for COVID-19
CPT/HCPCS: 81000; 87088; 99283

== ENCOUNTER → 2022-07-21 | Outpatient (CLI) | payer MEDICARE, OTHER, MEDICAID ==
[~2022-07-21] MED LIST changes: +NITR-65 PO
--- NOTE | 2022-07-21 16:45 | Diagnostic Imaging Report ---
INDICATION: 82-year-old female, history of diabetes, bilateral lower extremity claudication, hyperlipidemia, coronary artery disease and hypertension.. TECHNIQUE: Segmental pulse pressures were performed of the upper and lower extremities. FINDINGS: Resting Doppler Blood Pressures RIGHT Brachial: 163 mmHg Ankle (Posterior Tibial): NC mm Hg Ankle (Dorsalis Pedis): 181 mm Hg Index: 0.99 LEFT Brachial: 183 mmHg Ankle (Posterior Tibial): 237 mm Hg Index: 1.30 Ankle (Dorsalis Pedis): 214 mm Hg Index: 1.17 IMPRESSION: Ankle-brachial indices as above. Ankle-Brachial Index Diagnosis/Interpretation <=0.90 Peripheral Arterial Disease 0.91-0.99 Borderline 1.00-1.40 Normal >1.40 Concern for noncompressible arteries, (assoc with Diabetes Mellitus) Dictated by: Dictated on workstation # [id number]
== END ==
LOC: RAD 14:52
PROVIDERS: ATTEND Allergy & Immunology
DX: R25.2 Cramp and spasm (principal); E11.9 Type 2 diabetes mellitus without complications; I10 Essential (primary) hypertension; I25.10 Atherosclerotic heart disease of native coronary artery without angina pectoris; E78.5 Hyperlipidemia, unspecified
CPT/HCPCS: 93922

== ENCOUNTER 2022-09-13 08:57 | Emergency (ER) | payer MEDICARE, OTHER, MEDICAID ==
[2022-09-13] MEDS ORDERED: NS IV 1000 ML 1,000 ML IV STA (09:17)
[2022-09-13] MEDS ORDERED: PROMETHAZINE INJ 25 MG/ML (PHENERGAN) AMP IVP STA (09:17)
[2022-09-13] MEDS ORDERED: diphenhydrAMINE 50 MG/ML INJ (BENADRYL) IVP STA (09:17)
[2022-09-13] MEDS ORDERED: ACETAMINOPHEN 325 MG TABLET PO STA (09:17)
--- NOTE | 2022-09-13 09:27 | ED General ---
General Chief Complaint: COVID19 Suspect/Confirmed Stated Complaint: VOMITING; COVID+ Source of Information: Patient, Old Records Exam Limitations: Other (hard of hearing) History of Present Illness Date Seen by Provider: Sep 13, 2022 Time Seen by Provider: 09:02 Initial Comments 82-year-old female presenting by private vehicle from home with complaints of fever, chills, cough, nausea, vomiting. She had gone to the walk-in clinic for [facility] yesterday and states that she tested positive for COVID. She did not receive any medications from the walk-in clinic. She states that she cannot ke ep anything down because she is so nauseated and keeps vomiting. She has multiple allergies to medications and reports that she has not taken anything at home to try and help with any of her symptoms because of her allergies. She presents to the emergency department this morning because of her continued vomiting and not able to keep anything down. She states that she thinks she contracted COVID from her metal base blocker's who was recently sick. Her son is also sick with COVID. She denies having any abdominal pain or pain with urination. She states that she has had a few episodes of diarrhea. She also complains of a headache but again has not taken anything for it because she reports her multiple allergies as well as a stomach ulcer have prevented her from being able to take anything. Timing/Duration: 2-3 Days Severity: Moderate Modifying Factors: worse with Eating Associated Systoms: No Chest Pain; Cough (Mild and nonproductive); No Diaphoresis; Fever/Chills (Up to 101 Fahrenheit at home), Headaches, Malaise, Nausea/Vomiting; No Rash, No Seizure, No Shortness of Air, No Syncope; Weakness (Generalized) Allergies and Home Medications Allergies Coded Allergies: clindamycin (Unverified Allergy, Severe, Anaphylaxis, 04/18/20) ondansetron (Unverified Allergy, Severe, Anaphylaxis, 04/18/20) nitrofurantoin (Verified Allergy, Unknown, 06/27/22) prednisone (Unverified Adverse Reaction, Intermediate, Confusion, 04/18/20) Penicillins (Unverified Adverse Reaction, Mild, nausea and vomiting, 04/18/20) from [facility] cefixime (Unverified Adverse Reaction, Mild, nausea and vomiting, 04/18/20) from [facility] Suprax (Cefixime) cephalexin (Unverified Adverse Reaction, Mild, nausea and vomiting, 04/18/20) from [facility] esomeprazole (Unverified Adverse Reaction, Mild, Rash, 04/18/20) from [facility] guaifenesin (Unverified Adverse Reaction, Mild, nausea and vomiting, 04/18/20) from [facility] (Guaifed) hydrocodone (Unverified Adverse Reaction, Mild, rash, 04/18/20) from [facility] (Hydrocodone-acetaminophen) omeprazole (Unverified Adverse Reaction, Mild, rash, 04/18/20) from [facility] oxycodone (Unverified Adverse Reaction, Mild, rash, 04/18/20) from [facility] pantoprazole (Unverified Adverse Reaction, Mild, rash, 04/18/20) from [facility] phenylephrine (Unverified Adverse Reaction, Mild, Nausea andd vomiting, 04/18/20) from [facility] (Guaifed) sucralfate (Unverified Adverse Reaction, Mild, Itching, 04/18/20) from [facility] Sulfa (Sulfonamide Antibiotics) (Unverified Adverse Reaction, Unknown, 04/18/20) celecoxib (Unverified Adverse Reaction, Unknown, 04/18/20) hydrochlorothiazide (Unverified Adverse Reaction, Unknown, 04/18/20) from [facility] (Spironolacton-hydrochlorothiaz) ibuprofen (Unverified Adverse Reaction, Unknown, 04/18/20) from [facility] metoclopramide (Unverified Adverse Reaction, Unknown, 04/18/20) from [facility] prochlorperazine (Unverified Adverse Reaction, Unknown, 04/18/20) from [facility] spironolactone (Unverified Adverse Reaction, Unknown, 04/18/20) from [facility] (Spironolacton-hydrochlorothiaz) Patient Home Medication List Home Medication List Reviewed: Yes Alprazolam (Alprazolam) 0.5 Mg Tablet, 0.5 MG PO HS, (Reported) Entered as Reported by: SHAHANA GUTIERREZ on 12/28/19 1124 Azithromycin (Azithromycin) 250 Mg Tablet, 250 MG PO DAILY Prescribed by: ELIN LING on 09/13/22 1133 Carvedilol (Carvedilol) 6.25 Mg Tablet, 6.25 MG PO BID, (Reported) Entered as Reported by: ELIU LORENZANA on 04/18/20 1329 Cyclosporine (Restasis) 1 Each Droperette, 1 DROP OU BID, (Reported) Entered as Reported by: ADAM SINGH on 03/26/21 1249 Doxycycline Hyclate (Doxycycline Hyclate) 100 Mg Capsule, 100 MG PO BID, (Reported) Entered as Reported by: KARON RAY on 11/19/21 1603 Famotidine (Famotidine) 20 Mg Tablet, 20 MG PO DAILY, (Reported) Entered as Reported by: KARON RAY on 03/26/21 1418 Fluticasone/Salmeterol (Fluticasone-Salmeterol 113-14) 1 Each Aer.pow.ba, 1 EACH IH BID Prescribed by: RADHA MONROE on 11/24/21 1546 Insulin Detemir (Levemir Flextouch) 100 Unit/1 Ml Insuln.pen, 7 UNITS SC HS, (Reported) Entered as Reported by: KARON RAY on 03/26/21 1418 Nitrofurantoin Monohyd/M-Cryst (Macrobid 100 mg Capsule) 100 Mg Capsule, 100 MG PO Q12H Prescribed by: CARLA MERRITT on 06/27/22 0355 Potassium Chloride (Potassium Chloride) 20 Meq Tab.er.prt, 20 MEQ PO DAILY, (Reported) Entered as Reported by: SHAHANA GUTIERREZ on 12/28/19 1124 Promethazine HCl (Promethazine Tablet) 25 Mg Tablet, 25 MG PO Q8H PRN for NAUSEA/VOMITING Prescribed by: ELIN LING on 09/13/22 1133 Simethicone (Simethicone) 125 Mg Capsule, 125 MG PO PCHS, (Reported) Entered as Reported by: ELIU LORENZANA on 04/18/20 1329 Simvastatin (Simvastatin) 40 Mg Tablet, 40 MG PO HS, (Reported) Entered as Reported by: ELIU LORENZANA on 04/18/20 1329 Tramadol HCl (Tramadol HCl) 50 Mg Tablet, 50 MG PO Q6H PRN for PAIN-MODERATE (5- 7), (Reported) Entered as Reported by: SHAHANA GUTIERREZ on 04/10/20 8670 Review of Systems Review of Systems Constitutional: see HPI EENTM: nose congestion Respiratory: cough; No hemoptysis, No stridor, No wheezing Cardiovascular: No chest pain, No palpitations Gastrointestinal: see HPI; No abdominal pain; diarrhea, nausea, vomiting Genitourinary: No dysuria Musculoskeletal: no symptoms reported Skin: No rash Psychiatric/Neurological: Anxiety, Headache; Denies Numbness, Denies Paresthesia Hematologic/Lymphatic: Denies Blood Clots Past Yirljjt-Ojbfew-Rypsqb Hx Immunizations Up To Date Tetanus Booster (TDap): Unknown First/Initial COVID19 Vaccinat: denies Second COVID19 Vaccination Topher: denies Third COVID19 Vaccination Date: denies Seasonal Allergies Seasonal Allergies: No Past Medical History Surgery/Hospitalization HX: Diabetes insulin-dependent, hypertension, anxiety, hypercholesterolemia, coronary artery disease, cholecystectomy, lung cancer with resection, kidney stones Surgeries: Yes (Colonoscopy w/polypectomy, Quad CABG, heart cath, COLON RESECTION) Bowel Surgery, CABG, Gallbladder, Orthopedic Respiratory: Yes (Hx pneumonia, chronic obstructive airway, Nocturnal O2 2L) Pneumonia Currently Using CPAP: No Currently Using BIPAP: No Cardiac: Yes (Quadruple bypass) High Cholesterol, Hypertension Neurological: No Sexually Transmitted Disease: No HIV/AIDS: No Genitourinary: Yes Kidney Stones Gastrointestinal: Yes (Hx reflux esophagitis/duodenitis, Hx tubulovillous adeno ma) Gastroesophageal Reflux, Esophagitis Musculoskeletal: Yes (Hx fx shoulder) Fractures Endocrine: Yes ([facility]) Diabetes, Non-Insulin dep HEENT: No Loss of Vision: Denies Hearing Impairment: Bilateral Hearing Aide Cancer: Yes Lung What Type of Treatment Did You: Surgical Intervention Psychosocial: Yes Anxiety Integumentary: No Blood Disorders: No Adverse Reaction/Blood Tranf: No (N/A) Physical Exam Vital Signs Vital Signs - First Documented 09/13/22 09:33 Temp 37.3 Pulse 68 Resp 16 B/P (MAP) 142/46 (78) Pulse Ox 100 O2 Delivery Room Air Capillary Refill : Height, Weight, BMI Height: '" Weight: lbs. oz. kg; 119.00 BMI Method: General Appearance: No Apparent Distress, Chronically ill HEENT: PERRL/EOMI, Pharynx Normal, Moist Mucous Membranes Neck: Full Range of Motion, Normal Inspection, Non Tender, Supple Respiratory: Chest Non Tender, No Accessory Muscle Use, No Respiratory Distress, Decreased Breath Sounds Cardiovascular: Regular Rate, Rhythm, Normal Peripheral Pulses Gastrointestinal: Normal Bowel Sounds, No Pulsatile Mass, Non Tender, Soft Rectal: Deferred Extremity: Normal Capillary Refill, Normal Inspection, Normal Range of Motion, No Calf Tenderness, No Pedal Edema Neurologic/Psychiatric: Alert, Oriented x3, marine 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 technicians II-XII Norm as Tested Skin: Normal Color, Warm/Dry Focused Exam Lactate Level 09/13/22 09:10: Lactic Acid Level 0.85 Lactic Acid Level Laboratory Tests Test 09/13/22 09:10 Lactic Acid Level 0.85 MMOL/L (0.50-2.00) Progress/Results/Core Measures Suspected Sepsis SIRS Temperature: Pulse: Respiratory Rate: Laboratory Tests 09/13/22 09:10: White Blood Count 4.9 Blood Pressure / Mean: 09/13/22 09:10: Lactic Acid Level 0.85 Laboratory Tests 09/13/22 09:10: Creatinine 1.24, Platelet Count 136, Total Bilirubin 0.7 Results/Orders Lab Results Laboratory Tests Test 09/13/22 09:10 09/13/22 10:00 Range/Units White Blood Count 4.9 4.3-11.0 10^3/uL Red Blood Count 4.26 3.80-5.11 10^6/uL Hemoglobin 11.9 11.5-16.0 g/dL Hematocrit 36 35-52 % Mean Corpuscular Volume 85 80-99 fL Mean Corpuscular Hemoglobin 28 25-34 pg Mean Corpuscular Hemoglobin Concent 33 32-36 g/dL Red Cell Distribution Width 14.2 10.0-14.5 % Platelet Count 136 130-400 10^3/uL Mean Platelet Volume 11.5 9.0-12.2 fL Immature Granulocyte % (Auto) 0 % Neutrophils (%) (Auto) 72 42-75 % Lymphocytes (%) (Auto) 13 12-44 % Monocytes (%) (Auto) 15 H 0-12 % Eosinophils (%) (Auto) 0 0-10 % Basophils (%) (Auto) 0 0-10 % Neutrophils # (Auto) 3.5 1.8-7.8 10^3/uL Lymphocytes # (Auto) 0.6 L 1.0-4.0 10^3/uL Monocytes # (Auto) 0.7 0.0-1.0 10^3/uL Eosinophils # (Auto) 0.0 0.0-0.3 10^3/uL Basophils # (Auto) 0.0 0.0-0.1 10^3/uL Immature Granulocyte # (Auto) 0.0 0.0-0.1 10^3/uL Sodium Level 132 L 135-145 MMOL/L Potassium Level 4.9 3.6-5.0 MMOL/L Chloride Level 95 L 98-107 MMOL/L Carbon Dioxide Level 23 21-32 MMOL/L Anion Gap 14 5-14 MMOL/L Blood Urea Nitrogen 23 H 7-18 MG/DL Creatinine 1.24 0.60-1.30 MG/DL Estimat Glomerular Filtration Rate 43 BUN/Creatinine Ratio 19 Glucose Level 155 H 70-105 MG/DL Lactic Acid Level 0.85 0.50-2.00 MMOL/L Calcium Level 8.8 8.5-10.1 MG/DL Corrected Calcium 9.0 8.5-10.1 MG/DL Total Bilirubin 0.7 0.1-1.0 MG/DL Aspartate Amino Transf (AST/SGOT) 21 5-34 U/L Alanine Aminotransferase (ALT/SGPT) 13 0-55 U/L Alkaline Phosphatase 90 40-136 U/L C-Reactive Protein 2.55 H <0.50 MG/DL Total Protein 6.9 6.4-8.2 GM/DL Albumin 3.8 3.2-4.5 GM/DL Lipase 39 8-78 U/L Urine Color YELLOW Urine Clarity CLEAR Urine pH 6.0 5-9 Urine Specific Amasa <=1.005 1.016-1.022 Urine Protein NEGATIVE NEGATIVE Urine Glucose (UA) NEGATIVE NEGATIVE Urine Ketones NEGATIVE NEGATIVE Urine Nitrite NEGATIVE NEGATIVE Urine Bilirubin NEGATIVE NEGATIVE Urine Urobilinogen 0.2 < = 1.0 MG/DL Urine Leukocyte Esterase 1+ H NEGATIVE Urine RBC (Auto) TRACE-I H NEGATIVE Urine RBC NONE /HPF Urine WBC NONE /HPF Urine Squamous Epithelial Cells 2-5 /HPF Urine Crystals NONE /LPF Urine Bacteria TRACE /HPF Urine Casts NONE /LPF Urine Mucus NEGATIVE /LPF Urine Culture Indicated NO My Orders Orders - ELIN LING MD Acetaminophen Tablet/Caplet (Tylenol T (09/13/22 09:17) Cbc With Automated Diff (09/13/22 09:17) Comprehensive Metabolic Panel (09/13/22 09:17) Blood Culture (09/13/22 09:17) Ua Culture If Indicated (09/13/22 09:17) Chest 1 View Ap/Pa Only (09/13/22 09:17) Ed Iv/Invasive Line Start (09/13/22 09:17) Crp Fs (09/13/22 09:17) Lactic Acid Analyzer (09/13/22 09:17) Ns Iv 1000 Ml (Sodium Chloride 0.9%) (09/13/22 09:17) Promethazine Injection (Phenergan Injec (09/13/22 09:17) Diphenhydramine Injection (Benadryl Inje (09/13/22 09:17) Lipase (09/13/22 09:42) Azithromycin Tablet (Zithromax Tablet) (09/13/22 11:18) Vital Signs/I&O 09/13/22 09/13/22 09:33 11:27 Temp 37.3 37.3 Pulse 68 72 Resp 16 16 B/P (MAP) 142/46 (78) 132/52 Pulse Ox 100 100 O2 Delivery Room Air Room Air Capillary Refill : Progress Note #1: Progress Note Obtain labs with blood cultures and lactic acid, chemistry panel, CBC , Lipase, UA. Chest xray to evaluate her lungs with her complaint of cough and Covid + with fever. Give NS 1 L IV fluid bolus for hydration. With her multiple allergies she has reported anaphlyaxis with Zofran and allergy to compazine and reglan. Will give Phenergan and Benadryl to help with nausea/vomiting. Temp is 99.3 here with oral thermometer. Will give Acetaminophen 650 mg po. Differential diagnosis includes sepsis, DKA, Covid induced n/v, dehydration, UTI, Pneumonia, gastritis, colitis, diverticulitis, pyelonephritis Progress Note #2: Time: 09:51 Progress Note CBC does not show any acute significant abnormality. My review and independent interpretation of her CXR shows chronic patchy interstitial lung markings with some atelectasis in left base more than right. Appears improved from March 2021 CXR. Patient refused Acetaminophen stating that she has stomach ulcers so she can not take the medicine. Despite attempts to educate patient about ulcer disease and acetaminophen use pt refused. Progress Note #3: Time: 10:01 Progress Note Negative elevation of lactic acid. Lipase is also not elevated. Chemistry shows mild hyponatremia of 132. BUN slightly elevated to 23 and Cr stable at 1.24. Vital signs are stable and not showing signs of hypoxia, hypotension, tachycardia. Labs are stable without acute significant abnormality. Awaiting urine to perform testing. Progress Note #4: Time: 10:14 Progress Note UA shows good hydration with specific gravity <1.005. she has 1+ LE but no bacteria, nitrite, WBC to indicate infection. CXR read by radiology as diffuse patchy infiltrates and some central pulmonary vascular congestion. She continues to maintain oxygen saturation mid to upper 90s on room air. Will try po challenge here to see if she can tolerate oral intake. Could prescribe azithromycin for her Covid with diffuse patchy infiltrates. Since she tolerated phenergan here could continue that at home if she tolerates po intake. Progress Note #5: Progress Note She is tolerating oral intake here in the ED was able to take Phenergan for nausea as well as given first dose of Zithromax for covering atypical infections of the lung. Encourage hydration at home and prescribed Phenergan and Zithromax to complete treatment. Encourage fluids and hydration. Counseled on follow-up and return precautions. At this point she did not meet criteria for admission as she has not been hypoxic, showing severe dehydration, hypertension, tachycardia. Diagnostic Imaging Diagonstic Imaging: Xray Plain Films/CT/US/NM/MRI: chest Comments NAME: [facility] REC#: [id number] PT STATUS: REG ER : 1940 PHYSICIAN: ELIN LING MD ADMIT DATE: 09/13/22/ER FS Draft Date of Exam:09/13/22 CHEST 1 VIEW AP/PA ONLY INDICATION: Cough and fever. Comparison is made with prior exam of 04/06/2021. FINDINGS: The heart size is normal. There are patchy bilateral pulmonary infiltrates. There may be some mild venous congestion. No pleural effusion or pneumothorax. Mediastinum is unremarkable. There has been a sternotomy and coronary bypass graft. IMPRESSION: Patchy bilateral pulmonary infiltrates and some likely mild central pulmonary venous congestion. Dictated on workstation # [id number] Dict: 09/13/22 0953 Trans: 09/13/22 0956 CV [id number] Interpreted by: OLIVE KAPADIA MD Electronically signed by: Reviewed: Reviewed by Me Departure Impression Primary Impression: Nausea vomiting and diarrhea Additional Impressions: COVID-19 virus infection Fever in adult Disposition: 01 HOME, SELF-CARE Condition: Stable Departure-Patient Inst. Decision time for Depature: 11:30 Referrals: BILLIE GUAJARDO MD (PCP) Primary Care Physician Patient Instructions: Nausea and Vomiting, Adult ED, COVID-19 ED Add. Discharge Instructions: Try to keep sipping on fluids to stay well hydrated. Take the Azithromycin antibiotic to help if there is any bacterial infection with your lungs beyond the viral infection from COVID. Use the Promethazine to help control your nausea and vomiting. This will make you sleepy. If not improving or having worsening problems/uncontrolled vomiting then you may need to be seen at a hospital such as [place] or [place] for admission to the hospital. All discharge instructions reviewed with patient and/or family. Voiced understanding. Scripts Promethazine HCl (Promethazine Tablet) 25 Mg Tablet 25 MG PO Q8H PRN for NAUSEA/VOMITING for 5 Days, #14 TAB 0 Refills Prov: ELIN LING MD 09/13/22 Azithromycin (Azithromycin) 250 Mg Tablet 250 MG PO DAILY for 4 Days, #4 TAB 0 Refills Prov: ELIN LING MD 09/13/22 ELIN LING MD Sep 13, 2022 09:27
[2022-09-13 09:30] LABS: BASOPHILS % (AUTO) 0 % (0-10); EOSINOPHILS % (AUTO) 0 % (0-10); HEMATOCRIT 36 % (35-52); HEMOGLOBIN 11.9 g/dL (11.5-16.0); LYMPHOCYTES # (AUTO) 0.6 10^3/uL (1.0-4.0); LYMPHOCYTES % (AUTO) 13 % (12-44); MEAN CORPUSCULAR HEMOGLOBIN 28 pg (25-34); MEAN CORPUSCULAR HGB CONC 33 g/dL (32-36); MEAN CORPUSCULAR VOLUME 85 fL (80-99); MEAN PLATELET VOLUME 11.5 fL (9.0-12.2); MONOCYTES # (AUTO) 0.7 10^3/uL (0.0-1.0); MONOCYTES % (AUTO) 15 % (0-12); NEUTROPHILS # (AUTO) 3.5 10^3/uL (1.8-7.8); NEUTROPHILS % (AUTO) 72 % (42-75); PLATELET COUNT 136 10^3/uL (130-400); WHITE BLOOD COUNT 4.9 10^3/uL (4.3-11.0)
[2022-09-13 09:56] LABS: ALBUMIN 3.8 GM/DL (3.2-4.5); BILIRUBIN,TOTAL 0.7 MG/DL (0.1-1.0); CALCIUM 8.8 MG/DL (8.5-10.1); CREATININE SERUM 1.24 MG/DL (0.60-1.30); POTASSIUM 4.9 MMOL/L (3.6-5.0); TOTAL PROTEIN 6.9 GM/DL (6.4-8.2)
--- NOTE | 2022-09-13 09:56 | Diagnostic Imaging Report ---
INDICATION: Cough and fever. Comparison is made with prior exam of 04/06/2021. FINDINGS: The heart size is normal. There are patchy bilateral pulmonary infiltrates. There may be some mild venous congestion. No pleural effusion or pneumothorax. Mediastinum is unremarkable. There has been a sternotomy and coronary bypass graft. IMPRESSION: Patchy bilateral pulmonary infiltrates and some likely mild central pulmonary venous congestion. Dictated by: Dictated on workstation # [id number]
[2022-09-13 10:05] LABS: BILIRUBIN,URINE NEGATIVE (NEGATIVE); CLARITY,URINE CLEAR; COLOR,URINE YELLOW; GLUCOSE, URINE (UA) NEGATIVE (NEGATIVE); KETONES,URINE NEGATIVE (NEGATIVE); LEUKOCYTE ESTERASE ,URINE 1+ (NEGATIVE); NITRITE,URINE NEGATIVE (NEGATIVE); PROTEIN,URINE NEGATIVE (NEGATIVE)
[2022-09-13 10:09] LABS: BACTERIA,URINE TRACE /HPF
[2022-09-13] MEDS ORDERED: AZITHROMYCIN 250 MG TAB (ZITHROMAX) PO STA (11:18)
[2022-09-13 11:27] VITALS: BP 132/52
[2022-09-13] MEDS ORDERED: AZIT250T12 PO (11:33)
[2022-09-13] MEDS ORDERED: PROM25TA14 PO (11:33)
== END 2022-09-13 11:36 | disposition home or self-care (01) ==
LOC: EDUNIT# 08:57 → ER FS 09:00
DX: U07.1 COVID-19 (principal); R50.9 Fever, unspecified; R11.2 Nausea with vomiting, unspecified; R19.7 Diarrhea, unspecified; R05.1 Acute cough; E87.1 Hypo-osmolality and hyponatremia; R79.89 Other specified abnormal findings of blood chemistry; E11.9 Type 2 diabetes mellitus without complications; Z73.0 Burn-out; Z79.4 Long term (current) use of insulin
CPT/HCPCS: 36415; 71045; 80053; 81000; 83605; 83690; 85025; 86141; 87040

== ENCOUNTER 2022-09-22 13:33 | Emergency (ER) | payer MEDICARE, OTHER, MEDICAID ==
[~2022-09-22] VITALS: Ht 160 cm; Wt 55.0 kg
[~2022-09-22 13:33] MED LIST changes: +AZIT250T12 PO; +PROM25TA14 PO
[2022-09-22 13:53] VITALS: BP 150/52
--- NOTE | 2022-09-22 14:02 | ED Fall/Injury ---
General Chief Complaint: Head/Cervical Problems Stated Complaint: FALL; HEAD/RT FOOT INJ Nursing Triage Note: Patient has presented to ER after falling when getting up from her chair at about 1300 today. She reports that she hit the back of her head on the coffee table and she has pain in her right ankle. History of Present Illness Date Seen by Provider: Sep 22, 2022 Time Seen by Provider: 13:45 Initial Comments 82-year-old female with PMH of multiple comorbidities and multiple drug allergies, is here with complaints of a fall today which occurred around 1:30 PM. Patient was about to sit in her rocking recliner and fell hitting her head on the coffee table and twisting her right ankle. Patient is complaining of a knot in the back of her head and also right ankle pain and swelling. Denies neck pain or stiffness, LOC, nausea and vomiting, blurry vision, hearing abnormalities. Patient is not on a blood thinner. Allergies and Home Medications Allergies Coded Allergies: clindamycin (Unverified Allergy, Severe, Anaphylaxis, 04/18/20) ondansetron (Unverified Allergy, Severe, Anaphylaxis, 04/18/20) nitrofurantoin (Verified Allergy, Unknown, 06/27/22) prednisone (Unverified Adverse Reaction, Intermediate, Confusion, 04/18/20) Penicillins (Unverified Adverse Reaction, Mild, nausea and vomiting, 04/18/20) from [facility] cefixime (Unverified Adverse Reaction, Mild, nausea and vomiting, 04/18/20) from [facility] Suprax (Cefixime) cephalexin (Unverified Adverse Reaction, Mild, nausea and vomiting, 04/18/20) from [facility] esomeprazole (Unverified Adverse Reaction, Mild, Rash, 04/18/20) from [facility] guaifenesin (Unverified Adverse Reaction, Mild, nausea and vomiting, 04/18/20) from [facility] (Guaifed) hydrocodone (Unverified Adverse Reaction, Mild, rash, 04/18/20) from [facility] (Hydrocodone-acetaminophen) omeprazole (Unverified Adverse Reaction, Mild, rash, 04/18/20) from [facility] oxycodone (Unverified Adverse Reaction, Mild, rash, 04/18/20) from [facility] pantoprazole (Unverified Adverse Reaction, Mild, rash, 04/18/20) from [facility] phenylephrine (Unverified Adverse Reaction, Mild, Nausea andd vomiting, 04/18/20) from [facility] (Guaifed) sucralfate (Unverified Adverse Reaction, Mild, Itching, 04/18/20) from [facility] Sulfa (Sulfonamide Antibiotics) (Unverified Adverse Reaction, Unknown, 04/18/20) celecoxib (Unverified Adverse Reaction, Unknown, 04/18/20) hydrochlorothiazide (Unverified Adverse Reaction, Unknown, 04/18/20) from [facility] (Spironolacton-hydrochlorothiaz) ibuprofen (Unverified Adverse Reaction, Unknown, 04/18/20) from [facility] metoclopramide (Unverified Adverse Reaction, Unknown, 04/18/20) from [facility] prochlorperazine (Unverified Adverse Reaction, Unknown, 04/18/20) from [facility] spironolactone (Unverified Adverse Reaction, Unknown, 04/18/20) from [facility] (Spironolacton-hydrochlorothiaz) Patient Home Medication List Home Medication List Reviewed: Yes Alprazolam (Alprazolam) 0.5 Mg Tablet, 0.5 MG PO HS, (Reported) Entered as Reported by: SHAHANA GUTIERREZ on 12/28/19 1124 Azithromycin (Azithromycin) 250 Mg Tablet, 250 MG PO DAILY Prescribed by: ELIN LING on 09/13/22 1133 Carvedilol (Carvedilol) 6.25 Mg Tablet, 6.25 MG PO BID, (Reported) Entered as Reported by: ELIU LORENZANA on 04/18/20 1329 Cyclosporine (Restasis) 1 Each Droperette, 1 DROP OU BID, (Reported) Entered as Reported by: ADAM SINGH on 03/26/21 1249 Doxycycline Hyclate (Doxycycline Hyclate) 100 Mg Capsule, 100 MG PO BID, (Reported) Entered as Reported by: KARON RAY on 11/19/21 1603 Famotidine (Famotidine) 20 Mg Tablet, 20 MG PO DAILY, (Reported) Entered as Reported by: KARON RAY on 03/26/21 1418 Fluticasone/Salmeterol (Fluticasone-Salmeterol 113-14) 1 Each Aer.pow.ba, 1 EACH IH BID Prescribed by: RADHA MONROE on 11/24/21 1546 Insulin Detemir (Levemir Flextouch) 100 Unit/1 Ml Insuln.pen, 7 UNITS SC HS, (Reported) Entered as Reported by: KARON RAY on 03/26/21 1418 Nitrofurantoin Monohyd/M-Cryst (Macrobid 100 mg Capsule) 100 Mg Capsule, 100 MG PO Q12H Prescribed by: CARLA MERRITT on 06/27/22 0355 Potassium Chloride (Potassium Chloride) 20 Meq Tab.er.prt, 20 MEQ PO DAILY, (Reported) Entered as Reported by: SHAHANA GUTIERREZ on 12/28/19 1124 Promethazine HCl (Promethazine Tablet) 25 Mg Tablet, 25 MG PO Q8H PRN for NAUSEA/VOMITING Prescribed by: ELIN LING on 09/13/22 1133 Simethicone (Simethicone) 125 Mg Capsule, 125 MG PO PCHS, (Reported) Entered as Reported by: ELIU LORENZANA on 04/18/20 1329 Simvastatin (Simvastatin) 40 Mg Tablet, 40 MG PO HS, (Reported) Entered as Reported by: ELIU LORENZANA on 04/18/20 1329 Tramadol HCl (Tramadol HCl) 50 Mg Tablet, 50 MG PO Q6H PRN for PAIN-MODERATE (5- 7), (Reported) Entered as Reported by: SHAHANA GUTIERREZ on 04/10/20 1358 Review of Systems Review of Systems Constitutional: no symptoms reported Eyes: No Symptoms Reported Ears, Nose, Mouth, Throat: no symptoms reported Respiratory: no symptoms reported Cardiovascular: no symptoms reported Gastrointestinal: no symptoms reported Genitourinary: no symptoms reported Musculoskeletal: joint pain, joint swelling Skin: no symptoms reported Psychiatric/Neurological: Other (fall) Past Xdecfhi-Ikihpo-Rwtyzj Hx Patient Social History Tobacco Use?: No Use of E-Cig and/or Vaping dev: No Substance use?: No Alcohol Use?: No Immunizations Up To Date Tetanus Booster (TDap): Unknown First/Initial COVID19 Vaccinat: denies Second COVID19 Vaccination Topher: denies Third COVID19 Vaccination Date: denies Seasonal Allergies Seasonal Allergies: No Past Medical History Surgery/Hospitalization HX: Diabetes insulin-dependent, hypertension, anxiety, hypercholesterolemia, coronary artery disease, cholecystectomy, lung cancer with resection, kidney stones Surgeries: Yes (Colonoscopy w/polypectomy, Quad CABG, heart cath, COLON RESECTION) Bowel Surgery, CABG, Gallbladder, Orthopedic Respiratory: Yes (Hx pneumonia, chronic obstructive airway, Nocturnal O2 2L) Pneumonia Currently Using CPAP: No Currently Using BIPAP: No Cardiac: Yes (Quadruple bypass) High Cholesterol, Hypertension Neurological: No Sexually Transmitted Disease: No HIV/AIDS: No Genitourinary: Yes Kidney Stones Gastrointestinal: Yes (Hx reflux esophagitis/duodenitis, Hx tubulovillous adenoma) Gastroesophageal Reflux, Esophagitis Musculoskeletal: Yes (Hx fx shoulder) Fractures Endocrine: Yes (Hx DM on [facility]) Diabetes, Non-Insulin dep HEENT: No Loss of Vision: Denies Hearing Impairment: Bilateral Hearing Aide Cancer: Yes Lung What Type of Treatment Did You: Surgical Intervention Psychosocial: Yes Anxiety Integumentary: No Blood Disorders: No Adverse Reaction/Blood Tranf: No (N/A) Physical Exam Vital Signs Vital Signs - First Documented 09/22/22 13:53 Temp 36.4 Pulse 74 Resp 18 B/P (MAP) 150/52 (84) Pulse Ox 94 O2 Delivery Room Air Capillary Refill : Height, Weight, BMI Height: '" Weight: lbs. oz. kg; 21.00 BMI Method: General Appearance: WD/WN, no apparent distress HEENT: PERRL/EOMI, normal ENT inspection, TMs normal Neck: non-tender, full range of motion, supple, normal inspection Respiratory: chest non-tender, lungs clear Extremities: normal range of motion, swelling (Right ankle shows swelling at the lateral malleolus with tenderness in the same region. Patient is unable to bear weight. ROM is unrestricted. N/V bundle intact. 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 FALL: RIGHT ANKLE STRAIN: - CT HEAD: no acute finding - XR RIGHT ANKLE: normal - Ice application advised - Follow up with PCP and Ortho in 3 to 7 days - Concussion precautions given - Pt uses a walker, ankle boot given -The patient was seen in the ED, and treated appropriately to presentation at a specific point in time. Patient is informed that there is a possibility that disease and illness can evolve and change in acuity rapidly or slowly after patient is discharged from the ER. Precautionary advice given to the patient for immediate return to ER if symptoms worsen or do not resolve, and to seek emergency care sooner rather than later. Pt also advised on the importance of PCP follow up and compliance with management and follow up plan with PCP and/or specialist, as this is part of the management plan. Pt verbally expressed understanding. Diagnostic Imaging Diagonstic Imaging: Xray, CT Plain Films/CT/US/NM/MRI: ankle, head Comments [facility], [place] NAME: [facility] RIVAS [facility] REC#: [id number] PT STATUS: REG ER : 1940 PHYSICIAN: QUAN WOLF MD ADMIT DATE: 09/22/22/ER FS Draft Date of Exam:09/22/22 CT HEAD WO PROCEDURE: CT head without contrast. TECHNIQUE: Multiple contiguous axial images were obtained through the brain without the use of intravenous contrast. Auto Exposure Controls were utilized during the CT exam to meet ALARA standards for radiation dose reduction. INDICATION: Fall and head injury. Correlation is made with prior head CT from 11/08/2021. The ventricles and sulci are appropriate for the patient's age. No sulcal effacement or midline shift is identified. No acute intra-axial or extra-axial hemorrhage is detected. Cisterns are patent. Visualized paranasal sinuses are clear. IMPRESSION: No acute intracranial process is detected. Dictated on workstation # [id number] Dict: 09/22/22 1449 Trans: 09/22/22 1451 CVB [id number] Interpreted by: LUL MUNROE MD Electronically signed by: [facility], [facility]. [place], [place] NAME: LEIF RIVAS [facility] REC#: [id number] PT STATUS: REG ER : 1940 PHYSICIAN: QUAN WOLF MD ADMIT DATE: 09/22/22/ER FS Signed Date of Exam:09/22/22 ANKLE 3 VIEW RIGHT ANKLE 3 VIEW RIGHT COMPARISON: None available. INDICATION: Right ankle injury TECHNIQUE: Non-weight bearing AP, oblique, and lateral views. FINDINGS: No fracture or traumatic malalignment. No osteochondral lesion of the talar dome. Subcutaneous reticulations and swelling are present in the lower leg. Vascular opacifications are noted. IMPRESSION: 1. No acute fracture or traumatic malalignment. Dictated by: Dictated on workstation # [id number] Dict: 09/22/22 1432 Trans: 09/22/22 1433 [facility] [id number] Interpreted by: IBLL SPEARS MD Electronically signed by: BILL SPEARS MD 09/22/22 1433 Departure Impression Primary Impression: Fall Qualified Codes: W19.XXXA - Unspecified fall, initial encounter Additional Impression: Right ankle strain Qualified Codes: S96.911A - Strain of unspecified muscle and tendon at ankle and foot level, right foot, initial encounter Disposition: 01 HOME, SELF-CARE Condition: Stable Departure-Patient Inst. Referrals: BILLIE GUAJARDO MD (PCP) Primary Care Physician BRANDIE EAGLE MD Patient Instructions: Concussion, Adult (DC), Preventing Falls in Older Adults, Walking Boot, Lower Extremity Muscle Strain, Ankle Sprain ED Add. Discharge Instructions: - Ice application advised - Follow up with PCP and Ortho in 3 to 7 days - Concussion precautions given All discharge instructions reviewed with patient and/or family. Voiced understanding. QUAN WOLF MD Sep 22, 2022 14:02
--- NOTE | 2022-09-22 14:34 | Diagnostic Imaging Report ---
ANKLE 3 VIEW RIGHT COMPARISON: None available. INDICATION: Right ankle injury TECHNIQUE: Non-weight bearing AP, oblique, and lateral views. FINDINGS: No fracture or traumatic malalignment. No osteochondral lesion of the talar dome. Subcutaneous reticulations and swelling are present in the lower leg. Vascular opacifications are noted. IMPRESSION: 1. No acute fracture or traumatic malalignment. Dictated by: Dictated on workstation # [id number]
--- NOTE | 2022-09-22 14:51 | Diagnostic Imaging Report ---
PROCEDURE: CT head without contrast. TECHNIQUE: Multiple contiguous axial images were obtained through the brain without the use of intravenous contrast. Auto Exposure Controls were utilized during the CT exam to meet ALARA standards for radiation dose reduction. INDICATION: Fall and head injury. Correlation is made with prior head CT from 11/08/2021. The ventricles and sulci are appropriate for the patient's age. No sulcal effacement or midline shift is identified. No acute intra-axial or extra-axial hemorrhage is detected. Cisterns are patent. Visualized paranasal sinuses are clear. IMPRESSION: No acute intracranial process is detected. Dictated by: Dictated on workstation # [id number]
== END 2022-09-22 15:35 | disposition home or self-care (01) ==
LOC: EDUNIT# 13:33 → ER FS 13:35
DX: S96.911A Strain of unspecified muscle and tendon at ankle and foot level, right foot, initial encounter (principal); E11.9 Type 2 diabetes mellitus without complications; Z28.310 Unvaccinated for COVID-19; W07.XXXA Fall from chair, initial encounter; W22.03XA Walked into furniture, initial encounter; X50.1XXA Overexertion from prolonged static or awkward postures, initial encounter
CPT/HCPCS: 70450; 73610; 99283; L2114

== ENCOUNTER 2022-11-14 08:20 | Emergency (ER) | payer MEDICARE, OTHER, MEDICAID ==
[~2022-11-14 08:20] MED LIST changes: +MAGN296S68 PO; -MAGN296S71 PO
[2022-11-14] MEDS ORDERED: ANTACID SUSP 30 ML UDC (MYLANTA) PO ONE (08:45)
[2022-11-14] MEDS ORDERED: LIDOCAINE 2% VISCOUS 15 ML UDC PO ONE (08:45)
--- NOTE | 2022-11-14 08:48 | ED GI ---
General Chief Complaint: Abdominal/GI Problems Stated Complaint: ALLERGIC REACTION TO ATB Nursing Triage Note: PT REPORTS SHE HAS BEEN ON DOXYCYCLINE 5 DAYS FOR A BREAST INFECTION AND SHE WOKE UP WITH ACID REFLUX THIS AM. Source of Information: Patient Exam Limitations: No Limitations History of Present Illness Date Seen by Provider: Nov 14, 2022 Time Seen by Provider: 08:30 Initial Comments Patient is an 82-year-old female presents with acid reflux-like symptoms after waking up this morning. Patient is currently on day 5 of doxycycline for treating of breast infection. She denies chest pain, shortness of breath, nausea vomiting or sweats. But does report acid indigestion radiating into her neck and throat. Symptoms are worse when lying down and partially relieved with sitting up. No medications or therapies taken prior to ED arrival. No medications or therapies taken prior to ED arrival. Patient has history of multiple allergies. Timing/Duration: 1 Hour Severity/Quality: Moderate Location: Other Radiation: Other Activities at Onset: Other Modifying Factors: Improves With Other Associated Symptoms: Other Allergies and Home Medications Allergies Coded Allergies: clindamycin (Unverified Allergy, Severe, Anaphylaxis, 04/18/20) ondansetron (Unverified Allergy, Severe, Anaphylaxis, 04/18/20) nitrofurantoin (Verified Allergy, Unknown, 06/27/22) prednisone (Unverified Adverse Reaction, Intermediate, Confusion, 04/18/20) Penicillins (Unverified Adverse Reaction, Mild, nausea and vomiting, 04/18/20) from [facility] cefixime (Unverified Adverse Reaction, Mild, nausea and vomiting, 04/18/20) from [facility] Suprax (Cefixime) cephalexin (Unverified Adverse Reaction, Mild, nausea and vomiting, 04/18/20) from [facility] esomeprazole (Unverified Adverse Reaction, Mild, Rash, 04/18/20) from [facility] guaifenesin (Unverified Adverse Reaction, Mild, nausea and vomiting, 04/18/20) from [facility] (Guaifed) hydrocodone (Unverified Adverse Reaction, Mild, rash, 04/18/20) from [facility] (Hydrocodone-acetaminophen) omeprazole (Unverified Adverse Reaction, Mild, rash, 04/18/20) from [facility] oxycodone (Unverified Adverse Reaction, Mild, rash, 04/18/20) from [facility] pantoprazole (Unverified Adverse Reaction, Mild, rash, 04/18/20) from [facility] phenylephrine (Unverified Adverse Reaction, Mild, Nausea andd vomiting, 04/18/20) from [facility] (Guaifed) sucralfate (Unverified Adverse Reaction, Mild, Itching, 04/18/20) from [facility] Sulfa (Sulfonamide Antibiotics) (Unverified Adverse Reaction, Unknown, 04/18/20) celecoxib (Unverified Adverse Reaction, Unknown, 04/18/20) hydrochlorothiazide (Unverified Adverse Reaction, Unknown, 04/18/20) from [facility] (Spironolacton-hydrochlorothiaz) ibuprofen (Unverified Adverse Reaction, Unknown, 04/18/20) from [facility] metoclopramide (Unverified Adverse Reaction, Unknown, 04/18/20) from [facility] prochlorperazine (Unverified Adverse Reaction, Unknown, 04/18/20) from [facility] spironolactone (Unverified Adverse Reaction, Unknown, 04/18/20) from [facility] (Spironolacton-hydrochlorothiaz) Patient Home Medication List Home Medication List Reviewed: Yes Alprazolam (Alprazolam) 0.5 Mg Tablet, 0.5 MG PO HS, (Reported) Entered as Reported by: SHAHANA GUTIERREZ on 12/28/19 1124 Azithromycin (Azithromycin) 250 Mg Tablet, 250 MG PO DAILY Prescribed by: ELIN LING on 09/13/22 1133 Carvedilol (Carvedilol) 6.25 Mg Tablet, 6.25 MG PO BID, (Reported) Entered as Reported by: ELIU LORENZANA on 04/18/20 1329 Cyclosporine (Restasis) 1 Each Droperette, 1 DROP OU BID, (Reported) Entered as Reported by: ADAM SINGH on 03/26/21 1249 Doxycycline Hyclate (Doxycycline Hyclate) 100 Mg Capsule, 100 MG PO BID, (Reported) Entered as Reported by: KARON RAY on 11/19/21 1603 Famotidine (Famotidine) 20 Mg Tablet, 20 MG PO DAILY, (Reported) Entered as Reported by: KARON RAY on 03/26/21 1418 Fluticasone/Salmeterol (Fluticasone-Salmeterol 113-14) 1 Each Aer.pow.ba, 1 EACH IH BID Prescribed by: RADHA MONROE on 11/24/21 1546 Insulin Detemir (Levemir Flextouch) 100 Unit/1 Ml Insuln.pen, 7 UNITS SC HS, (Reported) Entered as Reported by: KARON RAY on 03/26/21 1418 Nitrofurantoin Monohyd/M-Cryst (Macrobid 100 mg Capsule) 100 Mg Capsule, 100 MG PO Q12H Prescribed by: CARLA MERRITT on 06/27/22 0355 Potassium Chloride (Potassium Chloride) 20 Meq Tab.er.prt, 20 MEQ PO DAILY, (Reported) Entered as Reported by: SHAHANA GUTIERREZ on 12/28/19 1124 Promethazine HCl (Promethazine Tablet) 25 Mg Tablet, 25 MG PO Q8H PRN for NAUSEA/VOMITING Prescribed by: ELIN LING on 09/13/22 1133 Simethicone (Simethicone) 125 Mg Capsule, 125 MG PO PCHS, (Reported) Entered as Reported by: ELIU LORENZANA on 04/18/20 1329 Simvastatin (Simvastatin) 40 Mg Tablet, 40 MG PO HS, (Reported) Entered as Reported by: ELIU LORENZANA on 04/18/20 1329 Tramadol HCl (Tramadol HCl) 50 Mg Tablet, 50 MG PO Q6H PRN for PAIN-MODERATE (5- 7), (Reported) Entered as Reported by: SHAHANA GUTIERREZ on 04/10/20 1358 Review of Systems Review of Systems Constitutional: see HPI EENTM: See HPI Respiratory: See HPI Cardiovascular: See HPI Gastrointestinal: See HPI Genitourinary: See HPI Musculoskeletal: see HPI Past [place]-Sexxag-Hluoei Hx Patient Social History Tobacco Use?: No Use of E-Cig and/or Vaping dev: No Substance use?: No Alcohol Use?: No Pt feels they are or have been: No Immunizations Up To Date Tetanus Booster (TDap): Unknown First/Initial COVID19 Vaccinat: denies Second COVID19 Vaccination Topher: denies Third COVID19 Vaccination Date: denies Seasonal Allergies Seasonal Allergies: No Past Medical History Surgery/Hospitalization HX: Diabetes insulin-dependent, hypertension, anxiety, hypercholesterolemia, coronary artery disease, cholecystectomy, lung cancer with resection, kidney stones Surgeries: Yes (Colonoscopy w/polypectomy, Quad CABG, heart cath, COLON RESECTION) Bowel Surgery, CABG, Gallbladder, Orthopedic Respiratory: Yes (Hx pneumonia, chronic obstructive airway, Nocturnal O2 2L) Pneumonia Currently Using CPAP: No Currently Using BIPAP: No Cardiac: Yes (Quadruple bypass) High Cholesterol, Hypertension Neurological: No Sexually Transmitted Disease: No HIV/AIDS: No Genitourinary: Yes Kidney Stones Gastrointestinal: Yes (Hx reflux esophagitis/duodenitis, Hx tubulovillous adenoma) Gastroesophageal Reflux, Esophagitis Musculoskeletal: Yes (Hx fx shoulder) Fractures Endocrine: Yes (Hx DM on [facility]) Diabetes, Non-Insulin dep HEENT: No Loss of Vision: Denies Hearing Impairment: Bilateral Hearing Aide Cancer: Yes Lung What Type of Treatment Did You: Surgical Intervention Psychosocial: Yes Anxiety Integumentary: No Blood Disorders: No Adverse Reaction/Blood Tranf: No (N/A) Physical Exam Vital Signs Vital Signs - First Documented 11/14/22 08:20 Temp 36.4 Pulse 70 Resp 18 B/P (MAP) 160/56 (90) Pulse Ox 96 O2 Delivery Room Air Capillary Refill : Less Than 3 Seconds Height/Weight/BMI Height: '" Weight: lbs. oz. kg; 21.00 BMI Method: General Appearance: WD/WN, no apparent distress HEENT: PERRL/EOMI Neck: full range of motion, supple Respiratory: lungs clear Cardiovascular: normal peripheral pulses, regular rate, rhythm, no edema Focused Exam Sepsis Stage: Ruled Out Progress/Results/Core Measures Results/Orders My Orders Orders - KENDALL MURPHY DO Antacid Suspension (Mylanta Suspension (11/14/22 08:45) Lidocaine 2% Viscous 15 Ml (Xylocaine Vi (11/14/22 08:45) Vital Signs/I&O 11/14/22 08:20 Temp 36.4 Pulse 70 Resp 18 B/P (MAP) 160/56 (90) Pulse Ox 96 O2 Delivery Room Air Blood Pressure Mean: 90 Departure Communication (Admissions) Patient with acid reflux. GI cocktail given with improvement. Recommendations are continued antibiotics and supportive care with PCP follow-up. Return precautions reviewed. Patient verbalizes understanding and agreement with discharge instructions prior to departure. Impression Primary Impression: Heart burn Disposition: 01 HOME, SELF-CARE Condition: Stable Departure-Patient Inst. Decision time for Depature: 08:50 Referrals: BILLIE GUAJARDO MD (PCP/Family) Primary Care Physician Patient Instructions: Acid Reflux and GERD in Adults (DC) Add. Discharge Instructions: You were evaluated in the emergency department for acid reflux. 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 Foll ow-up with your PCP in 3 to 5 days for reevaluation if symptoms persist. Return to the ED if new or worsening symptoms. All discharge instructions reviewed with patient and/or family. Voiced understanding. KENDALL MURPHY DO Nov 14, 2022 08:48
[2022-11-14 08:53] VITALS: BP 160/56
== END 2022-11-14 08:54 | disposition home or self-care (01) ==
LOC: EDUNIT# 08:20 → ER FS 08:21
DX: R12 Heartburn (principal); N61.0 Mastitis without abscess; Z28.310 Unvaccinated for COVID-19
CPT/HCPCS: 99283

== ENCOUNTER 2023-03-19 10:44 | Emergency (ER) | payer MEDICARE, OTHER, MEDICAID ==
[~2023-03-19] VITALS: Ht 160 cm; Wt 58.5 kg
[~2023-03-19 10:44] MED LIST changes: -INSU100I29 SC; +INSU100I30 SC
--- NOTE | 2023-03-19 11:08 | ED Respiratory ---
General Chief Complaint: Respiratory Problems Stated Complaint: SOA/DIARRHEA Source: patient, family, RN/MD Exam Limitations: no limitations History of Present Illness Date Seen by Provider: Mar 19, 2023 Time Seen by Provider: 10:46 Initial Comments 82-year-old female with past medical history of chronic hypoxic respiratory failure (typically on 2 L O2 at night, sometimes in the daytime), COPD (moderately severe based on last PFT), possible ANDERSON (follows with Dr. Rolly leonard at [facility], patient wouldn't tolerate the bronch for the formal diagnosis and also wouldn't tolerate the 12-18mo long treatment), CAD s/p CABG, DM, HTN, HLD coming in as a referral from the walk-in clinic due to concerns for a lung infection. Per report by the nurse practitioner taken by me, the patient has had increasing productive cough and congestion over the past week, nonbloody diarrhea for the past 3 days, and her oxygen saturation on room air there was around 87%. She improved to the low 90s on 2 L nasal cannula which was her own portable oxygen. They reported her lungs sounded "junky" and they were concer hallie with her many allergies, so wanted to refer her here. She states that she has had a chronic lung infection for over a year, and the medications that they would give her to fix this, she states are too strong and would likely kill her. It also sounds like they want to do a bronchoscopy on her, but do not think she would tolerate it given her health. She had a swallow study done earlier this week which was "stable", she states that she is doing okay with swallowing as of right now. She denies any fever, vomiting, chest pain, abdominal pain, changes to her dyspnea, rash, or any other concerns. Allergies and Home Medications Allergies Coded Allergies: clindamycin (Unverified Allergy, Severe, Anaphylaxis, 04/18/20) ondansetron (Unverified Allergy, Severe, Anaphylaxis, 04/18/20) nitrofurantoin (Verified Allergy, Unknown, 06/27/22) prednisone (Unverified Adverse Reaction, Intermediate, Confusion, 04/18/20) Penicillins (Unverified Adverse Reaction, Mild, nausea and vomiting, 04/18/20) from [facility] cefixime (Unverified Adverse Reaction, Mild, nausea and vomiting, 04/18/20) from [facility] Epic Suprax (Cefixime) cephalexin (Unverified Adverse Reaction, Mild, nausea and vomiting, ) from [facility] esomeprazole (Unverified Adverse Reaction, Mild, Rash, 04/18/20) from [facility] guaifenesin (Unverified Adverse Reaction, Mild, nausea and vomiting, 04/18/20) from [facility] (Guaifed) hydrocodone (Unverified Adverse Reaction, Mild, rash, 04/18/20) from [facility] (Hydrocodone-acetaminophen) omeprazole (Unverified Adverse Reaction, Mild, rash, 04/18/20) from [facility] Epic oxycodone (Unverified Adverse Reaction, Mild, rash, 04/18/20) from [facility] pantoprazole (Unverified Adverse Reaction, Mild, rash, 04/18/20) from [facility] phenylephrine (Unverified Adverse Reaction, Mild, Nausea andd vomiting, 04/18/20) from [facility] (Guaifed) sucralfate (Unverified Adverse Reaction, Mild, Itching, 04/18/20) from [facility] Sulfa (Sulfonamide Antibiotics) (Unverified Adverse Reaction, Unknown, 04/18/20) celecoxib (Unverified Adverse Reaction, Unknown, 04/18/20) hydrochlorothiazide (Unverified Adverse Reaction, Unknown, 04/18/20) from [facility] (Spironolacton-hydrochlorothiaz) ibuprofen (Unverified Adverse Reaction, Unknown, 04/18/20) from [facility] metoclopramide (Unverified Adverse Reaction, Unknown, 04/18/20) from [facility] prochlorperazine (Unverified Adverse Reaction, Unknown, 04/18/20) from [facility] spironolactone (Unverified Adverse Reaction, Unknown, 04/18/20) from [facility] (Spironolacton-hydrochlorothiaz) Patient Home Medication List Home Medication List Reviewed: Yes Alprazolam (Alprazolam) 0.5 Mg Tablet, 0.5 MG PO HS, (Reported) Entered as Reported by: SHAHANA GUTIERREZ on 12/28/19 1124 Azithromycin (Azithromycin) 250 Mg Tablet, 250 MG PO DAILY Prescribed by: ELIN LING on 09/13/22 1133 Carvedilol (Carvedilol) 6.25 Mg Tablet, 6.25 MG PO BID, (Reported) Entered as Reported by: ELIU LORENZANA on 04/18/20 1329 Cyclosporine (Restasis) 1 Each Droperette, 1 DROP OU BID, (Reported) Entered as Reported by: ADAM SINGH on 03/26/21 1249 Doxycycline Hyclate (Doxycycline Hyclate) 100 Mg Capsule, 100 MG PO BID, (Reported) Entered as Reported by: KARON RAY on 11/19/21 1603 Famotidine (Famotidine) 20 Mg Tablet, 20 MG PO DAILY, (Reported) Entered as Reported by: KARON RAY on 03/26/21 1418 Fluticasone/Salmeterol (Fluticasone-Salmeterol 113-14) 1 Each Aer.pow.ba, 1 EACH IH BID Prescribed by: RADHA MONROE on 11/24/21 1546 Insulin Detemir (Levemir Flextouch) 100 Unit/1 Ml Insuln.pen, 7 UNITS SC HS, (Reported) Entered as Reported by: KARON RAY on 03/26/21 1418 Nitrofurantoin Monohyd/M-Cryst (Macrobid 100 mg Capsule) 100 Mg Capsule, 100 MG PO Q12H Prescribed by: CARLA MERRITT on 06/27/22 0355 Potassium Chloride (Potassium Chloride) 20 Meq Tab.er.prt, 20 MEQ PO DAILY, (Reported) Entered as Reported by: SHAHANA GUTIERREZ on 12/28/19 1124 Promethazine HCl (Promethazine Tablet) 25 Mg Tablet, 25 MG PO Q8H PRN for NAUSEA/VOMITING Prescribed by: ELIN LING on 09/13/22 1133 Simethicone (Simethicone) 125 Mg Capsule, 125 MG PO PCHS, (Reported) Entered as Reported by: ELIU LORENZANA on 04/18/20 1329 Simvastatin (Simvastatin) 40 Mg Tablet, 40 MG PO HS, (Reported) Entered as Reported by: ELIU LORENZANA on 04/18/20 1329 Tramadol HCl (Tramadol HCl) 50 Mg Tablet, 50 MG PO Q6H PRN for PAIN-MODERATE (5- 7), (Reported) Entered as Reported by: SHAHANA GUTIERREZ on 04/10/20 5192 Review of Systems Review of Systems Constitutional: No fever EENTM: nose congestion Respiratory: cough, short of breath Cardiovascular: No chest pain Gastrointestinal: No abdominal pain Genitourinary: no symptoms reported Musculoskeletal: no symptoms reported Skin: no symptoms reported Psychiatric/Neurological: No Symptoms Reported Hematologic/Lymphatic: No Symptoms Reported Immunological/Allergic: no symptoms reported All Other Systems Reviewed Negative Unless Noted: Yes Past Dkbqcwf-Yafjik-Hznskz Hx Patient Social History Tobacco Use?: No Immunizations Up To Date Tetanus Booster (TDap): Unknown First/Initial COVID19 Vaccinat: denies Second COVID19 Vaccination Topher: denies Third COVID19 Vaccination Date: denies Seasonal Allergies Seasonal Allergies: No Past Medical History Surgery/Hospitalization HX: Diabetes insulin-dependent, hypertension, anxiety, hypercholesterolemia, coronary artery disease, cholecystectomy, lung cancer with resection, kidney stones Surgeries: Yes (Colonoscopy w/polypectomy, Quad CABG, heart cath, COLON RESECTION) Bowel Surgery, CABG, Gallbladder, Orthopedic Respiratory: Yes (Hx pneumonia, chronic obstructive airway, Nocturnal O2 2L) Pneumonia Currently Using CPAP: No Currently Using BIPAP: No Cardiac: Yes (Quadruple bypass) High Cholesterol, Hypertension Neurological: No Sexually Transmitted Disease: No HIV/AIDS: No Genitourinary: Yes Kidney Stones Gastrointestinal: Yes (Hx reflux esophagitis/duodenitis, Hx tubulovillous adenoma) Gastroesophageal Reflux, Esophagitis Musculoskeletal: Yes (Hx fx shoulder) Fractures Endocrine: Yes (Hx DM on [facility] Epic) Diabetes, Non-Insulin dep HEENT: No Loss of Vision: Denies Hearing Impairment: Bilateral Hearing Aide Cancer: Yes Lung What Type of Treatment Did You: Surgical Intervention Psychosocial: Yes Anxiety Integumentary: No Blood Disorders: No Adverse Reaction/Blood Tranf: No (N/A) Physical Exam Capillary Refill : Height: '" Weight: lbs. oz. kg; 21.00 BMI Method: General Appearance: WD/WN, no apparent distress Eyes: Bilateral Eye Normal Inspection HEENT: PERRL/EOMI, normal ENT inspection, pharynx normal Neck: non-tender, full range of motion, supple, normal inspection Respiratory: chest non-tender, no respiratory distress, no accessory muscle use, crackles Cardiovascular: regular rate, rhythm, no edema, no murmur Gastrointestinal: normal bowel sounds, non tender, soft; No distended, No guarding, No rebound Extremities: normal range of motion, non-tender, normal inspection, no pedal edema, no calf tenderness, normal capillary refill Neurologic/Psychiatric: no motor/sensory deficits, alert, normal mood/affect, oriented x 3 Skin: normal color, warm/dry Focused Exam Lactate Level 03/19/23 11:00: Lactic Acid Level 0.75 Lactic Acid Level Laboratory Tests Test 03/19/23 11:00 Lactic Acid Level 0.75 MMOL/L (0.50-2.00) Progress/Results/Core Measures Suspected Sepsis SIRS Temperature: Pulse: Respiratory Rate: Laboratory Tests 03/19/23 11:00: White Blood Count 9.0 Blood Pressure / Mean: 03/19/23 11:00: Lactic Acid Level 0.75 Laboratory Tests 03/19/23 11:00: Creatinine 1.09, INR Comment 0.9, Platelet Count 206, Total Bilirubin 0.4 Results/Orders Lab Results Laboratory Tests Test 03/19/23 11:00 03/19/23 11:18 Range/Units White Blood Count 9.0 4.3-11.0 10^3/uL Red Blood Count 4.67 3.80-5.11 10^6/uL Hemoglobin 12.8 11.5-16.0 g/dL Hematocrit 40 35-52 % Mean Corpuscular Volume 86 80-99 fL Mean Corpuscular Hemoglobin 27 25-34 pg Mean Corpuscular Hemoglobin Concent 32 32-36 g/dL Red Cell Distribution Width 14.0 10.0-14.5 % Platelet Count 206 130-400 10^3/uL Mean Platelet Volume 10.6 9.0-12.2 fL Immature Granulocyte % (Auto) 0 % Neutrophils (%) (Auto) 75 42-75 % Lymphocytes (%) (Auto) 17 12-44 % Monocytes (%) (Auto) 7 0-12 % Eosinophils (%) (Auto) 1 0-10 % Basophils (%) (Auto) 0 0-10 % Neutrophils # (Auto) 6.7 1.8-7.8 10^3/uL Lymphocytes # (Auto) 1.5 1.0-4.0 10^3/uL Monocytes # (Auto) 0.6 0.0-1.0 10^3/uL Eosinophils # (Auto) 0.1 0.0-0.3 10^3/uL Basophils # (Auto) 0.0 0.0-0.1 10^3/uL Immature Granulocyte # (Auto) 0.0 0.0-0.1 10^3/uL Prothrombin Time 12.7 12.2-14.7 SEC INR Comment 0.9 0.8-1.4 Activated Partial Thromboplast Time 27 24-35 SEC Sodium Level 135 135-145 MMOL/L Potassium Level 4.4 3.6-5.0 MMOL/L Chloride Level 100 98-107 MMOL/L Carbon Dioxide Level 27 21-32 MMOL/L Anion Gap 8 5-14 MMOL/L Blood Urea Nitrogen 27 H 7-18 MG/DL Creatinine 1.09 0.60-1.30 MG/DL Estimat Glomerular Filtration Rate 50 BUN/Creatinine Ratio 25 Glucose Level 164 H 70-105 MG/DL Lactic Acid Level 0.75 0.50-2.00 MMOL/L Calcium Level 9.7 8.5-10.1 MG/DL Corrected Calcium 9.7 8.5-10.1 MG/DL Total Bilirubin 0.4 0.1-1.0 MG/DL Aspartate Amino Transf (AST/SGOT) 19 5-34 U/L Alanine Aminotransferase (ALT/SGPT) 15 0-55 U/L Alkaline Phosphatase 107 40-136 U/L Troponin I < 0.30 <0.30 NG/ML C-Reactive Protein 0.75 H <0.50 MG/DL Pro-B-Type Natriuretic Peptide 192.0 <450.0 PG/ML Total Protein 7.2 6.4-8.2 GM/DL Albumin 4.0 3.2-4.5 GM/DL My Orders Orders - KIRSTY VILLAR MD Cbc With Automated Diff (03/19/23 10:59) Comprehensive Metabolic Panel (03/19/23 10:59) Blood Culture (03/19/23 10:59) Sputum Culture (03/19/23 10:59) Protime With Inr (03/19/23 10:59) Partial Thromboplastin Time (03/19/23 10:59) Chest 1 View Ap/Pa Only (03/19/23 10:59) Ed Iv/Invasive Line Start (03/19/23 10:59) Ekg Tracing (03/19/23 10:59) Vital Signs Adult Sepsis Patie Q15M (03/19/23 10:59) O2 (03/19/23 10:59) Remove Rings In Anticipation O (03/19/23 10:59) Lactic Acid Analyzer (03/19/23 10:59) Probnp Fs (03/19/23 10:59) Crp Fs (03/19/23 10:59) Troponin I Fs (03/19/23 10:59) Levofloxacin 750 Mg/150 Ml Iv (Levaquin (03/19/23 11:15) Legionella Pneum Antigen Urine (03/19/23 11:01) Vital Signs/I&O Capillary Refill : Progress Note : Progress Note 82-year-old female with above history coming in as referral from walk-in clinic due to dyspnea and worsening cough. ABCs were intact and vitals were stable on presentation. The patient is 92% on room air which is appropriate for her. She is really unclear of her history, I personally contacted Dr. Lofton's office, her gear technician at [facility]. I discussed the case with her nurse and then had the results faxed over from her recent exam and CT scan. Her CT scan from November 2022 showed some progression of airspace disease in the right upper lobe which way represents subsegmental atelectasis but otherwise no interval changes of her multifocal nodules and opacities. She has a repeat CT follow-up scheduled soon. Per his note, she has moderate to severe COPD based on her most recent PFT, bronchiectasis, and likely ANDERSON infection. In his note he documents that she would not tolerate a bronchoscopy for formal diagnosis. He also notes she would not tolerate the antibiotic regimen for 12 to 18 months. They are opting to monitor it at that time and to just continue oxygen as needed. The symptoms sound very consistent with what is going on today. She does have a more productive cough and did improve with a DuoNeb treatment at the walk-in clinic. Chest x-ray here with no significant interval changes other than the left lung nodule. I discussed this with the patient, given she follows with a gear technician and has a repeat CT scan soon, she has appropriate follow-up regarding this. She could have a background infection that is missed on chest x-ray given her chronic linear opacities. She was given IV Levaquin here. She does not have any clinical signs of a DVT on my exam. She is not tachycardic, and her oxygen saturation is where she normally would be at baseline. I think is highly unlikely given her history that she has a PE at this time. Symptoms likely related to infection. I will send her home with a course of Levaquin. Given the lack of wheezing today, I will hold off on stero ids, they also may make her current infection worse. I will recommend she use her inhalers at home. An IV was placed and labs otherwise significant for normal white blood cell count, slightly elevated CRP, but essentially unremarkable, negative troponin, normal creatinine, unremarkable electrolytes. Patient otherwise well-appearing and tolerating p.o. I believe she stable for discharge with outpatient follow- up with her gear technician. She was sent home with strict return precautions. ECG Initial ECG Impression Date: Mar 19, 2023 Initial ECG Impression Time: 11:09 Initial ECG Rate: 61 Initial ECG Rhythm: Normal Sinus Comment Narrow QRS, borderline left axis deviation, no significant ST changes or T wave abnormalities Diagnostic Imaging Diagonstic Imaging: Xray (chest) Comments NAME: LEIF RIVAS [facility] REC#: [id number] PT STATUS: REG ER : 1940 PHYSICIAN: KIRSTY VILLAR MD ADMIT DATE: 03/19/23/ER FS Draft Date of Exam:03/19/23 CHEST 1 VIEW AP/PA ONLY INDICATION: Shortness of air. COMPARISON: 09/13/2022 FINDINGS: Single frontal radiographic view of the chest was obtained and demonstrates normal cardiac silhouette and pulmonary vasculature. Sternotomy wires are noted. Background chronic appearing interstitial changes in lungs are also present. There is new 2 cm spiculated appearing nodular opacity within the left midlung. There is blunting of both lateral costophrenic angles, which may be on the basis of pleural scarring or effusions. No pneumothorax is seen. IMPRESSION: 1. New suspicious spiculated nodular opacity in the left midlung. Correlation with CT is advised and could be performed on a nonemergent basis. 2. Background chronic interstitial changes. 3. Small bibasilar effusions versus pleural thickening. Dictated on workstation # [id number] Dict: 03/19/23 1112 Trans: 03/19/23 1117 [facility] [id number] Interpreted by: SHAYNA SANTIAGO MD Electronically signed by: Departure Impression Primary Impression: COPD exacerbation Additional Impression: Respiratory failure Qualified Codes: J96.11 - Chronic respiratory failure with hypoxia Disposition: HOME, SELF-CARE Condition: Stable Departure-Patient Inst. Decision time for Depature: 11:55 Referrals: OFELIA ANGULO APRN (PCP/Family) Primary Care Physician Patient Instructions: COPD Exacerbation, Adult ED Add. Discharge Instructions: We called Dr. 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 I confirmed that the antibiotic she would need to be on would be too strong and he likely would not tolerate them. We will put you on a different antibiotic that you are not allergic to for the next week to see if that improves your symptoms at all. You will take your next dose tomorrow of the antibiotics. Otherwise please follow back up with Dr. Lofton. Wear your oxygen even in the daytime if you are feeling short of breath, but especially if you are walking around. Your chest x-ray showed potentially a new nodule in the left lung. You should have a follow-up CT scan already scheduled in March with Dr. Lofton. Scripts Levofloxacin (Levofloxacin) 750 Mg Tablet 750 MG PO DAILY for 7 Days, #7 TAB Prov: KIRSTY VILLAR MD 03/19/23 Work/School Note: Family Work Note Patient Received Medical Care In the [facility] Department On: Mar 19, 2023 Patient Will Be Able to Return to Work/School On: Mar 20, 2023 KIRSTY VILLAR MD Mar 19, 2023 11:08
[2023-03-19 11:10] LABS: BASOPHILS % (AUTO) 0 % (0-10); EOSINOPHILS # (AUTO) 0.1 10^3/uL (0.0-0.3); EOSINOPHILS % (AUTO) 1 % (0-10); HEMATOCRIT 40 % (35-52); HEMOGLOBIN 12.8 g/dL (11.5-16.0); LYMPHOCYTES # (AUTO) 1.5 10^3/uL (1.0-4.0); LYMPHOCYTES % (AUTO) 17 % (12-44); MEAN CORPUSCULAR HEMOGLOBIN 27 pg (25-34); MEAN CORPUSCULAR HGB CONC 32 g/dL (32-36); MEAN CORPUSCULAR VOLUME 86 fL (80-99); MEAN PLATELET VOLUME 10.6 fL (9.0-12.2); MONOCYTES # (AUTO) 0.6 10^3/uL (0.0-1.0); MONOCYTES % (AUTO) 7 % (0-12); NEUTROPHILS # (AUTO) 6.7 10^3/uL (1.8-7.8); NEUTROPHILS % (AUTO) 75 % (42-75); PLATELET COUNT 206 10^3/uL (130-400)
--- NOTE | 2023-03-19 11:17 | Diagnostic Imaging Report ---
INDICATION: Shortness of air. COMPARISON: 09/13/2022 FINDINGS: Single frontal radiographic view of the chest was obtained and demonstrates normal cardiac silhouette and pulmonary vasculature. Sternotomy wires are noted. Background chronic appearing interstitial changes in lungs are also present. There is new 2 cm spiculated appearing nodular opacity within the left midlung. There is blunting of both lateral costophrenic angles, which may be on the basis of pleural scarring or effusions. No pneumothorax is seen. IMPRESSION: 1. New suspicious spiculated nodular opacity in the left midlung. Correlation with CT is advised and could be performed on a nonemergent basis. 2. Background chronic interstitial changes. 3. Small bibasilar effusions versus pleural thickening. Dictated by: Dictated on workstation # [id number]
[2023-03-19 11:40] LABS: INR 0.9 (0.8-1.4); PROTHROMBIN TIME PATIENT 12.7 SEC (12.2-14.7)
[2023-03-19 11:41] LABS: ALKALINE PHOSPHATASE 107 U/L (40-136); BILIRUBIN,TOTAL 0.4 MG/DL (0.1-1.0); BUN/CREATININE RATIO 25; CALCIUM 9.7 MG/DL (8.5-10.1); CARBON DIOXIDE 27 MMOL/L (21-32); CHLORIDE 100 MMOL/L (98-107); CREATININE SERUM 1.09 MG/DL (0.60-1.30); GFR ESTIMATED 50; GLUCOSE 164 MG/DL (70-105); POTASSIUM 4.4 MMOL/L (3.6-5.0); SODIUM 135 MMOL/L (135-145)
[2023-03-19 11:42] LABS: ALANINE AMINOTRANSFERASE 15 U/L (0-55); TOTAL PROTEIN 7.2 GM/DL (6.4-8.2)
[2023-03-19] MEDS ORDERED: LEVO750T PO (11:53)
[2023-03-19 13:28] VITALS: BP 168/121
== END 2023-03-19 13:28 | disposition home or self-care (01) ==
LOC: EDUNIT# 10:44 → ER FS 10:47
DX: J44.1 Chronic obstructive pulmonary disease with (acute) exacerbation (principal); J96.91 Respiratory failure, unspecified with hypoxia; Z99.81 Dependence on supplemental oxygen; Z88.1 Allergy status to other antibiotic agents
CPT/HCPCS: 36415; 71045; 80053; 83605; 83880; 84484; 85025; 85610; 85730; 86141; 87040; 87449; 93005

== ENCOUNTER 2023-04-08 23:41 | Emergency (ER) | payer MEDICARE, OTHER, MEDICAID ==
[~2023-04-08] VITALS: Ht 160 cm; Wt 57.0 kg
[~2023-04-08 23:41] MED LIST changes: +LEVO750T PO
--- NOTE | 2023-04-09 00:21 | ED General ---
General Chief Complaint: Fever-Adult/Adol Stated Complaint: BLOOD SUGAR HIGH Nursing Triage Note: Pt presents with c/o fever after bronchoscopy procedure this morning. Pt states she was told to monitor her vital signs after the procedure and if she had a fever to go to the ER. Pt states she had a temperature of 101.5 at home. Pt is on home O2 at 2lpm. She had the bronchoscopy due to food coming back up into her esophagus. She otherwise states she's feeling okay. Source of Information: Patient Exam Limitations: No Limitations History of Present Illness Date Seen by Provider: April 09, 2023 Time Seen by Provider: 23:45 Initial Comments This 82-year-old woman is brought to the emergency room by her son with initial complaint of high blood sugar. However, after being roomed it was discovered the complaint is actually elevated temperature. Patient has a history of COPD and a possible chronic pulmonary infection. MAC or ANDERSON (mycobacterium avium) has been suspected. Aspiration from GERD and Hunter's esophagus has also been suspected. Patient underwent bronchoscopy by her shearing machine feeder, Dr. Lofton earlier today. She was instructed to contact her provider or seek care if she developed fever. Patient was checking her vital signs as a matter of routine tonight and discovered temperatures of 100.5 and 101.1. She does not feel ill. She reported some dizziness earlier in the evening but feels at baseline now. She denies any chills or sweats. Cough is chronic in nature. She is afebrile on arrival with a temperature of 99.1. She has recently been on Levaquin for pneumonia. Vital signs are stable on her usual 2 L nasal cannula. History is provided by chart review, patient, and her son Allergies and Home Medications Allergies Coded Allergies: clindamycin (Unverified Allergy, Severe, Anaphylaxis, 04/18/20) ondansetron (Unverified Allergy, Severe, Anaphylaxis, 04/18/20) famotidine (Verified Allergy, Unknown, 04/09/23) furosemide (Verified Allergy, Unknown, 04/09/23) Renal problem montelukast (Verified Allergy, Unknown, 04/09/23) nifedipine (Verified Allergy, Unknown, 04/09/23) nitrofurantoin (Verified Allergy, Unknown, 06/27/22) shellfish derived (Verified Allergy, Unknown, 04/09/23) prednisone (Unverified Adverse Reaction, Intermediate, Confusion, 04/18/20) Penicillins (Unverified Adverse Reaction, Mild, nausea and vomiting, 04/18/20) from [facility] cefixime (Unverified Adverse Reaction, Mild, nausea and vomiting, 04/18/20) from [facility] Suprax (Cefixime) cephalexin (Unverified Adverse Reaction, Mild, nausea and vomiting, 04/18/20) from [facility] esomeprazole (Unverified Adverse Reaction, Mild, Rash, 04/18/20) from [facility] guaifenesin (Unverified Adverse Reaction, Mild, nausea and vomiting, ) from [facility] (Guaifed) hydrocodone (Unverified Adverse Reaction, Mild, rash, 04/18/20) from [facility] (Hydrocodone-acetaminophen) omeprazole (Unverified Adverse Reaction, Mild, rash, 04/18/20) from [facility] oxycodone (Unverified Adverse Reaction, Mild, rash, 04/18/20) from [facility] pantoprazole (Unverified Adverse Reaction, Mild, rash, 04/18/20) from [facility] phenylephrine (Unverified Adverse Reaction, Mild, Nausea andd vomiting, 04/18/20) from [facility] (Guaifed) sucralfate (Unverified Adverse Reaction, Mild, Itching, 04/18/20) from [facility] Sulfa (Sulfonamide Antibiotics) (Unverified Adverse Reaction, Unknown, 04/18/20) celecoxib (Unverified Adverse Reaction, Unknown, 04/18/20) hydrochlorothiazide (Unverified Adverse Reaction, Unknown, 04/18/20) from [facility] (Spironolacton-hydrochlorothiaz) ibuprofen (Unverified Adverse Reaction, Unknown, 04/18/20) from [facility] metoclopramide (Unverified Adverse Reaction, Unknown, 04/18/20) from [facility] prochlorperazine (Unverified Adverse Reaction, Unknown, 04/18/20) from [facility] spironolactone (Unverified Adverse Reaction, Unknown, 04/18/20) from [facility] (Spironolacton-hydrochlorothiaz) Patient Home Medication List Home Medication List Reviewed: Yes Alprazolam (Alprazolam) 0.5 Mg Tablet, 0.5 MG PO HS, (Reported) Entered as Reported by: SHAHANA GUTIERREZ on 12/28/19 1124 Azithromycin (Azithromycin) 250 Mg Tablet, 250 MG PO DAILY Prescribed by: ELIN LING on 09/13/22 1133 Carvedilol (Carvedilol) 6.25 Mg Tablet, 6.25 MG PO BID, (Reported) Entered as Reported by: ELIU LORENZANA on 04/18/20 1329 Cyclosporine (Restasis) 1 Each Droperette, 1 DROP OU BID, (Reported) Entered as Reported by: ADAM SINGH on 03/26/21 1249 Doxycycline Hyclate (Doxycycline Hyclate) 100 Mg Capsule, 100 MG PO BID, (Reported) Entered as Reported by: KARON RAY on 11/19/21 1603 Famotidine (Famotidine) 20 Mg Tablet, 20 MG PO DAILY, (Reported) Entered as Reported by: KARON RAY on 03/26/21 1418 Fluticasone/Salmeterol (Fluticasone-Salmeterol 113-14) 1 Each Aer.pow.ba, 1 EACH IH BID Prescribed by: RADHA MONROE on 11/24/21 1546 Insulin Detemir (Levemir Flextouch) 100 Unit/1 Ml Insuln.pen, 7 UNITS SC HS, (Reported) Entered as Reported by: KARON RAY on 03/26/21 1418 Levofloxacin (Levofloxacin) 750 Mg Tablet, 750 MG PO DAILY Prescribed by: KIRSTY VILLAR on 03/19/23 1153 Nitrofurantoin Monohyd/M-Cryst (Macrobid 100 mg Capsule) 100 Mg Capsule, 100 MG PO Q12H Prescribed by: CARLA MERRITT on 06/27/22 0355 Potassium Chloride (Potassium Chloride) 20 Meq Tab.er.prt, 20 MEQ PO DAILY, (Reported) Entered as Reported by: SHAHANA GUTIERREZ on 12/28/19 1124 Promethazine HCl (Promethazine Tablet) 25 Mg Tablet, 25 MG PO Q8H PRN for NAUSEA/VOMITING Prescribed by: ELIN LING on 09/13/22 1133 Simethicone (Simethicone) 125 Mg Capsule, 125 MG PO PCHS, (Reported) Entered as Reported by: ELIU LORENZANA on 04/18/20 1329 Simvastatin (Simvastatin) 40 Mg Tablet, 40 MG PO HS, (Reported) Entered as Reported by: ELIU LORENZANA on 04/18/20 1329 Tramadol HCl (Tramadol HCl) 50 Mg Tablet, 50 MG PO Q6H PRN for PAIN-MODERATE (5- 7), (Reported) Entered as Reported by: SHAHANA GUTIERREZ on 04/10/20 1358 Review of Systems Review of Systems Constitutional: see HPI EENTM: no symptoms reported Respiratory: see HPI Cardiovascular: no symptoms reported Gastrointestinal: no symptoms reported : No Musculoskeletal: no symptoms reported Skin: no symptoms reported Psychiatric/Neurological: No Symptoms Reported Hematologic/Lymphatic: No Symptoms Reported Past Nffixje-Llyybr-Qrwvky Hx Patient Social History Tobacco Use?: No Use of E-Cig and/or Vaping dev: No Substance use?: No Alcohol Use?: No Immunizations Up To Date Tetanus Booster (TDap): Unknown First/Initial COVID19 Vaccinat: denies Second COVID19 Vaccination Topher: denies Third COVID19 Vaccination Date: denies Seasonal Allergies Seasonal Allergies: No Past Medical History Surgery/Hospitalization HX: Diabetes insulin-dependent, hypertension, anxiety, hypercholesterolemia,coronary artery disease, cholecystectomy, lung cancer with resection,kidney stones, COPD, chronic lung infection (? mycobacterium avium) Surgeries: Yes (Colonoscopy w/polypectomy, Quad CABG, heart cath, COLON RESECTION, bronchos) Bowel Surgery, CABG, Gallbladder, Orthopedic Respiratory: Yes (Hx pneumonia, chronic obstructive airway, Nocturnal O2 2L) Pneumonia Currently Using CPAP: No Currently Using BIPAP: No Cardiac: Yes (Quadruple bypass) High Cholesterol, Hypertension Neurological: No Sexually Transmitted Disease: No HIV/AIDS: No Genitourinary: Yes Kidney Stones Gastrointestinal: Yes (Hx reflux esophagitis/duodenitis, Hx tubulovillous adenoma) Gastroesophageal Reflux, Hunter's Esophagus, Polyps, Esophagitis Musculoskeletal: Yes (Hx fx shoulder) Fractures Endocrine: Yes (Hx DM on [facility]) Diabetes, Non-Insulin dep HEENT: No Loss of Vision: Denies Hearing Impairment: Bilateral Hearing Aide Cancer: Yes Lung, Colon What Type of Treatment Did You: Surgical Intervention Psychosocial: Yes Anxiety Integumentary: No Blood Disorders: No Adverse Reaction/Blood Tranf: No (N/A) Physical Exam Vital Signs Vital Signs - First Documented 04/08/23 23:48 Temp 37.2 Pulse 81 Resp 20 B/P (MAP) 156/105 (122) Pulse Ox 94 O2 Delivery Nasal Cannula O2 Flow Rate 2.00 Capillary Refill : Less Than 3 Seconds Height, Weight, BMI Height: '" Weight: lbs. oz. kg; 22.00 BMI Method: General Appearance: No Apparent Distress, WD/WN HEENT: PERRL/EOMI, Normal ENT Inspection Neck: Normal Inspection Respiratory: Crackles (Bibasilar), Decreased Breath Sounds Cardiovascular: Regular Rate, Rhythm, No Edema, No Murmur Extremity: Normal Inspection, No Pedal Edema Neurologic/Psychiatric: Alert, Oriented x3, No Motor/Sensory Deficits, Normal Mood/Affect Skin: Normal Color, Warm/Dry Progress/Results/Core Measures Suspected Sepsis SIRS Temperature: Pulse: 81 Respiratory Rate: 20 Blood Pressure 156 /105 Mean: 122 Results/Orders Vital Signs/I&O 04/08/23 04/08/23 04/09/23 23:48 23:58 00:30 Temp 37.2 37.2 Pulse 81 78 Resp 20 16 B/P (MAP) 156/105 (122) 130/64 Pulse Ox 94 95 O2 Delivery Nasal Cannula Nasal Cannula Nasal Cannula O2 Flow Rate 2.00 2.00 2.00 Capillary Refill : Less Than 3 Seconds Blood Pressure Mean: 122 Progress Note : Progress Note There were no acute significant abnormalities in vital signs or exam. Temperature was repeated about 20 minutes after initial evaluation. Temperature was still 99.1. Because patient is having no acute symptoms of infectious illness and she is presently afebrile without antipyretics, no further work-up is being pursued. See discharge instructions for further discussion. Departure Impression Primary Impression: COPD (chronic obstructive pulmonary disease) Qualified Codes: J44.9 - Chronic obstructive pulmonary disease, unspecified Additional Impression: Elevated temperature Disposition: 01 HOME, SELF-CARE Condition: Improved Departure-Patient Inst. Decision time for Depature: 00:19 Referrals: OFELIA ANGULO APRN (PCP/Family) Primary Care Physician Patient Instructions: How to Take a Temperature Add. Discharge Instructions: If you are feeling ill with cough, chills, increased shortness of breath, or other symptoms, you may check your temperature. If your temperature is greater then 100 degrees, check it again in 30 minutes. Be sure not to eat or drink anything and that period of time. If your temperature is still greater than 100 degrees after 30 minutes, return to the ER or contact your doctor. Return to the ER if you have other significant worsening symptoms such as progressive shortness of breath, vomiting, etc. Continue your breathing treatments and medications as previously directed. All discharge instructions reviewed with patient and/or family. Voiced understanding. Copy Copies To 1: [facility]/HELIO BEAR MD April 09, 2023 00:21
[2023-04-09 00:30] VITALS: BP 130/64
== END 2023-04-09 00:37 | disposition home or self-care (01) ==
LOC: EDUNIT# 23:41 → ER FS 23:42
DX: J44.9 Chronic obstructive pulmonary disease, unspecified (principal); Z87.01 Personal history of pneumonia (recurrent); Z28.310 Unvaccinated for COVID-19; Z99.81 Dependence on supplemental oxygen
CPT/HCPCS: 99282

== ENCOUNTER 2023-06-07 18:44 | Emergency (ER) | payer MEDICARE, OTHER, MEDICAID ==
--- NOTE | 2023-06-07 19:00 | ED Dyspnea ---
General Stated Complaint: SOB,NUMBNESS/TINGLING Source of Information: Patient History of Present Illness Date Seen by Provider: Jun 07, 2023 Time Seen by Provider: 18:44 Initial Comments 83-year-old female presenting with complaints of increased shortness of breath since last night. She states that ever since she had bronchoscopy done in February she has not felt well and not had any "Pep". She had discussed this with her nurse practitioner on Wednesday and they recommended that she check [facility]. She has an appointment to see her reconnaissance man on Wednesday of this week so she was waiting to talk to him. She denies having any chest pain or headache. She had some chills prior to coming here to the emergency department. She has had increased shortness of breath but denies increased cough and no sputum. She is chronically on home oxygen and arrives using her portable machine. She denies any pain or burning with urination. She told her family that she was feeling numb all over so they decided to bring her to the emergency department. Timing/Duration: 24 Hours Severity: Moderate Activities at Onset: None Prior Episodes/Possible Cause: No Prior Episodes Associated Symptoms: Loss of Appetite, Weakness Allergies and Home Medications Allergies Coded Allergies: clindamycin (Unverified Allergy, Severe, Anaphylaxis, 04/18/20) ondansetron (Unverified Allergy, Severe, Anaphylaxis, 04/18/20) famotidine (Verified Allergy, Unknown, 04/09/23) furosemide (Verified Allergy, Unknown, 04/09/23) Renal problem montelukast (Verified Allergy, Unknown, 04/09/23) nifedipine (Verified Allergy, Unknown, 04/09/23) nitrofurantoin (Verified Allergy, Unknown, 06/27/22) shellfish derived (Verified Allergy, Unknown, 04/09/23) prednisone (Unverified Adverse Reaction, Intermediate, Confusion, 04/18/20) Penicillins (Unverified Adverse Reaction, Mild, nausea and vomiting, 04/18/20) from [facility] cefixime (Unverified Adverse Reaction, Mild, nausea and vomiting, 04/18/20) from [facility] Suprax (Cefixime) cephalexin (Unverified Adverse Reaction, Mild, nausea and vomiting, 04/18/20) from [facility] esomeprazole (Unverified Adverse Reaction, Mild, Rash, 04/18/20) from [facility] guaifenesin (Unverified Adverse Reaction, Mild, nausea and vomiting, 04/18/20) from [facility] (Guaifed) hydrocodone (Unverified Adverse Reaction, Mild, rash, 04/18/20) from [facility] (Hydrocodone-acetaminophen) omeprazole (Unverified Adverse Reaction, Mild, rash, 04/18/20) from [facility] oxycodone (Unverified Adverse Reaction, Mild, rash, 04/18/20) from [facility] pantoprazole (Unverified Adverse Reaction, Mild, rash, 04/18/20) from [facility] phenylephrine (Unverified Adverse Reaction, Mild, Nausea andd vomiting, 04/18/20) from [facility] (Guaifed) sucralfate (Unverified Adverse Reaction, Mild, Itching, 04/18/20) from [facility] Sulfa (Sulfonamide Antibiotics) (Unverified Adverse Reaction, Unknown, 04/18/20) celecoxib (Unverified Adverse Reaction, Unknown, 04/18/20) hydrochlorothiazide (Unverified Adverse Reaction, Unknown, 04/18/20) from [facility] (Spironolacton-hydrochlorothiaz) ibuprofen (Unverified Adverse Reaction, Unknown, 04/18/20) from [facility] metoclopramide (Unverified Adverse Reaction, Unknown, 04/18/20) from [facility] prochlorperazine (Unverified Adverse Reaction, Unknown, 04/18/20) from [facility] spironolactone (Unverified Adverse Reaction, Unknown, 04/18/20) from [facility] (Spironolacton-hydrochlorothiaz) Patient Home Medication List Home Medication List Reviewed: Yes Alprazolam (Alprazolam) 0.5 Mg Tablet, 0.5 MG PO HS, (Reported) Entered as Reported by: SHAHANA GUTIERREZ on 12/28/19 1124 Azithromycin (Azithromycin) 250 Mg Tablet, 250 MG PO DAILY Prescribed by: ELIN LING on 09/13/22 1133 Carvedilol (Carvedilol) 6.25 Mg Tablet, 6.25 MG PO BID, (Reported) Entered as Reported by: ELIU LORENZANA on 04/18/20 1329 Cyclosporine (Restasis) 1 Each Droperette, 1 DROP OU BID, (Reported) Entered as Reported by: ADAM SINGH on 03/26/21 1249 Doxycycline Hyclate (Doxycycline Hyclate) 100 Mg Capsule, 100 MG PO BID, (Repo rted) Entered as Reported by: KARON RAY on 11/19/21 1603 Famotidine (Famotidine) 20 Mg Tablet, 20 MG PO DAILY, (Reported) Entered as Reported by: KARON RAY on 03/26/21 1418 Fluticasone/Salmeterol (Fluticasone-Salmeterol 113-14) 1 Each Aer.pow.ba, 1 EACH IH BID Prescribed by: RADHA MONROE on 11/24/21 1546 Insulin Detemir (Levemir Flextouch) 100 Unit/1 Ml Insuln.pen, 7 UNITS SC HS, (Reported) Entered as Reported by: KARON RAY on 03/26/21 1418 Levofloxacin (Levofloxacin) 750 Mg Tablet, 750 MG PO DAILY Prescribed by: KIRSTY VILLAR on 03/19/23 1153 Nitrofurantoin Monohyd/M-Cryst (Macrobid 100 mg Capsule) 100 Mg Capsule, 100 MG PO Q12H Prescribed by: CARLA MERRITT on 06/27/22 0355 Potassium Chloride (Potassium Chloride) 20 Meq Tab.er.prt, 20 MEQ PO DAILY, (Reported) Entered as Reported by: SHAHANA GUTIERREZ on 12/28/19 1124 Promethazine HCl (Promethazine Tablet) 25 Mg Tablet, 25 MG PO Q8H PRN for NAUSEA/VOMITING Prescribed by: ELIN LING on 09/13/22 1133 Simethicone (Simethicone) 125 Mg Capsule, 125 MG PO PCHS, (Reported) Entered as Reported by: ELIU LORENZANA on 04/18/20 1329 Simvastatin (Simvastatin) 40 Mg Tablet, 40 MG PO HS, (Reported) Entered as Reported by: ELIU LORENZANA on 04/18/20 1329 Tramadol HCl (Tramadol HCl) 50 Mg Tablet, 50 MG PO Q6H PRN for PAIN-MODERATE (5- 7), (Reported) Entered as Reported by: SHAHANA GUTIERREZ on 04/10/20 6636 Review of Systems Review of Systems Constitutional: see HPI; No fever EENTM: No epistaxis, No nose congestion Respiratory: cough; No hemoptysis; short of breath; No stridor Cardiovascular: No chest pain, No edema Gastrointestinal: No nausea, No vomiting Genitourinary: No dysuria Musculoskeletal: no symptoms reported Skin: No rash Psychiatric/Neurological: See HPI, Anxiety; Denies Headache; Numbness (reports feeling numb all over) Past Idhewzt-Hysuii-Mvlqxi Hx Patient Social History Tobacco Use?: No Immunizations Up To Date Tetanus Booster (TDap): Unknown First/Initial COVID19 Vaccinat: denies Second COVID19 Vaccination Topher: denies Third COVID19 Vaccination Date: denies Seasonal Allergies Seasonal Allergies: No Past Medical History Surgery/Hospitalization HX: Diabetes insulin-dependent, hypertension, anxiety, hypercholesterolemia,coronary artery disease, cholecystectomy, lung cancer with resection,kidney stones, COPD, chronic lung infection (? mycobacterium avium) Surgeries: Yes (Colonoscopy w/polypectomy, Quad CABG, heart cath, COLON RESECTION, bronchos) Bowel Surgery, CABG, Gallbladder, Orthopedic Respiratory: Yes (Hx pneumonia, chronic obstructive airway, Nocturnal O2 2L) Pneumonia Currently Using CPAP: No Currently Using BIPAP: No Cardiac: Yes (Quadruple bypass) High Cholesterol, Hypertension Neurological: No Sexually Transmitted Disease: No HIV/AIDS: No Genitourinary: Yes Kidney Stones Gastrointestinal: Yes (Hx reflux esophagitis/duodenitis, Hx tubulovillous adenoma) Gastroesophageal Reflux, Hunter's Esophagus, Polyps, Esophagitis Musculoskeletal: Yes (Hx fx shoulder) Fractures Endocrine: Yes (Hx DM on [facility]) Diabetes, Non-Insulin dep HEENT: No Loss of Vision: Denies Hearing Impairment: Bilateral Hearing Aide Cancer: Yes Lung, Colon What Type of Treatment Did You: Surgical Intervention Psychosocial: Yes Anxiety Integumentary: No Blood Disorders: No Adverse Reaction/Blood Tranf: No (N/A) Physical Exam Vital Signs Vital Signs - First Documented 06/07/23 18:46 Temp 36.9 Pulse 80 Resp 20 B/P (MAP) 144/80 (101) Pulse Ox 98 O2 Delivery Nasal Cannula O2 Flow Rate 2.00 Capillary Refill : Height, Weight, BMI Height: '" Weight: lbs. oz. kg; 22.00 BMI Method: General Appearance: No Apparent Distress, Chronically ill HEENT: PERRL/EOMI, Pharynx Normal, Moist Mucous Membranes Respiratory: Chest Non Tender, No Accessory Muscle Use, No Respiratory Distress, Decreased Breath Sounds Cardiovascular: Regular Rate, Rhythm, Normal Peripheral Pulses, Extra Beats Gastrointestinal: Normal Bowel Sounds, No Pulsatile Mass, Non Tender, Soft Rectal: Deferred Extremity: Normal Capillary Refill, Normal Inspection, No Calf Tenderness, No Pedal Edema Neurologic/Psychiatric: Alert, Oriented x3 Skin: Warm/Dry Progress/Results/Core Measures Results/Orders Lab Results Laboratory Tests Test 06/07/23 19:20 Range/Units White Blood Count 6.7 4.3-11.0 10^3/uL Red Blood Count 4.25 3.80-5.11 10^6/uL Hemoglobin 11.6 11.5-16.0 g/dL Hematocrit 36 35-52 % Mean Corpuscular Volume 86 80-99 fL Mean Corpuscular Hemoglobin 27 25-34 pg Mean Corpuscular Hemoglobin Concent 32 32-36 g/dL Red Cell Distribution Width 14.4 10.0-14.5 % Platelet Count 175 130-400 10^3/uL Mean Platelet Volume 11.0 9.0-12.2 fL Immature Granulocyte % (Auto) 0 % Neutrophils (%) (Auto) 63 42-75 % Lymphocytes (%) (Auto) 24 12-44 % Monocytes (%) (Auto) 10 0-12 % Eosinophils (%) (Auto) 2 0-10 % Basophils (%) (Auto) 1 0-10 % Neutrophils # (Auto) 4.3 1.8-7.8 10^3/uL Lymphocytes # (Auto) 1.6 1.0-4.0 10^3/uL Monocytes # (Auto) 0.7 0.0-1.0 10^3/uL Eosinophils # (Auto) 0.1 0.0-0.3 10^3/uL Basophils # (Auto) 0.0 0.0-0.1 10^3/uL Immature Granulocyte # (Auto) 0.0 0.0-0.1 10^3/uL Sodium Level 140 135-145 MMOL/L Potassium Level 4.5 3.6-5.0 MMOL/L Chloride Level 107 98-107 MMOL/L Carbon Dioxide Level 23 21-32 MMOL/L Anion Gap 10 5-14 MMOL/L Blood Urea Nitrogen 24 H 7-18 MG/DL Creatinine 1.20 0.60-1.30 MG/DL Estimat Glomerular Filtration Rate 44 BUN/Creatinine Ratio 20 Glucose Level 192 H 70-105 MG/DL Calcium Level 9.0 8.5-10.1 MG/DL Corrected Calcium 9.3 8.5-10.1 MG/DL Total Bilirubin 0.2 0.1-1.0 MG/DL Aspartate Amino Transf (AST/SGOT) 18 5-34 U/L Alanine Aminotransferase (ALT/SGPT) 15 0-55 U/L Alkaline Phosphatase 135 40-136 U/L Troponin I < 0.30 <0.30 NG/ML C-Reactive Protein < 0.30 <0.50 MG/DL Pro-B-Type Natriuretic Peptide 354.8 <450.0 PG/ML Total Protein 6.6 6.4-8.2 GM/DL Albumin 3.6 3.2-4.5 GM/DL My Orders Orders - ELIN LING MD Cbc With Automated Diff (06/07/23 18:55) Comprehensive Metabolic Panel (06/07/23 18:55) Chest 1 View Ap/Pa Only (06/07/23 18:55) Ekg Tracing (06/07/23 18:55) O2 (06/07/23 18:55) Ed Iv/Invasive Line Start (06/07/23 18:55) Monitor-Rhythm Ecg Trace Only (06/07/23 18:55) Crp Fs (06/07/23 18:55) Probnp Fs (06/07/23 18:55) Troponin I Fs (06/07/23 18:55) Ct Head Wo (06/07/23 18:55) Antacid Suspension (Mylanta Suspension (06/07/23 19:43) Ns Iv 500 Ml (Sodium Chloride 0.9%) (06/07/23 20:19) Vital Signs/I&O 06/07/23 06/07/23 18:46 21:03 Temp 36.9 Pulse 80 56 Resp 20 18 B/P (MAP) 144/80 (101) 163/51 Pulse Ox 98 100 O2 Delivery Nasal Cannula Nasal Cannula O2 Flow Rate 2.00 2.00 2.00 Progress Progress Note #1: Progress Note Potential diagnosis of pneumonia, stroke, anxiety, electrolyte imbalance, worsening COPD, UTI. Obtain peripheral IV access and send labs for complete blood count, comprehensive metabolic profile, troponin, proBNP, urinalysis, single view chest x-ray to look for signs of pathology or pneumonia. CT scan of the head without IV contrast to look for acute intracranial abnormality to be causing her symptoms. Changed from her portable oxygen to the wall supply oxygen and she is 98% on her home 2 Lpm. She is afebrile and has normal blood pressure of 144/80. Heart rate is in the 80s and sinus rhythm on her cardiac telemetry. order electrocardiogram to further evaluate her heart rate and rhythm and look for ischemia or arrhythmia. Progress Note #2: Time: 19:18 Progress Note On my personal review and interpretation of her 1 view chest x-ray she did not have any acute infiltrate or effusion. Overall appears similar to March 19. In my opinion her CT scan of the head without IV contrast did not show any acute bleeding, mass, ischemia. 1931 I reviewed the radiologist report on CT head without IV contrast and they did not appreciate any acute process. Progress Note #3: Time: 20:16 Progress Note On my review of her blood work her complete blood count showed white blood cell count was normal at 6.7. She had some chronic anemia with a hemoglobin of 11.6 it was stable from previous labs. Her comprehensive metabolic profile did not show any acute significant electrolyte abnormalities but she did have mild elevation of her BUN and creatinine. Today her creatinine was 1.2. She had a negative troponin at less than 0.3 and CRP was also negative at less than 0.3. Her proBNP was not elevated to indicate acute heart failure. I ordered a 500 mL bag of normal saline for hydration as it looks like she might have some dehydration. She reports that she had provided a urine specimen on Wednesday and on Wednesday to the [facility] clinic and they had told her that it had looked fine and she did not need any antibiotics. She had tried use the bathroom here but was not able to provide a specimen. I encouraged her to stay hydrated. She now mentions that she has been going out and watering her plants because her family member that usually does that had hurt his back. She is not supposed to be lifting more than 5 pounds with the water jug weighs more than 5 pounds. She has been getting some arm pain from having to carry the water. She does split it up throughout the day and tries to do early in the morning before gets hot and then later in the evening after close down, but this is still activity that she is not used to doing and with the increased heat outside it does not take much to get dehydrated. Reassured patient that we did not see any signs of acute stroke, heart attack, new heart damage, pneumonia, infection. Patient reports she has an appointment to see her reconnaissance man Dr. Brink this upcoming Wednesday and requests copies of her labs to show him. Initial ECG Impression Date: Jun 07, 2023 Initial ECG Impression Time: 19:05 Initial ECG Rate: 63 Initial ECG Rhythm: Normal Sinus Initial ECG Comparisson: Unchanged (similar to 19 March 2023) Comment On my personal interpretation and review her electrocardiogram shows a sinus rhythm with occasional supraventricular premature complexes at a rate of 63 bpm. NM interval [address] elevation. QT interval 364 ms with a QTc interval 372 ms. Overall appears similar to tracing from 19 March 2023. Diagnostic Imaging Diagonstic Imaging: Xray Plain Films/CT/US/NM/MRI: chest Comments NAME: [facility] REC#: [id number] PT STATUS: REG ER : 1940 PHYSICIAN: ELIN LING MD ADMIT DATE: 06/07/23/ER FS Draft Date of Exam:06/07/23 CHEST 1 VIEW AP/PA ONLY INDICATION: Shortness of breath COMPARISONS: 03/19/2023. FINDINGS: Single view of the chest shows the cardiac contour to be normal. There is senescent chest with extensive chronic parenchymal changes. No consolidations are seen. There is a previous median sternotomy for a CABG. Overall no adverse interval change. The previously demonstrated left lung nodule measuring 2 cm has diminished in size and now measures approximately 12 mm. Additional subtle nodular densities are scattered in both lungs. Soft tissues and bony thorax are unchanged. Left shoulder arthropathy is not clearly imaged on this study. IMPRESSION: 1. Extensive chronic parenchymal changes. There is again noted scattered nodular type densities in both lungs. The dominant reference nodule in the left lung has diminished in size, previously measuring 2 cm, now measures 12 mm. 2. No acute consolidations. 3. There is a previous median sternotomy for CABG. Dictated on workstation # [id number] Dict: 06/07/231925 Trans: 06/07/231931 CONSTANTIN Interpreted by: PABLO KNOWLES MD Electronically signed by: Reviewed: Reviewed by Me (I reviewed radiologist report at 1934 and they did not appreciate any acute process) Diagonstic Imaging: CT Plain Films/CT/US/NM/MRI: head Comments [facility] [place] NAME: [facility] REC#: [id number] PT STATUS: REG ER : 1940 PHYSICIAN: ELIN LING MD ADMIT DATE: 06/07/23/ER FS Draft Date of Exam:06/07/23 CT HEAD WO PROCEDURE: CT head without contrast. TECHNIQUE: Multiple contiguous axial images were obtained through the brain without the use of intravenous contrast. Auto Exposure Controls were utilized during the CT exam to meet ALARA standards for radiation dose reduction. INDICATION: 83-year-old female, episodes of feeling numb all over starting last night CORRELATION: 09/22/2022 FINDINGS: There are diffuse atrophic changes with prominence of the ventricles and sulci. No abnormal areas of decreased attenuation to suggest edema from ischemia. There is no midline shift or mass effect. No evidence for acute intracranial hemorrhage or abnormal extra-axial fluid collection. Bony calvarium is intact. Paranasal sinuses are clear. Mastoid air cells also appear clear. IMPRESSION: 1. No CT evidence for acute intracranial abnormality. 2. Age-related atrophic changes. Dictated on workstation # [id number] Dict: 06/07/231924 Trans: 06/07/231926 DO Interpreted by: NOHEMI ANNE DO Electronically signed by: Reviewed: Reviewed by Me (I reviewed radiologist report at 1931) Departure Impression Primary Impression: Increasing shortness of breath Additional Impressions: Numbness and tingling Dehydration Disposition: 01 HOME, SELF-CARE Condition: Stable Departure-Patient Inst. Decision time for Depature: 21:02 Referrals: OFELIA ANGULO APRN (PCP/Family) Primary Care Physician Patient Instructions: Shortness of Breath, Adult ED, Dehydration, Adult ED Add. Discharge Instructions: Try to drink more water and stay well hydrated. Your CT scan of the head, Chest xray and labs had all looked stable other than mild dehydration. Check back with your regular providers about the rest of your symptoms. ELIN LING MD Jun 07, 2023 19:00
[2023-06-07 19:27] LABS: BASOPHILS % (AUTO) 1 % (0-10); EOSINOPHILS # (AUTO) 0.1 10^3/uL (0.0-0.3); EOSINOPHILS % (AUTO) 2 % (0-10); HEMATOCRIT 36 % (35-52); HEMOGLOBIN 11.6 g/dL (11.5-16.0); LYMPHOCYTES # (AUTO) 1.6 10^3/uL (1.0-4.0); LYMPHOCYTES % (AUTO) 24 % (12-44); MEAN CORPUSCULAR HEMOGLOBIN 27 pg (25-34); MEAN CORPUSCULAR HGB CONC 32 g/dL (32-36); MEAN CORPUSCULAR VOLUME 86 fL (80-99); MONOCYTES # (AUTO) 0.7 10^3/uL (0.0-1.0); MONOCYTES % (AUTO) 10 % (0-12); NEUTROPHILS # (AUTO) 4.3 10^3/uL (1.8-7.8); NEUTROPHILS % (AUTO) 63 % (42-75); PLATELET COUNT 175 10^3/uL (130-400); WHITE BLOOD COUNT 6.7 10^3/uL (4.3-11.0)
--- NOTE | 2023-06-07 19:27 | Diagnostic Imaging Report ---
PROCEDURE: CT head without contrast. TECHNIQUE: Multiple contiguous axial images were obtained through the brain without the use of intravenous contrast. Auto Exposure Controls were utilized during the CT exam to meet ALARA standards for radiation dose reduction. INDICATION: 83-year-old female, episodes of feeling numb all over starting last night CORRELATION: 09/22/2022 FINDINGS: There are diffuse atrophic changes with prominence of the ventricles and sulci. No abnormal areas of decreased attenuation to suggest edema from ischemia. There is no midline shift or mass effect. No evidence for acute intracranial hemorrhage or abnormal extra-axial fluid collection. Bony calvarium is intact. Paranasal sinuses are clear. Mastoid air cells also appear clear. IMPRESSION: 1. No CT evidence for acute intracranial abnormality. 2. Age-related atrophic changes. Dictated by: Dictated on workstation # [id number]
--- NOTE | 2023-06-07 19:32 | Diagnostic Imaging Report ---
INDICATION: Shortness of breath COMPARISONS: 03/19/2023. FINDINGS: Single view of the chest shows the cardiac contour to be normal. There is senescent chest with extensive chronic parenchymal changes. No consolidations are seen. There is a previous median sternotomy for a CABG. Overall no adverse interval change. The previously demonstrated left lung nodule measuring 2 cm has diminished in size and now measures approximately 12 mm. Additional subtle nodular densities are scattered in both lungs. Soft tissues and bony thorax are unchanged. Left shoulder arthropathy is not clearly imaged on this study. IMPRESSION: 1. Extensive chronic parenchymal changes. There is again noted scattered nodular type densities in both lungs. The dominant reference nodule in the left lung has diminished in size, previously measuring 2 cm, now measures 12 mm. 2. No acute consolidations. 3. There is a previous median sternotomy for CABG. Dictated by: Dictated on workstation # [id number]
[2023-06-07] MEDS ORDERED: ANTACID SUSP 30 ML UDC (MYLANTA) PO STA (19:43)
[2023-06-07 19:59] LABS: CARBON DIOXIDE 23 MMOL/L (21-32); CHLORIDE 107 MMOL/L (98-107); POTASSIUM 4.5 MMOL/L (3.6-5.0); SODIUM 140 MMOL/L (135-145)
[2023-06-07 20:00] LABS: ALANINE AMINOTRANSFERASE 15 U/L (0-55); ALBUMIN 3.6 GM/DL (3.2-4.5); ALKALINE PHOSPHATASE 135 U/L (40-136); BILIRUBIN,TOTAL 0.2 MG/DL (0.1-1.0); BUN/CREATININE RATIO 20; GFR ESTIMATED 44; GLUCOSE 192 MG/DL (70-105); TOTAL PROTEIN 6.6 GM/DL (6.4-8.2)
[2023-06-07] MEDS ORDERED: NS IV 500 ML 500 ML IV STA (20:19)
[2023-06-07 21:03] VITALS: BP 163/51
== END 2023-06-07 21:05 | disposition home or self-care (01) ==
LOC: EDUNIT# 18:44 → ER FS 18:45
DX: R06.02 Shortness of breath (principal); R20.0 Anesthesia of skin; R20.2 Paresthesia of skin; E86.0 Dehydration; J44.9 Chronic obstructive pulmonary disease, unspecified; D64.9 Anemia, unspecified; I49.1 Atrial premature depolarization; R79.89 Other specified abnormal findings of blood chemistry; Z99.81 Dependence on supplemental oxygen; Z98.890 Other specified postprocedural states; Z28.310 Unvaccinated for COVID-19
CPT/HCPCS: 36415; 70450; 71045; 80053; 83880; 84484; 85025; 86141; 93005; 93041